=== PATIENT | female | born 1960 | race Caucasian/White ===

== ENCOUNTER → 2017-10-29 | Outpatient (CLI) | payer MEDICARE, BC ==
--- NOTE | 2017-10-31 07:51 | MM ---
Reason for exam: screening (asymptomatic). Last mammogram was performed 1 year and 2 months ago. History: Patient is postmenopausal and is nulliparous. Benign MG stereo VAD BX RT of the right breast, August 03, 2015. Took hormonal contraceptives for 15 years beginning at age 18. Physical Findings: A clinical breast exam by your physician is recommended on an annual basis and results should be correlated with mammographic findings. MG Screening Mammo w CAD Bilateral CC and MLO view(s) were taken. Prior study comparison: August 24, 2016, bilateral MG diagnostic mammo w CAD SAVI. February 08, 2016, right breast MG 3d diag mammo w/cad RT. December 16, 2014, bilateral MG diagnostic mammo w CAD SAVI. There are scattered fibroglandular densities. Previous mammotome biopsy within the right breast. Pacemaker left chest. No significant changes when compared with prior studies. ASSESSMENT: Benign, BI-RAD 2 RECOMMENDATION: Routine screening mammogram of both breasts in 1 year.
== END | disposition home or self-care (01) ==
LOC: RADMAMWWP 11:26
PROVIDERS: ATTEND Family Medicine
DX: Z12.31 Encounter for screening mammogram for malignant neoplasm of breast (principal)
CPT/HCPCS: 77067

== ENCOUNTER → 2018-11-18 | Outpatient (CLI) | payer MEDICARE, BC ==
--- NOTE | 2018-11-18 12:36 | MM ---
Reason for exam: screening (asymptomatic). Last mammogram was performed 1 year and 1 month ago. History: Patient is postmenopausal and is nulliparous. Benign MG stereo VAD BX RT of the right breast, August 03, 2015. Took hormonal contraceptives for 15 years beginning at age 18. Physical Findings: A clinical breast exam by your physician is recommended on an annual basis and results should be correlated with mammographic findings. MG 3D Screening Mammo W/Cad Bilateral CC and MLO view(s) were taken. Prior study comparison: October 29, 2017, bilateral MG screening mammo w CAD. August 24, 2016, bilateral MG diagnostic mammo w CAD SAVI. The breast tissue is heterogeneously dense. This may lower the sensitivity of mammography. No suspicious abnormality. Left cardiac device present obscuring the left axilla. No significant changes when compared with prior studies. ASSESSMENT: Negative, BI-RAD 1 RECOMMENDATION: Routine screening mammogram of both breasts in 1 year.
== END | disposition home or self-care (01) ==
LOC: RADMAMWWP 10:46
PROVIDERS: ATTEND Family Medicine
DX: Z12.39 Encounter for other screening for malignant neoplasm of breast (principal)
CPT/HCPCS: 77063; 77067

== ENCOUNTER → 2019-03-16 | Day surgery (SDC) | payer MEDICARE, BC ==
[2019-03-10 11:56] VITALS: BMI 22.8
[~2019-03-16] MED LIST: IOPAMIDOL-250 50ML BTL IV ONE; SODIUM CHLORIDE 0.9% 1,000 ML IV SCH
[2019-03-16 10:19] LABS: Glucose,Whole Blood 86 mg/dL (75-99)
[2019-03-16 10:23] VITALS: BP 167/73; PULSE 77; RESP 16; TEMP 97.7
[2019-03-16 10:43] LABS: INR 2.2 (<1.2); Prothrombin Time 21.3 sec (9.0-12.0)
--- NOTE | 2019-03-16 14:07 | P.PCN ---
Preoperative Diagnosis: Diagnosis Congenital heart disease with cardiomyopathy Status post ICD implant Device approaching ELIDA Noise in the atrial lead Patient brought in for cinefluoroscopy of the leads Cinefluoroscopy release performed. Patient has a right atrial lead without any fractures or breaks that are obvious on cinefluoroscopy ICD lead in the RV apex without any fractures or breaks A pacing lead, please-sense lead screwed in the RV septum, without any fractures or breaks Left upper extremity venogram was performed 50 mL of dye was injected in the left upper extremity. Left subclavian and axillary venous system along with a central veins were patent Plan Once patient reaches ELIDA, during generator change consideration should be given to a new atrial lead implant However the patient already has 3 leads in situ
== END ==
LOC: CATHEP 09:45
PROVIDERS: ATTEND Internal Medicine Clinical Cardiac Electrophysiology
DX: Z45.02 Encounter for adjustment and management of automatic implantable cardiac defibrillator (principal); I47.2 Ventricular tachycardia; Q21.3 Tetralogy of Fallot; I48.0 Paroxysmal atrial fibrillation; I42.9 Cardiomyopathy, unspecified; E11.9 Type 2 diabetes mellitus without complications; I11.0 Hypertensive heart disease with heart failure; I50.22 Chronic systolic (congestive) heart failure; B18.2 Chronic viral hepatitis C; Z79.01 Long term (current) use of anticoagulants; Z79.84 Long term (current) use of oral hypoglycemic drugs; Z79.82 Long term (current) use of aspirin; Z79.899 Other long term (current) drug therapy; Z88.5 Allergy status to narcotic agent; Z88.0 Allergy status to penicillin; Z88.2 Allergy status to sulfonamides
CPT/HCPCS: 36005; 75820; 76000; 85610; Q9966

== ENCOUNTER 2019-04-07 09:09 | Day surgery (SDC) | payer MEDICARE, BC ==
[2019-04-06 08:44] VITALS: BMI 23.1
[~2019-04-07 09:09] MED LIST changes: +CLINDAMYCIN 600 MG in SODIUM CHLORIDE 0.9% IRRIGATIO 250 ML IRRIGATION ONE; -IOPAMIDOL-250 50ML BTL IV ONE; +LACTATED RINGERS 1,000 ML IV SCH; +MIDAZOLAM 2 MG/2 ML VIAL IV PRN; -SODIUM CHLORIDE 0.9% 1,000 ML IV SCH; +fentaNYL (PF) 50 MCG/ML 2 ML AMP IV PRN
[2019-04-07 10:00] LABS: Glucose,Whole Blood 95 mg/dL (75-99)
[2019-04-07 10:38] LABS: INR 2.2 (<1.2); Prothrombin Time 21.2 sec (9.0-12.0)
[2019-04-07] MEDS ORDERED: ePHEDrine SULFATE/0.9% NACL/PF 50 MG/5 ML SYRINGE IV ONE (11:18)
[2019-04-07] MEDS ORDERED: SODIUM CHLORIDE 0.9% 1,000 ML IV ONE (11:18)
[2019-04-07] MEDS ORDERED: MIDAZOLAM 2 MG/2 ML VIAL ONE (11:18)
[2019-04-07] MEDS ORDERED: fentaNYL (PF) 50 MCG/ML 2 ML AMP ONE (11:18)
[2019-04-07] MEDS ORDERED: PROPOFOL 10 MG/ML 20 ML VIAL IV ONE (11:18)
[2019-04-07] MEDS: CLINDAMYCIN 900 MG in DEXTROSE 5% IN WATER 50 ML IVPB ONE ×4 (11:46→11:51)
[2019-04-07] MEDS ORDERED: LIDOCAINE 1% INJ 10MG/ML (20 ML MDV) SQ ONE ×2 (11:57→12:11)
[2019-04-07] MEDS ORDERED: IOPAMIDOL-250 50ML BTL IV ONE (12:58)
[2019-04-07] MEDS ORDERED: ACETAMINOPHEN IV (For NPO) 1,000 MG in EMPTY BAG 1 BAG IVPB ONE (13:35)
[2019-04-07] MEDS ORDERED: ACETAMINOPHEN TAB 325 MG TAB PO PRN (13:35)
--- NOTE | 2019-04-07 14:15 | P.PCN ---
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 The area was coated with 4 cm length of silicone glue No definite break in the insulation was visualized
[2019-04-07] MEDS: SODIUM CHLORIDE 0.9% 1,000 ML IV SCH ×2 (14:18→23:39)
[2019-04-07 16:03] LABS: Glucose,Whole Blood 73 mg/dL (75-99)
[2019-04-07] MEDS: CARVEDILOL 3.125 MG TAB PO SCH (17:52)
[2019-04-07] MEDS: CLINDAMYCIN 900 MG in DEXTROSE 5% IN WATER 50 ML IVPB SCH ×4 (17:52→23:38)
[2019-04-07] MEDS ORDERED: WARFARIN 2.5 MG TAB PO SCH (18:00)
--- NOTE | 2019-04-07 19:32 | PCN ---
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 At that time, she had ventricular tachycardia. Over the years, there was noise in the ICD lead and therefore the pacing and sensing RV lead was placed in the septum several years back. Now, she has developed noise in the atrial lead with elevated atrial thresholds. She paces predominantly the atrium but she also paces in the right ventricle about 60% of the time. From a heart failure standpoint, she is quite stable and has not had any heart failure exacerbations. DESCRIPTION OF PROCEDURE: The patient was brought to the EP lab in a fasting state. Written informed consent was obtained prior to the procedure. The left shoulder area was prepped and draped as per protocol. 1% lidocaine was used for local anesthesia. An incision was made parallel to the previous incision over the device and carried down to the level of the generator. The generator was anchored. Dual-chamber ICD generator was explanted. A partial capsulectomy was performed. The leads were freed from the scar tissue and inspected. The atrial lead insulation was definitely discolored, but I could not see any obvious gap or break in the insulation. Later this was repaired. Please see separate dictation. Axillary vein access was obtained successfully and angioplasty wire was placed in the innominate vein. However, this angioplasty wire had difficulty getting into the SVC and the right atrium, but ultimately we were able to place a micropuncture sheath in the subclavian vein and via this an Advantage wire was placed and passed across the innominate vein, SVC, right atrium into the IVC. Following that, serial dilations were performed but the dilator, even the smallest dilator, could not pass across the distal innominate vein into the SVC. Therefore, a sheath was placed over the wire and venography was performed. Please see separate full dictation. 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 Therefore, no atrial lead was implanted. The new generator was implanted. This was a dual-chamber Medtronic ICD Evera MRI XT serial number [id number]. Then thereafter the atrial lead repair was performed since this was the problem lead. The leads were connected to the new generator and placed in subfascial pocket and the wound was closed in 3 layers and dressed per protocol. This was a long procedure on account of the extensive scar tissue in the pocket from prior generator changes, difficulty crossing the innominate vein with dilators, innominate vein venography, repair of the atrial lead. The patient tolerated the procedure well without any acute complications. JEROME / JERON: [id number] /
[2019-04-07 20:53] LABS: Glucose,Whole Blood 124 mg/dL (75-99)
[2019-04-07] MEDS ORDERED: LOSARTAN 25 MG TAB PO SCH (21:00)
[2019-04-07] MEDS ORDERED: LATANOPROST 0.005% OPHTH DROPS 2.5 ML BTL BOTH EYES SCH (21:00)
[2019-04-08] MEDS: CLINDAMYCIN 900 MG in DEXTROSE 5% IN WATER 50 ML IVPB SCH ×4 (06:05→11:17)
[2019-04-08 06:39] LABS: Glucose,Whole Blood 102 mg/dL (75-99)
[2019-04-08 08:10] LABS: Basophils % (A) 0 %; Eosinophils # (A) 0.1 k/uL (0-0.7); Eosinophils % (A) 1 %; HCT 37.5 % (34.0-46.0); HGB 11.9 gm/dL (11.4-16.0); Lymphocytes # (A) 1.7 k/uL (1.0-4.8); Lymphocytes % (A) 22 %; MCH 29.6 pg (25.0-35.0); MCHC 31.7 g/dL (31.0-37.0); MCV 93.5 fL (80.0-100.0); Mean Platelet Volume 9.1; Monocytes # (A) 0.8 k/uL (0-1.0); Monocytes % (A) 10 %; Neutrophils % (A) 65 %; Platelet Count 134 k/uL (150-450); RBC 4.02 m/uL (3.80-5.40); RDW 15.3 % (11.5-15.5); WBC 7.7 k/uL (3.8-10.6)
[2019-04-08 08:15] LABS: African American GFR (CKD) >90 (>60 ml/min/1.73 sqM); Anion Gap 8 mmol/L; Blood Urea Nitrogen 13 mg/dL (7-17); Carbon Dioxide 26 mmol/L (22-30); Chloride 107 mmol/L (98-107); Glucose 140 mg/dL (74-99); Potassium 3.8 mmol/L (3.5-5.1); Sodium 141 mmol/L (137-145)
[2019-04-08 08:17] LABS: INR 1.9 (<1.2); Prothrombin Time 18.5 sec (9.0-12.0)
[2019-04-08] MEDS ORDERED: ASPIRIN 81 MG PO SCH (09:00)
[2019-04-08] MEDS ORDERED: MAGNESIUM OXIDE 400 MG TAB PO SCH (09:00)
[2019-04-08] MEDS ORDERED: NON-FORMULARY DRUG (Ubidecarenone [Co Q-10] 100 MG) PO SCH (09:00)
[2019-04-08] MEDS ORDERED: LOSARTAN 50 MG TAB PO SCH (09:00)
[2019-04-08] MEDS: CARVEDILOL 3.125 MG TAB PO SCH (09:14)
--- NOTE | 2019-04-08 10:05 | XR ---
EXAMINATION TYPE: XR chest 2V DATE OF EXAM: 04/08/2019 COMPARISON: NONE TECHNIQUE: PA and lateral views submitted. HISTORY: Lead placement check FINDINGS: The lungs are clear and there is no pneumothorax, pleural effusion, or focal pneumonia. There is a multilead cardiac device. Postsurgical changes noted. Heart is enlarged. No pneumothorax. No overt fa ilure. Curvature the spine and hypertrophic change of the vertebral bodies are noted. No pneumothorax . No overt failure. No pleural effusion. No consolidation. IMPRESSION: 1. Cardiac device placement with no sizable pneumothorax.
--- NOTE | 2019-04-08 10:08 | P.DS ---
Providers Attending physician: Alex Armstrong Primary care physician: [facility] Course: Patient is a 58-year-old female with a past medical history of tetralogy of fallot status post dual-chamber ICD implantation who presented her generator change because her device was near ELIDA. She has also had some noise on her atrial lead with elevated atrial thresholds. She underwent successful generator change yesterday. The procedure she was found to have occlusion of the distal innominate vein so no new atrial lead was implanted. The existing atrial lead was repaired. Patient seen and examined resting comfortably in bed. No acute events overnight. Does have some mild soreness over the generator site states her pain has been well controlled with Tylenol. Denies any chest pain or shortness of breath. She was able to get up and go to the bathroom without any dizziness, lightheadedness Labs reviewed, WBC 7.7, hemoglobin 11.9, platelets 134, potassium 3.8, BUN 13, creatinine 0.57, Chest x-ray showed no pneumothorax Temperature 97.5F, pulse 54, respirations 16, blood pressure 121/58, oxygen saturation 94% on room air Patient seen and examined resting comfortably in bed Lungs mildly diminished but clear to auscultation bilaterally Heart is regular, systolic and diastolic murmurs No lower extremity edema noted Dressing clean dry and intact Impression Congenital heart disease status post dual-chamber ICD implantation status post generator change Plan Restrictions discussed with patient Patient can be discharged after her last dose of antibiotics Follow up with the device clinic within 5 days for suture removal Follow-up office visit in 4 months Continue all cardiac medications Plan - Discharge Summary Discharge Rx Participant: No New Discharge Prescriptions: New Carvedilol [Coreg] 3.125 mg PO BID #90 tablet Discontinued Metoprolol Tartrate [Lopressor] 75 mg PO HS Metoprolol Tartrate [Lopressor] 50 mg PO DAILY No Action Flaxseed Oil 1,000 mg PO DAILY Ubidecarenone [Co Q-10] 100 mg PO DAILY Magnesium 200 mg PO DAILY Warfarin [Coumadin] 2.5 mg PO SUTUTHFR Warfarin [Coumadin] 5 mg PO MOWESA Aspirin [Adult Low Dose Aspirin EC] 162 mg PO DAILY metFORMIN HCL [Glucophage] 500 mg PO BID Losartan [Cozaar] 75 mg PO HS Losartan [Cozaar] 50 mg PO DAILY Latanoprost [Xalatan 0.005%] 1 drop BOTH EYES HS Biotin 5 mg PO DAILY Discharge Medication List Aspirin [Adult Low Dose Aspirin EC] 162 mg PO DAILY 03/10/19 [History] Biotin 5 mg PO DAILY 03/10/19 [History] Flaxseed Oil 1,000 mg PO DAILY 03/10/19 [History] Latanoprost [Xalatan 0.005%] 1 drop BOTH EYES HS 03/10/19 [History] Losartan [Cozaar] 50 mg PO DAILY 03/10/19 [History] Losartan [Cozaar] 75 mg PO HS 03/10/19 [History] Magnesium 200 mg PO DAILY 03/10/19 [History] Ubidecarenone [Co Q-10] 100 mg PO DAILY 03/10/19 [History] Warfarin [Coumadin] 2.5 mg PO SUTUTHFR 03/10/19 [History] Warfarin [Coumadin] 5 mg PO MOWESA 03/10/19 [History] metFORMIN HCL [Glucophage] 500 mg PO BID 03/10/19 [History] Carvedilol [Coreg] 3.125 mg PO BID #90 tablet 04/07/19 [Rx] Follow up Appointment(s)/Referral(s): Alex Armstrong MD [STAFF PHYSICIAN] - 1 Week (Follow up with the device clinic in 5 days follow up with Dr. Armstrong/Clarissa Jang/Elizabeth Mg in 3-4 months) Activity/Diet/Wound Care/Special Instructions: PATIENT EDUCATION MATERIAL Instructions following a heart rhythm device implant. 1. Keep dressing DRY for 5 DAYS. You may cover the area with Saran or Cling Wrap, prior to a shower. 2. The dressing will be removed in the Device Clinic at [facility]. Absorbable sutures were used to close the wound. 3. Avoid raising the left arm above the shoulder level. 4 week restriction 4. Avoid arm movements, like backscratching, rubbing the head, or pulling on a cord. 2 weeks restriction 5. Gentle range of motion movements of the shoulder, closest to the incision should be performed to avoid a frozen shoulder. (Pendulum exercises of the shoulder) 6. The opposite arm may be used freely. 7. Avoid driving for 7 days. 8. Avoid activities such as golfing, swimming, weed whacking, lifting more than 10 pounds weight, bowling, gymnastics and weight training/lifting. (2 weeks restriction) 9. Activities such as wood chopping with an axe, pull-ups in the gymnasium, power lifting, arc-welding, being close to home induction cooktops will always be a problem. 10. Arm sling is only a reminder not to raise the arm above the head. You do not need to keep the arm completely immobilized. Your free to move the arm and use it and for normal activities. In case of any problems, please call [facility], [place], @ [phone], Attention: Device Clinic Device clinic follow-up in 5 days Follow-up with primary helicopter officer in 2-3 months Stop metoprolol and start carvedilol 3.125 mg twice a day, continue all other cardiac medications including warfarin
[2019-04-08 11:41] LABS: Glucose,Whole Blood 91 mg/dL (75-99)
[2019-04-08 12:13] VITALS: BP 122/74; PULSE 81; RESP 14; TEMP 97.9
[2019-04-08 17:29] LABS: Hemoglobin A1C 5.7 % (4.0-6.0)
[2019-04-08] MEDS ORDERED: WARFARIN 5 MG TAB PO SCH (18:00)
[2019-04-09] MEDS ORDERED: metFORMIN 500 MG TAB PO SCH (17:30)
== END 2019-04-08 15:02 | disposition home or self-care (01) ==
LOC: CATHEP 09:09 → 1SOBS 14:05 → CATHEP 04-08 15:02
PROVIDERS: ATTEND Internal Medicine Clinical Cardiac Electrophysiology
DX: I47.1 Supraventricular tachycardia (principal); Z45.02 Encounter for adjustment and management of automatic implantable cardiac defibrillator; T82.110A Breakdown (mechanical) of cardiac electrode, initial encounter; I47.2 Ventricular tachycardia; I82.B12 Acute embolism and thrombosis of left subclavian vein; Q21.3 Tetralogy of Fallot; I11.0 Hypertensive heart disease with heart failure; I50.22 Chronic systolic (congestive) heart failure; E11.9 Type 2 diabetes mellitus without complications; B18.2 Chronic viral hepatitis C; Z79.01 Long term (current) use of anticoagulants; Z79.84 Long term (current) use of oral hypoglycemic drugs; Z79.82 Long term (current) use of aspirin; Z79.899 Other long term (current) drug therapy; Z88.5 Allergy status to narcotic agent; Z88.0 Allergy status to penicillin; Z88.2 Allergy status to sulfonamides
CPT/HCPCS: 33218; 33263; 80048; 83735; 85025; 85610 ×2; 83036; 71046; C1769 ×2; C1892; C1721; J2250; J2001; J3010; J0131; J2704; Q9966

== ENCOUNTER 2019-04-25 15:52 | Emergency (ER) | payer MEDICARE, BC ==
[2019-04-25 16:00] VITALS: RESP 18; TEMP 98
[2019-04-25] MEDS ORDERED: LIDOCAINE 1%-EPI 1:100,000 20 ML VIAL SQ STA (16:31)
--- NOTE | 2019-04-25 17:12 | ED ---
General Adult HPI - General Chief complaint: Recheck/Abnormal Lab/Rx Stated complaint: Recheck Time Seen by Provider: 04/25/19 16:03 Source: patient, RN notes reviewed Mode of arrival: ambulatory Limitations: no limitations - History of Present Illness Initial comments: 58-year-old female with a past medical history of diabetes, hypertension presents to the emergency department for chief complaint of bleeding. Patient states she had a pacemaker battery replacement a few weeks ago. States that today her bra strap snagged on her incision site and it started to bleed. States she could not get it to stop bleeding as she is on Coumadin and aspirin. Denies any other bleeding including hematemesis, hematochezia, melena, epistaxis. Patient otherwise feeling her normal self.Patient has no other complaints at this time including shortness of breath, chest pain, abdominal pain, nausea or vomiting, headache, or visual changes. - Related Data Home Medications Medication Instructions Recorded Confirmed Aspirin [Adult Low Dose Aspirin EC] 162 mg PO DAILY 03/10/19 04/06/19 Biotin 5 mg PO DAILY 03/10/19 04/06/19 Flaxseed Oil 1,000 mg PO DAILY 03/10/19 04/06/19 Latanoprost [Xalatan 0.005%] 1 drop BOTH EYES HS 03/10/19 04/06/19 Losartan [Cozaar] 50 mg PO DAILY 03/10/19 04/06/19 Losartan [Cozaar] 75 mg PO HS 03/10/19 04/06/19 Magnesium 200 mg PO DAILY 03/10/19 04/06/19 Ubidecarenone [Co Q-10] 100 mg PO DAILY 03/10/19 04/06/19 Warfarin [Coumadin] 2.5 mg PO SUTUTHFR 03/10/19 04/07/19 Warfarin [Coumadin] 5 mg PO MOWESA 03/10/19 04/07/19 metFORMIN HCL [Glucophage] 500 mg PO BID 03/10/19 04/06/19 Previous Rx's Medication Instructions Recorded Carvedilol [Coreg] 3.125 mg PO BID-W/MEALS #180 tab 04/08/19 Allergies Allergy/AdvReac Type Severity Reaction Status Date / Time codeine Allergy Rash/Hives Verified 04/25/19 15:56 Penicillins Allergy Rash/Hives Verified 04/25/19 15:56 Sulfa (Sulfonamide Allergy Rash/Hives Verified 04/25/19 15:56 Antibiotics) Review of Systems ROS Statement: Those systems with pertinent positive or pertinent negative responses have been documented in the HPI. ROS Other: All systems not noted in ROS Statement are negative. Past Medical History Past Medical History: Diabetes Mellitus, Eye Disorder, Hypertension, Liver Disease Additional Past Medical History / Comment(s): See Dr Briggs H&P, hx tetralogy fallot. hepatitis had tx clear now. 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 glaucoma ana maria eyes History of Any Multi-Drug Resistant Organisms: None Reported Past Surgical History: AICD, Heart Catheterization, Pacemaker Additional Past Surgical History / Comment(s): tetralogy fallot repaired 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 d&C Past Anesthesia/Blood Transfusion Reactions: No Reported Reaction Type of Cardiac Device: AICD Device Placement Date:: 1998 Past Psychological History: No Psychological Hx Reported Smoking Status: Never smoker Past Alcohol Use History: None Reported Past Drug Use History: None Reported - Past Family History Mother Family Medical History: No Reported History General Exam Limitations: no limitations General appearance: alert, in no apparent distress Head exam: Present: atraumatic, normocephalic, normal inspection Eye exam: Present: normal appearance, PERRL, EOMI. Absent: scleral icterus, conjunctival injection, periorbital swelling ENT exam: Present: normal exam, mucous membranes moist Neck exam: Present: normal inspection, full ROM. Absent: tenderness, meningismus, lymphadenopathy Respiratory exam: Present: normal lung sounds bilaterally. Absent: respiratory distress, wheezes, rales, rhonchi, stridor Cardiovascular Exam: Present: regular rate, normal rhythm, normal heart sounds, other (Patient has a small pin-sized hemorrhage noted along surgical site of the left chest. Otherwise incision appears well approximated and appears to be healing well without any evidence of infection.). Absent: systolic murmur, diastolic murmur, rubs, gallop, clicks Neurological exam: Present: alert Psychiatric exam: Present: normal affect, normal mood Course Vital Signs 04/25/19 04/25/19 15:56 17:23 Temperature 98 F Pulse Rate 78 77 Respiratory 18 18 Rate Blood Pressure 131/56 131/55 O2 Sat by Pulse 98 98 Oximetry Procedures - Laceration Laceration #1 Anesthetic Used: lidocaine 1%, with epi Anesthesia Technique: local infiltration Amount (mls): 2 Pre-repair: irrigated extensively (Area was cleaned with iodine) Type of Sutures: other (Ethilon) Size of Sutures: 6-0 Number of Sutures: 1 Technique: other (Figure 8) Patient Tolerated Procedure: well, no complications Medical Decision Making - Medical Decision Making 58-year-old female presents to the emergency department for a chief complaint of bleeding of the incision site. This occurred just earlier today when her breasts drops night the area. A physician there is a pinpoint sized hemorrhage noted along pacemaker incision site. Otherwise well approximated in healing without complications. I did attempt to apply direct pressure for several minutes however bleeding would not cease. Therefore I cleansed the area thoroughly and put a figure 8 stitch over the area which immediately stopped the bleeding. Patient was educated to follow-up with her surplus property disposal agent as well as primary care. Patient was educated return if she has any worsening symptoms. She will return in 7 days for suture removal. Disposition Clinical Impression: Post-op bleeding Disposition: HOME SELF-CARE Condition: Good Instructions (If sedation given, give patient instructions): Care For Your Stitches (ED) Additional Instructions: Please follow up with primary care in 1-2 days. Monitor for signs of infection. Keep the area clean. Please return to the emergency department if you have any worsening symptoms. Return in 7 days to have 1 suture removed. Is patient prescribed a controlled substance at d/c from ED?: No Referrals: Jeremie Waters III, MD [Primary Care Provider] - 1-2 days Time of Disposition: 17:11
[2019-04-25 17:24] VITALS: BP 131/55; PULSE 77
== END 2019-04-25 17:23 | disposition home or self-care (01) ==
LOC: EC 15:52
DX: L76.22 Postprocedural hemorrhage of skin and subcutaneous tissue following other procedure (principal); E11.9 Type 2 diabetes mellitus without complications; I10 Essential (primary) hypertension; H40.9 Unspecified glaucoma; K76.9 Liver disease, unspecified; Z79.82 Long term (current) use of aspirin; Z79.01 Long term (current) use of anticoagulants; Z79.84 Long term (current) use of oral hypoglycemic drugs; Z79.899 Other long term (current) drug therapy; Z88.0 Allergy status to penicillin; Z88.2 Allergy status to sulfonamides; Z88.5 Allergy status to narcotic agent; Z87.74 Personal history of (corrected) congenital malformations of heart and circulatory system; Z95.810 Presence of automatic (implantable) cardiac defibrillator; Z95.5 Presence of coronary angioplasty implant and graft; Z98.41 Cataract extraction status, right eye; Z98.42 Cataract extraction status, left eye
CPT/HCPCS: 12001; 99283

== ENCOUNTER → 2020-06-09 | Outpatient (CLI) | payer MEDICARE, BC ==
--- NOTE | 2020-06-10 13:29 | MM ---
Reason for exam: screening (asymptomatic). Last mammogram was performed 1 year and 7 months ago. History: Patient is postmenopausal and is nulliparous. Benign MG stereo VAD BX RT of the right breast, August 03, 2015. Took hormonal contraceptives for 15 years beginning at age 18. Physical Findings: A clinical breast exam by your physician is recommended on an annual basis and results should be correlated with mammographic findings. MG 3D Screening Mammo W/Cad Bilateral CC and MLO view(s) were taken. Prior study comparison: November 18, 2018, bilateral MG 3d screening mammo w/cad. October 29, 2017, bilateral MG screening mammo w CAD. The breast tissue is heterogeneously dense. This may lower the sensitivity of mammography. Previous mammotome biopsy in the right breast. No significant changes when compared with prior studies. ASSESSMENT: Benign, BI-RAD 2 RECOMMENDATION: Routine screening mammogram of both breasts in 1 year.
== END | disposition home or self-care (01) ==
LOC: RADMAMWWP 10:42
PROVIDERS: ATTEND Family Medicine
DX: Z12.31 Encounter for screening mammogram for malignant neoplasm of breast (principal)
CPT/HCPCS: 77063; 77067

== ENCOUNTER → 2021-07-13 | Outpatient (CLI) | payer MEDICARE, BC ==
--- NOTE | 2021-07-14 11:33 | MM ---
Reason for exam: screening (asymptomatic). Last mammogram was performed 1 year and 1 month ago. History: Patient is postmenopausal and is nulliparous. Benign MG stereo VAD BX RT of the right breast, August 03, 2015. Took hormonal contraceptives for 15 years beginning at age 18. Physical Findings: A clinical breast exam by your physician is recommended on an annual basis and results should be correlated with mammographic findings. MG 3D Screening Mammo W/Cad Bilateral CC and MLO view(s) were taken. Prior study comparison: June 09, 2020, bilateral MG 3d screening mammo w/cad. November 18, 2018, bilateral MG 3d screening mammo w/cad. The breast tissue is heterogeneously dense. This may lower the sensitivity of mammography. Finding #1: There is a 5.6 mm circumscribed round mass in the lower outer quadrant, anterior middle position of the right breast. Finding #2: There are typically benign dystrophic, round calcifications in both breasts. ASSESSMENT: Incomplete: need additional imaging evaluation, BI-RAD 0 RECOMMENDATION: Ultrasound of the right breast. [facility] will attempt to contact patient to return for ultrasound.
== END ==
LOC: RADMAMWWP 10:54
PROVIDERS: ATTEND Family Medicine
DX: Z12.31 Encounter for screening mammogram for malignant neoplasm of breast (principal); N63.13 Unspecified lump in the right breast, lower outer quadrant
CPT/HCPCS: 77063; 77067

== ENCOUNTER → 2021-07-28 | Outpatient (CLI) | payer MEDICARE, BC ==
--- NOTE | 2021-07-28 14:48 | USB ---
Reason for exam: additional evaluation requested from abnormal screening. History: Patient is postmenopausal and is nulliparous. Benign MG stereo VAD BX RT of the right breast, August 03, 2015. Took hormonal contraceptives for 15 years beginning at age 18. Physical Findings: Nurse did not find any significant physical abnormalities on exam. US Breast Workup Limited RT Technologist: Rosanna Jesus Right limited breast ultrasound including focal area of concern, retroareolar and axilla demonstrates a 0.4 x 0.3 x 0.3cm oval, cystic lesion at 7 o'clock and a 1.3 x 1.3 x 0.5cm ductal ectasia at the nipple, asymmetry in prominent tissue, no change on mammograms. These results were verbally communicated with the patient and result sheet given to the patient on 07/28/21. ASSESSMENT: Benign, BI-RAD 2 RECOMMENDATION: Return to routine screening mammogram schedule for both breasts.
== END | disposition home or self-care (01) ==
LOC: RADUSWWP 13:29
PROVIDERS: ATTEND Family Medicine
DX: N60.01 Solitary cyst of right breast (principal); N60.41 Mammary duct ectasia of right breast; Z78.0 Asymptomatic menopausal state

== ENCOUNTER 2021-09-11 13:34 | Emergency (ER) | payer MEDICARE, BC ==
--- NOTE | 2021-09-11 16:45 | ED ---
Extremity Problem HPI - General Chief complaint: Extremity Problem,Nontraumatic Stated complaint: right leg pain Time Seen by Provider: 09/11/21 15:56 Source: patient Mode of arrival: EMS Limitations: no limitations - History of Present Illness Initial comments: This 60-year-old female presents to the emergency department with right lower extremity pain 5 days. Patient states she was sitting differently in her chair (5 days ago) than she normally sits, and was sitting with her legs bent, and the next day began to have right knee pain. States she is worried that she has a blood clot. Patient states she does not have a history of blood clots. She has not had any recent falls, trauma, or surgery to the knee. Patient describes her knee pain as "pulling" and states over the last 2 days it days it has felt like it is significantly improving. However, patient states she now is having right ankle pain that she noticed over the last 2-3 days. She denies having any recent falls, trauma, stretching/exercising, or tripping to cause this pain. Patient denies any warmth or erythema to her knee or ankle. She denies any calf pain, redness, warmth, or swelling. Patient states she does have pain in her knee and ankle when she walks. Patient denies any chest pain, shortness of breath, abdominal pain, change in vision, headache, nausea, vomiting, fever, change in bowel or bladder habits. - Related Data Home Medications Medication Instructions Recorded Confirmed Aspirin [Adult Low Dose Aspirin EC] 162 mg PO DAILY 03/10/19 04/06/19 Biotin 5 mg PO DAILY 03/10/19 04/06/19 Flaxseed Oil 1,000 mg PO DAILY 03/10/19 04/06/19 Latanoprost [Xalatan 0.005%] 1 drop BOTH EYES HS 03/10/19 04/06/19 Losartan [Cozaar] 50 mg PO DAILY 03/10/19 04/06/19 Losartan [Cozaar] 75 mg PO HS 03/10/19 04/06/19 Magnesium 200 mg PO DAILY 03/10/19 04/06/19 Ubidecarenone [Co Q-10] 100 mg PO DAILY 03/10/19 04/06/19 Warfarin [Coumadin] 2.5 mg PO SUTUTHFR 03/10/19 04/07/19 Warfarin [Coumadin] 5 mg PO MOWESA 03/10/19 04/07/19 metFORMIN HCL [Glucophage] 500 mg PO BID 03/10/19 04/06/19 Previous Rx's Medication Instructions Recorded carvediloL [Coreg] 3.125 mg PO BID-W/MEALS #180 tab 04/08/19 Cyclobenzaprine [Flexeril] 10 mg PO HS #3 tab 09/11/21 Allergies Allergy/AdvReac Type Severity Reaction Status Date / Time codeine Allergy Rash/Hives Verified 09/11/21 14:09 Penicillins Allergy Rash/Hives Verified 09/11/21 14:09 Sulfa (Sulfonamide Allergy Rash/Hives Verified 09/11/21 14:09 Antibiotics) Review of Systems ROS Statement: Those systems with pertinent positive or pertinent negative responses have been documented in the HPI. ROS Other: All systems not noted in ROS Statement are negative. Past Medical History Past Medical History: Diabetes Mellitus, Eye Disorder, Hypertension, Liver Disease Additional Past Medical History / Comment(s): See Dr Briggs H&P, hx tetralogy fallot. hepatitis had tx clear now. 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 glaucoma ana maria eyes History of Any Multi-Drug Resistant Organisms: None Reported Past Surgical History: AICD, Heart Catheterization, Pacemaker Additional Past Surgical History / Comment(s): tetralogy fallot repaired 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 d&C Past Anesthesia/Blood Transfusion Reactions: No Reported Reaction Type of Cardiac Device: AICD Device Placement Date:: 1998 Past Psychological History: No Psychological Hx Reported Smoking Status: Never smoker Past Alcohol Use History: None Reported Past Drug Use History: None Reported - Past Family History Mother Family Medical History: No Reported History General Exam Limitations: no limitations General appearance: alert, in no apparent distress Head exam: Present: atraumatic, normocephalic Eye exam: Present: normal appearance, EOMI ENT exam: Present: normal exam, mucous membranes moist Neck exam: Present: normal inspection, full ROM Respiratory exam: Present: normal lung sounds bilaterally. Absent: respiratory distress, wheezes, rales, rhonchi, stridor Cardiovascular Exam: Present: regular rate, normal rhythm, normal heart sounds. Absent: systolic murmur, diastolic murmur, rubs, gallop, clicks GI/Abdominal exam: Present: soft, normal bowel sounds. Absent: distended, tenderness, guarding, rebound, rigid Extremities exam: Present: full ROM (Posterior tibial, and dorsalis pedis pulses palpated and present with doppler), normal capillary refill, other (Tenderness to the medial aspect of her right knee to deep palpation. No warmth, swelling, effusion, or erythema noted. Lateral aspect of right ankle above the lateral malleolus with slight swelling and pain to palpation. No erythema, warmth, effusion noted. ). Absent: calf tenderness (No erythema, palpable cord, tenderness to palpation, or warmth noted) Back exam: Present: normal inspection. Absent: tenderness, CVA tenderness (R), CVA tenderness (L) Neurological exam: Present: alert, oriented X3, CN II-XII intact Psychiatric exam: Present: normal affect, normal mood Skin exam: Present: warm, dry, intact, normal color. Absent: rash Course Vital Signs 09/11/21 09/11/21 14:09 18:18 Temperature 97.7 F Pulse Rate 88 80 Respiratory 20 20 Rate Blood Pressure 97/57 115/50 O2 Sat by Pulse 97 98 Oximetry Medical Decision Making - Medical Decision Making This 60-year-old female presents to the emergency department with right knee and ankle pain 5 days. Right lower extremity ultrasound doppler impression: No evidence of DVT in the right leg. Right ankle x-ray impression: Soft tissue swelling. No fracture. Right fibula/tibia impression: Soft tissue swelling over the lateral ankle. No fracture. On physical exam, there is no erythema, warmth, effusion or sign of infection over the right knee or right ankle. Patient had no fever and all vital signs were stable. Slight swelling to lateral side of right ankle. Conservative therapy discussed. Patient given Flexeril for home. She is able to bear weight on right leg. Ye wrap applied. Patient to follow-up with orthopedic associates in next 1-2 days. Patient given strict return precautions. Patient verbally agreed planned. Patient sent home in stable condition. Disposition Clinical Impression: Muscle strain of right ankle Disposition: HOME SELF-CARE Condition: Stable Instructions (If sedation given, give patient instructions): Ankle Strain (ED) Additional Instructions: Please return to the emergency department with any concerning, new, worsening symptoms. Please follow-up with orthopedic associates in next 24-48 hours. Alternate between heat and ice to right knee and right ankle. Prescriptions: Cyclobenzaprine [Flexeril] 10 mg PO HS #3 tab Is patient prescribed a controlled substance at d/c from ED?: No Referrals: Jeremie Waters III, MD [Primary Care Provider] - 1-2 days [facility] [Provider Group] - 1-2 days Time of Disposition: 20:19
--- NOTE | 2021-09-11 17:19 | US ---
EXAMINATION TYPE: US venous doppler duplex LE RT DATE OF EXAM: 09/11/2021 5:09 PM COMPARISON: NONE CLINICAL HISTORY: pain. SIDE PERFORMED: Right TECHNIQUE: The lower extremity deep venous system is examined utilizing real time linear array sonog ling with graded compression, doppler sonography and color-flow sonography. VESSELS IMAGED: Common Femoral Vein Deep Femoral Vein Greater Saphenous Vein * Femoral Vein Popliteal Vein Small Saphenous Vein * Proximal Calf Veins (* superficial vessels) Right Leg: Negative for DVT IMPRESSION: No evidence of deep vein thrombosis in the right leg.
--- NOTE | 2021-09-11 19:22 | XR ---
EXAMINATION TYPE: XR tibia fibula RT DATE OF EXAM: 09/11/2021 COMPARISON: NONE HISTORY: Pain TECHNIQUE: 2 view FINDINGS: I see no fracture nor dislocation. Knee joint and ankle joint appear intact. There is mild soft tissue swelling over the lateral malleolus. IMPRESSION: Soft tissue swelling over the lateral ankle. No fracture.
--- NOTE | 2021-09-11 19:23 | XR ---
EXAMINATION TYPE: XR ankle complete RT DATE OF EXAM: 09/11/2021 COMPARISON: NONE HISTORY: Pain. TECHNIQUE: 3 views FINDINGS: There is soft tissue swelling over the lateral malleolus. Ankle mortise is anatomic. Joint spaces are normal. IMPRESSION: Soft tissue swelling. No fracture.
[2021-09-11 20:40] VITALS: BP 109/57; PULSE 83; RESP 19; TEMP 98
== END 2021-09-11 20:37 | disposition home or self-care (01) ==
LOC: EC 13:34
DX: S96.819A Strain of other specified muscles and tendons at ankle and foot level, unspecified foot, initial encounter (principal); E11.9 Type 2 diabetes mellitus without complications; I10 Essential (primary) hypertension; Z79.84 Long term (current) use of oral hypoglycemic drugs
CPT/HCPCS: 99284

== ENCOUNTER 2021-10-01 00:05 | Observation (INO) | payer MEDICARE, BC ==
--- NOTE | 2021-10-01 00:41 | XR ---
EXAMINATION TYPE: XR chest 1V portable DATE OF EXAM: 10/01/2021 COMPARISON: 04/08/2019 HISTORY: Dysrhythmia TECHNIQUE: FINDINGS: Heart is enlarged. There is no heart failure. There is left axillary pacemaker. There are s ternal wires. There is no pleural effusion. Bony thorax is intact. IMPRESSION: Moderate cardiomegaly. No active cardiopulmonary disease. No significant change.
[2021-10-01 01:34] LABS: Albumin 3.6 g/dL (3.5-5.0); Magnesium 1.6 mg/dL (1.6-2.3); Potassium 3.8 mmol/L (3.5-5.1); Total Bilirubin 1.1 mg/dL (0.2-1.3); Total Protein 7.2 g/dL (6.3-8.2)
[2021-10-01 01:44] LABS: Anisocytosis Moderate; Basophils % (A) 0 %; Eosinophils % (A) 0 %; HCT 31.2 % (34.0-46.0); HGB 9.5 gm/dL (11.4-16.0); Hypochromasia Marked; Lymphocytes # (A) 1.3 k/uL (1.0-4.8); Lymphocytes % (A) 14 %; MCH 30.2 pg (25.0-35.0); MCHC 30.6 g/dL (31.0-37.0); MCV 98.6 fL (80.0-100.0); Macrocytosis Moderate; Mean Platelet Volume 8.8; Monocytes # (A) 0.8 k/uL (0-1.0); Monocytes % (A) 9 %; Neutrophils # (A) 7.1 k/uL (1.3-7.7); Neutrophils % (A) 74 %; Platelet Count 296 k/uL (150-450); Poikilocytosis Slight; RBC 3.16 m/uL (3.80-5.40); RDW 21.9 % (11.5-15.5); WBC 9.5 k/uL (3.8-10.6)
[2021-10-01 02:28] LABS: INR 1.7 (<1.2); Partial Thromboplastin Time 24.2 sec (22.0-30.0)
[2021-10-01] MEDS ORDERED: NALOXONE 0.4 MG/ML 1 ML VIAL IV PRN (02:56)
--- NOTE | 2021-10-01 03:00 | ED ---
Arrhythmia/Palpitations HPI - General Chief Complaint: Arrhythmia/Palpitations Stated Complaint: defibrillator went off Time Seen by Provider: 10/01/21 00:07 Source: EMS Mode of arrival: EMS - History of Present Illness Initial Comments: 's patient is 60-year-old woman who presents to have evaluation after she believes her defibrillator fired tonight. The patient states that she had been feeling funny. She states that her heart was beating and she was feeling sweaty and a little nauseated. She states that it then felt like her defibrillator fired around 11 PM. Complaint: "heart racing" -: hour(s) Context: occurred during rest Arrhythmia History: AICD Associated Symptoms: shortness of breath, nausea/vomiting Treatments Prior to Arrival: cardioversion - Related Data Home Medications Medication Instructions Recorded Confirmed Aspirin [Adult Low Dose Aspirin EC] 162 mg PO DAILY 03/10/19 04/06/19 Biotin 5 mg PO DAILY 03/10/19 04/06/19 Flaxseed Oil 1,000 mg PO DAILY 03/10/19 04/06/19 Latanoprost [Xalatan 0.005%] 1 drop BOTH EYES HS 03/10/19 04/06/19 Losartan [Cozaar] 50 mg PO DAILY 03/10/19 04/06/19 Losartan [Cozaar] 75 mg PO HS 03/10/19 04/06/19 Magnesium 200 mg PO DAILY 03/10/19 04/06/19 Ubidecarenone [Co Q-10] 100 mg PO DAILY 03/10/19 04/06/19 Warfarin [Coumadin] 2.5 mg PO SUTUTHFR 03/10/19 04/07/19 Warfarin [Coumadin] 5 mg PO MOWESA 03/10/19 04/07/19 metFORMIN HCL [Glucophage] 500 mg PO BID 03/10/19 04/06/19 Previous Rx's Medication Instructions Recorded carvediloL [Coreg] 3.125 mg PO BID-W/MEALS #180 tab 04/08/19 Cyclobenzaprine [Flexeril] 10 mg PO HS #3 tab 09/11/21 Allergies Allergy/AdvReac Type Severity Reaction Status Date / Time codeine Allergy Rash/Hives Verified 10/01/21 00:12 levofloxacin [From Levaquin] Allergy Itching Verified 10/01/21 00:12 Penicillins Allergy Rash/Hives Verified 10/01/21 00:12 Sulfa (Sulfonamide Allergy Rash/Hives Verified 10/01/21 00:12 Antibiotics) Review of Systems ROS Statement: Those systems with pertinent positive or pertinent negative responses have been documented in the HPI. ROS Other: All systems not noted in ROS Statement are negative. Constitutional: Denies: fever, chills, weakness Respiratory: Denies: cough, dyspnea Cardiovascular: Reports: palpitations, orthopnea. Denies: chest pain, edema, syncope Gastrointestinal: Reports: nausea. Denies: abdominal pain, vomiting, diarrhea, melena, hematochezia Genitourinary: Denies: dysuria, hematuria Musculoskeletal: Denies: back pain Skin: Reports: change in color (Bruising to right pretibial area). Denies: rash Neurological: Denies: headache, weakness Psychiatric: Denies: anxiety Past Medical History Past Medical History: Diabetes Mellitus, Eye Disorder, Hypertension, Liver Disease Additional Past Medical History / Comment(s): See Dr Briggs H&P, hx tetralogy fallot. hepatitis had tx clear now. 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 glaucoma ana maria eyes History of Any Multi-Drug Resistant Organisms: None Reported Past Surgical History: AICD, Heart Catheterization, Pacemaker Additional Past Surgical History / Comment(s): tetralogy fallot repaired 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 d&C Past Anesthesia/Blood Transfusion Reactions: No Reported Reaction Type of Cardiac Device: AICD Device Placement Date:: 1998 Past Psychological History: No Psychological Hx Reported Smoking Status: Never smoker Past Alcohol Use History: None Reported Past Drug Use History: None Reported - Past Family History Mother Family Medical History: No Reported History General Exam General appearance: alert, in no apparent distress Head exam: Present: atraumatic, normocephalic Eye exam: Present: normal appearance. Absent: scleral icterus, conjunctival injection Neck exam: Present: normal inspection Respiratory exam: Present: rales (Bilateral bases). Absent: wheezes, rhonchi, stridor Cardiovascular Exam: Present: normal rhythm, tachycardia, systolic murmur. Absent: diastolic murmur, rubs, gallop GI/Abdominal exam: Present: soft. Absent: distended, tenderness, guarding, rebound, rigid, mass Extremities exam: Present: full ROM, tenderness (Tenderness to right forefoot. There is some erythema over the right forefoot), normal capillary refill, pedal edema (Bilateral ankle swelling right greater than left). Absent: calf tenderness Back exam: Present: normal inspection Neurological exam: Present: alert Skin exam: Present: warm, dry, intact, erythema (Right forefoot), other (Some ecchymosis to the right pretibial and ankle area). Absent: rash Course Vital Signs 10/01/21 10/01/21 10/01/21 00:07 02:30 03:21 Temperature 98.5 F Pulse Rate 100 122 H 125 H Respiratory 18 19 18 Rate Blood Pressure 121/51 99/66 103/55 O2 Sat by Pulse 100 96 95 Oximetry EKG Findings - EKG Results: EKG: interpreted by ERIC, sinus rhythm, normal axis, normal ST/T EKG shows: tachycardia (Rate approximately 120 bpm) - Blocks, [place], Hypertrophy, ST Abn: AV and intraventricular conduction: right bundle branch block (fixed/intermittent, complete/incomplete) (Right bundle-branch block.) Medical Decision Making - Lab Data Result diagrams: 10/01/21 01:19 10/01/21 00:36 Lab Results 10/01/21 10/01/21 10/01/21 Range/Units 00:36 00:36 00:36 WBC (3.8-10.6) k/uL RBC (3.80-5.40) m/uL Hgb (11.4-16.0) gm/dL Hct (34.0-46.0) % MCV (80.0-100.0) fL MCH (25.0-35.0) pg MCHC (31.0-37.0) g/dL RDW (11.5-15.5) % Plt Count (150-450) k/uL MPV Neutrophils % % Lymphocytes % % Monocytes % % Eosinophils % % Basophils % % Neutrophils # (1.3-7.7) k/uL Lymphocytes # (1.0-4.8) k/uL Monocytes # (0-1.0) k/uL Eosinophils # (0-0.7) k/uL Basophils # (0-0.2) k/uL Hypochromasia Poikilocytosis Anisocytosis Macrocytosis PT 17.0 H (9.0-12.0) sec INR 1.7 H (<1.2) APTT 24.2 (22.0-30.0) sec Sodium 137 (137-145) mmol/L Potassium 3.8 (3.5-5.1) mmol/L Chloride 101 (98-107) mmol/L Carbon Dioxide 22 (22-30) mmol/L Anion Gap 14 mmol/L BUN 53 H (7-17) mg/dL Creatinine 0.89 (0.52-1.04) mg/dL Est GFR (CKD-EPI)AfAm 80 (>60 ml/min/1.73 sqM) Est GFR (CKD-EPI)NonAf 70 (>60 ml/min/1.73 sqM) Glucose 111 H (74-99) mg/dL Calcium 9.0 (8.4-10.2) mg/dL Magnesium 1.6 (1.6-2.3) mg/dL Total Bilirubin 1.1 (0.2-1.3) mg/dL AST 35 (14-36) U/L ALT 19 (4-34) U/L Alkaline Phosphatase 103 (38-126) U/L Troponin I 0.393 H* (0.000-0.034) ng/mL Total Protein 7.2 (6.3-8.2) g/dL Albumin 3.6 (3.5-5.0) g/dL 10/01/21 Range/Units 01:19 WBC 9.5 (3.8-10.6) k/uL RBC 3.16 L (3.80-5.40) m/uL Hgb 9.5 L (11.4-16.0) gm/dL Hct 31.2 L (34.0-46.0) % MCV 98.6 (80.0-100.0) fL MCH 30.2 (25.0-35.0) pg MCHC 30.6 L (31.0-37.0) g/dL RDW 21.9 H (11.5-15.5) % Plt Count 296 (150-450) k/uL MPV 8.8 Neutrophils % 74 % Lymphocytes % 14 % Monocytes % 9 % Eosinophils % 0 % Basophils % 0 % Neutrophils # 7.1 (1.3-7.7) k/uL Lymphocytes # 1.3 (1.0-4.8) k/uL Monocytes # 0.8 (0-1.0) k/uL Eosinophils # 0.0 (0-0.7) k/uL Basophils # 0.0 (0-0.2) k/uL Hypochromasia Marked Poikilocytosis Slight Anisocytosis Moderate Macrocytosis Moderate PT (9.0-12.0) sec INR (<1.2) APTT (22.0-30.0) sec Sodium (137-145) mmol/L Potassium (3.5-5.1) mmol/L Chloride (98-107) mmol/L Carbon Dioxide (22-30) mmol/L Anion Gap mmol/L BUN (7-17) mg/dL Creatinine (0.52-1.04) mg/dL Est GFR (CKD-EPI)AfAm (>60 ml/min/1.73 sqM) Est GFR (CKD-EPI)NonAf (>60 ml/min/1.73 sqM) Glucose (74-99) mg/dL Calcium (8.4-10.2) mg/dL Magnesium (1.6-2.3) mg/dL Total Bilirubin (0.2-1.3) mg/dL AST (14-36) U/L ALT (4-34) U/L Alkaline Phosphatase (38-126) U/L Troponin I (0.000-0.034) ng/mL Total Protein (6.3-8.2) g/dL Albumin (3.5-5.0) g/dL Disposition Clinical Impression: Congestive heart failure, AICD discharge, Elevated troponin I level Narrative: Suspected gout right foot. Disposition: ADMITTED IP TO THIS HOSP Condition: Serious Is patient prescribed a controlled substance at d/c from ED?: No
[2021-10-01] MEDS ORDERED: carvediloL 3.125 MG TAB PO STA (03:26)
[2021-10-01 06:42] LABS: Glucose,Whole Blood 105 mg/dL (75-99)
[2021-10-01] MEDS: SODIUM CHLORIDE 0.9% 1,000 ML IV SCH (08:18)
[2021-10-01 08:22] LABS: Anisocytosis Moderate; HCT 29.8 % (34.0-46.0); Hypochromasia Marked; MCH 29.8 pg (25.0-35.0); MCHC 30.1 g/dL (31.0-37.0); MCV 99.1 fL (80.0-100.0); Macrocytosis Moderate; Platelet Count 271 k/uL (150-450); Poikilocytosis Slight; RBC 3.01 m/uL (3.80-5.40); RDW 21.8 % (11.5-15.5); WBC 6.5 k/uL (3.8-10.6)
[2021-10-01 08:33] LABS: African American GFR (CKD) >90 (>60 ml/min/1.73 sqM); Anion Gap 6 mmol/L; Blood Urea Nitrogen 44 mg/dL (7-17); Calcium 8.6 mg/dL (8.4-10.2); Carbon Dioxide 30 mmol/L (22-30); Chloride 102 mmol/L (98-107); Glucose 101 mg/dL (74-99); Non-African American GFR(CKD) 80 (>60 ml/min/1.73 sqM); Potassium 3.7 mmol/L (3.5-5.1); Sodium 138 mmol/L (137-145)
[2021-10-01] MEDS: ATORVASTATIN 20 MG TAB PO SCH (08:49)
[2021-10-01] MEDS: METOPROLOL SUCCINATE (ER) 100 MG TAB.ER.24H PO SCH (08:49)
[2021-10-01 09:00] LABS: INR 1.7 (<1.2); Prothrombin Time 17.6 sec (9.0-12.0)
[2021-10-01] MEDS ORDERED: ASPIRIN 81 MG PO SCH (09:00)
--- NOTE | 2021-10-01 09:31 | P.HPIM ---
History of Present Illness Patient is a pleasant 60-year-old female came in because of AICD discharge. Patient had history of tetralogy of fallow for which patient underwent open heart surgery when she was 10 years old patient had an AICD which was replaced i n 2018. Patient came in today because of the AICD discharge. Patient presently doesn't have any chest pain denied any nausea vomiting AICD will be interrogated today. Patient is was early in sinus rhythm with occasional pacing. Patient's magnesium is alert 1.6 which will be replaced. Patient has mildly elevated troponins. There is no documented history of atrial fibrillation patient denied any atrial fibrillation history and she stays patient was put on anticoagulation on Coumadin so that she doesn't develop a blood clot in the heart. Patient is presently on Coumadin which is being transitioned is also starting tomorrow. Patient's present on INR is 1.7. Incidentally patient is also found have a swelling and severe pain of the left ankle and movement of the left ankle passively is bit restricted there may be a ligament injury. I'll obtain an x-ray of the foot orthopedic consultation. REVIEW OF SYSTEMS: CONSTITUTIONAL: No fever, no malaise, no fatigue. HEENT: No recent visual problems or hearing problems. Denied any sore throat. CARDIOVASCULAR: No orthopnea, PND, no palpitations, no syncope. PULMONARY: No shortness of breath, no cough, no hemoptysis. GASTROINTESTINAL: No diarrhea, no nausea, no vomiting, no abdominal pain. NEUROLOGICAL: No headaches, no weakness, no numbness. HEMATOLOGICAL: Denies any bleeding or petechiae. GENITOURINARY: Denies any burning micturition, frequency, or urgency. MUSCULOSKELETAL/RHEUMATOLOGICAL: Left ankle swelling as mentioned above ENDOCRINE: Denies any polyuria or polydipsia. The rest of the 14-point review of systems is negative. PHYSICAL EXAMINATION: GENERAL: The patient is alert and oriented x3, not in any acute distress. Thin built HEENT: Pupils are round and equally reacting to light. EOMI. No scleral icterus. No conjunctival pallor. Normocephalic, atraumatic. No pharyngeal erythema. No thyromegaly. CARDIOVASCULAR: S1 and S2 present. No rubs, or gallops. Multiple murmurs including systolic and diastolic all over the precordium from congenital heart disease PULMONARY: Chest is clear to auscultation, no wheezing or crackles. ABDOMEN: Soft, nontender, nondistended, normoactive bowel sounds. No palpable organomegaly. MUSCULOSKELETAL: The left ankle with restricted passive movements and painful active movements. EXTREMITIES: No cyanosis, clubbing, or pedal edema. NEUROLOGICAL: Gross neurological examination did not reveal any focal deficits. SKIN: No rashes. Assessment and plan -AICD discharge: Troponin elevation is secondary to increasing discharge and patient's device will be interrogated patient is presently on metoprolol magnesium will be replaced and cardiology will evaluate the patient further management depending on the AICD interrogation results. -Hypomagnesemia magnesium will be replaced -Possibility of paroxysmal atrial fibrillation presently rate controlled sinus rhythm patient will continue anticoagulation and rate control medications, INR is subtherapeutic. -Hyperlipidemia -History of tetralogy of falow. -Right ankle swelling possibly omental injury orthopedic consultation and x-ray of the right ankle DVT prophylaxis: Coumadin Past Medical History Past Medical History: Diabetes Mellitus, Eye Disorder, Hypertension, Liver Disease Additional Past Medical History / Comment(s): See Dr Briggs H&P, hx tetralogy fallot. hepatitis had tx clear now. 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 glaucoma ana maria eyes. 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 d&C Past Anesthesia/Blood Transfusion Reactions: No Reported Reaction Type of Cardiac Device: AICD Device Placement Date:: 1998 Past Psychological History: No Psychological Hx Reported Smoking Status: Never smoker Past Alcohol Use History: None Reported Past Drug Use History: None Reported - Past Family History Mother Family Medical History: No Reported History Medications and Allergies Home Medications Medication Instructions Recorded Confirmed Type Aspirin [Adult Low Dose Aspirin EC] 162 mg PO DAILY 03/10/19 10/01/21 History Latanoprost [Xalatan 0.005%] 1 drop BOTH EYES HS 03/10/19 10/01/21 History Warfarin [Coumadin] 2.5 mg PO DIRECTED 03/10/19 10/01/21 History metFORMIN HCL [Glucophage] 500 mg PO BID 03/10/19 10/01/21 History Metoprolol Succinate [Toprol XL] 100 mg PO DAILY 10/01/21 10/01/21 History Olmesartan Medoxomil 40 mg PO DAILY 10/01/21 10/01/21 History Rivaroxaban [Xarelto] 20 mg PO DIRECTED 10/01/21 10/01/21 History Rosuvastatin [Crestor] 10 mg PO DAILY 10/01/21 10/01/21 History hydroCHLOROthiazide [Hydrodiuril] 12.5 mg PO DAILY 10/01/21 10/01/21 History Allergies Allergy/AdvReac Type Severity Reaction Status Date / Time codeine Allergy Rash/Hives Verified 10/01/21 07:34 levofloxacin [From Levaquin] Allergy Itching Verified 10/01/21 07:34 Penicillins Allergy Rash/Hives Verified 10/01/21 07:34 Sulfa (Sulfonamide Allergy Rash/Hives Verified 10/01/21 07:34 Antibiotics) Physical Exam Vitals: Vital Signs Temp Pulse Pulse Resp BP BP Pulse Ox 10/01/21 04:30 98.1 F 120 H 17 100/70 94 L 10/01/21 03:21 125 H 18 103/55 95 10/01/21 02:30 122 H 19 99/66 96 10/01/21 00:07 98.5 F 100 18 121/51 100 Intake and Output 09/30/21 10/01/21 10/01/21 22:59 06:59 14:59 Other: Weight 39.916 kg Results CBC & Chem 7: 10/01/21 07:55 10/01/21 07:55 Labs: Abnormal Lab Results - Last 24 Hours (Table) 10/01/21 10/01/21 10/01/21 Range/Units 00:36 00:36 00:36 RBC (3.80-5.40) m/uL Hgb (11.4-16.0) gm/dL Hct (34.0-46.0) % MCHC (31.0-37.0) g/dL RDW (11.5-15.5) % PT 17.0 H (9.0-12.0) sec INR 1.7 H (<1.2) BUN 53 H (7-17) mg/dL Glucose 111 H (74-99) mg/dL POC Glucose (mg/dL) (75-99) mg/dL Troponin I 0.393 H* (0.000-0.034) ng/mL 10/01/21 10/01/21 10/01/21 Range/Units 01:19 06:09 07:55 RBC 3.16 L 3.01 L (3.80-5.40) m/uL Hgb 9.5 L 9.0 L (11.4-16.0) gm/dL Hct 31.2 L 29.8 L (34.0-46.0) % MCHC 30.6 L 30.1 L (31.0-37.0) g/dL RDW 21.9 H 21.8 H (11.5-15.5) % PT (9.0-12.0) sec INR (<1.2) BUN (7-17) mg/dL Glucose (74-99) mg/dL POC Glucose (mg/dL) 105 H (75-99) mg/dL Troponin I (0.000-0.034) ng/mL 10/01/21 10/01/21 Range/Units 07:55 07:55 RBC (3.80-5.40) m/uL Hgb (11.4-16.0) gm/dL Hct (34.0-46.0) % MCHC (31.0-37.0) g/dL RDW (11.5-15.5) % PT 17.6 H (9.0-12.0) sec INR 1.7 H (<1.2) BUN 44 H (7-17) mg/dL Glucose 101 H (74-99) mg/dL POC Glucose (mg/dL) (75-99) mg/dL Troponin I (0.000-0.034) ng/mL Thrombosis Risk Factor Assmnt - Choose All That Apply Any of the Below Risk Factors Present?: Yes Each Factor Represents 1 point: Swollen legs (current) Other Risk Factors: Yes Each Risk Factor Represents 2 Points: Age 61-74 years Other congenital or acquired thrombophilia - If yes, enter type in comment: No Thrombosis Risk Factor Assessment Total Risk Factor Score: 3 Thrombosis Risk Factor Assessment Level: Moderate Risk
[2021-10-01] MEDS: MAGNESIUM SULFATE-D5W PMX 1 GM in DEXTROSE/WATER 1 100ML.BAG IVPB SCH ×2 (09:50→11:25)
[2021-10-01] MEDS ORDERED: LOSARTAN 50 MG TAB PO SCH (10:15)
--- NOTE | 2021-10-01 10:22 | P.CNOR ---
History of Present Illness - HPI Consult date: 10/01/21 History of present illness: This is a 60-year-old female admitted after her AICD discharged. Patient past medical history significant for diabetes, glaucoma, hypertension and liver disease. Orthopedics is consulted due to right foot pain that the patient states has been going on for 3 weeks. Patient denies any injury and localizes her pain to the right great toe. Patient states that she has also noticed pain in the right ankle and lower right leg. Patient states that the right foot is very sensitive and she cannot tolerate even blankets being over her right foot. Patient states that she was evaluated for right ankle pain without injury about 3 weeks ago and was having improvement until recently. Patient states that she's had difficulty bearing weight on the right lower extremity because of the pain in her right foot. Patient denies any fever/chills, numbness, weakness, tingling or any history of gout. Patient is currently on Coumadin. Review of Systems See HPI. Past Medical History Past Medical History: Diabetes Mellitus, Eye Disorder, Hypertension, Liver Disease Additional Past Medical History / Comment(s): See Dr Briggs H&P, hx tetralogy fallot. hepatitis had tx clear now. 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 glaucoma ana maria eyes. 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 d&C Past Anesthesia/Blood Transfusion Reactions: No Reported Reaction Type of Cardiac Device: AICD Device Placement Date:: 1998 Past Psychological History: No Psychological Hx Reported Smoking Status: Never smoker Past Alcohol Use History: None Reported Past Drug Use History: None Reported - Past Family History Mother Family Medical History: No Reported History Medications and Allergies Home Medications Medication Instructions Recorded Confirmed Type Aspirin [Adult Low Dose Aspirin EC] 162 mg PO DAILY 03/10/19 10/01/21 History Latanoprost [Xalatan 0.005%] 1 drop BOTH EYES HS 03/10/19 10/01/21 History Warfarin [Coumadin] 2.5 mg PO DIRECTED 03/10/19 10/01/21 History metFORMIN HCL [Glucophage] 500 mg PO BID 03/10/19 10/01/21 History Metoprolol Succinate [Toprol XL] 100 mg PO DAILY 10/01/21 10/01/21 History Olmesartan Medoxomil 40 mg PO DAILY 10/01/21 10/01/21 History Rivaroxaban [Xarelto] 20 mg PO DIRECTED 10/01/21 10/01/21 History Rosuvastatin [Crestor] 10 mg PO DAILY 10/01/21 10/01/21 History hydroCHLOROthiazide [Hydrodiuril] 12.5 mg PO DAILY 10/01/21 10/01/21 History Allergies Allergy/AdvReac Type Severity Reaction Status Date / Time codeine Allergy Rash/Hives Verified 10/01/21 07:34 levofloxacin [From Levaquin] Allergy Itching Verified 10/01/21 07:34 Penicillins Allergy Rash/Hives Verified 10/01/21 07:34 Sulfa (Sulfonamide Allergy Rash/Hives Verified 10/01/21 07:34 Antibiotics) Physical Examination On exam patient is resting comfortably in bed in no acute distress. Patient is alert and oriented 3. On exam of the right lower extremity there is mild erythema and swelling over the dorsal aspect of the right foot. There is tenderness to palpation and swelling over the first MTP joint. Skin is intact. There is no tenderness to palpation over the IP joint of the right great toe. Patient is able to actively move the right foot and ankle with some discomfort. There is minimal tenderness to palpation over the right ankle. Achilles tendon is intact and nontender to palpation. Calf is soft and nontender to palpation. Sensation intact. Dorsalis pedis pulse is 2+. Neurovascular status and circulatory status are intact. Results X-rays of the right foot are pending. - Labs Labs: Abnormal Lab Results - Last 24 Hours (Table) 10/01/21 10/01/21 10/01/21 Range/Units 00:36 00:36 00:36 RBC (3.80-5.40) m/uL Hgb (11.4-16.0) gm/dL Hct (34.0-46.0) % MCHC (31.0-37.0) g/dL RDW (11.5-15.5) % PT 17.0 H (9.0-12.0) sec INR 1.7 H (<1.2) BUN 53 H (7-17) mg/dL Glucose 111 H (74-99) mg/dL POC Glucose (mg/dL) (75-99) mg/dL Troponin I 0.393 H* (0.000-0.034) ng/mL 10/01/21 10/01/21 10/01/21 Range/Units 01:19 06:09 07:55 RBC 3.16 L 3.01 L (3.80-5.40) m/uL Hgb 9.5 L 9.0 L (11.4-16.0) gm/dL Hct 31.2 L 29.8 L (34.0-46.0) % MCHC 30.6 L 30.1 L (31.0-37.0) g/dL RDW 21.9 H 21.8 H (11.5-15.5) % PT (9.0-12.0) sec INR (<1.2) BUN (7-17) mg/dL Glucose (74-99) mg/dL POC Glucose (mg/dL) 105 H (75-99) mg/dL Troponin I (0.000-0.034) ng/mL 10/01/21 10/01/21 Range/Units 07:55 07:55 RBC (3.80-5.40) m/uL Hgb (11.4-16.0) gm/dL Hct (34.0-46.0) % MCHC (31.0-37.0) g/dL RDW (11.5-15.5) % PT 17.6 H (9.0-12.0) sec INR 1.7 H (<1.2) BUN 44 H (7-17) mg/dL Glucose 101 H (74-99) mg/dL POC Glucose (mg/dL) (75-99) mg/dL Troponin I (0.000-0.034) ng/mL H & H 10/01/21 10/01/21 Range/Units 01:19 07:55 Hgb 9.5 L 9.0 L (11.4-16.0) gm/dL Hct 31.2 L 29.8 L (34.0-46.0) % Coagulation 10/01/21 10/01/21 Range/Units 00:36 07:55 INR 1.7 H 1.7 H (<1.2) Result Diagrams: 10/01/21 07:55 02/06/22 07:55 Assessment and Plan (1) Right foot pain Current Visit: Yes Status: Acute Code(s): M79.671 - PAIN IN RIGHT FOOT SNOMED Code(s): 52553069 (2) AICD discharge Current Visit: Yes Status: Acute Code(s): Z45.02 - ENCNTR FOR ADJUST AND MGMT OF AUTOMATIC IMPLNTBL CARD DEFIB SNOMED Code(s): 246555421 Plan: 1. X-rays of the right foot are pending. 2. Recommend rest and elevation of the right lower extremity. 3. White blood cell count is within normal limits and patient is well-appearing and afebrile. Suspect gout as a cause for her right foot pain. Patient may benefit from a steroid taper if she is able to tolerate that. 4. Further recommendations pending x-rays results.
--- NOTE | 2021-10-01 10:49 | P.CRDCN ---
History of Present Illness Consult date: 10/01/21 History of present illness: The patient presents with a discharge from her device. She is followed on a regular basis by Dr. Armstrong, has a history of tetralogy of [place] as a child with repair and in 1998 placement of a defibrillator with a change of her generator in 2019. Yesterday she felt more dyspnea, dizzy, warm and then felt a shock from the device without syncope. Came into the emergency room for further evaluation. According to her this is the first discharge normal time. She is usually active physically but has been complaining of discomfort in the right ankle and has been evaluated [facility]. She denies any trauma. She denies any chest discomfort or palpitations. She has no history of PND, orthopnea or recent syncope. Her activity level has been stable until recently. She has a history of hyperlipidemia and hypertension, she is diabetic, she is a nonsmoker. Since admission she is in paced and in sinus mechanism. She was supposed to start Xarelto instead of Coumadin on Saturday. Her medication at home include Toprol-XL 100 mg daily, hydrochlorothiazide 12- 1/2 mg daily, Crestor 10 mg daily, olmesartan 40 mg daily, metformin 500 mg twice a day. Respiratory: No history of asthma, bronchitis or recent cough, she is feeling more dyspneic recently. GI: No nausea, vomiting. No history of peptic ulcer disease. No recent GI bleed. : No hematuria or dysuria. Nervous System: No stroke or seizure, she is complaining of the discomfort in the right ankle and leg. 60-year-old female alert and oriented, no apparent distress, blood pressure 108/60, heart rate in the 90 Head: Normocephalic. Eyes: Sclerae nonicteric. Neck: Good carotid upstroke, no bruit, no jugular venous distention. Lungs: Clear to auscultation. Heart: Regular rate and rhythm, S1-S2, no S3, no rub. Systolic ejection murmur at the left sternal border with a diastolic murmur, defibrillator site clean Abdomen: Soft nontender, positive bowel sounds no organomegaly. Extremities: No edema, intact distal pulses. Lab: Hemoglobin of 9, INR 1.7. BUN 44, creatinine 0.80. Troponin 0.393. Her EKG shows sinus mechanism, first-degree AV block, paced ventricle with PACs. Chest x-ray shows no infiltrate. Impression: 1. Discharge from ICD rule out VT, we will review the pacemaker interrogation 2. Status post tetralogy repair 3. Mild troponin elevation with no history of CAD, possible secondary to the discharge 4. History of hypertension 5. History of diabetes 6. History of hyperlipidemia Plan: 1. Restart beta giselle and angiotensin receptor giselle 2. Obtain an echocardiogram with Doppler 3. Review the interrogation of the device 4. Follow troponin 5. Change Coumadin to Xarelto as planned. Depending on her progress further recommendations will be made. Thank you for this consult we will follow with you. Past Medical History Past Medical History: Diabetes Mellitus, Eye Disorder, Hypertension, Liver Disease Additional Past Medical History / Comment(s): See Dr Briggs H&P, hx tetralogy fallot. hepatitis had tx clear now. 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 glaucoma ana maria eyes. 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 d&C Past Anesthesia/Blood Transfusion Reactions: No Reported Reaction Type of Cardiac Device: AICD Device Placement Date:: 1998 Past Psychological History: No Psychological Hx Reported Smoking Status: Never smoker Past Alcohol Use History: None Reported Past Drug Use History: None Reported - Past Family History Mother Family Medical History: No Reported History Medications and Allergies Home Medications Medication Instructions Recorded Confirmed Type Aspirin [Adult Low Dose Aspirin EC] 162 mg PO DAILY 03/10/19 10/01/21 History Latanoprost [Xalatan 0.005%] 1 drop BOTH EYES HS 03/10/19 10/01/21 History Warfarin [Coumadin] 2.5 mg PO DIRECTED 03/10/19 10/01/21 History metFORMIN HCL [Glucophage] 500 mg PO BID 03/10/19 10/01/21 History Metoprolol Succinate [Toprol XL] 100 mg PO DAILY 10/01/21 10/01/21 History Olmesartan Medoxomil 40 mg PO DAILY 10/01/21 10/01/21 History Rivaroxaban [Xarelto] 20 mg PO DIRECTED 10/01/21 10/01/21 History Rosuvastatin [Crestor] 10 mg PO DAILY 10/01/21 10/01/21 History hydroCHLOROthiazide [Hydrodiuril] 12.5 mg PO DAILY 10/01/21 10/01/21 History Allergies Allergy/AdvReac Type Severity Reaction Status Date / Time codeine Allergy Rash/Hives Verified 10/01/21 07:34 levofloxacin [From Levaquin] Allergy Itching Verified 10/01/21 07:34 Penicillins Allergy Rash/Hives Verified 10/01/21 07:34 Sulfa (Sulfonamide Allergy Rash/Hives Verified 10/01/21 07:34 Antibiotics) Physical Exam Vitals: Vital Signs Temp Pulse Pulse Resp BP BP Pulse Ox 10/01/21 08:00 97.8 F 91 17 108/66 95 10/01/21 04:30 98.1 F 120 H 17 100/70 94 L 10/01/21 03:21 125 H 18 103/55 95 10/01/21 02:30 122 H 19 99/66 96 10/01/21 00:07 98.5 F 100 18 121/51 100 Intake and Output 09/30/21 10/01/21 10/01/21 22:59 06:59 14:59 Other: Weight 39.916 kg Results 10/01/21 07:55 10/01/21 07:55 Cardiac Enzymes 10/01/21 10/01/21 Range/Units 00:36 00:36 AST 35 (14-36) U/L Troponin I 0.393 H* (0.000-0.034) ng/mL Coagulation 10/01/21 10/01/21 Range/Units 00:36 07:55 PT 17.0 H 17.6 H (9.0-12.0) sec APTT 24.2 (22.0-30.0) sec CBC 10/01/21 10/01/21 Range/Units 01:19 07:55 WBC 9.5 6.5 (3.8-10.6) k/uL RBC 3.16 L 3.01 L (3.80-5.40) m/uL Hgb 9.5 L 9.0 L (11.4-16.0) gm/dL Hct 31.2 L 29.8 L (34.0-46.0) % Plt Count 296 271 (150-450) k/uL Comprehensive Metabolic Panel 10/01/21 10/01/21 Range/Units 00:36 07:55 Sodium 137 138 (137-145) mmol/L Potassium 3.8 3.7 (3.5-5.1) mmol/L Chloride 101 102 (98-107) mmol/L Carbon Dioxide 22 30 (22-30) mmol/L BUN 53 H 44 H (7-17) mg/dL Creatinine 0.89 0.80 (0.52-1.04) mg/dL Glucose 111 H 101 H (74-99) mg/dL Calcium 9.0 8.6 (8.4-10.2) mg/dL AST 35 (14-36) U/L ALT 19 (4-34) U/L Alkaline Phosphatase 103 (38-126) U/L Total Protein 7.2 (6.3-8.2) g/dL Albumin 3.6 (3.5-5.0) g/dL Current Medications Generic Name Dose Route Start Last Admin Trade Name Freq PRN Reason Stop Dose Admin Acetaminophen 650 mg 10/01/21 02:56 Acetaminophen Tab 325 Mg Tab PO Q6HR PRN Mild Pain or Fever > 100.5 Aspirin 162 mg 10/01/21 09:00 10/01/21 08:49 Aspirin 81 Mg PO 162 mg DAILY [facility] Administration Atorvastatin Calcium 20 mg 10/01/21 09:00 10/01/21 08:49 Atorvastatin 20 Mg Tab PO 20 mg DAILY [facility] Administration Sodium Chloride 1,000 mls @ 20 mls/hr 10/01/21 03:00 10/01/21 08:18 Saline 0.9% IV Not Given .Q24H [facility] Magnesium Sulfate/Dextrose 1 100 mls @ 100 mls/hr 10/01/21 09:30 10/01/21 09:50 gm/ IV Solution IVPB 10/01/21 11:29 100 mls/hr Q1H [facility] Administration Latanoprost 1 drops 10/01/21 21:00 Latanoprost 0.005% Ophth Drops 2.5 Ml Btl BOTH EYES HS [facility] Losartan Potassium 150 mg 10/01/21 10:15 Losartan 50 Mg Tab PO DAILY [facility] Metformin HCl 500 mg 10/01/21 10:45 Metformin 500 Mg Tab PO BID [facility] Metoprolol Succinate 100 mg 10/01/21 09:00 10/01/21 08:49 Metoprolol Succinate (Er) 100 Mg Tab.Er.24h PO 100 mg DAILY [facility] Administration Naloxone HCl 0.2 mg 10/01/21 02:56 Naloxone 0.4 Mg/Ml 1 Ml Vial IV Q2M PRN Opioid Reversal Rivaroxaban 20 mg 10/01/21 10:45 Rivaroxaban 20 Mg Tab PO DIRECTED [facility] Protocol Warfarin Sodium 2.5 mg 10/01/21 18:00 Warfarin 2.5 Mg Tab PO 10/01/21 18:01 ONCE ONE Protocol Intake and Output 09/30/21 10/01/21 10/01/21 22:59 06:59 14:59 Other: Weight 39.916 kg 10/01/21 07:55 10/01/21 07:55
[2021-10-01 11:19] LABS: Glucose,Whole Blood 124 mg/dL (75-99)
[2021-10-01] MEDS: metFORMIN 500 MG TAB PO SCH ×2 (11:25→17:14)
--- NOTE | 2021-10-01 13:14 | XR ---
EXAMINATION TYPE: XR foot complete RT DATE OF EXAM: 10/01/2021 CLINICAL HISTORY: Swelling. TECHNIQUE: Frontal, lateral, and oblique images of the right foot are obtained. COMPARISON: None FINDINGS: There is no acute fracture/dislocation evident in the right foot. Hallux valgus positioni ng first metatarsophalangeal joint. The joint spaces in the right foot appear within normal limits. The overlying soft tissue appears unremarkable. IMPRESSION: As above.
[2021-10-01 16:40] LABS: Glucose,Whole Blood 103 mg/dL (75-99)
[2021-10-01] MEDS: RIVAROXABAN 20 MG TAB PO SCH (17:14)
[2021-10-01] MEDS ORDERED: WARFARIN 2.5 MG TAB PO ONE (18:00)
[2021-10-01] MEDS: LATANOPROST 0.005% OPHTH DROPS 2.5 ML BTL BOTH EYES SCH (20:15)
[2021-10-01 20:39] LABS: Glucose,Whole Blood 105 mg/dL (75-99)
[2021-10-02] MEDS: SODIUM CHLORIDE 0.9% 1,000 ML IV SCH (02:38)
[2021-10-02 05:34] LABS: Glucose,Whole Blood 100 mg/dL (75-99)
[2021-10-02] MEDS: metFORMIN 500 MG TAB PO SCH ×2 (05:50→16:45)
[2021-10-02] MEDS: ACETAMINOPHEN TAB 325 MG TAB PO PRN ×2 (05:50→23:22)
[2021-10-02 07:14] LABS: Anisocytosis Moderate; HCT 29.3 % (34.0-46.0); HGB 9.1 gm/dL (11.4-16.0); Hypochromasia Marked; MCV 99.9 fL (80.0-100.0); Macrocytosis Moderate; Mean Platelet Volume 8.8; Platelet Count 245 k/uL (150-450); RBC 2.94 m/uL (3.80-5.40); RDW 20.5 % (11.5-15.5); WBC 9.4 k/uL (3.8-10.6)
[2021-10-02 07:47] LABS: African American GFR (CKD) >90 (>60 ml/min/1.73 sqM); Anion Gap 1 mmol/L; Blood Urea Nitrogen 28 mg/dL (7-17); Calcium 8.5 mg/dL (8.4-10.2); Carbon Dioxide 31 mmol/L (22-30); Chloride 105 mmol/L (98-107); Glucose 99 mg/dL (74-99); Non-African American GFR(CKD) >90 (>60 ml/min/1.73 sqM); Potassium 4.3 mmol/L (3.5-5.1); Sodium 137 mmol/L (137-145)
[2021-10-02 07:59] LABS: INR 2.8 (<1.2); Prothrombin Time 28.1 sec (9.0-12.0)
[2021-10-02] MEDS: ATORVASTATIN 20 MG TAB PO SCH (08:23)
[2021-10-02] MEDS: METOPROLOL SUCCINATE (ER) 100 MG TAB.ER.24H PO SCH (08:24)
[2021-10-02] MEDS: LOSARTAN 50 MG TAB PO SCH (08:24)
[2021-10-02] MEDS: ASPIRIN 81 MG PO SCH (08:24)
--- NOTE | 2021-10-02 09:26 | P.PN ---
<Gloria Hernandez Geronimo - Last Filed: 10/02/21 09:26> Subjective Progress Note Date: 10/02/21 This is a 60-year-old female admitted after her AICD discharged. Orthopedics is following for right foot pain. Patient is seen and evaluated at bedside today. Patient states that she has noticed some improvement in pain today, but still has pain with weightbearing on the right lower extremity. Patient again denies any known injury. Patient denies any new complaints today. Objective - Vital Signs Vital signs: Vital Signs Temp 98.3 F 10/02/21 08:25 Pulse 88 10/02/21 08:25 Resp 16 10/02/21 08:25 BP 113/54 10/02/21 08:25 Pulse Ox 96 10/02/21 08:25 Intake & Output 10/01/21 10/02/21 10/02/21 18:59 06:59 18:59 Intake Total 200 Balance 200 Intake: Oral 200 Other: # Voids 2 1 - Exam On exam patient is resting comfortably in bed in no acute distress. Patient is alert and oriented 3. On exam of the right lower extremity there is faint erythema and mild swelling over the dorsal aspect of the right foot. There is mild tenderness to palpation and swelling over the first MTP joint. Skin is intact. There is no tenderness to palpation over the IP joint of the right great toe. Patient is able to actively move the right foot and ankle without pain or difficulty. There is no tenderness to palpation over the right ankle. Achilles tendon is intact and nontender to palpation. Faint ecchymosis over the right lower leg. Calf is soft and nontender to palpation. Sensation intact. Neurovascular status and circulatory status are intact. - Labs CBC & Chem 7: 10/02/21 06:45 10/02/21 06:45 Labs: Abnormal Lab Results - Last 24 Hours (Table) 10/01/21 10/01/21 10/01/21 Range/Units 10:43 11:18 13:43 RBC (3.80-5.40) m/uL Hgb (11.4-16.0) gm/dL Hct (34.0-46.0) % RDW (11.5-15.5) % PT (9.0-12.0) sec INR (<1.2) Carbon Dioxide (22-30) mmol/L BUN (7-17) mg/dL POC Glucose (mg/dL) 124 H (75-99) mg/dL Troponin I 0.589 H* 0.437 H* (0.000-0.034) ng/mL 10/01/21 10/01/21 10/02/21 Range/Units 16:35 20:06 05:03 RBC (3.80-5.40) m/uL Hgb (11.4-16.0) gm/dL Hct (34.0-46.0) % RDW (11.5-15.5) % PT (9.0-12.0) sec INR (<1.2) Carbon Dioxide (22-30) mmol/L BUN (7-17) mg/dL POC Glucose (mg/dL) 103 H 105 H 100 H (75-99) mg/dL Troponin I (0.000-0.034) ng/mL 10/02/21 10/02/21 10/02/21 Range/Units 06:45 06:45 06:45 RBC 2.94 L (3.80-5.40) m/uL Hgb 9.1 L (11.4-16.0) gm/dL Hct 29.3 L (34.0-46.0) % RDW 20.5 H (11.5-15.5) % PT 28.1 H (9.0-12.0) sec INR 2.8 H (<1.2) Carbon Dioxide 31 H (22-30) mmol/L BUN 28 H (7-17) mg/dL POC Glucose (mg/dL) (75-99) mg/dL Troponin I (0.000-0.034) ng/mL Assessment and Plan (1) Right foot pain Current Visit: Yes Status: Acute Code(s): M79.671 - PAIN IN RIGHT FOOT SNOMED Code(s): 19129273 (2) AICD discharge Current Visit: Yes Status: Acute Code(s): Z45.02 - ENCNTR FOR ADJUST AND MGMT OF AUTOMATIC IMPLNTBL CARD DEFIB SNOMED Code(s): 590186945 Plan: 1. X-rays of the right foot are reviewed and are negative. 2. White blood cell count is within normal limits and patient is well-appearing and afebrile. Suspect gout as a cause for her right foot pain. Patient may benefit from a steroid taper if she is able to tolerate that. 3. Patient may follow up on an outpatient basis. <Shayan Gupta - Last Filed: 10/02/21 11:33> Objective - Vital Signs Vital signs: Vital Signs Temp 98.3 F 10/02/21 08:25 Pulse 88 10/02/21 08:25 Resp 16 10/02/21 08:25 BP 113/54 10/02/21 08:25 Pulse Ox 96 10/02/21 08:25 Intake & Output 10/01/21 10/02/21 10/02/21 18:59 06:59 18:59 Intake Total 200 180 Balance 200 180 Intake: Oral 200 180 Other: # Voids 2 1 - Labs CBC & Chem 7: 10/02/21 06:45 10/02/21 06:45 Labs: Abnormal Lab Results - Last 24 Hours (Table) 10/01/21 10/01/21 10/01/21 Range/Units 10:43 13:43 16:35 RBC (3.80-5.40) m/uL Hgb (11.4-16.0) gm/dL Hct (34.0-46.0) % RDW (11.5-15.5) % PT (9.0-12.0) sec INR (<1.2) Carbon Dioxide (22-30) mmol/L BUN (7-17) mg/dL POC Glucose (mg/dL) 103 H (75-99) mg/dL Troponin I 0.589 H* 0.437 H* (0.000-0.034) ng/mL 10/01/21 10/02/21 10/02/21 Range/Units 20:06 05:03 06:45 RBC (3.80-5.40) m/uL Hgb (11.4-16.0) gm/dL Hct (34.0-46.0) % RDW (11.5-15.5) % PT (9.0-12.0) sec INR (<1.2) Carbon Dioxide 31 H (22-30) mmol/L BUN 28 H (7-17) mg/dL POC Glucose (mg/dL) 105 H 100 H (75-99) mg/dL Troponin I (0.000-0.034) ng/mL 10/02/21 10/02/21 Range/Units 06:45 06:45 RBC 2.94 L (3.80-5.40) m/uL Hgb 9.1 L (11.4-16.0) gm/dL Hct 29.3 L (34.0-46.0) % RDW 20.5 H (11.5-15.5) % PT 28.1 H (9.0-12.0) sec INR 2.8 H (<1.2) Carbon Dioxide (22-30) mmol/L BUN (7-17) mg/dL POC Glucose (mg/dL) (75-99) mg/dL Troponin I (0.000-0.034) ng/mL Assessment and Plan Plan: Patient is seen and examined today at bedside. I reviewed the notes from yes terday as well as today. I reviewed the x-rays of her tibia ankle and foot. There is no evidence of any fracture or dislocation. Her joint spaces are well- maintained. The patient feels that she is doing better with conservative treatment and with ice gently over her leg. Her strength is still intact. She has been ambulatory around her room. I do not have any specific orthopedic interventional plans for her. I do not think that she requires further imaging at this point. She does not have any evidence of clot. I think she may have had an inflammatory issue in her leg which seems to be resolving with conservative treatment. From an orthopedic standpoint is okay for the patient to mobilize and weight- bear as tolerated. She should continue local comfort at her leg with ice and may increase her ambulation with therapy. It is okay for her to be discharged from an orthopedic standpoint to follow up on an as-needed basis.
[2021-10-02 11:45] LABS: Glucose,Whole Blood 138 mg/dL (75-99)
--- NOTE | 2021-10-02 12:01 | ECHOF ---
Referral Reason:TOF MEASUREMENTS -------- HEIGHT: 142.2 cm WEIGHT: 39.9 kg BP: 132/60 RVIDd: 3.2 cm (< 3.3) IVSd: 1.3 cm (0.6 - 1.1) LVIDd: 2.0 cm (3.9 - 5.3) LVPWd: 1.1 cm (0.6 - 1.1) IVSs: 1.5 cm LVIDs: 1.4 cm LVPWs: 1.3 cm LAESV Index (A-L): 19.62 ml/m Ao Diam: 2.3 cm (2.0 - 3.7) MV E Delfino: 0.99 m/s MV DecT: 176 ms MV A Delfino: 1.31 m/s MV E/A Ratio: 0.76 RAP: 5.00 mmHg RVSP: 56.48 mmHg FINDINGS -------- Sinus rhythm. This was a technically adequate study. The left ventricular size is normal. There is mild concentric left ventricular hypertrophy. Overa ll left ventricular systolic function is low-normal with, an EF between 50 - 55 %. Septal wall patricio on is delayed and consistent with prior cardiac surgery. The right ventricle is mildly enlarged. Normal LA size by volume 22+/-6 ml/m2. Electronic pacemaker lead seen in the right atrial cavity. Interatrial and interventricular septum intact. There is no evidence of aortic regurgitation. There is no evidence of aortic stenosis. Mild mitral regurgitation is present. Severe tricuspid regurgitation present. There is severe pulmonary hypertension. The right ventric ular systolic pressure, as measured by Doppler, is 56.48mmHg. There is no pulmonic regurgitation present. The aortic root size is normal. IVC Not well visulized. There is no pericardial effusion. CONCLUSIONS -------- 1. The left ventricular size is normal. 2. There is mild concentric left ventricular hypertrophy. 3. Overall left ventricular systolic function is low-normal with, an EF between 50 - 55 %. 4. The right ventricle is mildly enlarged. 5. Mild mitral regurgitation is present. 6. Severe tricuspid regurgitation present. 7. There is severe pulmonary hypertension. 8. The right ventricular systolic pressure, as measured by Doppler, is 56.48mmHg. [employer] ENGINEER: Anuradha Abdullahi [facility]
--- NOTE | 2021-10-02 13:12 | P.DS ---
Providers Date of admission: 10/01/21 02:56 Attending physician: Consuelo Ellis Consults: 10/01/21 02:59 Consult Physician Urgent Consulting Provider: Alex Armstrong Consult Reason/Comments: Defibrilltor discharge Do you want consulting provider notified?: Yes 10/01/21 09:25 Consult Physician Routine Consulting Provider: Shayan Gupta Consult Reason/Comments: right foot swelling, pain, trouble with ambulation Do you want consulting provider notified?: Yes Primary care physician: Jeremie Loera [facility] Course: Patient is a pleasant 60-year-old female came in because of AICD discharge. 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 Patient came in today because of the AICD discharge. Patient presently doesn't have any chest pain denied any nausea vomiting AICD will be interrogated today. Patient is was early in sinus rhythm with occasional pacing. Patient's magnesium is alert 1.6 which will be replaced. Patient has mildly elevated troponins. There is no documented history of atrial fibrillation patient denied any atrial fibrillation history and she stays patient was put on anticoagulation on Coumadin so that she doesn't develop a blood clot in the heart. Patient is presently on Coumadin which is being transitioned is also starting tomorrow. Patient's present on INR is 1.7. Incidentally patient is also found have a swelling and severe pain of the left ankle and movement of the left ankle passively is bit restricted there may be a ligament injury. I'll obtain an x-ray of the foot orthopedic consultation. 10/02/2021 Patient was a switched to Xeralto, Coumadin was discontinued. Cardiology evaluated the patient please refer to dictated documentation regarding the AICD interrogation. If cleared by cardiology cardiac patient will be discharged regarding right ankle swelling and pain all the imaging studies are within normal limits [facility] surgery evaluated the patient recommending weaning steroids. Patient will be discharged today to follow up with cardiology and PCP as an outpatient patient was recommended to use ice for right ankle swelling which is probably a low-grade sprain. PHYSICAL EXAMINATION: GENERAL: The patient is alert and oriented x3, not in any acute distress. Thin built HEENT: Pupils are round and equally reacting to light. EOMI. No scleral icterus. No conjunctival pallor. Normocephalic, atraumatic. No pharyngeal erythema. No thyromegaly. CARDIOVASCULAR: S1 and S2 present. No rubs, or gallops. Multiple murmurs i ncluding systolic and diastolic all over the precordium from congenital heart disease PULMONARY: Chest is clear to auscultation, no wheezing or crackles. ABDOMEN: Soft, nontender, nondistended, normoactive bowel sounds. No palpable organomegaly. MUSCULOSKELETAL: The left ankle with restricted passive movements and painful active movements. EXTREMITIES: No cyanosis, clubbing, or pedal edema. NEUROLOGICAL: Gross neurological examination did not reveal any focal deficits. SKIN: No rashes. Assessment and plan -AICD discharge: Troponin elevation is secondary to AICD discharge and patient's device , was interrogated patient is presently on metoprolol. Will be discharged if cleared by cardiology -Hypomagnesemia magnesium will be replaced -Possibility of paroxysmal atrial fibrillation presently rate controlled sinus rhythm patient will continue anticoagulation . -Hyperlipidemia -History of tetralogy of falow. -Right ankle swelling , possible inflammation of the muscular ligaments., Will be discharged to short taper of steroids Patient Condition at Discharge: Serious Plan - Discharge Summary Discharge Rx Participant: No New Discharge Prescriptions: New methylPREDNISolone Dose Pack [Medrol Dose Pack] 4 mg PO DIRECTED #1 packet Famotidine [Pepcid] 20 mg PO BID #20 tablet Acetaminophen Tab [Tylenol] 650 mg PO Q6HR PRN tab PRN Reason: Mild Pain Or Fever > 100.5 Continue Aspirin [Adult Low Dose Aspirin EC] 162 mg PO DAILY metFORMIN HCL [Glucophage] 500 mg PO BID Latanoprost [Xalatan 0.005%] 1 drop BOTH EYES HS Metoprolol Succinate [Toprol XL] 100 mg PO DAILY Olmesartan Medoxomil 40 mg PO DAILY Rosuvastatin [Crestor] 10 mg PO DAILY Rivaroxaban [Xarelto] 20 mg PO DIRECTED 30 Days #30 tab Discontinued Warfarin [Coumadin] 2.5 mg PO DIRECTED hydroCHLOROthiazide [Hydrodiuril] 12.5 mg PO DAILY Discharge Medication List Aspirin [Adult Low Dose Aspirin EC] 162 mg PO DAILY 03/10/19 [History] Latanoprost [Xalatan 0.005%] 1 drop BOTH EYES HS 03/10/19 [History] metFORMIN HCL [Glucophage] 500 mg PO BID 03/10/19 [History] Metoprolol Succinate [Toprol XL] 100 mg PO DAILY 10/01/21 [History] Olmesartan Medoxomil 40 mg PO DAILY 10/01/21 [History] Rosuvastatin [Crestor] 10 mg PO DAILY 10/01/21 [History] Acetaminophen Tab [Tylenol] 650 mg PO Q6HR PRN tab 10/02/21 [Rx] Famotidine [Pepcid] 20 mg PO BID #20 tablet 10/02/21 [Rx] Rivaroxaban [Xarelto] 20 mg PO DIRECTED 30 Days #30 tab 10/02/21 [Rx] methylPREDNISolone Dose Pack [Medrol Dose Pack] 4 mg PO DIRECTED #1 packet 10/02/21 [Rx] Follow up Appointment(s)/Referral(s): Shayan Gupta DO [Doctor of Osteopathic Medicine] - As Needed Jeremie Waters III, MD [Primary Care Provider] - 3 Days Activity/Diet/Wound Care/Special Instructions: After you meet your $490 medication deductible, Xarelto cost will be approx. $10-$20 copay per month. Call the 888# to see if she can get assistance with the deductible. Discharge Disposition: HOME SELF-CARE
--- NOTE | 2021-10-02 15:02 | P.PN ---
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 She follows in the office with Dr. Armstrong. We have in consultation due to discharge from patient's device. She describes discomfort to her right lower extremity. On 09/30/2021 she felt more dyspnea, dizzy, warm and then felt a shock from the device without syncope. Came into the emergency room for further evaluation. Device was interrogated which revealed ventricular tachycardia with heart rates in the 230s and a shock was performed. Patient seen at bedside, no acute distress. Telemetry reviewed no evidence of further ventricular tachycardia. Blood pressure 120/57, heart rate 82. Echocardiogram revealed an EF of 5055 percent, severe tricuspid regurgitation, severe hypertension with RVSP of 56 mmHg Head: Normocephalic. Eyes: Sclerae nonicteric. Neck: Good carotid upstroke, no bruit, no jugular venous distention. Lungs: Clear to auscultation. Heart: Regular rate and rhythm, S1-S2, no S3, no rub. Systolic ejection murmur at the left sternal border with a diastolic murmur, defibrillator site clean Abdomen: Soft nontender, positive bowel sounds no organomegaly. Extremities: No edema, intact distal pulses. Lab: Sodium 137, potassium 4.3, BUN 28, serum creatinine 0.6 Impression: 1. Ventricular tachycardia status post shock from ICD 2. Status post tetralogy repair 3. Mild troponin elevation with no history of CAD, possible secondary to the discharge 4. History of hypertension 5. History of diabetes 6. History of hyperlipidemia 7. Paroxysmal atrial fibrillation on Xarelto 8. History of Nonischemic cardiomyopathy with recovered EF Plan: Start amlodipine 400mg BID, will decrease/adjust in the outpatient setting Coumadin has been changed to Xarelto, will continue Xarelto Continue home cardiac medications. Depending on her progress further recommendations will be made. Thank you for this consult we will follow with you. Objective - Vital Signs Vital signs: Vital Signs Temp 98.3 F 02/07/22 08:25 Pulse 82 10/02/21 12:00 Resp 17 10/02/21 12:00 BP 120/59 10/02/21 12:00 Pulse Ox 95 10/02/21 12:00 Intake & Output 10/01/21 10/02/21 10/02/21 18:59 06:59 18:59 Intake Total 200 180 Balance 200 180 Intake: Oral 200 180 Other: # Voids 2 1 - Labs CBC & Chem 7: 10/02/21 06:45 10/02/21 06:45 Labs: Abnormal Lab Results - Last 24 Hours (Table) 10/01/21 10/01/21 10/01/21 Range/Units 13:43 16:35 20:06 RBC (3.80-5.40) m/uL Hgb (11.4-16.0) gm/dL Hct (34.0-46.0) % RDW (11.5-15.5) % PT (9.0-12.0) sec INR (<1.2) Carbon Dioxide (22-30) mmol/L BUN (7-17) mg/dL POC Glucose (mg/dL) 103 H 105 H (75-99) mg/dL Troponin I 0.437 H* (0.000-0.034) ng/mL 10/02/21 10/02/21 10/02/21 Range/Units 05:03 06:45 06:45 RBC (3.80-5.40) m/uL Hgb (11.4-16.0) gm/dL Hct (34.0-46.0) % RDW (11.5-15.5) % PT 28.1 H (9.0-12.0) sec INR 2.8 H (<1.2) Carbon Dioxide 31 H (22-30) mmol/L BUN 28 H (7-17) mg/dL POC Glucose (mg/dL) 100 H (75-99) mg/dL Troponin I (0.000-0.034) ng/mL 10/02/21 10/02/21 Range/Units 06:45 11:43 RBC 2.94 L (3.80-5.40) m/uL Hgb 9.1 L (11.4-16.0) gm/dL Hct 29.3 L (34.0-46.0) % RDW 20.5 H (11.5-15.5) % PT (9.0-12.0) sec INR (<1.2) Carbon Dioxide (22-30) mmol/L BUN (7-17) mg/dL POC Glucose (mg/dL) 138 H (75-99) mg/dL Troponin I (0.000-0.034) ng/mL
[2021-10-02 16:25] LABS: Glucose,Whole Blood 120 mg/dL (75-99)
[2021-10-02] MEDS: RIVAROXABAN 20 MG TAB PO SCH (16:45)
[2021-10-02 20:11] LABS: Glucose,Whole Blood 122 mg/dL (75-99)
[2021-10-02] MEDS: LATANOPROST 0.005% OPHTH DROPS 2.5 ML BTL BOTH EYES SCH (20:16)
[2021-10-02] MEDS: AMIODARONE 200 MG TAB PO SCH (20:16)
[2021-10-02 23:20] VITALS: PULSE 80
[2021-10-03] MEDS: SODIUM CHLORIDE 0.9% 1,000 ML IV SCH (02:49)
[2021-10-03 05:54] LABS: Glucose,Whole Blood 99 mg/dL (75-99)
[2021-10-03] MEDS: metFORMIN 500 MG TAB PO SCH ×2 (06:14→17:01)
[2021-10-03 08:32] LABS: INR 2.1 (<1.2); Prothrombin Time 21.2 sec (9.0-12.0)
[2021-10-03] MEDS: AMIODARONE 200 MG TAB PO SCH (09:44)
[2021-10-03] MEDS: ATORVASTATIN 20 MG TAB PO SCH (09:45)
[2021-10-03] MEDS: METOPROLOL SUCCINATE (ER) 100 MG TAB.ER.24H PO SCH (09:45)
[2021-10-03] MEDS: LOSARTAN 50 MG TAB PO SCH (09:45)
[2021-10-03] MEDS: ASPIRIN 81 MG PO SCH (09:45)
[2021-10-03 11:24] LABS: Glucose,Whole Blood 97 mg/dL (75-99)
[2021-10-03 11:26] VITALS: RESP 17; TEMP 97.9
--- NOTE | 2021-10-03 13:47 | P.DS ---
Providers Date of admission: 10/01/21 02:56 Attending physician: Consuelo Ellis Consults: 10/01/21 02:59 Consult Physician Urgent Consulting Provider: Alex Armstrong Consult Reason/Comments: Defibrilltor discharge Do you want consulting provider notified?: Yes 10/01/21 09:25 Consult Physician Routine Consulting Provider: Shayan Gupta Consult Reason/Comments: right foot swelling, pain, trouble with ambulation Do you want consulting provider notified?: Yes Primary care physician: Jeremie Loera [facility] [place] Course: Patient is a pleasant 60-year-old female came in because of AICD discharge. 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 Patient came in today because of the AICD discharge. Patient presently doesn't have any chest pain denied any nausea vomiting AICD will be interrogated today. Patient is was early in sinus rhythm with occasional pacing. Patient's magnesium is alert 1.6 which will be replaced. Patient has mildly elevated troponins. There is no documented history of atrial fibrillation patient denied any atrial fibrillation history and she stays patient was put on anticoagulation on Coumadin so that she doesn't develop a blood clot in the heart. Patient is presently on Coumadin which is being transitioned is also starting tomorrow. Patient's present on INR is 1.7. Incidentally patient is also found have a swelling and severe pain of the left ankle and movement of the left ankle passively is bit restricted there may be a ligament injury. I'll obtain an x-ray of the foot orthopedic consultation. 10/02/2021 Patient was a switched to Xeralto, Coumadin was discontinued. Cardiology evaluated the patient please refer to dictated documentation regarding the AICD interrogation. If cleared by cardiology cardiac patient will be discharged regarding right ankle swelling and pain all the imaging studies are within normal limits [facility] surgery evaluated the patient recommending weaning steroids. Patient will be discharged today to follow up with cardiology and PCP as an outpatient patient was recommended to use ice for right ankle swelling which is probably a low-grade sprain. 10/03/2021 Patient's a AICD device was interrogated patient had episodes of V. tach was started on amiodarone and this will be tapered as an outpatient and patient will be discharged today. Patient was not cleared by cardiology yesterday because of which patient ended up staying in the hospital. PHYSICAL EXAMINATION: GENERAL: The patient is alert and oriented x3, not in any acute distress. Thin built HEENT: Pupils are round and equally reacting to light. EOMI. No scleral icterus. No conjunctival pallor. Normocephalic, atraumatic. No pharyngeal erythema. No thyromegaly. CARDIOVASCULAR: S1 and S2 present. No rubs, or gallops. Multiple murmurs including systolic and diastolic all over the precordium from congenital heart disease PULMONARY: Chest is clear to auscultation, no wheezing or crackles. ABDOMEN: Soft, nontender, nondistended, normoactive bowel sounds. No palpable organomegaly. MUSCULOSKELETAL: The left ankle with restricted passive movements and painful active movements. EXTREMITIES: No cyanosis, clubbing, or pedal edema. NEUROLOGICAL: Gross neurological examination did not reveal any focal deficits. SKIN: No rashes. Assessment and plan -AICD discharge: Troponin elevation is secondary to AICD discharge and patient's device , was interrogated patient is presently on metoprololamiodarone was added patient had episodes of V. tach. -Hypomagnesemia magnesium will be replaced -Possibility of paroxysmal atrial fibrillation presently rate controlled sinus rhythm patient will continue anticoagulation . -Hyperlipidemia -History of tetralogy of falow. -Right ankle swelling , possible inflammation of the muscular ligaments., Will be discharged to short taper of steroids Patient Condition at Discharge: Serious Plan - Discharge Summary Discharge Rx Participant: No New Discharge Prescriptions: New methylPREDNISolone Dose Pack [Medrol Dose Pack] 4 mg PO DIRECTED #1 packet Famotidine [Pepcid] 20 mg PO BID #20 tablet Amiodarone [Cordarone] 400 mg PO BID 120 Days #240 tab Acetaminophen Tab [Tylenol] 650 mg PO Q6HR PRN tab PRN Reason: Mild Pain Or Fever > 100.5 Continue Aspirin [Adult Low Dose Aspirin EC] 162 mg PO DAILY metFORMIN HCL [Glucophage] 500 mg PO BID Latanoprost [Xalatan 0.005%] 1 drop BOTH EYES HS Metoprolol Succinate [Toprol XL] 100 mg PO DAILY Olmesartan Medoxomil 40 mg PO DAILY Rosuvastatin [Crestor] 10 mg PO DAILY Rivaroxaban [Xarelto] 20 mg PO DIRECTED 30 Days #30 tab Discontinued Warfarin [Coumadin] 2.5 mg PO DIRECTED hydroCHLOROthiazide [Hydrodiuril] 12.5 mg PO DAILY Discharge Medication List Aspirin [Adult Low Dose Aspirin EC] 162 mg PO DAILY 03/10/19 [History] Latanoprost [Xalatan 0.005%] 1 drop BOTH EYES HS 03/10/19 [History] metFORMIN HCL [Glucophage] 500 mg PO BID 03/10/19 [History] Metoprolol Succinate [Toprol XL] 100 mg PO DAILY 10/01/21 [History] Olmesartan Medoxomil 40 mg PO DAILY 10/01/21 [History] Rosuvastatin [Crestor] 10 mg PO DAILY 10/01/21 [History] Acetaminophen Tab [Tylenol] 650 mg PO Q6HR PRN tab 10/02/21 [Rx] Famotidine [Pepcid] 20 mg PO BID #20 tablet 10/02/21 [Rx] Rivaroxaban [Xarelto] 20 mg PO DIRECTED 30 Days #30 tab 10/02/21 [Rx] methylPREDNISolone Dose Pack [Medrol Dose Pack] 4 mg PO DIRECTED #1 packet 10/02/21 [Rx] Amiodarone [Cordarone] 400 mg PO BID 120 Days #240 tab 10/03/21 [Rx] Follow up Appointment(s)/Referral(s): Alex Armstrong MD [STAFF PHYSICIAN] - 1 Week Shayan Gupta DO [Doctor of Osteopathic Medicine] - As Needed Jeremie Waters III, MD [Primary Care Provider] - 3 Days Patient Instructions/Handouts: Heart Failure (DC) Activity/Diet/Wound Care/Special Instructions: After you meet your $490 medication deductible, Xarelto cost will be approx. $10-$20 copay per month. Call the 888# to see if she can get assistance with the deductible. Amiodarone Instructions: Take 400mg Twice a day for 7 days Then take 200mg Twice a day Further changes will be made by your chopper gun operator Dr. Armstrong when you follow up in the office in 1 week. Discharge Disposition: HOME SELF-CARE
--- NOTE | 2021-10-03 13:59 | P.PN ---
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 She follows in the office with Dr. Armstrong. We have in consultation due to discharge from patient's device. She describes discomfort to her right lower extremity. On 09/30/2021 she felt more dyspnea, dizzy, warm and then felt a shock from the device without syncope. Came into the emergency room for further evaluation. Device was interrogated which revealed ventricular tachycardia with heart rates in the 230s and a shock was performed. 10/03/21 Patient seen at bedside, no acute distress. She continues to have some discomfort with her right foot/ankle. She denies any chest pain, shortness of breath, lightheadedness, dizziness. Overnight no further episodes of ventricular tachycardia. AV paced HR 60s-80. Telemetry reviewed, around 11:15am patient with an episode of atrial fibrillation with RVR this morning that resolved. Blood pressure 117/54, heart rate 80, afebrile, oxygen saturations 90% on room air Echocardiogram revealed an EF of 5055 percent, severe tricuspid regurgitation, severe hypertension with RVSP of 56 mmHg Head: Normocephalic. Eyes: Sclerae nonicteric. Neck: Good carotid upstroke, no bruit, no jugular venous distention. Lungs: Clear to auscultation. Heart: Regular rate and rhythm, S1-S2, no S3, no rub. Systolic ejection murmur at the left sternal border with a diastolic murmur, defibrillator site clean Abdomen: Soft nontender, positive bowel sounds no organomegaly. Extremities: No edema, intact distal pulses. Impression: 1. Ventricular tachycardia status post shock from ICD 2. Status post tetralogy repair 3. Mild troponin elevation with no history of CAD, possible secondary to the discharge 4. History of hypertension 5. History of diabetes 6. History of hyperlipidemia 7. Paroxysmal atrial fibrillation on Xarelto 8. History of Nonischemic cardiomyopathy with recovered EF Plan: Continue amlodipine 400mg BID, will decrease/adjust in the outpatient setting Coumadin has been changed to Xarelto, will continue Xarelto Case management consulted for coverage assistance, Per case management deductible of $490 for xarelto and then should only be around $10-$20/mo Continue home cardiac medications. From a cardiology perspective, patient stable and discharged home. Follow up with Dr. Armstrong in 12 weeks Objective - Vital Signs Vital signs: Vital Signs Temp 98 F 10/02/21 20:00 Pulse 80 10/03/21 03:36 Resp 16 10/03/21 03:36 BP 115/58 10/03/21 03:36 Pulse Ox 95 10/03/21 03:36 Intake & Output 10/02/21 10/02/21 10/03/21 06:59 18:59 06:59 Intake Total 200 298 Balance 200 298 Intake: Oral 200 298 Other: # Voids 1 3 1 - Labs CBC & Chem 7: 10/02/21 06:45 10/02/21 06:45 Labs: Abnormal Lab Results - Last 24 Hours (Table) 10/02/21 10/02/21 10/02/21 Range/Units 06:45 06:45 06:45 RBC 2.94 L (3.80-5.40) m/uL Hgb 9.1 L (11.4-16.0) gm/dL Hct 29.3 L (34.0-46.0) % RDW 20.5 H (11.5-15.5) % PT 28.1 H (9.0-12.0) sec INR 2.8 H (<1.2) Carbon Dioxide 31 H (22-30) mmol/L BUN 28 H (7-17) mg/dL POC Glucose (mg/dL) (75-99) mg/dL 10/02/21 10/02/21 10/02/21 Range/Units 11:43 16:23 20:09 RBC (3.80-5.40) m/uL Hgb (11.4-16.0) gm/dL Hct (34.0-46.0) % RDW (11.5-15.5) % PT (9.0-12.0) sec INR (<1.2) Carbon Dioxide (22-30) mmol/L BUN (7-17) mg/dL POC Glucose (mg/dL) 138 H 120 H 122 H (75-99) mg/dL
[2021-10-03 16:11] VITALS: BP 95/61
[2021-10-03] MEDS: RIVAROXABAN 20 MG TAB PO SCH (17:01)
== END 2021-10-03 18:02 | disposition home or self-care (01) ==
LOC: EC 00:05 → 3SCARD 02:56
PROVIDERS: ADMIT Hospitalist; ATTEND Hospitalist
DX: I47.2 Ventricular tachycardia (principal); E83.42 Hypomagnesemia; R79.89 Other specified abnormal findings of blood chemistry; I45.10 Unspecified right bundle-branch block; R79.1 Abnormal coagulation profile; I27.20 Pulmonary hypertension, unspecified; I08.1 Rheumatic disorders of both mitral and tricuspid valves; I42.0 Dilated cardiomyopathy; I11.0 Hypertensive heart disease with heart failure; I50.9 Heart failure, unspecified; E78.5 Hyperlipidemia, unspecified; E11.9 Type 2 diabetes mellitus without complications; I49.01 Ventricular fibrillation; I48.0 Paroxysmal atrial fibrillation; I47.1 Supraventricular tachycardia; I44.0 Atrioventricular block, first degree; D64.9 Anemia, unspecified; H40.9 Unspecified glaucoma; M20.11 Hallux valgus (acquired), right foot; M25.571 Pain in right ankle and joints of right foot; R26.2 Difficulty in walking, not elsewhere classified; M25.471 Effusion, right ankle; Z20.822 Contact with and (suspected) exposure to COVID-19; Z79.82 Long term (current) use of aspirin; Z79.899 Other long term (current) drug therapy; Z79.01 Long term (current) use of anticoagulants; Z79.84 Long term (current) use of oral hypoglycemic drugs; Z88.0 Allergy status to penicillin; Z88.1 Allergy status to other antibiotic agents; Z88.2 Allergy status to sulfonamides; Z88.5 Allergy status to narcotic agent; Z86.19 Personal history of other infectious and parasitic diseases; Z95.810 Presence of automatic (implantable) cardiac defibrillator; Z87.74 Personal history of (corrected) congenital malformations of heart and circulatory system; Z98.890 Other specified postprocedural states; Z86.73 Personal history of transient ischemic attack (TIA), and cerebral infarction without residual deficits
CPT/HCPCS: 96365; 96366; 99285; 36415; 93005; 93306; 97162; 80053; 80048 ×2; 83735 ×2; 84484; 85025; 85027 ×2; 85610 ×3; 85730; 87635; 73630; 71045; G0378 ×3; J3475

== ENCOUNTER 2022-02-01 17:38 | Inpatient (IN) | payer MEDICARE, BC ==
[2022-02-01] MEDS ORDERED: ONDANSETRON 4 MG/2 ML VIAL IVP STA (21:05)
[2022-02-01] MEDS ORDERED: SODIUM CHLORIDE 0.9% 500 ML 500 ML IV STA (21:05)
--- NOTE | 2022-02-01 21:06 | ED ---
General Adult HPI - General Chief complaint: Nausea/Vomiting/Diarrhea Stated complaint: Vomiting, dehydration Time Seen by Provider: 02/01/22 20:29 Source: patient Mode of arrival: wheelchair Limitations: no limitations - History of Present Illness Initial comments: 61-year-old female presents the emergency department with nausea and vomiting. Sister is at bedside and helps provide history. Patient reports to nausea and vomiting for one month. States that she has an appetite to eat however every time she eats she will vomit. Denies hematemesis. Denies any abdominal pain. No fevers. Takes Pepto at home for her symptoms without relief. She thought it was because she recently started iron and therefore was taken off of her iron pill. She reports that she continues to have the vomiting. No changes in her bowel or bladder habits. No fevers. No other alleviating, precipitating or modifying factors - Related Data Home Medications Medication Instructions Recorded Confirmed Aspirin [Adult Low Dose Aspirin EC] 162 mg PO W/BRKFST 03/10/19 02/01/22 Latanoprost [Xalatan 0.005%] 1 drop BOTH EYES HS 03/10/19 02/01/22 metFORMIN HCL [Glucophage] 500 mg PO BID-W/MEALS 03/10/19 02/01/22 Metoprolol Succinate [Toprol XL] 100 mg PO W/BRKFST 10/01/21 02/01/22 Olmesartan Medoxomil 40 mg PO W/BRKFST 10/01/21 02/01/22 Rosuvastatin [Crestor] 10 mg PO W/BRKFST 10/01/21 02/01/22 Amiodarone [Cordarone] 200 mg PO W/BRKFST 02/01/22 02/01/22 Ascorbic Acid [Vitamin C] 1,000 mg PO W/BRKFST 02/01/22 02/01/22 Calcium Carbonate [Calcium] 600 mg PO W/BRKFST 02/01/22 02/01/22 Cyanocobalamin [Vitamin B-12] 500 mcg PO W/BRKFST 02/01/22 02/01/22 Flaxseed Oil 2400 Mg 2,400 mg PO W/BRKFST 02/01/22 02/01/22 Fluticasone Nasal [place] [Flonase 1 spray EA NOSTRIL BID PRN 02/01/22 02/01/22 Nasal [place]] Furosemide [Lasix] 40 mg PO W/BRKFST 02/01/22 02/01/22 Levothyroxine Sodium [Synthroid] 50 mcg PO DAILY 02/01/22 02/01/22 Rivaroxaban [Xarelto] 20 mg PO HS 02/01/22 02/01/22 Spironolactone [Aldactone] 25 mg PO HS 02/01/22 02/01/22 Ubidecarenone [Co Q-10] 100 mg PO W/BRKFST 02/01/22 02/01/22 Zinc 50 mg PO W/BRKFST 02/01/22 02/01/22 Allergies Allergy/AdvReac Type Severity Reaction Status Date / Time codeine Allergy Rash/Hives Verified 02/01/22 22:14 Penicillins Allergy Rash/Hives Verified 02/01/22 22:14 Sulfa (Sulfonamide Allergy Rash/Hives Verified 02/01/22 22:14 Antibiotics) levofloxacin [From Levaquin] AdvReac Racing Verified 02/01/22 22:14 heart Review of Systems ROS Statement: Those systems with pertinent positive or pertinent negative responses have been documented in the HPI. ROS Other: All systems not noted in ROS Statement are negative. Past Medical History Past Medical History: Diabetes Mellitus, Eye Disorder, Hypertension, Liver Disease Additional Past Medical History / Comment(s): See Dr Briggs H&P, hx tetralogy fallot. hepatitis had tx clear now. 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 glaucoma ana maria eyes. 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 d&C Past Anesthesia/Blood Transfusion Reactions: No Reported Reaction Type of Cardiac Device: AICD Device Placement Date:: 1998 Past Psychological History: No Psychological Hx Reported Smoking Status: Never smoker Past Alcohol Use History: None Reported Past Drug Use History: None Reported - Past Family History Mother Family Medical History: No Reported History General Exam Limitations: no limitations Course Vital Signs 02/01/22 18:08 Temperature 98 F Pulse Rate 80 Respiratory 16 Rate Blood Pressure 80/49 O2 Sat by Pulse 94 L Oximetry Medical Decision Making - Medical Decision Making Upon arrival the patient is placed into room 20. A thorough history and physical exam was performed. IV access is established and the patient is given a 500 bolus. Laboratory studies are conducted and reviewed. Ultrasound ordered. Patient does have a K I. Will be admitted for fluid hydration and surgery consultation. Patient agreed to plan and is awaiting a bed on the floor - Lab Data Result diagrams: 02/01/22 21:20 02/01/22 21:25 Lab Results 02/01/22 02/01/22 02/01/22 Range/Units 21:20 21:25 21:25 WBC 6.8 (3.8-10.6) k/uL RBC 3.34 L (3.80-5.40) m/uL Hgb 11.3 L (11.4-16.0) gm/dL Hct 33.9 L (34.0-46.0) % MCV 101.5 H (80.0-100.0) fL MCH 33.8 (25.0-35.0) pg MCHC 33.3 (31.0-37.0) g/dL RDW 19.2 H (11.5-15.5) % Plt Count 133 L (150-450) k/uL MPV 11.2 Neutrophils % 56 % Lymphocytes % 32 % Monocytes % 7 % Eosinophils % 1 % Basophils % 0 % Neutrophils # 3.8 (1.3-7.7) k/uL Lymphocytes # 2.1 (1.0-4.8) k/uL Monocytes # 0.5 (0-1.0) k/uL Eosinophils # 0.0 (0-0.7) k/uL Basophils # 0.0 (0-0.2) k/uL Hypochromasia Moderate Anisocytosis Slight Macrocytosis Moderate Sodium 141 (137-145) mmol/L Potassium 4.5 (3.5-5.1) mmol/L Chloride 103 (98-107) mmol/L Carbon Dioxide 24 (22-30) mmol/L Anion Gap 14 mmol/L BUN 90 H (7-17) mg/dL Creatinine 2.33 H (0.52-1.04) mg/dL Est GFR (CKD-EPI)AfAm 25 (>60 ml/min/1.73 sqM) Est GFR (CKD-EPI)NonAf 22 (>60 ml/min/1.73 sqM) Glucose 125 H (74-99) mg/dL Calcium 9.4 (8.4-10.2) mg/dL Total Bilirubin 0.5 (0.2-1.3) mg/dL AST 67 H (14-36) U/L ALT 42 H (4-34) U/L Alkaline Phosphatase 95 (38-126) U/L Troponin I 0.028 (0.000-0.034) ng/mL Total Protein 7.4 (6.3-8.2) g/dL Albumin 4.4 (3.5-5.0) g/dL Lipase 167 (23-300) U/L TSH 5.260 H (0.465-4.680) mIU/L Free T4 2.13 (0.78-2.19) ng/dL Disposition Clinical Impression: Nausea and vomiting, ELISA (acute kidney injury) Disposition: ADMITTED IP TO THIS [facility] Condition: Stable Is patient prescribed a controlled substance at d/c from ED?: No Referrals: Jeremie Waters III, MD [Primary Care Provider] - 1-2 days Time of Disposition: 00:02 Decision to Admit Reason: Admit from EC Decision Date: 02/02/22 Decision Time: 00:02
[2022-02-01 21:33] LABS: Anisocytosis Slight; Basophils % (A) 0 %; Eosinophils % (A) 1 %; HCT 33.9 % (34.0-46.0); HGB 11.3 gm/dL (11.4-16.0); Hypochromasia Moderate; Lymphocytes # (A) 2.1 k/uL (1.0-4.8); Lymphocytes % (A) 32 %; MCH 33.8 pg (25.0-35.0); MCHC 33.3 g/dL (31.0-37.0); MCV 101.5 fL (80.0-100.0); Macrocytosis Moderate; Mean Platelet Volume 11.2; Monocytes # (A) 0.5 k/uL (0-1.0); Monocytes % (A) 7 %; Neutrophils # (A) 3.8 k/uL (1.3-7.7); Neutrophils % (A) 56 %; Platelet Count 133 k/uL (150-450); RBC 3.34 m/uL (3.80-5.40); RDW 19.2 % (11.5-15.5); WBC 6.8 k/uL (3.8-10.6)
[2022-02-01 22:22] LABS: ALT 42 U/L (4-34); AST 67 U/L (14-36); African American GFR (CKD) 25 (>60 ml/min/1.73 sqM); Albumin 4.4 g/dL (3.5-5.0); Alkaline Phosphatase 95 U/L (38-126); Anion Gap 14 mmol/L; Blood Urea Nitrogen 90 mg/dL (7-17); Calcium 9.4 mg/dL (8.4-10.2); Carbon Dioxide 24 mmol/L (22-30); Chloride 103 mmol/L (98-107); Glucose 125 mg/dL (74-99); Lipase 167 U/L (23-300); Non-African American GFR(CKD) 22 (>60 ml/min/1.73 sqM); Potassium 4.5 mmol/L (3.5-5.1); Sodium 141 mmol/L (137-145); Total Bilirubin 0.5 mg/dL (0.2-1.3); Total Protein 7.4 g/dL (6.3-8.2)
[2022-02-01 23:41] LABS: T4, Free (Free Thyroxine) 2.13 ng/dL (0.78-2.19)
[2022-02-02] MEDS ORDERED: NALOXONE 0.4 MG/ML 1 ML VIAL IV PRN (00:02)
--- NOTE | 2022-02-02 00:06 | US ---
EXAMINATION TYPE: US gallbladder DATE OF EXAM: 02/01/2022 COMPARISON: NONE CLINICAL HISTORY: n/v. Nausea/vomiting EXAM MEASUREMENTS: Liver Length: 13.7 cm Gallbladder Wall: 0.36 cm CBD: 0.40 cm Right Kidney: 9.1 x 4.0 x 4.2 cm Pancreas: Pancreatic duct measuring 0.26 cm Liver: Appears wnl Gallbladder: Gallbladder wall appears thickened Evidence for sonographic Velazquez's sign: No CBD: wnl Right Kidney: No hydronephrosis or masses seen IMPRESSION: There is gallbladder wall thickening suggestive of cholecystitis. No gallstones seen. No dilated duct s.
[2022-02-02] MEDS ORDERED: ONDANSETRON 4 MG/2 ML VIAL IVP PRN (00:10)
[2022-02-02] MEDS ORDERED: cefTRIAXone IN SWFI 1,000 MG/10 ML SYRINGE IVP STA (00:11)
[2022-02-02] MEDS ORDERED: metroNIDAZOLE-NS PMX 500 MG in SALINE 1 100ML.BAG IVPB STA (00:12)
[2022-02-02] MEDS: SODIUM CHLORIDE 0.9% 1,000 ML IV SCH ×2 (00:53→14:37)
[2022-02-02 01:24] LABS: Appearance,Urine Clear (Clear); Bilirubin,Urine Negative (Negative); Blood,Urine Negative (Negative); Color,Urine Light Yellow; Glucose,Urine (UA) Negative (Negative); Ketones,Urine Negative (Negative); Leukocyte Esterase,Urine Small (Negative); Mucus,Urine Rare /hpf; Nitrite,Urine Negative (Negative); PH, Urine 5.5 (5.0-8.0); Protein,Urine 1+ (Negative); RBC,Urine 1 /hpf (0-5); Specific Gravity,Urine 1.014 (1.001-1.035); Squamous Epithelial Cell,Urine <1 /hpf (0-4); Urobilinogen,Urine <2.0 mg/dL (<2.0); WBC,Urine 4 /hpf (0-5)
[2022-02-02] MEDS: LATANOPROST 0.005% OPHTH DROPS 2.5 ML BTL BOTH EYES SCH ×2 (02:47→22:25)
[2022-02-02] MEDS ORDERED: LEVOTHYROXINE 50 MCG TAB PO SCH (06:30)
[2022-02-02] MEDS ORDERED: METOPROLOL SUCCINATE (ER) 100 MG TAB.ER.24H PO SCH (07:30)
[2022-02-02] MEDS: PANTOPRAZOLE 40 MG/10 ML VIAL IV SCH (09:23)
[2022-02-02] MEDS ORDERED: IOPAMIDOL CONTRAST (ORAL USE) VIAL PO PRN (10:57)
[2022-02-02] MEDS ORDERED: MAG HYDROX/AL HYDROX/SIMETH 30 ML CUP PO PRN (10:58)
--- NOTE | 2022-02-02 13:15 | NM ---
Nuclear medicine hepatobiliary scan. HISTORY: Pain. DOSAGE: The patient received 4.1 mCi of Technetium 99m Choletec. FINDINGS: There is normal hepatic extraction. The gallbladder is seen by 20 minutes. There is bilia ry to bowel clearance by 40 minutes. IMPRESSION: 1. Normal hepatobiliary exam
[2022-02-02] MEDS: ATORVASTATIN 20 MG TAB PO SCH (14:34)
[2022-02-02] MEDS: CALCIUM CARBONATE 500 MG CHEWABLE PO SCH (14:34)
[2022-02-02] MEDS: AMIODARONE 200 MG TAB PO SCH (14:34)
[2022-02-02] MEDS: ASPIRIN 81 MG PO SCH (14:34)
[2022-02-02] MEDS: INSULIN ASPART (NovoLOG) 100 UNIT/ML VIAL SQ SCH ×3 (14:34→21:26)
[2022-02-02 14:37] LABS: Anisocytosis Slight; Basophils # (A) 0.1 k/uL (0-0.2); Basophils % (A) 1 %; Eosinophils # (A) 0.1 k/uL (0-0.7); Eosinophils % (A) 1 %; HCT 38.7 % (34.0-46.0); Hypochromasia Marked; Lymphocytes # (A) 1.3 k/uL (1.0-4.8); Lymphocytes % (A) 22 %; MCH 30.2 pg (25.0-35.0); MCHC 28.3 g/dL (31.0-37.0); Macrocytosis Marked; Mean Platelet Volume 10.9; Monocytes # (A) 0.5 k/uL (0-1.0); Monocytes % (A) 8 %; Neutrophils % (A) 66 %; Platelet Count 106 k/uL (150-450); RBC 3.62 m/uL (3.80-5.40); RDW 18.7 % (11.5-15.5); WBC 6.1 k/uL (3.8-10.6)
[2022-02-02 14:37] LABS: ALT 37 U/L (4-34); AST 46 U/L (14-36); African American GFR (CKD) 34 (>60 ml/min/1.73 sqM); Albumin 3.9 g/dL (3.5-5.0); Albumin/Globulin Ratio 1.3; Alkaline Phosphatase 80 U/L (38-126); Anion Gap 11 mmol/L; Blood Urea Nitrogen 63 mg/dL (7-17); Calcium 8.5 mg/dL (8.4-10.2); Carbon Dioxide 20 mmol/L (22-30); Chloride 111 mmol/L (98-107); Globulin 2.9 g/dL; Glucose 78 mg/dL (74-99); Non-African American GFR(CKD) 30 (>60 ml/min/1.73 sqM); Potassium 4.5 mmol/L (3.5-5.1); Sodium 142 mmol/L (137-145); Total Bilirubin 0.4 mg/dL (0.2-1.3); Total Protein 6.8 g/dL (6.3-8.2)
[2022-02-02 14:40] LABS: MCV 106.8 fL (80.0-100.0)
--- NOTE | 2022-02-02 15:23 | P.GSCN ---
History of Present Illness Consult date: 02/02/22 History of present illness: CHIEF COMPLAINT: Nausea and vomiting HISTORY OF PRESENT ILLNESS: This is a 61-year-old female who presented to the emergency room with complaints of nausea and vomiting 1 week. She denies any abdominal pain. Patient reports that she has nausea and vomiting after eating. She denies any hematemesis. Patient does have cardiac history including an AICD and is anticoagulated with Xarelto. She had an ultrasound completed that shown gallbladder wall thickening. Surgical service consult was placed for possible acute cholecystitis. Patient had HIDA scan completed which was normal. Patient denies any right upper quadrant abdominal pain. Patient does have evidence of acute kidney injury on admission. PAST MEDICAL HISTORY: See list. PAST SURGICAL HISTORY: See list. MEDICATIONS: See list. ALLERGIES: See list. SOCIAL HISTORY: No illicit drug use. REVIEW OF SYSTEMS: CONSTITUTIONAL: Denies fever or chills. HEENT: Denies blurred vision, vision changes, or eye pain. Denies hemoptysis ENDOCRINE: Denies heat or cold intolerance. CARDIOVASCULAR: Denies chest pain or pressure. RESPIRATORY: No shortness of breath. GASTROINTESTINAL: Denies abdominal pain. Denies nausea or vomiting. NEURO: Denies history of seizures. PSYCH: No depression or suicidal ideation HEMATOLOGIC: Denies bleeding disorders. LYMPHATIC: The patient denies any lumps and bumps around the neck. GENITOURINARY: Denies any blood in urine or increased urinary frequency. MUSCULOSKELETAL: Denies myalgias. Denies joint swelling. Denies decreased range of motion beyond patients baseline. SKIN: Denies pruitis. Denies rash. PHYSICAL EXAM: VITAL SIGNS: Reviewed GENERAL: Well-developed in no acute distress. HEENT: No sclera icterus. Extraocular movements grossly intact. Moist buccal mucosa. Head is atraumatic, normocephalic. Hears conversational speech. No nasal drainage. NECK: Supple without lymphadenopathy. CHEST: Non-labored respirations and equal bilateral excursions. CARDIOVASCULAR: Palpable 2+ radial pulses. ABDOMEN: Soft. Nondistended. Nontender MUSCULOSKELETAL: No clubbing or cyanosis. NEUROLOGIC: No focal or lateralizing signs. Cranial nerves II through XII grossly intact. PSYCH: Appropriate affect. Alert and oriented to person, place and time. SKIN: Well perfused. Good skin turgor. LABORATORY DATA: WBC 6.1 Hgb 11 platelets 106 Sodium 142 potassium 4.5 creatinine 2.33 down to 1.79 AST 67 down to 46 ALT 42 down to 37 Lipase 167 TSH 5.260 free T4 2 0.3 IMAGING: Abdominal ultrasound gallbladder wall thickening suggestive cholecystitis. No gallstones. No dilated ducts. HIDA scan was normal ASSESSMENT: 1. Nausea and vomiting. Gallbladder etiology ruled out. HIDA scan is normal. Patient has no right upper quadrant abdominal pain. 2. Acute kidney injury 3. Significant cardiac history with tetralogy fallot repair at age 10 4. AICD placement 5. On anticoagulation at home PLAN: -Computed tomography scan of abdomen and pelvis with oral contrast ordered for further evaluation of nausea and vomiting -Start clear liquid diet -Continue IV fluids -Continue supportive care -Continue antiemetics as needed -Further recommendations forthcoming per CAT scan results Thank you for this consultation Physician Site Interpreter note has been reviewed by physician. Signing provider agrees with the documented findings, assessment, and plan of care. Past Medical History Past Medical History: Diabetes Mellitus, Eye Disorder, Hypertension, Liver Disease Additional Past Medical History / Comment(s): See Dr Briggs H&P, hx tetralogy fallot. hepatitis had tx clear now. 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 glaucoma ana maria eyes. 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 d&C Past Anesthesia/Blood Transfusion Reactions: No Reported Reaction Type of Cardiac Device: AICD Device Placement Date:: 1998 Past Psychological History: No Psychological Hx Reported Smoking Status: Never smoker Past Alcohol Use History: None Reported Past Drug Use History: None Reported - Past Family History Mother Family Medical History: No Reported History Medications and Allergies Home Medications Medication Instructions Recorded Confirmed Type Aspirin [Adult Low Dose Aspirin EC] 162 mg PO W/BRKFST 03/10/19 02/01/22 History Latanoprost [Xalatan 0.005%] 1 drop BOTH EYES HS 03/10/19 02/01/22 History metFORMIN HCL [Glucophage] 500 mg PO BID-W/MEALS 03/10/19 02/01/22 History Metoprolol Succinate [Toprol XL] 100 mg PO W/BRKFST 10/01/21 02/01/22 History Olmesartan Medoxomil 40 mg PO W/BRKFST 10/01/21 02/01/22 History Rosuvastatin [Crestor] 10 mg PO W/BRKFST 10/01/21 02/01/22 History Amiodarone [Cordarone] 200 mg PO W/BRKFST 02/01/22 02/01/22 History Ascorbic Acid [Vitamin C] 1,000 mg PO W/BRKFST 02/01/22 02/01/22 History Calcium Carbonate [Calcium] 600 mg PO W/BRKFST 02/01/22 02/01/22 History Cyanocobalamin [Vitamin B-12] 500 mcg PO W/BRKFS02/01/22 02/01/22 History Flaxseed Oil 2400 Mg 2,400 mg PO W/BRKFST 02/01/22 02/01/22 History Fluticasone Nasal [place] [Flonase 1 spray EA NOSTRIL BID PRN 02/01/22 02/01/22 History Nasal [place]] Furosemide [Lasix] 40 mg PO W/BRKFST 02/01/22 02/01/22 History Levothyroxine Sodium [Synthroid] 50 mcg PO DAILY 02/01/22 02/01/22 History Rivaroxaban [Xarelto] 20 mg PO HS 02/01/22 02/01/22 History Spironolactone [Aldactone] 25 mg PO 02/01/22 02/01/22 History Ubidecarenone [Co Q-10] 100 mg PO W/BRKFST 02/01/22 02/01/22 History Zinc 50 mg PO W/BRKFST 02/01/22 02/01/22 History Allergies Allergy/AdvReac Type Severity Reaction Status Date / Time codeine Allergy Rash/Hives Verified 02/01/22 22:14 Penicillins Allergy Rash/Hives Verified 02/01/22 22:14 Sulfa (Sulfonamide Allergy Rash/Hives Verified 02/01/22 22:14 Antibiotics) levofloxacin [From Levaquin] AdvReac Racing Verified 02/01/22 22:14 heart Surgical - Exam Vital Signs Temp Pulse Resp BP Pulse Ox 98 F 80 16 80/49 94 L 02/01/22 18:08 02/01/22 18:08 02/01/22 18:08 02/01/22 18:08 02/01/22 18:08 Results - Labs 02/02/22 13:30 02/02/22 13:38 Abnormal Lab Results - Last 24 Hours (Table) 02/01/22 02/01/22 02/02/22 Range/Units 21:20 21:25 00:53 RBC 3.34 L (3.80-5.40) m/uL Hgb 11.3 L (11.4-16.0) gm/dL Hct 33.9 L (34.0-46.0) % MCV 101.5 H (80.0-100.0) fL RDW 19.2 H (11.5-15.5) % Plt Count 133 L (150-450) k/uL BUN 90 H (7-17) mg/dL Creatinine 2.33 H (0.52-1.04) mg/dL Glucose 125 H (74-99) mg/dL AST 67 H (14-36) U/L ALT 42 H (4-34) U/L TSH 5.260 H (0.465-4.680) mIU/L Urine Protein 1+ H (Negative) Ur Leukocyte Esterase Small H (Negative) Urine Mucus Rare H (None) /hpf Diabetes panel 02/01/22 Range/Units 21:25 Sodium 141 (137-145) mmol/L Potassium 4.5 (3.5-5.1) mmol/L Chloride 103 (98-107) mmol/L Carbon Dioxide 24 (22-30) mmol/L BUN 90 H (7-17) mg/dL Creatinine 2.33 H (0.52-1.04) mg/dL Glucose 125 H (74-99) mg/dL Calcium 9.4 (8.4-10.2) mg/dL AST 67 H (14-36) U/L ALT 42 H (4-34) U/L Alkaline Phosphatase 95 (38-126) U/L Total Protein 7.4 (6.3-8.2) g/dL Albumin 4.4 (3.5-5.0) g/dL Thyroid panel 02/01/22 Range/Units 21:25 TSH 5.260 H (0.465-4.680) mIU/L Calcium panel 02/01/22 Range/Units 21:25 Calcium 9.4 (8.4-10.2) mg/dL Albumin 4.4 (3.5-5.0) g/dL Pituitary panel 02/01/22 Range/Units 21:25 Sodium 141 (137-145) mmol/L Potassium 4.5 (3.5-5.1) mmol/L Chloride 103 (98-107) mmol/L Carbon Dioxide 24 (22-30) mmol/L BUN 90 H (7-17) mg/dL Creatinine 2.33 H (0.52-1.04) mg/dL Glucose 125 H (74-99) mg/dL Calcium 9.4 (8.4-10.2) mg/dL TSH 5.260 H (0.465-4.680) mIU/L Adrenal panel 02/01/22 Range/Units 21:25 Sodium 141 (137-145) mmol/L Potassium 4.5 (3.5-5.1) mmol/L Chloride 103 (98-107) mmol/L Carbon Dioxide 24 (22-30) mmol/L BUN 90 H (7-17) mg/dL Creatinine 2.33 H (0.52-1.04) mg/dL Glucose 125 H (74-99) mg/dL Calcium 9.4 (8.4-10.2) mg/dL Total Bilirubin 0.5 (0.2-1.3) mg/dL AST 67 H (14-36) U/L ALT 42 H (4-34) U/L Alkaline Phosphatase 95 (38-126) U/L Total Protein 7.4 (6.3-8.2) g/dL Albumin 4.4 (3.5-5.0) g/dL
--- NOTE | 2022-02-02 15:40 | P.PN ---
Progress Note - Text Progress Note Date: 02/02/22 Patient reevaluated this afternoon. Clinically doing well. With IV fluid hydration, kidney function improving. Diagnostic studies of gallbladder unremarkable for acute cholecystitis. May start diet. Pending computed tomography scan. May be discharged from a surgical standpoint when medically cleared.
--- NOTE | 2022-02-02 16:47 | CT ---
EXAMINATION TYPE: CT abdomen pelvis wo con DATE OF EXAM: 02/02/2022 COMPARISON: None HISTORY: 61-year-old female with abdominal pain, nausea and vomiting CT DLP: 286.8 mGycm. Automated exposure control for dose reduction was used. TECHNIQUE: Contiguous axial scanning of the abdomen and pelvis without IV contrast. Coronal and sagit lori reconstructions performed. FINDINGS: Mild anasarca change. Post-CABG changes. Mild cardiomegaly. Right ventricular ICD lead. Lung bases cl ear without pleural effusion. Prominent hepatic veins. Mild periportal edema. Bolus of the IVC. Findings may reflect fluid overload state. Sludge within the gallbladder but no excessive hydropic change. Calcified lymph node geovany hepatis measuring 1.5 cm. Additional smaller calcifications in the region of the gastrohepatic ligament region and superior to the head of the pancreas. Mild thickening left adrenal gland without discrete nodularity. The kidneys, right adrenal gland, and spleen appear within normal limits. Mild peripancreatic fat stranding. Stranding and edema tracking down the left perinephric region shawanda g with moderate pelvic ascites. No free air. No dilated small bowel. Tiny fatty umbilical hernia. While the appendix is not discretely visualized, no secondary findings of acute appendicitis in the r ight lower quadrant. There is mild to moderate stool burden. Mild generalized colonic diverticulosis. No definite pericolonic inflammatory change. Bladder urine distended. Uterus anteverted. Again, moderate pelvic ascites. Ovaries not clearly delin eated from adjacent bowel loops. Bones: Degenerated levoconvex scoliosis. Hypertrophic facet arthropathy. Baastrup's disease. Grade 1 anterolisthesis L4-L5. Moderate multilevel degenerative disc disease. IMPRESSION: 1. Generalized anasarca change and cardiomegaly. Mild periportal edema. Correlate for fluid overload state/third spacing. 2. Moderate pelvic free fluid; abnormal in a postmenopausal female. 3. Fat stranding and edema around the pancreas and tracking down the left perinephric retroperitoneum . This may reflect the anasarca change. Correlate clinically to exclude the possibility of acute panc reatitis. 4. Gallbladder sludge but without any abnormal hydropic change. 5. Mild to moderate stool burden. Mild generalized colonic diverticulosis without acute diverticuliti s.
--- NOTE | 2022-02-02 16:49 | P.HPIM ---
History of Present Illness H&P Date: 02/02/22 This is a 61 year old female who history of tetrology of fallot status post repair, AICD, paroxysmal atrial fibrillation, diabetes who presents with nausea and vomiting over the last week. Patient states that whenever she eats she throws up after, denies hematemesis. She denies abdominal pain, there is no tenderness to palpation. Denies diarrhea, reports normal stool, no melena. She underwent Gallbladder ultrasound which shows possible cholecystitis and liver enzymes were found to be elevated. BUN is also 90 and creatinine is 2.33. Patient received IV fluids with normal saline and was admitted the hospital with consult placed to general surgery. She received a dose of IV flagyl and IV rocephin in the EC. Denies chest pain, denies shortness of breath. As patient is not clinically showing evidence for acute venancio she underwent HIDA scan which is negative. Abdominal Pelvis CT is pending at this time. REVIEW OF SYSTEMS: CONSTITUTIONAL: No fever, no malaise, no fatigue. HEENT: No recent visual problems or hearing problems. Denied any sore throat. CARDIOVASCULAR: No chest pain, orthopnea, PND, no palpitations, no syncope. PULMONARY: No shortness of breath, no cough, no hemoptysis. GASTROINTESTINAL: No diarrhea, no abdominal pain. Reports nausea and vomiting after meals. NEUROLOGICAL: No headaches, no weakness, no numbness. HEMATOLOGICAL: Denies any bleeding or petechiae. GENITOURINARY: Denies any burning micturition, frequency, or urgency. MUSCULOSKELETAL/RHEUMATOLOGICAL: Denies any joint pain, swelling, or any muscle pain. ENDOCRINE: Denies any polyuria or polydipsia. The rest of the 14-point review of systems is negative. PHYSICAL EXAMINATION: GENERAL: The patient is alert and oriented x3, not in any acute distress. Well developed, well nourished. HEENT: Pupils are round and equally reacting to light. EOMI. No scleral icterus. No conjunctival pallor. Normocephalic, atraumatic. No pharyngeal erythema. No thyromegaly. CARDIOVASCULAR: S1 and S2 present. No murmurs, rubs, or gallops. PULMONARY: Chest is clear to auscultation, no wheezing or crackles. ABDOMEN: Soft, nontender, nondistended, normoactive bowel sounds. No palpable organomegaly. MUSCULOSKELETAL: No joint swelling or deformity. EXTREMITIES: No cyanosis, clubbing, or pedal edema. NEUROLOGICAL: Gross neurological examination did not reveal any focal deficits. SKIN: No rashes. 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 Dr. Brando MD I have performed a history and physical examination and medical decision making of this patient, discussed the same with the dictator, and agree with the dictators assessment and plan as written, documented as a scribe. Based on total visit time, I have performed more than 50% of this visit. Past Medical History Past Medical History: Diabetes Mellitus, Eye Disorder, Hypertension, Liver Disease Additional Past Medical History / Comment(s): hx tetralogy fallot. hepatitis had tx clear now. 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 glaucoma ana maria eyes. 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 d&C Past Anesthesia/Blood Transfusion Reactions: No Reported Reaction Type of Cardiac Device: AICD Device Placement Date:: 1998 Past Psychological History: No Psychological Hx Reported Smoking Status: Never smoker Past Alcohol Use History: None Reported Past Drug Use History: None Reported - Past Family History Mother Family Medical History: No Reported History Additional Family Medical History / Comment(s): emphysema Medications and Allergies Home Medications Medication Instructions Recorded Confirmed Type Aspirin [Adult Low Dose Aspirin EC] 162 mg PO W/BRKFST 03/10/19 02/01/22 History Latanoprost [Xalatan 0.005%] 1 drop BOTH EYES HS 03/10/19 02/01/22 History metFORMIN HCL [Glucophage] 500 mg PO BID-W/MEALS 03/10/19 02/01/22 History Metoprolol Succinate [Toprol XL] 100 mg PO W/BRKFST 10/01/21 02/01/22 History Olmesartan Medoxomil 40 mg PO W/BRKFST 10/01/21 02/01/22 History Rosuvastatin [Crestor] 10 mg PO W/BRKFST 10/01/21 02/01/22 History Amiodarone [Cordarone] 200 mg PO W/BRKFST 02/01/22 02/01/22 History Ascorbic Acid [Vitamin C] 1,000 mg PO W/BRKFST 02/01/22 02/01/22 History Calcium Carbonate [Calcium] 600 mg PO W/BRKFST 02/01/22 02/01/22 History Cyanocobalamin [Vitamin B-12] 500 mcg PO W/BRKFST 02/01/22 02/01/22 History Flaxseed Oil 2400 Mg 2,400 mg PO W/BRKFST 02/01/22 02/01/22 History Fluticasone Nasal Cl[place] [Flonase 1 spray EA NOSTRIL BID PRN 02/01/22 02/01/22 History Nasal Clive] Furosemide [Lasix] 40 mg PO W/BRKFST 02/01/22 02/01/22 History Levothyroxine Sodium [Synthroid] 50 mcg PO DAILY 02/01/22 02/01/22 History Rivaroxaban [Xarelto] 20 mg PO HS 02/01/22 02/01/22 History Spironolactone [Aldactone] 25 mg PO HS 02/01/22 02/01/22 History Ubidecarenone [Co Q-10] 100 mg PO W/BRKFST 02/01/22 02/01/22 History Zinc 50 mg PO W/BRKFST 02/01/22 02/01/22 History Allergies Allergy/AdvReac Type Severity Reaction Status Date / Time codeine Allergy Rash/Hives Verified 02/01/22 22:14 Penicillins Allergy Rash/Hives Verified 02/01/22 22:14 Sulfa (Sulfonamide Allergy Rash/Hives Verified 02/01/22 22:14 Antibiotics) levofloxacin [From Levaquin] AdvReac Racing Verified 02/01/22 22:14 heart Physical Exam Vitals: Vital Signs Temp Pulse Pulse Resp BP BP Pulse Ox 02/02/22 08:00 97.1 F L 62 16 88/54 02/02/22 05:49 98.1 F 78 17 94/66 97 02/01/22 18:08 98 F 80 16 80/49 94 L Intake and Output 02/01/22 02/02/22 02/02/22 22:59 06:59 14:59 Other: # Voids 1 Weight 42.638 kg 43 kg Results CBC & Chem 7: 02/02/22 13:30 02/02/22 13:38 Labs: Abnormal Lab Results - Last 24 Hours (Table) 02/01/22 02/01/22 02/02/22 Range/Units 21:20 21:25 00:53 RBC 3.34 L (3.80-5.40) m/uL Hgb 11.3 L (11.4-16.0) gm/dL Hct 33.9 L (34.0-46.0) % MCV 101.5 H (80.0-100.0) fL RDW 19.2 H (11.5-15.5) % Plt Count 133 L (150-450) k/uL BUN 90 H (7-17) mg/dL Creatinine 2.33 H (0.52-1.04) mg/dL Glucose 125 H (74-99) mg/dL AST 67 H (14-36) U/L ALT 42 H (4-34) U/L TSH 5.260 H (0.465-4.680) mIU/L Urine Protein 1+ H (Negative) Ur Leukocyte Esterase Small H (Negative) Urine Mucus Rare H (None) /hpf Thrombosis Risk Factor Assmnt - Choose All That Apply Each Risk Factor Represents 2 Points: Age 61-74 years Thrombosis Risk Factor Assessment Total Risk Factor Score: 2 Thrombosis Risk Factor Assessment Level: Low Risk Assessment and Plan Time with Patient: Less than 30
[2022-02-02] MEDS ORDERED: RIVAROXABAN 15 MG TAB PO SCH (21:00)
[2022-02-02 21:06] LABS: Glucose,Whole Blood 73 mg/dL (75-99)
[2022-02-03] MEDS: SODIUM CHLORIDE 0.9% 1,000 ML IV SCH ×2 (06:08→18:20)
[2022-02-03] MEDS ORDERED: LEVOTHYROXINE 75 MCG TAB PO SCH (06:30)
[2022-02-03 06:56] LABS: Glucose,Whole Blood 65 mg/dL (75-99)
[2022-02-03 07:09] LABS: Glucose,Whole Blood 71 mg/dL (75-99)
[2022-02-03] MEDS: INSULIN ASPART (NovoLOG) 100 UNIT/ML VIAL SQ SCH ×3 (07:52→16:49)
[2022-02-03] MEDS: ATORVASTATIN 20 MG TAB PO SCH (07:59)
[2022-02-03] MEDS: CALCIUM CARBONATE 500 MG CHEWABLE PO SCH (07:59)
[2022-02-03] MEDS: PANTOPRAZOLE 40 MG/10 ML VIAL IV SCH (07:59)
[2022-02-03] MEDS: AMIODARONE 200 MG TAB PO SCH (07:59)
[2022-02-03] MEDS: ASPIRIN 81 MG PO SCH (07:59)
[2022-02-03 08:39] VITALS: RESP 18
[2022-02-03] MEDS ORDERED: METOPROLOL SUCCINATE (ER) 50 MG TAB.ER.24H PO SCH (09:00)
[2022-02-03 09:55] LABS: African American GFR (CKD) 39.3 (60.0-200.0); Anion Gap 13.2 mmol/L (10.00-18.00); BUN/Creat Ratio 25.44 Ratio (12.00-20.00); Blood Urea Nitrogen 40.7 mg/dL (9.0-27.0); Calcium 8.4 mg/dL (8.7-10.3); Carbon Dioxide 17.8 mmol/L (20.0-27.5); Non-African American GFR(CKD) 33.9 (60.0-200.0); Potassium 4.6 mmol/L (3.5-5.5)
[2022-02-03 09:56] LABS: Basophils # (A) 0.02 X 10*3/uL (0.00-0.10); Basophils % (A) 0.4 %; Eosinophils # (A) 0.09 X 10*3/uL (0.04-0.35); Eosinophils % (A) 1.7 %; HCT 34.1 % (37.2-46.3); HGB 10.1 g/dL (12.0-15.0); Immature Grans, Automated 0.6 %; Lymphocytes # (A) 1.55 X 10*3/uL (0.90-5.00); Lymphocytes % (A) 28.5 %; MCH 30.5 pg (27.0-32.0); MCHC 29.6 g/dL (32.0-37.0); Mean Platelet Volume 12.9 fL (9.5-12.2); Monocytes # (A) 0.54 X 10*3/uL (0.20-1.00); Monocytes % (A) 9.9 %; NRBC Per 100 WBC 0.9 /100 WBCS (0.0-0.0); Neutrophils % (A) 58.9 %; Platelet Count 98 X 10*3/uL (140-440); RBC 3.31 X 10*6/uL (4.10-5.20); RDW 20.6 % (11.5-14.5); WBC 5.43 X 10*3/uL (4.50-10.00)
--- NOTE | 2022-02-03 11:37 | P.PN ---
Progress Note - Text Progress Note Date: 02/03/22 Patient's resting in bed comfortably. She denies any nausea or significant abdominal pain. On exam vital signs are stable. Abdomen soft. Computed tomography scan noted with some sludge in gallbladder. Patient will be discharged home per medical service.
[2022-02-03 11:42] LABS: Glucose,Whole Blood 88 mg/dL (75-99)
[2022-02-03 16:32] LABS: Glucose,Whole Blood 104 mg/dL (75-99)
[2022-02-03 20:24] VITALS: BP 125/77; PULSE 72; TEMP 97.4
--- NOTE | 2022-02-04 17:54 | P.DS ---
Providers Date of admission: 02/02/22 00:02 Attending physician: Consuelo Ellis Consults: 02/02/22 00:11 Consult Physician Urgent Consulting Provider: Ilana Martel Consult Reason/Comments: acute cholecystitis Do you want consulting provider notified?: Yes Primary care physician: Jeremie Waters Hospital Course: Hospital Course Nausea and vomiting after eating, acute cholecystitis has been ruled out Possible mild acute pancreatitis, without acute abdominal pain, she is not having any further episodes of emesis after eating. 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 She has tolerated an increase diet. She is denying abdominal pain. Repeat BMP and CBC in 2-3 days. Recommend follow up with PCP, Dr Evaristo Waters and she will also follow up with Dr Martel outpatient she has an appointment scheduled for February 20. Hospital Course This is a 61 year old female who history of tetrology of fallot status post repair, AICD, paroxysmal atrial fibrillation, diabetes who presents with nausea and vomiting over the last week. Patient states that whenever she eats she throws up after, denies hematemesis. She denies abdominal pain, there is no tenderness to palpation. Denies diarrhea, reports normal stool, no melena. She underwent Gallbladder ultrasound which shows possible cholecystitis and liver enzymes were found to be elevated. BUN is also 90 and creatinine is 2.33. BNP 3680. Patient received IV fluids with normal saline and was admitted the hospital with consult placed to general surgery. She received a dose of IV flagyl and IV rocephin in the EC. Denies chest pain, denies shortness of breath. As patient is not clinically showing evidence for acute venancio she underwent HIDA scan which is negative. Abdominal Pelvis CT has been completed which is showing generalized anasarca. there is mild periportal edema. Correlate for fluid overload state/third spacing. There is moderate pelvic free fluid which is a normally postmenopausal female. There is fat stranding and edema around the pancreas and tracking to the left perinephric retroperitoneum this may reflect anasarca change. There is also possibility of acute pancreatitis. There is gallbladder sludge but without any abnormal hydropic change. There is mild to moderate stool burden. There is mild generalized colonic diverticulosis without acute diverticulitis. Patient has been evaluated by general surgery today and will follow up with them in the office. Blood cultures have remained negative. She would like to discharge home. Labs on admission showing hemoglobin of 11.3, macrocytic. B12 and Folate are within normal limits. Lipase is normal. Urinalysis is negative. Her platelet count is around 113, which we will recommend repeat CBC in 2-3 days outpatient. We will also check BMP outpatient. 02/03/2022 Patient evaluated today sitting up in bed. No further epidsodes of nausea and emesis after eating. She has tolerated an increased diet. She is passing gas, abdomen is soft and non-tender. She denies chest pain, denies shortness of breath. Her lungs are clear, S1 S2 auscultated and normoactive bowel sounds. She would like to be discharged home and will follow up with surgery outpatient. Focal neurological exam is negative There is some gall bladder sludge on imaging. Her creatinine today has improved to 1.6. Liver enzymes have remained elevated AST 46, ALT 37. Vitals today showing temp 97.4, heart rate 72, blood pressure 125/77, 92% on room air. Blood pressure is on the lower side in the 100s systolic, we decreased patients Toprol XL to 50 HS also recommend to hold lasix and aldactone until repeat labs and follow up with primary care. She will also hold olmesartan. Her synthroid has been increased to 75 mcg daily as her TSH was found to be 5.260. Patient is understanding of current discharge instructions. Please see medication reconciliation for a list of current medication. Thank you for allowing us to participate in the care of this patient. The impression and plan of care has been dictated by Monika De Los Santos, Nurse Practitioner as directed. Dr. Brando MD I have performed a history and physical examination and medical decision making of this patient, discussed the same with the dictator, and agree with the dictators assessment and plan as written, documented as a scribe. Based on total visit time, I have performed more than 50% of this visit. Patient Condition at Discharge: Stable Plan - Discharge Summary Discharge Rx Participant: Yes New Discharge Prescriptions: New Levothyroxine Sodium [Synthroid] 75 mcg PO DAILY@0630 #30 tab Metoprolol Succinate (ER) [Toprol XL] 50 mg PO DAILY #30 tab Continue Aspirin [Adult Low Dose Aspirin EC] 162 mg PO W/BRKFST metFORMIN HCL [Glucophage] 500 mg PO BID-W/MEALS Latanoprost [Xalatan 0.005%] 1 drop BOTH EYES HS Fluticasone Nasal Hewett [Flonase Nasal Hewett] 1 spray EA NOSTRIL BID PRN PRN Reason: Allergy Symptoms Calcium Carbonate [Calcium] 600 mg PO W/BRKFST Amiodarone [Cordarone] 200 mg PO W/BRKFST Rosuvastatin [Crestor] 10 mg PO W/BRKFST Ubidecarenone [Co Q-10] 100 mg PO W/BRKFST Flaxseed Oil 2400 Mg 2,400 mg PO W/BRKFST Zinc 50 mg PO W/BRKFST Cyanocobalamin [Vitamin B-12] 500 mcg PO W/BRKFST Ascorbic Acid [Vitamin C] 1,000 mg PO W/BRKFST Rivaroxaban [Xarelto] 20 mg PO HS Discontinued Metoprolol Succinate [Toprol XL] 100 mg PO W/BRKFST Olmesartan Medoxomil 40 mg PO W/BRKFST Spironolactone [Aldactone] 25 mg PO HS Levothyroxine Sodium [Synthroid] 50 mcg PO DAILY Furosemide [Lasix] 40 mg PO W/BRKFST Discharge Medication List Aspirin [Adult Low Dose Aspirin EC] 162 mg PO W/BRKFST 03/10/19 [History] Latanoprost [Xalatan 0.005%] 1 drop BOTH EYES HS 03/10/19 [History] metFORMIN HCL [Glucophage] 500 mg PO BID-W/MEALS 03/10/19 [History] Rosuvastatin [Crestor] 10 mg PO W/BRKFST 10/01/21 [History] Amiodarone [Cordarone] 200 mg PO W/BRKFST 02/01/22 [History] Ascorbic Acid [Vitamin C] 1,000 mg PO W/BRKFST 02/01/22 [History] Calcium Carbonate [Calcium] 600 mg PO W/BRKFST 02/01/22 [History] Cyanocobalamin [Vitamin B-12] 500 mcg PO W/BRKFST 02/01/22 [History] Flaxseed Oil 2400 Mg 2,400 mg PO W/BRKFST 02/01/22 [History] Fluticasone Nasal Hewett [Flonase Nasal Hewett] 1 spray EA NOSTRIL BID PRN 02/01/22 [History] Rivaroxaban [Xarelto] 20 mg PO HS 02/01/22 [History] Ubidecarenone [Co Q-10] 100 mg PO W/BRKFST 02/01/22 [History] Zinc 50 mg PO W/BRKFST 02/01/22 [History] Levothyroxine Sodium [Synthroid] 75 mcg PO DAILY@0630 #30 tab 02/03/22 [Rx] Metoprolol Succinate (ER) [Toprol XL] 50 mg PO DAILY #30 tab 02/03/22 [Rx] Follow up Appointment(s)/Referral(s): Jeremie Waters III, MD [Primary Care Provider] - 1-2 days Ilana Martel MD [STAFF PHYSICIAN] - 02/20/22 Ambulatory/Diagnostic Orders: Basic Metabolic Panel [LAB.AMB] Time Frame: 2 Days, Location: None Selected Complete Blood Count w/diff [LAB.AMB] Time Frame: 2 Days, Location: None Selected Patient Instructions/Handouts: Dehydration (DC), Acute Kidney Injury (DC) Activity/Diet/Wound Care/Special Instructions: Continue to hold olmesartan, lasix, aldactone Repeat labs in 2-3 days, follow up creatinine level can resume diuretics if creatinine continues to improve Monitor blood pressure daily and keep log for follow up with pcp and cardiology Increase diet as tolerated Discharge Disposition: HOME SELF-CARE
== END 2022-02-03 20:45 | disposition home or self-care (01) | DRG 682 ==
LOC: EC 17:38 → 4SSUR 02-02 00:02
PROVIDERS: ADMIT Hospitalist; ATTEND Hospitalist
DX: N17.9 Acute kidney failure, unspecified (principal); K85.90 Acute pancreatitis without necrosis or infection, unspecified; E86.0 Dehydration; R74.01 Elevation of levels of liver transaminase levels; K29.00 Acute gastritis without bleeding; I10 Essential (primary) hypertension; E11.65 Type 2 diabetes mellitus with hyperglycemia; D53.9 Nutritional anemia, unspecified; R60.1 Generalized edema; I48.0 Paroxysmal atrial fibrillation; E03.9 Hypothyroidism, unspecified; K57.30 Diverticulosis of large intestine without perforation or abscess without bleeding; K82.8 Other specified diseases of gallbladder; H57.9 Unspecified disorder of eye and adnexa; K76.9 Liver disease, unspecified; H40.9 Unspecified glaucoma; Z78.0 Asymptomatic menopausal state; Z87.74 Personal history of (corrected) congenital malformations of heart and circulatory system; Z95.810 Presence of automatic (implantable) cardiac defibrillator; Z86.19 Personal history of other infectious and parasitic diseases; Z79.84 Long term (current) use of oral hypoglycemic drugs; Z79.01 Long term (current) use of anticoagulants; Z79.82 Long term (current) use of aspirin; Z79.890 Hormone replacement therapy; Z98.890 Other specified postprocedural states; Z98.42 Cataract extraction status, left eye; Z98.41 Cataract extraction status, right eye; Z88.1 Allergy status to other antibiotic agents; Z88.5 Allergy status to narcotic agent; Z88.0 Allergy status to penicillin; Z88.2 Allergy status to sulfonamides; Z82.5 Family history of asthma and other chronic lower respiratory diseases
CPT/HCPCS: 36415; 74176; 76705; 78226; 80048; 80053; 81001; 82607; 82746; 83690; 83880; 84439; 84443; 84484; 85025; 87040; 96361; 96365; 96366; 96375; 99285

== ENCOUNTER 2022-04-02 20:48 | Inpatient (IN) | payer MEDICARE, BC ==
[2022-04-02] MEDS ORDERED: SODIUM CHLORIDE 0.9% 1,000 ML IV STA (23:44)
[2022-04-02] MEDS ORDERED: ONDANSETRON 4 MG/2 ML VIAL IVP STA (23:44)
[2022-04-02] MEDS ORDERED: SODIUM CHLORIDE 0.9% 500 ML 500 ML IV STA (23:44)
--- NOTE | 2022-04-02 23:46 | ED ---
Nausea/Vomiting/Diarrhea HPI - General Source: patient Mode of arrival: wheelchair <Terry Castelan B - Last Filed: 04/03/22 03:58> <Harmony Greenberg - Last Filed: 04/03/22 08:29> - General Chief complaint: Nausea/Vomiting/Diarrhea Stated complaint: EMORY, vomiting Time Seen by Provider: 04/02/22 23:44 - Related Data Home Medications Medication Instructions Recorded Confirmed Aspirin [Adult Low Dose Aspirin EC] 162 mg PO W/BRKFST 03/10/19 02/01/22 Latanoprost [Xalatan 0.005%] 1 drop BOTH EYES HS 03/10/19 02/01/22 metFORMIN HCL [Glucophage] 500 mg PO BID-W/MEALS 03/10/19 02/01/22 Rosuvastatin [Crestor] 10 mg PO W/BRKFST 10/01/21 02/01/22 Amiodarone [Cordarone] 200 mg PO W/BRKFST 02/01/22 02/01/22 Ascorbic Acid [Vitamin C] 1,000 mg PO W/BRKFST 02/01/22 02/01/22 Calcium Carbonate [Calcium] 600 mg PO W/BRKFST 02/01/22 02/01/22 Cyanocobalamin [Vitamin B-12] 500 mcg PO W/BRKFST 02/01/22 02/01/22 Flaxseed Oil 2400 Mg 2,400 mg PO W/BRKFST 02/01/22 02/01/22 Fluticasone Nasal Nixon [Flonase 1 spray EA NOSTRIL BID PRN 02/01/22 02/01/22 Nasal Nixon] Rivaroxaban [Xarelto] 20 mg PO HS 02/01/22 02/01/22 Ubidecarenone [Co Q-10] 100 mg PO W/BRKFST 02/01/22 02/01/22 Zinc 50 mg PO W/BRKFST 02/01/22 02/01/22 Previous Rx's Medication Instructions Recorded Levothyroxine Sodium [Synthroid] 75 mcg PO DAILY@0630 #30 tab 02/03/22 Metoprolol Succinate (ER) [Toprol 50 mg PO DAILY #30 tab 02/03/22 XL] Allergies Allergy/AdvReac Type Severity Reaction Status Date / Time codeine Allergy Rash/Hives Verified 02/01/22 22:14 Penicillins Allergy Rash/Hives Verified 02/01/22 22:14 Sulfa (Sulfonamide Allergy Rash/Hives Verified 02/01/22 22:14 Antibiotics) levofloxacin [From Levaquin] AdvReac Racing Verified 02/01/22 22:14 heart Review of Systems ROS Other: All systems not noted in ROS Statement are negative. <Terry Castelan - Last Filed: 04/03/22 03:58> ROS Other: All systems not noted in ROS Statement are negative. <Harmony Greenberg - Last Filed: 04/03/22 08:29> ROS Statement: Those systems with pertinent positive or pertinent negative responses have been documented in the HPI. Past Medical History Past Medical History: Diabetes Mellitus, Eye Disorder, Hypertension, Liver Disease Additional Past Medical History / Comment(s): See Dr Briggs H&P, hx tetralogy fallot. hepatitis had tx clear now. 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 glaucoma ana maria eyes. 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 d&C Past Anesthesia/Blood Transfusion Reactions: No Reported Reaction Type of Cardiac Device: AICD Device Placement Date:: 1998 Past Psychological History: No Psychological Hx Reported Smoking Status: Never smoker Past Alcohol Use History: None Reported Past Drug Use History: None Reported - Past Family History Mother Family Medical History: No Reported History Additional Family Medical History / Comment(s): emphysema <Terry Castelan - Last Filed: 04/03/22 03:58> Course Vital Signs 04/02/22 04/03/22 20:51 05:13 Temperature 97.9 F 98.6 F Pulse Rate 74 96 Respiratory 18 16 Rate Blood Pressure 99/59 91/60 O2 Sat by Pulse 94 L 95 Oximetry Medical Decision Making - Lab Data Result diagrams: 04/03/22 00:13 04/03/22 00:13 <Terry Castelan - Last Filed: 04/03/22 03:58> - Lab Data Result diagrams: 04/03/22 00:13 04/03/22 00:13 <Harmony Greenberg - Last Filed: 04/03/22 08:29> - Lab Data Lab Results 04/03/22 04/03/22 04/03/22 Range/Units 00:13 00:13 00:13 WBC 6.1 (3.8-10.6) k/uL RBC 3.87 (3.80-5.40) m/uL Hgb 12.3 (11.4-16.0) gm/dL Hct 40.2 (34.0-46.0) % MCV 104.0 H (80.0-100.0) fL MCH 31.9 (25.0-35.0) pg MCHC 30.7 L (31.0-37.0) g/dL RDW 18.2 H (11.5-15.5) % Plt Count 147 L (150-450) k/uL MPV 12.3 Neutrophils % (Manual) 60 % Lymphocytes % (Manual) 26 % Monocytes % (Manual) 14 % Neutrophils # (Manual) 3.66 (1.3-7.7) k/uL Lymphocytes # (Manual) 1.59 (1.0-4.8) k/uL Monocytes # (Manual) 0.85 (0-1.0) k/uL Nucleated RBCs 3 H (0-0) /100 WBC Manual Slide Review Performed Polychromasia Present Hypochromasia Marked Poikilocytosis (manual Present Anisocytosis Slight Anisocytosis (manual) Present Macrocytosis Moderate Tear Drop Cells Present Ovalocytes Present PT 17.2 H (9.0-12.0) sec INR 1.7 H (<1.2) APTT 33.3 H (22.0-30.0) sec Sodium 137 (137-145) mmol/L Potassium 4.2 (3.5-5.1) mmol/L Chloride 98 (98-107) mmol/L Carbon Dioxide 24 (22-30) mmol/L Anion Gap 15 mmol/L BUN 55 H (7-17) mg/dL Creatinine 1.88 H (0.52-1.04) mg/dL Est GFR (CKD-EPI)AfAm 32 (>60 ml/min/1.73 sqM) Est GFR (CKD-EPI)NonAf 28 (>60 ml/min/1.73 sqM) Glucose 80 (74-99) mg/dL Lactic Ac Sepsis Rflx Plasma Lactic Acid Sherman (0.7-2.0) mmol/L Calcium 9.1 (8.4-10.2) mg/dL Phosphorus 3.1 (2.5-4.5) mg/dL Magnesium 1.6 (1.6-2.3) mg/dL Total Bilirubin 1.4 H (0.2-1.3) mg/dL AST 50 H (14-36) U/L ALT 29 (4-34) U/L Alkaline Phosphatase 145 H (38-126) U/L Troponin I (0.000-0.034) ng/mL NT-Pro-B Natriuret Pep pg/mL Total Protein 7.2 (6.3-8.2) g/dL Albumin 4.0 (3.5-5.0) g/dL Lipase 102 (23-300) U/L 04/03/22 04/03/22 04/03/22 Range/Units 00:13 00:13 01:46 WBC (3.8-10.6) k/uL RBC (3.80-5.40) m/uL Hgb (11.4-16.0) gm/dL Hct (34.0-46.0) % MCV (80.0-100.0) fL MCH (25.0-35.0) pg MCHC (31.0-37.0) g/dL RDW (11.5-15.5) % Plt Count (150-450) k/uL MPV Neutrophils % (Manual) % Lymphocytes % (Manual) % Monocytes % (Manual) % Neutrophils # (Manual) (1.3-7.7) k/uL Lymphocytes # (Manual) (1.0-4.8) k/uL Monocytes # (Manual) (0-1.0) k/uL Nucleated RBCs (0-0) /100 WBC Manual Slide Review Polychromasia Hypochromasia Poikilocytosis (manual Anisocytosis Anisocytosis (manual) Macrocytosis Tear Drop Cells Ovalocytes PT (9.0-12.0) sec INR (<1.2) APTT (22.0-30.0) sec Sodium (137-145) mmol/L Potassium (3.5-5.1) mmol/L Chloride (98-107) mmol/L Carbon Dioxide (22-30) mmol/L Anion Gap mmol/L BUN (7-17) mg/dL Creatinine (0.52-1.04) mg/dL Est GFR (CKD-EPI)AfAm (>60 ml/min/1.73 sqM) Est GFR (CKD-EPI)NonAf (>60 ml/min/1.73 sqM) Glucose (74-99) mg/dL Lactic Ac Sepsis Rflx Y Plasma Lactic Acid Sherman 4.8 H* (0.7-2.0) mmol/L Calcium (8.4-10.2) mg/dL Phosphorus (2.5-4.5) mg/dL Magnesium (1.6-2.3) mg/dL Total Bilirubin (0.2-1.3) mg/dL AST (14-36) U/L ALT (4-34) U/L Alkaline Phosphatase (38-126) U/L Troponin I 0.032 (0.000-0.034) ng/mL NT-Pro-B Natriuret Pep pg/mL Total Protein (6.3-8.2) g/dL Albumin (3.5-5.0) g/dL Lipase (23-300) U/L 04/03/22 Range/Units 03:35 WBC (3.8-10.6) k/uL RBC (3.80-5.40) m/uL Hgb (11.4-16.0) gm/dL Hct (34.0-46.0) % MCV (80.0-100.0) fL MCH (25.0-35.0) pg MCHC (31.0-37.0) g/dL RDW (11.5-15.5) % Plt Count (150-450) k/uL MPV Neutrophils % (Manual) % Lymphocytes % (Manual) % Monocytes % (Manual) % Neutrophils # (Manual) (1.3-7.7) k/uL Lymphocytes # (Manual) (1.0-4.8) k/uL Monocytes # (Manual) (0-1.0) k/uL Nucleated RBCs (0-0) /100 WBC Manual Slide Review Polychromasia Hypochromasia Poikilocytosis (manual Anisocytosis Anisocytosis (manual) Macrocytosis Tear Drop Cells Ovalocytes PT (9.0-12.0) sec INR (<1.2) APTT (22.0-30.0) sec Sodium (137-145) mmol/L Potassium (3.5-5.1) mmol/L Chloride (98-107) mmol/L Carbon Dioxide (22-30) mmol/L Anion Gap mmol/L BUN (7-17) mg/dL Creatinine (0.52-1.04) mg/dL Est GFR (CKD-EPI)AfAm (>60 ml/min/1.73 sqM) Est GFR (CKD-EPI)NonAf (>60 ml/min/1.73 sqM) Glucose (74-99) mg/dL Lactic Ac Sepsis Rflx Plasma Lactic Acid Sherman (0.7-2.0) mmol/L Calcium (8.4-10.2) mg/dL Phosphorus (2.5-4.5) mg/dL Magnesium (1.6-2.3) mg/dL Total Bilirubin (0.2-1.3) mg/dL AST (14-36) U/L ALT (4-34) U/L Alkaline Phosphatase (38-126) U/L Troponin I (0.000-0.034) ng/mL NT-Pro-B Natriuret Pep 44794 pg/mL Total Protein (6.3-8.2) g/dL Albumin (3.5-5.0) g/dL Lipase (23-300) U/L - EKG Data EKG Comments: EKG demonstrates electronic atrial/ventricular pacemaker rate of 59. WA interval 175. QRS 155. QTC 293. Pacemaker captures appropriately. (Harmony Greenberg) Disposition Is patient prescribed a controlled substance at d/c from ED?: No <Terry Castelan - Last Filed: 04/03/22 03:58> <Harmony Greenberg - Last Filed: 04/03/22 08:29> Clinical Impression: Elevated troponin I level, Dehydration, Nausea and vomiting, Lactic acidosis Disposition: ADMITTED IP TO THIS HOSP Condition: Fair
[2022-04-03 00:39] LABS: Anisocytosis Slight; HCT 40.2 % (34.0-46.0); HGB 12.3 gm/dL (11.4-16.0); Hypochromasia Marked; MCH 31.9 pg (25.0-35.0); MCHC 30.7 g/dL (31.0-37.0); Macrocytosis Moderate; Mean Platelet Volume 12.3; Platelet Count 147 k/uL (150-450); RBC 3.87 m/uL (3.80-5.40); RDW 18.2 % (11.5-15.5)
[2022-04-03 00:44] LABS: Calcium 9.1 mg/dL (8.4-10.2); Magnesium 1.6 mg/dL (1.6-2.3); Phosphorus 3.1 mg/dL (2.5-4.5); Potassium 4.2 mmol/L (3.5-5.1); Total Bilirubin 1.4 mg/dL (0.2-1.3); Total Protein 7.2 g/dL (6.3-8.2)
[2022-04-03 00:58] LABS: INR 1.7 (<1.2); Partial Thromboplastin Time 33.3 sec (22.0-30.0); Prothrombin Time 17.2 sec (9.0-12.0)
[2022-04-03 01:20] LABS: Lymphocytes # (M) 1.59 k/uL (1.0-4.8); Monocytes # (M) 0.85 k/uL (0-1.0); Neutrophils # (M) 3.66 k/uL (1.3-7.7); Neutrophils % (M) 60 %; Nucleated Red Blood Cells 3 /100 WBC (0-0); Total Cells Counted 200; WBC 6.1 k/uL (3.8-10.6)
[2022-04-03 01:21] LABS: Anisocytosis (M) Present; Ovalocytes Present; Poikilocytosis (M) Present; Polychromasia Present; Tear Drop Cells Present
--- NOTE | 2022-04-03 03:49 | XR ---
EXAMINATION TYPE: XR chest 1V portable DATE OF EXAM: 04/03/2022 COMPARISON: 03/21/2022 HISTORY: Chest pain TECHNIQUE: FINDINGS: Heart is moderately enlarged. There is left axillary pacemaker. No heart failure. Costophre jennifer angles are clear. There are sternal wires. The bony thorax is intact. IMPRESSION: Moderate cardiomegaly. No heart failure or pulmonary consolidation. No change.
[2022-04-03] MEDS ORDERED: ONDANSETRON 4 MG/2 ML VIAL IVP PRN (03:57)
[2022-04-03] MEDS ORDERED: NALOXONE 0.4 MG/ML 1 ML VIAL IV PRN (03:57)
[2022-04-03] MEDS ORDERED: SODIUM CHLORIDE 0.9% 1,000 ML IV SCH (04:00)
[2022-04-03] MEDS ORDERED: FLUTICASONE 50MCG/SPRAY NASAL 16GM EA NOSTRIL PRN (09:54)
[2022-04-03] MEDS: METOPROLOL SUCCINATE (ER) 50 MG TAB.ER.24H PO SCH (10:49)
[2022-04-03 10:55] LABS: Glucose,Whole Blood 59 mg/dL (70-110)
--- NOTE | 2022-04-03 11:10 | XR ---
EXAMINATION TYPE: XR chest 1V portable DATE OF EXAM: 04/03/2022 Comparison: 04/03/2022 Clinical History: 61 year-old female shortness of breath, dyspnea Findings: Left anterior chest wall AICD generator with right atrial and right ventricular leads. Median sternot homer wires are present. Heart moderately enlarged. Large appearance to the right and left pulmonary ar teries. No debra consolidation or pleural effusion. Additional wires are present along either side of the chest. Impression: Moderate cardiomegaly and suspected underlying pulmonary arterial hypertension. Previous median dominguez otomy and possible clamshell wire fixation. Clinically correlate. No definite acute process otherwise seen.
--- NOTE | 2022-04-03 11:37 | P.HPIM ---
History of Present Illness Patient was 61-year-old female with history of tetralogy of fallot, with surgery in the past and the congestive heart failure with normal ejection ejection fraction from her recent echocardiogram came in with compensative nausea vomi ting epigastric abdominal burning sensation and discomfort along with lactic acidosis without any fever and leukocytosis in any other evidence of infection. Patient was given IV fluids after aggressive resuscitation patient is presently now been heart failure with bilateral pedal edema repeat chest x-ray showing some pulmonary edema patient had elevated BNP of 11,800 and her previous BNP was around 3000. Patient blood pressure is low and her blood pressure is usually low. Patient is also on anticoagulation with Eliquis for atrial fibrillation history. Patient does take 60 mg of Lasix at home. Does have pulmonary hypertension from congenital heart disease patient's serum creatinine is 1.88 during her last hospitalization it was around that but before that her creatinine was within normal limits and 0.7-0.8 patient light acidosis resolved at this time. Patient patient isn't complaining of increased shortness of breath lately with the minimal exertion and is also complaining of orthopnea. REVIEW OF SYSTEMS: CONSTITUTIONAL: No fever, no malaise, no fatigue. HEENT: No recent visual problems or hearing problems. Denied any sore throat. CARDIOVASCULAR: No chest pain,o palpitations, no syncope. PULMONARY: no hemoptysis. GASTROINTESTINAL: As mentioned in the interval history NEUROLOGICAL: No headaches, no weakness, no numbness. HEMATOLOGICAL: Denies any bleeding or petechiae. GENITOURINARY: Denies any burning micturition, frequency, or urgency. MUSCULOSKELETAL/RHEUMATOLOGICAL: Denies any joint pain, swelling, or any muscle pain. ENDOCRINE: Denies any polyuria or polydipsia. The rest of the 14-point review of systems is negative. PHYSICAL EXAMINATION: GENERAL: The patient is alert and oriented x3, not in any acute distress. Well developed, well nourished. HEENT: Pupils are round and equally reacting to light. EOMI. No scleral icterus. No conjunctival pallor. Normocephalic, atraumatic. No pharyngeal erythema. No thyromegaly. CARDIOVASCULAR: S1 and S2 present. No murmurs, rubs, or gallops. PULMONARY: Chest is clear to auscultation, no wheezing or crackles. ABDOMEN: Soft, nontender, nondistended, normoactive bowel sounds. No palpable organomegaly. MUSCULOSKELETAL: No joint swelling or deformity. EXTREMITIES: No cyanosis, clubbing, or pedal edema. NEUROLOGICAL: Gross neurological examination did not reveal any focal deficits. SKIN: No rashes. Assessment and plan -Congestive heart failure possibility of diastolic dysfunction and may be right- sided pulmonary hypertension. Patient was started on IV Lasix this can you IV fluids although it was appropriate to starting her on fluids and admission because of lactic acidosis due to nausea vomiting. Cardiology will be consulted -Gastroesophageal reflux disease or peptic ulcer disease for which patient received treatment will continue with the Protonix nausea vomiting resolved patient will be started on diet as tolerated -Lactic acidosis secondary to nausea vomiting -Hypothyroidism -Hypertension -Type 2 diabetes mellitus patient will be resumed on home regimen -History of approximately is on anticoagulation with the Eliquis which will be continued -History of tetralogy of fallot. DVT prophylaxis: Presently on anticoagulation Past Medical History Past Medical History: Diabetes Mellitus, Eye Disorder, Hypertension, Liver Disease Additional Past Medical History / Comment(s): See Dr Briggs H&P, hx tetralogy fallot. hepatitis had tx clear now. 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 glaucoma ana maria eyes. 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 d&C Past Anesthesia/Blood Transfusion Reactions: No Reported Reaction Type of Cardiac Device: AICD Device Placement Date:: 1998 Past Psychological History: No Psychological Hx Reported Smoking Status: Never smoker Past Alcohol Use History: None Reported Past Drug Use History: None Reported - Past Family History Mother Family Medical History: No Reported History Additional Family Medical History / Comment(s): emphysema Medications and Allergies Home Medications Medication Instructions Recorded Confirmed Type Aspirin [Adult Low Dose Aspirin EC] 162 mg PO W/BRKFST 03/10/19 04/03/22 History Latanoprost [Xalatan 0.005%] 1 drop BOTH EYES HS 03/10/19 04/03/22 History metFORMIN HCL [Glucophage] 500 mg PO BID-W/MEALS 03/10/19 04/03/22 History Rosuvastatin [Crestor] 10 mg PO W/BRKFST 10/01/21 04/03/22 History Amiodarone [Cordarone] 200 mg PO W/BRKFST 02/01/22 04/03/22 History Ascorbic Acid [Vitamin C] 1,000 mg PO W/BRKFST 02/01/22 04/03/22 History Calcium Carbonate [Calcium] 600 mg PO W/BRKFST 02/01/22 04/03/22 History Cyanocobalamin [Vitamin B-12] 500 mcg PO W/BRKFST 02/01/22 04/03/22 History Flaxseed Oil 2400 Mg 2,400 mg PO W/BRKFST 02/01/22 04/03/22 History Fluticasone Nasal [place] [Flonase 1 spray EA NOSTRIL BID PRN 02/01/22 04/03/22 Hi story Nasal [place]] Ubidecarenone [Co Q-10] 100 mg PO W/BRKFST 02/01/22 04/03/22 History Zinc 50 mg PO W/BRKFST 02/01/22 04/03/22 History Levothyroxine Sodium [Synthroid] 75 mcg PO DAILY@0630 #30 tab 02/03/22 04/03/22 Rx Apixaban [Eliquis] 2.5 mg PO BID 04/03/22 04/03/22 History Ferrous Sulfate [Feosol] 325 mg PO BID 04/03/22 04/03/22 History Furosemide [Lasix] 60 mg PO DAILY 04/03/22 04/03/22 History Metoprolol Succinate (ER) [Toprol 100 mg PO DAILY 04/03/22 04/03/22 History XL] Spironolactone [Aldactone] 25 mg PO HS 04/03/22 04/03/22 History Allergies Allergy/AdvReac Type Severity Reaction Status Date / Time codeine Allergy Rash/Hives Verified 04/03/22 09:49 Penicillins Allergy Rash/Hives Verified 04/03/22 09:49 Sulfa (Sulfonamide Allergy Rash/Hives Verified 04/03/22 09:49 Antibiotics) levofloxacin [From Levaquin] AdvReac Racing Verified 04/03/22 09:49 heart Physical Exam Vitals: Vital Signs Temp Pulse Resp BP Pulse Ox 04/03/22 10:43 91 L 04/03/22 10:42 54 L 22 98/58 88 L 04/03/22 05:13 98.6 F 96 16 91/60 95 04/02/22 20:51 97.9 F 74 18 99/59 94 L Intake and Output 04/02/22 04/03/22 04/03/22 22:59 06:59 14:59 Other: Weight 41.277 kg Results CBC & Chem 7: 04/03/22 00:13 04/03/22 00:13 Labs: Abnormal Lab Results - Last 24 Hours (Table) 04/03/22 04/03/22 04/03/22 Range/Units 00:13 00:13 00:13 MCV 104.0 H (80.0-100.0) fL MCHC 30.7 L (31.0-37.0) g/dL RDW 18.2 H (11.5-15.5) % Plt Count 147 L (150-450) k/uL Nucleated RBCs 3 H (0-0) /100 WBC PT 17.2 H (9.0-12.0) sec INR 1.7 H (<1.2) APTT 33.3 H (22.0-30.0) sec BUN 55 H (7-17) mg/dL Creatinine 1.88 H (0.52-1.04) mg/dL POC Glucose (mg/dL) (70-110) mg/dL Plasma Lactic Acid [place] (0.7-2.0) mmol/L Total Bilirubin 1.4 H (0.2-1.3) mg/dL AST 50 H (14-36) U/L Alkaline Phosphatase 145 H (38-126) U/L 04/03/22 04/03/22 04/03/22 Range/Units 00:13 04:15 10:51 MCV (80.0-100.0) fL MCHC (31.0-37.0) g/dL RDW (11.5-15.5) % Plt Count (150-450) k/uL Nucleated RBCs (0-0) /100 WBC PT (9.0-12.0) sec INR (<1.2) APTT (22.0-30.0) sec BUN (7-17) mg/dL Creatinine (0.52-1.04) mg/dL POC Glucose (mg/dL) 59 L (70-110) mg/dL Plasma Lactic Acid Sherman 4.8 H* 2.5 H* (0.7-2.0) mmol/L Total Bilirubin (0.2-1.3) mg/dL AST (14-36) U/L Alkaline Phosphatase (38-126) U/L
[2022-04-03 11:58] LABS: Glucose,Whole Blood 247 mg/dL (70-110)
[2022-04-03] MEDS: PANTOPRAZOLE 40 MG/10 ML VIAL IVP SCH (11:59)
[2022-04-03] MEDS: MAGNESIUM SULFATE-D5W PMX 1 GM in DEXTROSE/WATER 1 100ML.BAG IVPB SCH ×2 (12:00→14:35)
[2022-04-03] MEDS: FUROSEMIDE 10 MG/ML 4 ML VIAL IV SCH ×2 (12:00→21:33)
--- NOTE | 2022-04-03 12:57 | P.CRDCN ---
History of Present Illness History of present illness: This is a 60-year-old female with a past medical history of tetralogy of Falot as a child with repair, placement of a defibrillator in 1998, prior CVA, mitral regurgitation, bi-leaflet mitral valve prolapse, hypertension, atrial tachycardia, NSVT and dilated nonischemic cardiomyopathy with improved EF, Ventricular tachycardia with ICD shock 09/2021, ventricular fibrillation status post dual-chamber ICD implantation, paroxysmal atrial fibrillation on Eliquis. She follows in the office with Dr. Armstrong. We have been asked to see in consultation for congestive heart failure. Patient initially presented to the hospital with nausea and vomiting, however, she endorses that over the past 2 weeks she has been having increased bilateral lower extremity edema and shortness of breath with exertion. She does endorse weight gain, but around 5 lbs. She denies any increased salt intake. She is compliant with her medications. She did see Dr. Armstrong in the office 2 weeks ago and her Lasix was increased for 2 days and spironolactone was increased. On admission, her lactate was elevated and patient was given IV fluid boluses and started on IV fluids. In the ER O2 saturations dropping into 80%s on room air with activity. She denies any chest pain, lightheadedness, dizziness, palpitations, nausea, vomiting, syncope or near-syncope. She denies any symptoms of orthopnea or PND. DIAGNOSTICS * EKG reveals AV paced rhythm, heart rate 59 * 09/2021 Echocardiogram revealed an EF of 5055%, severe tricuspid regurgitation, severe pulmonary hypertension with RVSP of 56 mmHg * Chest xray moderate cardiomegaly, pulmonary vascular conestion, large appearance to the right and left pulmonary arteries . * Laboratory reviewed, troponin negative, BNP 11,800, sodium 137, potassium 4.2, BUN 55, serum creatinine 1.88, magnesium 1.6, WBC 6.1, hemoglobin 12.3, platelets 147 * Current home cardiac medications include Eliquis 2.5 mg twice a day, spironolactone 25 mg daily, rosuvastatin 10 mg daily, metoprolol succinate 100 mg daily, Lasix 60 mg daily, aspirin 162 mg daily, amiodarone 20 mg daily REVIEW OF SYSTEMS At the time of my exam: CONSTITUTIONAL: Denies fever or chills. CARDIOVASCULAR: Denies chest pain, shortness of breath, orthopnea, PND or palpitations. RESPIRATORY: Denies cough. GASTROINTESTINAL: Denies abdominal pain, diarrhea, constipation, nausea or vomiting. MUSCULOSKELETAL: Denies myalgias. NEUROLOGIC: Denies numbness, tingling, headacbe or weakness. ENDOCRINE: Denies fatigue, weight change, polydipsia or polyurina. GENITOURINARY: Denies burning, hematuria or urgency with micturation. HEMATOLOGIC: Denies history of anemia or bleeding. PHYSICAL EXAMINATION Blood pressure 100/59, heart rate 83, afebrile, oxygen saturations 95% on room air CONSTITUTIONAL: No apparent distress. HEENT: Head is normocephalic. Pupils are equal, round. Sclerae anicteric. Mucous membranes of the mouth are moist. JVD noted. CHEST EXAMINATION: Lungs with bilateral crackles to auscultation. No chest wall tenderness is noted on palpation or with deep breathing. HEART EXAMINATION: Regular rate and rhythm. S1, S2 heard. Systolic and diastolic murmur at right sternal border and apex noted. No gallops or rub. ABDOMEN: Soft, nontender. Positive bowel sounds. EXTREMITIES: 2+ peripheral pulses, 3+ bilateral lower extremity edema L >R and no calf tenderness. NEUROLOGIC EXAMINATION: Patient is awake, alert and oriented x3. ASSESSMENT Acute on chronic heart failure with preserved ejection fraction History of Ventricular tachycardia status post shock from ICD Tetralogy of Falot status post repair Valvular heart disease Pulmonary hypertension History of hypertension History of diabetes History of hyperlipidemia Paroxysmal atrial fibrillation on Xarelto History of Nonischemic cardiomyopathy with recovered EF PLAN Continue IV Lasix 40mg BID Monitor renal function and electrolytes I/Os, daily weights Continue home cardiac medications Further recommendations based on clinical course Nurse practitioner note has been reviewed by physician. Signing provider agrees with the documented findings, assessment, and plan of care. Past Medical History Past Medical History: Diabetes Mellitus, Eye Disorder, Hypertension, Liver Disease Additional Past Medical History / Comment(s): See Dr Briggs H&P, hx tetralogy fallot. hepatitis had tx clear now. 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 glaucoma ana maria eyes. 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 d&C Past Anesthesia/Blood Transfusion Reactions: No Reported Reaction Type of Cardiac Device: AICD Device Placement Date:: 1998 Past Psychological History: No Psychological Hx Reported Smoking Status: Never smoker Past Alcohol Use History: None Reported Past Drug Use History: None Reported - Past Family History Mother Family Medical History: No Reported History Additional Family Medical History / Comment(s): emphysema Medications and Allergies Home Medications Medication Instructions Recorded Confirmed Type Aspirin [Adult Low Dose Aspirin EC] 162 mg PO W/BRKFST 03/10/19 04/03/22 History Latanoprost [Xalatan 0.005%] 1 drop BOTH EYES HS 03/10/19 04/03/22 History metFORMIN HCL [Glucophage] 500 mg PO BID-W/MEALS 03/10/19 04/03/22 History Rosuvastatin [Crestor] 10 mg PO W/BRKFST 10/01/21 04/03/22 History Amiodarone [Cordarone] 200 mg PO W/BRKFST 02/01/22 04/03/22 History Ascorbic Acid [Vitamin C] 1,000 mg PO W/BRKFST 02/01/22 04/03/22 History Calcium Carbonate [Calcium] 600 mg PO W/BRKFST 02/01/22 04/03/22 History Cyanocobalamin [Vitamin B-12] 500 mcg PO W/BRKFST 02/01/22 04/03/22 History Flaxseed Oil 2400 Mg 2,400 mg PO W/BRKFST 02/01/22 04/03/22 History Fluticasone Nasal [place] [Flonase 1 spray EA NOSTRIL BID PRN 02/01/22 04/03/22 History Nasal [place]] Ubidecarenone [Co Q-10] 100 mg PO W/BRKFST 02/01/22 04/03/22 History Zinc 50 mg PO W/BRKFST 02/01/22 04/03/22 History Levothyroxine Sodium [Synthroid] 75 mcg PO DAILY@0630 #30 tab 02/03/22 04/03/22 Rx Apixaban [Eliquis] 2.5 mg PO BID 04/03/22 04/03/22 History Ferrous Sulfate [Feosol] 325 mg PO BID 04/03/22 04/03/22 History Furosemide [Lasix] 60 mg PO DAILY 04/03/22 04/03/22 History Metoprolol Succinate (ER) [Toprol 100 mg PO DAILY 04/03/22 04/03/22 History XL] Spironolactone [Aldactone] 25 mg PO HS 04/03/22 04/03/22 History Allergies Allergy/AdvReac Type Severity Reaction Status Date / Time codeine Allergy Rash/Hives Verified 04/03/22 09:49 Penicillins Allergy Rash/Hives Verified 04/03/22 09:49 Sulfa (Sulfonamide Allergy Rash/Hives Verified 04/03/22 09:49 Antibiotics) levofloxacin [From Levaquin] AdvReac Racing Verified 04/03/22 09:49 heart Physical Exam Vitals: Vital Signs Temp Pulse Resp BP Pulse Ox 04/03/22 10:43 91 L 04/03/22 10:42 54 L 22 98/58 88 L 04/03/22 05:13 98.6 F 96 16 91/60 95 04/02/22 20:51 97.9 F 74 18 99/59 94 L Intake and Output 04/02/22 04/03/22 04/03/22 22:59 06:59 14:59 Other: Weight 41.277 kg Results 04/03/22 00:13 04/03/22 00:13 Cardiac Enzymes 04/03/22 04/03/22 Range/Units 00:13 00:13 AST 50 H (14-36) U/L Troponin I 0.032 (0.000-0.034) ng/mL Coagulation 04/03/22 Range/Units 00:13 PT 17.2 H (9.0-12.0) sec APTT 33.3 H (22.0-30.0) sec CBC 04/03/22 Range/Units 00:13 WBC 6.1 (3.8-10.6) k/uL RBC 3.87 (3.80-5.40) m/uL Hgb 12.3 (11.4-16.0) gm/dL Hct 40.2 (34.0-46.0) % Plt Count 147 L (150-450) k/uL Comprehensive Metabolic Panel 04/03/22 Range/Units 00:13 Sodium 137 (137-145) mmol/L Potassium 4.2 (3.5-5.1) mmol/L Chloride 98 (98-107) mmol/L Carbon Dioxide 24 (22-30) mmol/L BUN 55 H (7-17) mg/dL Creatinine 1.88 H (0.52-1.04) mg/dL Glucose 80 (74-99) mg/dL Calcium 9.1 (8.4-10.2) mg/dL AST 50 H (14-36) U/L ALT 29 (4-34) U/L Alkaline Phosphatase 145 H (38-126) U/L Total Protein 7.2 (6.3-8.2) g/dL Albumin 4.0 (3.5-5.0) g/dL Current Medications Generic Name Dose Route Start Last Admin Trade Name Freq PRN Reason Stop Dose Admin Amiodarone HCl 200 mg 04/04/22 07:30 Amiodarone 200 Mg Tab PO W/[facility] Apixaban 2.5 mg 04/03/22 21:00 Apixaban 2.5 Mg Tablet PO BID [facility] Protocol Aspirin 162 mg 04/04/22 07:30 Aspirin 81 Mg PO W/BRKFST [facility] Atorvastatin Calcium 20 mg 04/04/22 07:30 Atorvastatin 20 Mg Tab PO W/[facility]FST [facility] Fluticasone Propionate 1 spray 04/03/22 09:54 Fluticasone 50mcg/[place] Nasal 16gm EA NOSTRIL BID PRN Allergy Symptoms Furosemide 40 mg 04/03/22 11:30 Furosemide 10 Mg/Ml 4 Ml Vial IV Q12HR [facility] Magnesium Sulfate/Dextrose 1 100 mls @ 100 mls/hr 04/03/22 12:00 gm/ IV Solution IVPB 04/03/22 13:59 Q1H [facility] Latanoprost 1 drops 04/03/22 21:00 Latanoprost 0.005% Ophth Drops 2.5 Ml Btl BOTH EYES HS [facility] Levothyroxine Sodium 75 mcg 04/04/22 06:30 Levothyroxine 75 Mcg Tab PO DAILY@0630 [facility] Metoprolol Succinate 100 mg 04/03/22 10:00 04/03/22 10:49 Metoprolol Succinate (Er) 50 Mg Tab.Er.24h PO Not Given DAILY [facility] Naloxone HCl 0.2 mg 04/03/22 03:57 Naloxone 0.4 Mg/Ml 1 Ml Vial IV Q2M PRN Opioid Reversal Ondansetron HCl 4 mg 04/03/22 03:57 Ondansetron 4 Mg/2 Ml Vial IVP Q8HR PRN Nausea And Vomiting Pantoprazole Sodium 40 mg 04/03/22 11:30 Pantoprazole 40 Mg/10 Ml Vial IVP DAILY HERVE Intake and Output 04/02/22 04/03/22 04/03/22 22:59 06:59 14:59 Other: Weight 41.277 kg 04/03/22 00:13 04/03/22 00:13
[2022-04-03 20:37] LABS: Glucose,Whole Blood 109 mg/dL (70-110)
[2022-04-03] MEDS: APIXABAN 2.5 MG TABLET PO SCH (21:33)
[2022-04-03] MEDS: LATANOPROST 0.005% OPHTH DROPS 2.5 ML BTL BOTH EYES SCH (22:52)
[2022-04-04] MEDS: ATORVASTATIN 20 MG TAB PO SCH (06:13)
[2022-04-04] MEDS: ASPIRIN 81 MG PO SCH (06:13)
[2022-04-04] MEDS: AMIODARONE 200 MG TAB PO SCH (06:13)
[2022-04-04] MEDS: LEVOTHYROXINE 75 MCG TAB PO SCH (06:13)
[2022-04-04 06:15] LABS: Glucose,Whole Blood 132 mg/dL (70-110)
[2022-04-04] MEDS: METOPROLOL SUCCINATE (ER) 50 MG TAB.ER.24H PO SCH (08:19)
[2022-04-04] MEDS: APIXABAN 2.5 MG TABLET PO SCH ×2 (08:19→20:40)
[2022-04-04] MEDS: PANTOPRAZOLE 40 MG/10 ML VIAL IVP SCH (08:20)
[2022-04-04] MEDS: FUROSEMIDE 10 MG/ML 4 ML VIAL IV SCH ×2 (08:20→20:40)
[2022-04-04] MEDS ORDERED: SODIUM FERRIC GLUCONAT-SUCROSE 125 MG in SODIUM CHLORIDE 0.9% 100 ML IVPB ONE (09:00)
[2022-04-04 09:31] LABS: Albumin 3.6 g/dL (3.5-5.0); Calcium 8.7 mg/dL (8.4-10.2); Potassium 3.3 mmol/L (3.5-5.1); Total Protein 6.7 g/dL (6.3-8.2)
[2022-04-04 09:53] LABS: Anisocytosis Slight; Basophils % (A) 0 %; Eosinophils # (A) 0.1 k/uL (0-0.7); Eosinophils % (A) 1 %; HCT 39.5 % (34.0-46.0); HGB 11.8 gm/dL (11.4-16.0); Hypochromasia Marked; Lymphocytes # (A) 1.1 k/uL (1.0-4.8); Lymphocytes % (A) 20 %; MCH 31.1 pg (25.0-35.0); MCHC 29.8 g/dL (31.0-37.0); MCV 104.4 fL (80.0-100.0); Macrocytosis Moderate; Mean Platelet Volume 10.7; Monocytes # (A) 0.6 k/uL (0-1.0); Monocytes % (A) 11 %; Neutrophils # (A) 3.5 k/uL (1.3-7.7); Neutrophils % (A) 65 %; Platelet Count 133 k/uL (150-450); RBC 3.78 m/uL (3.80-5.40); RDW 17.8 % (11.5-15.5); WBC 5.4 k/uL (3.8-10.6)
--- NOTE | 2022-04-04 11:09 | P.PN ---
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 She follows in the office with Dr. Armstrong. We have been asked to see in consultation for congestive heart failure. Patient initially presented to the hospital with nausea and vomiting, however, she endorses that over the past 2 weeks she has been having increased bilateral lower extremity edema and shortness of breath with exertion. She does endorse weight gain, but around 5 lbs. She denies any increased salt intake. She is compliant with her medications. She did see Dr. Armstrong in the office 2 weeks ago and her Lasix was increased for 2 days and spironolactone was increased. On admission, her lactate was elevated and patient was given IV fluid boluses and started on IV fluids. In the ER O2 saturations dropping into 80%s on room air with activity. She denies any chest pain, lightheadedness, dizziness, palpitations, nausea, vomiting, syncope or near-syncope. She denies any symptoms of orthopnea or PND. DIAGNOSTICS * EKG reveals AV paced rhythm, heart rate 59 * 09/2021 Echocardiogram revealed an EF of 5055%, severe tricuspid regurgitation, severe pulmonary hypertension with RVSP of 56 mmHg * Chest xray moderate cardiomegaly, pulmonary vascular conestion, large appearan ce to the right and left pulmonary arteries . * Laboratory reviewed, troponin negative, BNP 11,800, sodium 137, potassium 4.2, BUN 55, serum creatinine 1.88, magnesium 1.6, WBC 6.1, hemoglobin 12.3, pl atelets 147 * Current home cardiac medications include Eliquis 2.5 mg twice a day, spironolactone 25 mg daily, rosuvastatin 10 mg daily, metoprolol succinate 100 mg daily, Lasix 60 mg daily, aspirin 162 mg daily, amiodarone 20 mg daily 04/04/2022 Patient examined this morning at the bedside. Patient denies chest pain or pressure. She reports improvement in her shortness of breath. She continues to have lower extremity edema. She remains on IV lasix. Creatinine today is 1.62. PHYSICAL EXAM: VITAL SIGNS: Reviewed. GENERAL: Well-developed in no acute distress. NECK: Supple. No JVD or thyromegaly LUNGS: Respirations even and unlabored. Lungs with bibasilar crackles noted. HEART: Regular rate and rhythm. S1 and S2 heard. Systolic murmur noted. EXTREMITIES: Normal range of motion. No clubbing or cyanosis. Peripheral pulses intact. 2-3+ lower extremity edema ASSESSMENT: Acute on chronic heart failure with preserved ejection fraction History of Ventricular tachycardia status post shock from ICD Tetralogy of [place] status post repair Valvular heart disease Pulmonary hypertension History of hypertension History of diabetes History of hyperlipidemia Paroxysmal atrial fibrillation on Xarelto History of Nonischemic cardiomyopathy with recovered EF PLAN: Continue IV lasix Monitor kidney function Daily weights Accurate I&O Further recommendations pending patient course Nurse practitioner note has been reviewed by physician. Signing provider agrees with the documented findings, assessment, and plan of care. Objective - Vital Signs Vital signs: Vital Signs Temp 97.5 F L 04/04/22 08:15 Pulse 50 L 04/04/22 08:15 Resp 16 04/04/22 08:15 BP 92/55 04/04/22 08:15 Pulse Ox 95 04/04/22 08:15 FiO2 Intake & Output 04/03/22 04/04/22 04/04/22 18:59 06:59 18:59 Intake Total 180 Output Total 350 1050 Balance -350 -1050 180 Weight 42.5 kg Intake: Oral 180 Output: Urine 350 1050 Other: Voiding Method Toilet - Labs CBC & Chem 7: 04/04/22 08:50 04/04/22 08:50 Labs: Abnormal Lab Results - Last 24 Hours (Table) 04/03/22 04/04/22 04/04/22 Range/Units 11:56 06:11 08:50 RBC (3.80-5.40) m/uL MCV (80.0-100.0) fL MCHC (31.0-37.0) g/dL RDW (11.5-15.5) % Plt Count (150-450) k/uL Potassium 3.3 L (3.5-5.1) mmol/L BUN 46 H (7-17) mg/dL Creatinine 1.62 H (0.52-1.04) mg/dL Glucose 108 H (74-99) mg/dL POC Glucose (mg/dL) 247 H 132 H (70-110) mg/dL AST 48 H (14-36) U/L Alkaline Phosphatase 148 H (38-126) U/L 04/04/22 Range/Units 08:50 RBC 3.78 L (3.80-5.40) m/uL MCV 104.4 H (80.0-100.0) fL MCHC 29.8 L (31.0-37.0) g/dL RDW 17.8 H (11.5-15.5) % Plt Count 133 L (150-450) k/uL Potassium (3.5-5.1) mmol/L BUN (7-17) mg/dL Creatinine (0.52-1.04) mg/dL Glucose (74-99) mg/dL POC Glucose (mg/dL) (70-110) mg/dL AST (14-36) U/L Alkaline Phosphatase (38-126) U/L
[2022-04-04 12:00] LABS: Glucose,Whole Blood 197 mg/dL (70-110)
[2022-04-04] MEDS ORDERED: DEXTROSE 50% SYRINGE 50 ML IVP PRN ×2 (13:17)
[2022-04-04] MEDS ORDERED: POTASSIUM CHLORIDE ER 20 MEQ TAB.ER PO STA (13:17)
--- NOTE | 2022-04-04 16:04 | P.PN ---
Subjective Progress Note Date: 04/04/22 Patient was 61-year-old female with history of tetralogy of fallot, with surgery in the past and the congestive heart failure with normal ejection ejection fraction from her recent echocardiogram came in with compensative nausea vomiting epigastric abdominal burning sensation and discomfort along with lactic acidosis without any fever and leukocytosis in any other evidence of infection. Patient was given IV fluids after aggressive resuscitation patient is presently now been heart failure with bilateral pedal edema repeat chest x-ray showing some pulmonary edema patient had elevated BNP of 11,800 and her previous BNP was around 3000. Patient blood pressure is low and her blood pressure is usually low. Patient is also on anticoagulation with Eliquis for atrial fibrillation history. Patient does take 60 mg of Lasix at home. Does have pulmonary hypertension from congenital heart disease patient's serum creatinine is 1.88 during her last hospitalization it was around that but before that her creatinine was within normal limits and 0.7-0.8 patient light acidosis resolved at this time. Patient patient isn't complaining of increased shortness of breath lately with the minimal exertion and is also complaining of orthopnea. 04/04/2022 Patient seen and evaluated in follow-up this morning and is being followed by cardiology patient maintained on IV Lasix at 40 mg twice daily and will co ntinue. Potassium slightly low at 3.3 and will replace per protocol. Kidney functions trending down and creatinine is currently 1.6 to. Recommend repeat labs. Blood sugars have been mildly elevated and will add sliding scale and continue Accu-Cheks before meals and at bedtime for now. Patient continues on 3 L via nasal cannula although oxygen saturation is 97% and will wean FiO2 as tolerated. Patient reports she does have oxygen in the outpatient setting although usually only wears it at night. Encourage the patient to increase activity as tolerated and also encouraged oral intake. Recommend continue with telemetry monitoring and will follow-up with the patient tomorrow. Patient is afebrile denies chest pains and continues with some shortness of breath especially with exertion. Review of systems: Constitutional: No reports of fatigue, fever, or chills Cardiovascular: No reports of chest pain or palpitations Respiratory: reports of shortness of breath or cough GI: No reports of nausea, vomiting, or diarrhea : No reports of dysuria or retention Neurovascular: No reports of weakness or numbness All medications have been reviewed PHYSICAL EXAMINATION: GENERAL: The patient is alert and oriented x3, not in any acute distress. Well developed, well nourished. HEENT: Pupils are round and equally reacting to light. EOMI. No scleral icterus. No conjunctival pallor. Normocephalic, atraumatic. No pharyngeal erythema. No thyromegaly. CARDIOVASCULAR: S1 and S2 present. No murmurs, rubs, or gallops. PULMONARY: Chest is clear to auscultation, no wheezing or crackles. ABDOMEN: Soft, nontender, nondistended, normoactive bowel sounds. No palpable organomegaly. MUSCULOSKELETAL: No joint swelling or deformity. EXTREMITIES: No cyanosis, clubbing, or pedal edema. NEUROLOGICAL: Gross neurological examination did not reveal any focal deficits. SKIN: No rashes. Assessment: -Congestive heart failure possibility of diastolic dysfunction and may be right- sided pulmonary hypertension. -Gastroesophageal reflux disease or peptic ulcer disease for which patient received treatment will continue with the Protonix nausea vomiting resolved patient will be started on diet as tolerated -Lactic acidosis secondary to nausea vomiting, improved after IV fluids and discontinued given heart failure history -Hypothyroidism -Hypertension -Type 2 diabetes mellitus with blood sugars elevated will initiate sliding scale and recommend Accu-Cheks before meals and at bedtime -History of paroxysmal atrial fibrillation is on anticoagulation which will be continued -History of tetralogy of fallot. -DVT prophylaxis: Presently on anticoagulation -Full code [place]: Recommend continue with IV Lasix twice daily for another 24 hours and follow-up with repeat labs Encouraged increase activity as tolerated and weaning FiO2 as tolerated as well, currently maintained on 3-4 L and does have oxygen outpatient as needed at night she reports Appropriate home medications have been resumed. Recommend initiating sliding scale and Accu-Cheks before meals and at bedtime his blood sugars have been elevated Encouraged oral intake and recommend continue with consistent carb heart healthy diet Prognosis is guarded Possible discharge in 24-48 hours The impression and plan of care has been dictated by Rosanna Lopez, Nurse Practitioner as directed. Dr. Austyn MD I have performed a history and examination and MDM of this patient, discussed the same with the dictator, and agree with the dictator's assessment and plan as written ,documented as a scribe. Based on total visit time, I have performed more than 50% of the visit. Objective - Vital Signs Vital signs: Vital Signs Temp 97.5 F L 04/04/22 08:15 Pulse 50 L 04/04/22 08:15 Resp 16 04/04/22 08:15 BP 92/55 04/04/22 08:15 Pulse Ox 95 04/04/22 08:15 FiO2 Intake & Output 04/03/22 04/04/22 04/04/22 18:59 06:59 18:59 Intake Total 180 Output Total 350 1050 Balance -350 -1050 180 Weight 42.5 kg Intake: Oral 180 Output: Urine 350 1050 Other: Voiding Method Toilet - Labs CBC & Chem 7: 04/04/22 08:50 04/04/22 08:50 Labs: Abnormal Lab Results - Last 24 Hours (Table) 04/03/22 04/03/22 04/04/22 Range/Units 10:51 11:56 06:11 POC Glucose (mg/dL) 59 L 247 H 132 H (70-110) mg/dL
[2022-04-04 16:30] LABS: Glucose,Whole Blood 98 mg/dL (70-110)
[2022-04-04] MEDS: INSULIN ASPART (NovoLOG) 100 UNIT/ML VIAL SQ SCH ×2 (16:33→20:41)
[2022-04-04 20:09] LABS: Glucose,Whole Blood 165 mg/dL (70-110)
[2022-04-04] MEDS: LATANOPROST 0.005% OPHTH DROPS 2.5 ML BTL BOTH EYES SCH (21:44)
[2022-04-05 06:20] LABS: Glucose,Whole Blood 156 mg/dL (70-110)
[2022-04-05] MEDS: ASPIRIN 81 MG PO SCH (06:26)
[2022-04-05] MEDS: INSULIN ASPART (NovoLOG) 100 UNIT/ML VIAL SQ SCH ×2 (06:26→12:03)
[2022-04-05] MEDS: AMIODARONE 200 MG TAB PO SCH (06:26)
[2022-04-05] MEDS: ATORVASTATIN 20 MG TAB PO SCH (06:26)
[2022-04-05] MEDS: LEVOTHYROXINE 75 MCG TAB PO SCH (06:26)
[2022-04-05 09:05] LABS: Calcium 8.7 mg/dL (8.4-10.2); Potassium 3.9 mmol/L (3.5-5.1)
[2022-04-05] MEDS: PANTOPRAZOLE 40 MG/10 ML VIAL IVP SCH (09:48)
[2022-04-05] MEDS: APIXABAN 2.5 MG TABLET PO SCH (09:48)
[2022-04-05] MEDS: METOPROLOL SUCCINATE (ER) 50 MG TAB.ER.24H PO SCH (09:48)
[2022-04-05] MEDS: FUROSEMIDE 10 MG/ML 4 ML VIAL IV SCH (09:48)
[2022-04-05 10:58] VITALS: RESP 17
[2022-04-05 11:50] LABS: Glucose,Whole Blood 156 mg/dL (70-110)
--- NOTE | 2022-04-05 12:05 | P.PN ---
Subjective Progress Note Date: 04/05/22 HISTORY OF PRESENT ILLNESS: This is a 60-year-old female with a past medical history of tetralogy of Falot as a child with repair, placement of a defibrillator in 1998, prior CVA, mitral regurgitation, bi-leaflet mitral valve prolapse, hypertension, atrial tachycardia, NSVT and dilated nonischemic cardiomyopathy with improved EF, Ventricular tachycardia with ICD shock 09/2021, ventricular fibrillation status post dual-chamber ICD implantation, paroxysmal atrial fibrillation on Eliquis. She follows in the office with Dr. Armstrong. We have been asked to see in consultation for congestive heart failure. Patient initially presented to the hospital with nausea and vomiting, however, she endorses that over the past 2 weeks she has been having increased bilateral lower extremity edema and shortness of breath with exertion. She does endorse weight gain, but around 5 lbs. She denies any increased salt intake. She is compliant with her medications. She did see Dr. Armstrong in the office 2 weeks ago and her Lasix was increased for 2 days and spironolactone was increased. On admission, her lactate was elevated and patient was given IV fluid boluses and started on IV fluids. In the ER O2 saturations dropping into 80%s on room air with activity. She denies any chest pain, lightheadedness, dizziness, palpitations, nausea, vomiting, syncope or near-syncope. She denies any symptoms of orthopnea or PND. DIAGNOSTICS * EKG reveals AV paced rhythm, heart rate 59 * 09/2021 Echocardiogram revealed an EF of 5055%, severe tricuspid regurgitation, severe pulmonary hypertension with RVSP of 56 mmHg * Chest xray moderate cardiomegaly, pulmonary vascular conestion, large appearan ce to the right and left pulmonary arteries . * Laboratory reviewed, troponin negative, BNP 11,800, sodium 137, potassium 4.2, BUN 55, serum creatinine 1.88, magnesium 1.6, WBC 6.1, hemoglobin 12.3, pl atelets 147 * Current home cardiac medications include Eliquis 2.5 mg twice a day, spironolactone 25 mg daily, rosuvastatin 10 mg daily, metoprolol succinate 100 mg daily, Lasix 60 mg daily, aspirin 162 mg daily, amiodarone 20 mg daily 04/04/2022 Patient examined this morning at the bedside. Patient denies chest pain or pressure. She reports improvement in her shortness of breath. She continues to have lower extremity edema. She remains on IV lasix. Creatinine today is 1.62. 04/05/2022 Patient examined this morning. Patient is sitting up in the chair. Patient denies chest pain or pressure. She denies shortness of breath. Patient remains on IV Lasix. She continues to have lower extremity edema. BUN 44. Creatinine 1.58. Patient is hoping to be discharged home today. PHYSICAL EXAM: VITAL SIGNS: Reviewed. GENERAL: Well-developed in no acute distress. NECK: Supple. No JVD or thyromegaly LUNGS: Respirations even and unlabored. Lungs diminished. HEART: Regular rate and rhythm. S1 and S2 heard. Systolic murmur noted. EXTREMITIES: Normal range of motion. No clubbing or cyanosis. Peripheral pulses intact. 2-3+ lower extremity edema ASSESSMENT: Acute on chronic heart failure with preserved ejection fraction History of Ventricular tachycardia status post shock from ICD Tetralogy of Falot status post repair Valvular heart disease Pulmonary hypertension History of hypertension History of diabetes History of hyperlipidemia Paroxysmal atrial fibrillation on Xarelto History of Nonischemic cardiomyopathy with recovered EF PLAN: Continue current cardiac medications Continue IV Lasix If patient remains stable she may be discharged home this afternoon with close outpatient follow-up Further recommendations pending patient course Nurse practitioner note has been reviewed by physician. Signing provider agrees with the documented findings, assessment, and plan of care. Objective - Vital Signs Vital signs: Vital Signs Temp 98 F 04/05/22 08:10 Pulse 68 04/05/22 08:10 Resp 17 04/05/22 08:10 BP 93/52 04/05/22 08:10 Pulse Ox 91 L 04/05/22 08:10 FiO2 Intake & Output 04/04/22 04/05/22 04/05/22 18:59 06:59 18:59 Intake Total 550 120 Output Total 400 350 Balance 550 -280 -350 Intake: Oral 550 120 Output: Urine 400 350 Other: Voiding Method Toilet Toilet - Labs CBC & Chem 7: 04/04/22 08:50 04/05/22 07:36 Labs: Abnormal Lab Results - Last 24 Hours (Table) 04/04/22 04/05/22 04/05/22 Range/Units 20:08 06:18 07:36 BUN 44 H (7-17) mg/dL Creatinine 1.58 H (0.52-1.04) mg/dL Glucose 106 H (74-99) mg/dL POC Glucose (mg/dL) 165 H 156 H (70-110) mg/dL 04/05/22 Range/Units 11:48 BUN (7-17) mg/dL Creatinine (0.52-1.04) mg/dL Glucose (74-99) mg/dL POC Glucose (mg/dL) 156 H (70-110) mg/dL
[2022-04-05 13:01] VITALS: BP 93/51; PULSE 48; TEMP 98.2
== END 2022-04-05 19:02 | disposition home health service (06) | DRG 291 ==
LOC: EC 20:48 → 6NMEDSUR 04-03 03:57 → OBSVTOIN 04-03 08:01 → 6NMEDSUR 04-03 14:24 → 3SCARD 04-03 15:57
PROVIDERS: ADMIT Hospitalist; ATTEND Hospitalist
DX: I11.0 Hypertensive heart disease with heart failure (principal); I50.33 Acute on chronic diastolic (congestive) heart failure; E87.2 Acidosis; I47.1 Supraventricular tachycardia; K21.9 Gastro-esophageal reflux disease without esophagitis; E03.9 Hypothyroidism, unspecified; E11.9 Type 2 diabetes mellitus without complications; E78.5 Hyperlipidemia, unspecified; E86.0 Dehydration; I27.20 Pulmonary hypertension, unspecified; I34.0 Nonrheumatic mitral (valve) insufficiency; I34.1 Nonrheumatic mitral (valve) prolapse; I42.0 Dilated cardiomyopathy; I48.0 Paroxysmal atrial fibrillation; H40.9 Unspecified glaucoma; K27.9 Peptic ulcer, site unspecified, unspecified as acute or chronic, without hemorrhage or perforation; Z79.01 Long term (current) use of anticoagulants; Z79.82 Long term (current) use of aspirin; Z79.84 Long term (current) use of oral hypoglycemic drugs; Z79.890 Hormone replacement therapy; Z79.899 Other long term (current) drug therapy; Z82.5 Family history of asthma and other chronic lower respiratory diseases; Z86.73 Personal history of transient ischemic attack (TIA), and cerebral infarction without residual deficits; Z86.79 Personal history of other diseases of the circulatory system; Z95.810 Presence of automatic (implantable) cardiac defibrillator; Z88.1 Allergy status to other antibiotic agents; Z88.5 Allergy status to narcotic agent; Z88.0 Allergy status to penicillin; Z88.2 Allergy status to sulfonamides; Z86.19 Personal history of other infectious and parasitic diseases
CPT/HCPCS: 36415; 71045; 80048; 80053; 83036; 83605; 83690; 83735; 83880; 84100; 84484; 85025; 85610; 85730; 93005; 96361; 96365; 96366; 96375; 99285

== ENCOUNTER 2022-05-11 13:51 | Inpatient (IN) | payer MEDICARE, BC ==
[2022-05-11 16:12] LABS: Anisocytosis Slight; HCT 43.2 % (34.0-46.0); HGB 13.4 gm/dL (11.4-16.0); Hypochromasia Marked; MCH 32.3 pg (25.0-35.0); MCV 103.9 fL (80.0-100.0); Macrocytosis Marked; Mean Platelet Volume 10.7; Platelet Count 135 k/uL (150-450); RBC 4.15 m/uL (3.80-5.40); RDW 18.5 % (11.5-15.5)
--- NOTE | 2022-05-11 16:13 | ED ---
Extremity Problem HPI - General Source: patient, family, RN notes reviewed Mode of arrival: wheelchair Limitations: no limitations - History of Present Illness MD Complaint: extremity pain, extremity swelling Onset/Timin -: days(s) <Sangeetha Fay - Last Filed: 05/11/22 16:38> <Marco Lynch - Last Filed: 05/11/22 17:41> - General Chief complaint: Extremity Problem,Nontraumatic Stated complaint: fluid on leg right Time Seen by Provider: 05/11/22 14:20 - History of Present Illness Initial comments: This is a 61-year-old female who presents to the emergency department for right leg swelling. She has had a wound on the right lower leg for the last couple of months that is not healing well. Over the last couple of days, she feels like it has gotten progressively worse. Her right leg is now swollen and red. The wound is also draining clear fluid. She does have a history of congestive heart failure and states that her legs are much more swollen than normal. Patient denies any fevers, nausea, or vomiting. Denies any fevers, chills, sore throat, cough, dyspnea, chest pain, palpitations, abdominal pain, nausea, vomiting, diarrhea, back pain, or headaches. (Sangeetha Fay) - Related Data Home Medications Medication Instructions Recorded Confirmed RX: Aspirin [Adult Low Dose 162 mg PO W/BRKFST 03/10/19 05/11/22 Aspirin EC] RX: Latanoprost [Xalatan 0.005%] 1 drop BOTH EYES HS 03/10/19 05/11/22 RX: Rosuvastatin [Crestor] 10 mg PO W/BRKFST 10/01/21 05/11/22 Flaxseed Oil 2400 Mg 2,400 mg PO W/BRKFST 02/01/22 05/11/22 RX: Amiodarone [Cordarone] 200 mg PO W/BRKFST 02/01/22 05/11/22 RX: Ascorbic Acid [Vitamin C] 1,000 mg PO W/BRKFST 02/01/22 05/11/22 RX: Fluticasone Nasal [place] 1 spray EA NOSTRIL BID PRN 02/01/22 05/11/22 [Flonase Nasal [place]] RX: Ubidecarenone [Co Q-10] 100 mg PO W/BRKFST 02/01/22 05/11/22 RX: Zinc 50 mg PO W/BRKFST 02/01/22 05/11/22 RX: Metoprolol Succinate (ER) 50 mg PO BID 04/03/22 05/11/22 [Toprol XL] RX: Spironolactone [Aldactone] 25 mg PO HS 04/03/22 05/11/22 Furosemide [Lasix] 20 mg PO AC-SUPPER 05/11/22 05/11/22 RX: Furosemide [Lasix] 40 mg PO QAM 05/11/22 05/11/22 Rivaroxaban [Xarelto] 15 mg PO HS 05/11/22 05/11/22 Previous Rx's Medication Instructions Recorded RX: Levothyroxine Sodium 75 mcg PO DAILY@0630 #30 tab 02/03/22 [Synthroid] Allergies Allergy/AdvReac Type Severity Reaction Status Date / Time codeine Allergy Rash/Hives Verified 05/11/22 17:25 Penicillins Allergy Rash/Hives Verified 05/11/22 17:25 Sulfa (Sulfonamide Allergy Rash/Hives Verified 05/11/22 17:25 Antibiotics) levofloxacin [From Levaquin] AdvReac Racing Verified 05/11/22 17:25 heart Review of Systems ROS Other: All systems not noted in ROS Statement are negative. <Sangeetha Fay - Last Filed: 05/11/22 16:38> ROS Other: All systems not noted in ROS Statement are negative. <Marco Lynch - Last Filed: 05/11/22 17:41> ROS Statement: Those systems with pertinent positive or pertinent negative responses have been documented in the HPI. Past Medical History Past Medical History: Diabetes Mellitus, Eye Disorder, Hypertension, Liver Disease Additional Past Medical History / Comment(s): See Dr Briggs H&P, hx tetralogy fallot. hepatitis had tx clear now. 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 glaucoma ana maria eyes. 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 d&C Past Anesthesia/Blood Transfusion Reactions: No Reported Reaction Type of Cardiac Device: AICD Device Placement Date:: 1998 Past Psychological History: No Psychological Hx Reported Smoking Status: Never smoker Past Alcohol Use History: None Reported Past Drug Use History: None Reported - Past Family History Mother Family Medical History: No Reported History Additional Family Medical History / Comment(s): emphysema <Sangeetha Fay - Last Filed: 05/11/22 16:38> General Exam Limitations: no limitations General appearance: alert, in no apparent distress Head exam: Present: atraumatic, normocephalic, normal inspection Respiratory exam: Present: normal lung sounds bilaterally. Absent: respiratory distress, wheezes, rales, rhonchi, stridor Cardiovascular Exam: Present: regular rate, normal rhythm, normal heart sounds. Absent: systolic murmur, diastolic murmur, rubs, gallop, clicks Extremities exam: Present: other (3+ pitting edema bilaterally.) Neurological exam: Present: alert, oriented X3, CN II-XII intact Psychiatric exam: Present: normal affect, normal mood Skin exam: Present: other (2 x 3 cm wound to the distal aspect of the right lateral tib-fib. Active serous drainage. Diffuse surrounding erythema, swelling, increased heat, and tenderness.) <Sangeetha Fay - Last Filed: 05/11/22 16:38> Course Vital Signs 05/11/22 14:07 Temperature 98.7 F Pulse Rate 80 Respiratory 18 Rate Blood Pressure 88/51 O2 Sat by Pulse 95 Oximetry Medical Decision Making - Lab Data Result diagrams: 05/11/22 15:39 05/11/22 15:39 - Radiology Data Radiology results: report reviewed, image reviewed <Sangeetha Fay - Last Filed: 05/11/22 16:38> - Lab Data Result diagrams: 05/11/22 15:39 05/11/22 15:39 <Marco Lynch - Last Filed: 05/11/22 17:41> - Medical Decision Making This is a 61-year-old female who presents to the emergency department for progression of a leg wound. X-ray of the tib-fib was obtained revealing soft tissue edema. Case signed out to ED attending pending workup completion. (Sangeetha Fay) Patient is signed out to me by previous shift physician assistant professor of music, Romeo santos. Briefly, patient is 61-year-old female [facility] for chief complaint of lower extremity swelling and serous drainage. Patient has multiple comorbidities. Laboratory evaluation reviewed. He was seen metabolic panel is within acceptable limits. Tib-fib x-ray was obtained showing no acute processes. At signout from Romeo santos was to follow up with pending labs. Patient evaluated bedside 5:00 PM. History was obtained from patient's family member at the bedside states that over the last 24 hours she had acute onset redness pain and swelling to the right lower extremity. There is concern that this is rapidly progressing. Right lower extremity was significantly erythematous with heat. Erythema here to be circumferential around the right lower extremity. It's very tender to palpation. No crepitus felt. X-rays reviewed shows no signs of gas formation in the soft tissues of the leg. Given patient's age and comorbidities there is concern for serious soft tissue infection. Patient started on broad-spectrum antibiotics. Cultures pending. Patient be admitted for IV antibiotics. Infectious disease will be consulted.Prematurity peptide was found to be 12,200. Patient not complaining of any shortness of breath. She is not dyspneic or hypoxic. No concerns for heart failure exacerbation at this time. (Marco Lynch) - Lab Data Lab Results 05/11/22 05/11/22 05/11/22 Range/Units 15:39 15:39 15:39 WBC 7.0 (3.8-10.6) k/uL RBC 4.15 (3.80-5.40) m/uL Hgb 13.4 (11.4-16.0) gm/dL Hct 43.2 (34.0-46.0) % MCV 103.9 H (80.0-100.0) fL MCH 32.3 (25.0-35.0) pg MCHC 31.0 (31.0-37.0) g/dL RDW 18.5 H (11.5-15.5) % Plt Count 135 L (150-450) k/uL MPV 10.7 Neutrophils % (Manual) 72 % Lymphocytes % (Manual) 16 % Monocytes % (Manual) 12 % Neutrophils # (Manual) 5.04 (1.3-7.7) k/uL Lymphocytes # (Manual) 1.12 (1.0-4.8) k/uL Monocytes # (Manual) 0.84 (0-1.0) k/uL Nucleated RBCs 2 H (0-0) /100 WBC Manual Slide Review Performed Polychromasia Present Hypochromasia Marked Poikilocytosis (manual Present Anisocytosis Slight Macrocytosis Marked A Sodium 135 L (137-145) mmol/L Potassium 4.7 (3.5-5.1) mmol/L Chloride 99 (98-107) mmol/L Carbon Dioxide 23 (22-30) mmol/L Anion Gap 13 mmol/L BUN 39 H (7-17) mg/dL Creatinine 1.56 H (0.52-1.04) mg/dL Est GFR (CKD-EPI)AfAm 41 (>60 ml/min/1.73 sqM) Est GFR (CKD-EPI)NonAf 35 (>60 ml/min/1.73 sqM) Glucose 112 H (74-99) mg/dL Plasma Lactic Acid Sherman 1.3 (0.7-2.0) mmol/L Calcium 8.5 (8.4-10.2) mg/dL Total Bilirubin 2.7 H (0.2-1.3) mg/dL AST 117 H (14-36) U/L ALT 89 H (4-34) U/L Alkaline Phosphatase 186 H (38-126) U/L NT-Pro-B Natriuret Pep pg/mL Total Protein 6.9 (6.3-8.2) g/dL Albumin 3.7 (3.5-5.0) g/dL 05/11/22 Range/Units 15:39 WBC (3.8-10.6) k/uL RBC (3.80-5.40) m/uL Hgb (11.4-16.0) gm/dL Hct (34.0-46.0) % MCV (80.0-100.0) fL MCH (25.0-35.0) pg MCHC (31.0-37.0) g/dL RDW (11.5-15.5) % Plt Count (150-450) k/uL MPV Neutrophils % (Manual) % Lymphocytes % (Manual) % Monocytes % (Manual) % Neutrophils # (Manual) (1.3-7.7) k/uL Lymphocytes # (Manual) (1.0-4.8) k/uL Monocytes # (Manual) (0-1.0) k/uL Nucleated RBCs (0-0) /100 WBC Manual Slide Review Polychromasia Hypochromasia Poikilocytosis (manual Anisocytosis Macrocytosis Sodium (137-145) mmol/L Potassium (3.5-5.1) mmol/L Chloride (98-107) mmol/L Carbon Dioxide (22-30) mmol/L Anion Gap mmol/L BUN (7-17) mg/dL Creatinine (0.52-1.04) mg/dL Est GFR (CKD-EPI)AfAm (>60 ml/min/1.73 sqM) Est GFR (CKD-EPI)NonAf (>60 ml/min/1.73 sqM) Glucose (74-99) mg/dL Plasma Lactic Acid Sherman (0.7-2.0) mmol/L Calcium (8.4-10.2) mg/dL Total Bilirubin (0.2-1.3) mg/dL AST (14-36) U/L ALT (4-34) U/L Alkaline Phosphatase (38-126) U/L NT-Pro-B Natriuret Pep 32332 pg/mL Total Protein (6.3-8.2) g/dL Albumin (3.5-5.0) g/dL Disposition <Sangeetha Fay - Last Filed: 05/11/22 16:38> Decision Time: 17:41 <Marco Lynch - Last Filed: 05/11/22 17:41> Clinical Impression: Cellulitis Disposition: ADMITTED IP TO THIS HOSP Condition: Fair
[2022-05-11 16:14] LABS: Albumin 3.7 g/dL (3.5-5.0); Calcium 8.5 mg/dL (8.4-10.2); Total Bilirubin 2.7 mg/dL (0.2-1.3); Total Protein 6.9 g/dL (6.3-8.2)
[2022-05-11 16:15] LABS: Potassium 4.7 mmol/L (3.5-5.1)
--- NOTE | 2022-05-11 16:28 | XR ---
EXAMINATION TYPE: XR tibia fibula RT DATE OF EXAM: 05/11/2022 CLINICAL HISTORY: pain TECHNIQUE: AP and lateral images of the right tibia and fibula are obtained. COMPARISON: None. FINDINGS: There is no acute fracture/dislocation evident. The joint spaces appear within normal ching its. Soft tissue edema suggested which may reflect underlying cellulitis. IMPRESSION: There is no acute fracture or dislocation seen. ICD 10 NO FRACTURE, INITIAL EVALUATION
[2022-05-11 16:42] LABS: Lymphocytes # (M) 1.12 k/uL (1.0-4.8); Monocytes # (M) 0.84 k/uL (0-1.0); Neutrophils # (M) 5.04 k/uL (1.3-7.7); Neutrophils % (M) 72 %; Nucleated Red Blood Cells 2 /100 WBC (0-0); Poikilocytosis (M) Present; Polychromasia Present; Total Cells Counted 100
[2022-05-11] MEDS ORDERED: VANCOMYCIN IV PER PHARMACY 1 EACH MISC MISCELLANE PRN (17:01)
[2022-05-11] MEDS ORDERED: CEFEPIME 2 GM in SODIUM CHLORIDE 0.9% 100 ML IVPB STA (17:01)
[2022-05-11] MEDS ORDERED: NALOXONE 0.4 MG/ML 1 ML VIAL IV PRN (17:04)
[2022-05-11] MEDS ORDERED: ONDANSETRON 4 MG/2 ML VIAL IVP PRN (17:04)
[2022-05-11] MEDS ORDERED: VANCOMYCIN 750 MG in SODIUM CHLORIDE 0.9% 250 ML IVPB STA (17:10)
[2022-05-11] MEDS: SODIUM CHLORIDE 0.9% 1,000 ML IV SCH (18:32)
[2022-05-12 05:37] LABS: African American GFR (CKD) 43 (>60 ml/min/1.73 sqM); Non-African American GFR(CKD) 37 (>60 ml/min/1.73 sqM)
[2022-05-12] MEDS ORDERED: FUROSEMIDE 40 MG TAB PO SCH (09:00)
[2022-05-12] MEDS: METOPROLOL SUCCINATE (ER) 50 MG TAB.ER.24H PO SCH ×2 (09:56→21:43)
[2022-05-12] MEDS ORDERED: VANCOMYCIN 750 MG in SODIUM CHLORIDE 0.9% 250 ML IVPB ONE (13:00)
--- NOTE | 2022-05-12 13:07 | P.HPIM ---
History of Present Illness H&P Date: 05/11/22 Chief Complaint: Pain and swelling and redness of right leg 05/11/2022, the patient denies having any fever or any chills, the patient still has significant swelling and redness right lower extremity mention no improvement in the symptoms, patient denies having any chest pain shortness of breath or cough no abdominal pain or diarrhea; states that over the last 24 hours she had acute onset redness pain and swelling to the right lower extremity. There is concern that this is rapidly progressing. Right lower extremity was significantly erythematous with heat. Erythema here to be circumferential around the right lower extremity. It's very tender to palpation. No crepitus felt. X-rays reviewed shows no signs of gas formation in the soft tissues of the leg. Given patient's age and comorbidities there is concern for serious soft tissue infection. Patient started on broad-spectrum antibiotics. Cultures pending. Patient be admitted for IV antibiotics. Infectious disease will be consulted. Lab review shows a WBC of 7.0, hemoglobin 15.4, platelet count of 135, sodium 135, potassium 4.7, BUN/creatinine elevated at 39/1.56, lactic acid level of 1.3, total bilirubin elevated at 2.7; proBNP elevated at 12,200; we will plan to obtain a chest x-ray if patient is symptomatic Review of Systems REVIEW OF SYSTEMS: CONSTITUTIONAL: No fever, no malaise, no fatigue. HEENT: No recent visual problems or hearing problems. Denied any sore throat. CARDIOVASCULAR: No chest pain, orthopnea, PND, no palpitations, no syncope. PULMONARY: No shortness of breath, no cough, no hemoptysis. GASTROINTESTINAL: No diarrhea, no nausea, no vomiting, no abdominal pain. NEUROLOGICAL: No headaches, no weakness, no numbness. HEMATOLOGICAL: Denies any bleeding or petechiae. GENITOURINARY: Denies any burning micturition, frequency, or urgency. MUSCULOSKELETAL/RHEUMATOLOGICAL: Denies any joint pain, swelling, or any muscle pain. ENDOCRINE: Denies any polyuria or polydipsia. The rest of the 14-point review of systems is negative. Past Medical History Past Medical History: Diabetes Mellitus, Eye Disorder, Hypertension, Liver Disease Additional Past Medical History / Comment(s): See Dr Briggs H&P, hx tetralogy fallot. hepatitis had tx clear now. 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 glaucoma ana maria eyes. 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 d&C Past Anesthesia/Blood Transfusion Reactions: No Reported Reaction Type of Cardiac Device: AICD Device Placement Date:: 1998 Past Psychological History: No Psychological Hx Reported Smoking Status: Never smoker Past Alcohol Use History: None Reported Past Drug Use History: None Reported - Past Family History Mother Family Medical History: No Reported History Additional Family Medical History / Comment(s): emphysema Medications and Allergies Home Medications Medication Instructions Recorded Confirmed Type Aspirin [Adult Low Dose Aspirin EC] 162 mg PO W/BRKFST 03/10/19 05/11/22 History Latanoprost [Xalatan 0.005%] 1 drop BOTH EYES HS 03/10/19 05/11/22 History Rosuvastatin [Crestor] 10 mg PO W/BRKFST 10/01/21 05/11/22 History Amiodarone [Cordarone] 200 mg PO W/BRKFST 02/01/22 05/11/22 History Ascorbic Acid [Vitamin C] 1,000 mg PO W/BRKFST 02/01/22 05/11/22 History Flaxseed Oil 2400 Mg 2,400 mg PO W/BRKFST 02/01/22 05/11/22 History Fluticasone Nasal [place] [Flonase 1 spray EA NOSTRIL BID PRN 02/01/22 05/11/22 History Nasal [place]] Ubidecarenone [Co Q-10] 100 mg PO W/BRKFST 02/01/22 05/11/22 History Zinc 50 mg PO W/BRKFST 02/01/22 05/11/22 History Levothyroxine Sodium [Synthroid] 75 mcg PO DAILY@0630 #30 tab 02/03/22 05/11/22 Rx Metoprolol Succinate (ER) [Toprol 50 mg PO BID 04/03/22 05/11/22 History XL] Spironolactone [Aldactone] 25 mg PO HS 04/03/22 05/11/22 History Furosemide [Lasix] 20 mg PO AC-SUPPER 05/11/22 05/11/22 History Furosemide [Lasix] 40 mg PO QAM 05/11/22 05/11/22 History Rivaroxaban [Xarelto] 15 mg PO HS 05/11/22 05/11/22 History Allergies Allergy/AdvReac Type Severity Reaction Status Date / Time codeine Allergy Rash/Hives Verified 05/11/22 17:25 Penicillins Allergy Rash/Hives Verified 05/11/22 17:25 Sulfa (Sulfonamide Allergy Rash/Hives Verified 05/11/22 17:25 Antibiotics) levofloxacin [From Levaquin] AdvReac Racing Verified 05/11/22 17:25 heart Physical Exam Vitals: Vital Signs Temp Pulse Resp BP Pulse Ox 05/11/22 14:07 98.7 F 80 18 88/51 95 Intake and Output 05/11/22 05/11/22 05/11/22 06:59 14:59 22:59 Other: Weight 34.927 kg General appearance: alert, in no apparent distress Head exam: Present: atraumatic, normocephalic, normal inspection Respiratory exam: Present: normal lung sounds bilaterally. Absent: respiratory distress, wheezes, rales, rhonchi, stridor Cardiovascular Exam: Present: regular rate, normal rhythm, normal heart sounds. Absent: systolic murmur, diastolic murmur, rubs, gallop, clicks Extremities exam: Present: other (3+ pitting edema bilaterally.) Neurological exam: Present: alert, oriented X3, CN II-XII intact Psychiatric exam: Present: normal affect, normal mood Skin exam: Present: other (2 x 3 cm wound to the distal aspect of the right lateral tib-fib. Active serous drainage. Diffuse surrounding erythema, swelling, increased heat, and tenderness. Results CBC & Chem 7: 05/11/22 15:39 05/12/22 04:55 Labs: Abnormal Lab Results - Last 24 Hours (Table) 05/11/22 05/11/22 Range/Units 15:39 15:39 MCV 103.9 H (80.0-100.0) fL RDW 18.5 H (11.5-15.5) % Plt Count 135 L (150-450) k/uL Nucleated RBCs 2 H (0-0) /100 WBC Macrocytosis Marked A Sodium 135 L (137-145) mmol/L BUN 39 H (7-17) mg/dL Creatinine 1.56 H (0.52-1.04) mg/dL Glucose 112 H (74-99) mg/dL Total Bilirubin 2.7 H (0.2-1.3) mg/dL AST 117 H (14-36) U/L ALT 89 H (4-34) U/L Alkaline Phosphatase 186 H (38-126) U/L Assessment and Plan Assessment: 1. Severe rapidly progressive cellulitis right lower extremity - Patient has been placed on IV vancomycin with pharmacy dosing service and cefepime 2 g IV every 8 hours; we will monitor CBC, CMP and pro-calcitonin - X-ray of the left lower extremity shows no sign of gas formation and soft tissue - Consult ID for further recommendations on IV antibiotics 2. Acute renal injury; BUN/creatinine is elevated at 39/1.56; we will continue with slow IV fluid hydration given concern with elevated BNP; monitor renal function and electrolytes, strict COLLEEN's and daily weights, avoid nephrotoxins and hypotension 3. Elevated liver enzymes; patient has history of hepatitis with treatment -- AST/ALT is elevated at 117/89, total bilirubin elevated at 2.7; we will trend liver enzymes and plan for hepatobiliary ultrasound if liver enzymes continue to trend; order acute hepatitis profile 4. Hypertension; metoprolol 50 mg by mouth twice a day 5. Hypothyroidism; Synthroid 75 MCG daily 6. Hyperlipidemia; Lipitor 20 mg daily 7. Paroxysmal atrial fibrillation; patient is rate controlled on metoprolol and amiodarone 200 mg daily; anticoagulated with Xarelto 15 mg by mouth daily at bedtime DVT prophylaxis; SCDs/Xarelto CODE STATUS; full code
--- NOTE | 2022-05-12 13:10 | P.PN ---
Subjective Progress Note Date: 05/12/22 Principal diagnosis: Severe rapidly progressive cellulitis right lower extremity Acute renal injury/prerenal azotemia Elevated liver enzymes Pain and swelling and redness of right leg the patient denies having any fever or any chills, the patient still has significant swelling and redness right lower extremity mention no improvement in the symptoms, patient denies having any chest pain shortness of breath or cough no abdominal pain or diarrhea; states that over the last 24 hours she had acute onset redness pain and swelling to the right lower extremity. There is concern that this is rapidly progressing. Right lower extremity was significantly e rythematous with heat. Erythema here to be circumferential around the right lower extremity. It's very tender to palpation. No crepitus felt. X-rays reviewed shows no signs of gas formation in the soft tissues of the leg. Given patient's age and comorbidities there is concern for serious soft tissue infection. Patient started on broad-spectrum antibiotics. Cultures pending. Patient be admitted for IV antibiotics. Infectious disease will be consulted. Lab review shows a WBC of 7.0, hemoglobin 15.4, platelet count of 135, sodium 135, potassium 4.7, BUN/creatinine elevated at 39/1.56, lactic acid level of 1.3, total bilirubin elevated at 2.7; proBNP elevated at 12,200; we will plan to obtain a chest x-ray if patient is symptomatic Objective - Vital Signs Vital signs: Vital Signs Temp 97.9 F 05/12/22 07:00 Pulse 80 05/12/22 07:00 Resp 18 05/12/22 07:00 BP 90/59 05/12/22 07:00 Pulse Ox 95 05/12/22 07:00 FiO2 Intake & Output 05/11/22 05/12/22 05/12/22 18:59 06:59 18:59 Intake Total 118 Output Total 150 Balance -150 118 Weight 34.927 kg 34.927 kg Intake: Oral 118 Output: Urine 150 Other: Voiding Method Bedpan Bedpan # Voids 1 - Exam General appearance: alert, in no apparent distress Head exam: Present: atraumatic, normocephalic, normal inspection Respiratory exam: Present: normal lung sounds bilaterally. Absent: respiratory distress, wheezes, rales, rhonchi, stridor Cardiovascular Exam: Present: regular rate, normal rhythm, normal heart sounds. Absent: systolic murmur, diastolic murmur, rubs, gallop, clicks Extremities exam: Present: other (3+ pitting edema bilaterally.) Neurological exam: Present: alert, oriented X3, CN II-XII intact Psychiatric exam: Present: normal affect, normal mood Skin exam: Present: other (2 x 3 cm wound to the distal aspect of the right lateral tib-fib. Active serous drainage. Diffuse surrounding erythema, swelling, increased heat, and tenderness. - Labs CBC & Chem 7: 05/11/22 15:39 05/12/22 04:55 Labs: Abnormal Lab Results - Last 24 Hours (Table) 05/11/22 05/11/22 05/12/22 Range/Units 15:39 15:39 04:55 MCV 103.9 H (80.0-100.0) fL RDW 18.5 H (11.5-15.5) % Plt Count 135 L (150-450) k/uL Nucleated RBCs 2 H (0-0) /100 WBC Macrocytosis Marked A Sodium 135 L (137-145) mmol/L BUN 39 H (7-17) mg/dL Creatinine 1.56 H 1.49 H (0.52-1.04) mg/dL Glucose 112 H (74-99) mg/dL Total Bilirubin 2.7 H (0.2-1.3) mg/dL AST 117 H (14-36) U/L ALT 89 H (4-34) U/L Alkaline Phosphatase 186 H (38-126) U/L Microbiology - Last 24 Hours (Table) 05/11/22 15:39 Gram Stain - Preliminary Leg - Right Wound Culture - Preliminary 05/11/22 15:39 Anaerobic Culture - Preliminary Leg - Right Assessment and Plan Assessment: 1. Severe rapidly progressive cellulitis right lower extremity - Patient has been placed on IV vancomycin with pharmacy dosing service and cefepime 2 g IV every 8 hours; we will monitor CBC, CMP and pro-calcitonin - X-ray of the left lower extremity shows no sign of gas formation and soft tissue - Consult ID for further recommendations on IV antibiotics 2. Acute renal injury; BUN/creatinine is elevated at 39/1.56; we will continue with slow IV fluid hydration given concern with elevated BNP; monitor renal function and electrolytes, strict COLLEEN's and daily weights, avoid nephrotoxins and hypotension 3. Elevated liver enzymes; patient has history of hepatitis with treatment -- AST/ALT is elevated at 117/89, total bilirubin elevated at 2.7; we will trend liver enzymes and plan for hepatobiliary ultrasound if liver enzymes continue to trend; order acute hepatitis profile 4. Hypertension; metoprolol 50 mg by mouth twice a day 5. Hypothyroidism; Synthroid 75 MCG daily 6. Hyperlipidemia; Lipitor 20 mg daily 7. Paroxysmal atrial fibrillation; patient is rate controlled on metoprolol and amiodarone 200 mg daily; anticoagulated with Xarelto 15 mg by mouth daily at bedtime DVT prophylaxis; SCDs/Xarelto CODE STATUS; full code
[2022-05-12 13:11] VITALS: BMI 17.2
[2022-05-12 13:26] LABS: ALT 77 U/L (4-34); AST 89 U/L (14-36); Albumin 2.9 g/dL (3.5-5.0); Alkaline Phosphatase 175 U/L (38-126); Anion Gap 13 mmol/L; Bilirubin, Conjugated 0.4 mg/dL (0.0-0.3); Bilirubin,Unconjugated 0.9 mg/dL (0.0-1.1); Blood Urea Nitrogen 39 mg/dL (7-17); C Reactive Protein 5.5 mg/dL (<1.0); Calcium 8.6 mg/dL (8.4-10.2); Carbon Dioxide 20 mmol/L (22-30); Chloride 103 mmol/L (98-107); Glucose 82 mg/dL (74-99); Potassium 3.6 mmol/L (3.5-5.1); Sodium 136 mmol/L (137-145); Total Bilirubin 2.6 mg/dL (0.2-1.3); Total Protein 5.9 g/dL (6.3-8.2)
[2022-05-12 13:57] LABS: Anisocytosis Slight; Basophils % (A) 1 %; Eosinophils % (A) 0 %; HCT 43.4 % (34.0-46.0); HGB 12.8 gm/dL (11.4-16.0); Hypochromasia Marked; Lymphocytes # (A) 1.1 k/uL (1.0-4.8); Lymphocytes % (A) 16 %; MCHC 29.4 g/dL (31.0-37.0); MCV 105.4 fL (80.0-100.0); Macrocytosis Marked; Mean Platelet Volume 13.6; Monocytes # (A) 0.9 k/uL (0-1.0); Monocytes % (A) 14 %; Neutrophils # (A) 4.2 k/uL (1.3-7.7); Neutrophils % (A) 65 %; RBC 4.12 m/uL (3.80-5.40); RDW 18.2 % (11.5-15.5); WBC 6.5 k/uL (3.8-10.6)
[2022-05-12 14:52] LABS: Platelet Count 116 k/uL (150-450)
[2022-05-12 14:53] LABS: Large Platelets Present; Poikilocytosis (M) Present
[2022-05-12] MEDS: ACETAMINOPHEN TAB 325 MG TAB PO PRN ×2 (15:54→21:46)
[2022-05-12] MEDS ORDERED: FUROSEMIDE 20 MG TAB PO SCH (17:30)
[2022-05-12] MEDS ORDERED: SPIRONOLACTONE 25 MG TAB PO SCH (21:00)
[2022-05-12] MEDS: RIVAROXABAN 15 MG TAB PO SCH (21:43)
--- NOTE | 2022-05-13 01:47 | P.CONS ---
History of Present Illness - Reason for Consult Consult date: 05/12/22 Lower extremity cellulitis Requesting physician: Marco Lynch - Chief Complaint Right leg swelling and redness x few days - History of Present Illness Patient is a 61-year-old female presenting to the ER yesterday afternoon for evaluation of increasing swelling and redness to the right lower extremity that apparently has been going on for a day or 2 before presentation to the hospital patient denies having any history of any trauma she did have some superficial wound to the right anterior leg area not very sure how it started patient been complaining of diffuse swelling redness right lower extremity and described the pain to be more of a sharp in nature intensity 5-6 out of 10 no radiation and did have minimal drainage patient on presentation to the hospital was afebrile no fever have been recorded subsequently patient did have a normal white count butacaine has been mildly elevated no enzymes are elevated local cultures obtained showing a COVID Enterococcus and gram-negative bacilli blood culture has been negative patient is currently being treated with the vancomycin infectious disease was consulted for further management of antibiotic therapy Review of Systems Positive point has been mentioned in the HPI rest of the systems are negative Past Medical History Past Medical History: Diabetes Mellitus, Eye Disorder, Hypertension, Liver Disease Additional Past Medical History / Comment(s): See Dr Briggs H&P, hx tetralogy fallot. hepatitis had tx clear now. 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 glaucoma ana maria eyes. 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 d&C Past Anesthesia/Blood Transfusion Reactions: No Reported Reaction Type of Cardiac Device: AICD Device Placement Date:: 1998 Past Psychological History: No Psychological Hx Reported Smoking Status: Never smoker Past Alcohol Use History: None Reported Past Drug Use History: None Reported - Past Family History Mother Family Medical History: No Reported History Additional Family Medical History / Comment(s): emphysema Medications and Allergies Home Medications Medication Instructions Recorded Confirmed Type Aspirin [Adult Low Dose Aspirin EC] 162 mg PO W/BRKFST 03/10/19 05/11/22 History Latanoprost [Xalatan 0.005%] 1 drop BOTH EYES HS 03/10/19 05/11/22 History Rosuvastatin [Crestor] 10 mg PO W/BRKFST 10/01/21 05/11/22 History Amiodarone [Cordarone] 200 mg PO W/BRKFST 02/01/22 05/11/22 History Ascorbic Acid [Vitamin C] 1,000 mg PO W/BRKFST 02/01/22 05/11/22 History Flaxseed Oil 2400 Mg 2,400 mg PO W/BRKFST 02/01/22 05/11/22 History Fluticasone Nasal [place] [Flonase 1 spray EA NOSTRIL BID PRN 02/01/22 05/11/22 History Nasal [place]] Ubidecarenone [Co Q-10] 100 mg PO W/BRKFST 02/01/22 05/11/22 History Zinc 50 mg PO W/BRKFST 02/01/22 05/11/22 History Levothyroxine Sodium [Synthroid] 75 mcg PO DAILY@0630 #30 tab 02/03/22 05/11/22 Rx Metoprolol Succinate (ER) [Toprol 50 mg PO BID 04/03/22 05/11/22 History XL] Spironolactone [Aldactone] 25 mg PO HS 04/03/22 05/11/22 History Furosemide [Lasix] 20 mg PO AC-SUPPER 05/11/22 05/11/22 History Furosemide [Lasix] 40 mg PO QAM 05/11/22 05/11/22 History Rivaroxaban [Xarelto] 15 mg PO HS 05/11/22 05/11/22 History Cefepime [Maxipime] 2 gm IVPB Q12H #20 each 05/16/22 Rx Vancomycin HCl in 5 % Dextrose 0.75 gm IV Q48H #7 each 05/16/22 Rx [Vancomycin 1 Gram/250 ml-D5w] Allergies Allergy/AdvReac Type Severity Reaction Status Date / Time codeine Allergy Rash/Hives Verified 05/11/22 17:25 Penicillins Allergy Rash/Hives Verified 05/11/22 17:25 Sulfa (Sulfonamide Allergy Rash/Hives Verified 05/11/22 17:25 Antibiotics) levofloxacin [From Levaquin] AdvReac Racing Verified 05/11/22 17:25 heart Physical Exam Vitals: Vital Signs Temp Pulse Pulse Resp BP BP Pulse Ox 05/12/22 07:00 97.9 F 80 18 90/59 95 05/12/22 04:31 98.2 F 60 14 90/58 89 L 05/12/22 01:55 16 05/11/22 22:31 16 05/11/22 21:12 98 F 80 16 91/61 91 L 05/11/22 20:44 98.0 F 75 14 104/54 97 05/11/22 18:32 50 L 12 97/68 97 05/11/22 14:07 98.7 F 80 18 88/51 95 Intake and Output 05/11/22 05/12/22 05/12/22 22:59 06:59 14:59 Intake Total 118 Output Total 150 Balance -150 118 Intake: Oral 118 Output: Urine 150 Other: Voiding Method Bedpan Bedpan Bedpan # Voids 1 1 Weight 34.927 kg 34.927 kg GENERAL DESCRIPTION: Middle-aged female lying in bed, no distress. No tachypnea or accessory muscle of respiration use. HEENT: Shows Pallor , no scleral icterus. Oral mucous membrane is dry. No pharyngeal erythema or thrush NECK: Trachea central, no thyromegaly. LUNGS: Unlabored breathing. Clear to auscultation anteriorly. No wheeze or crackle. HEART: S1, S2, regular rate and rhythm. No loud murmur ABDOMEN: Soft, no tenderness , guarding or rigidity, no organomegaly EXTREMITIES: SKIN: No rash, no masses palpable. NEUROLOGICAL: The patient is awake, alert, oriented x3, mood and affect normal. Results CBC & Chem 7: 05/20/22 06:45 05/20/22 06:45 Labs: Abnormal Lab Results - Last 24 Hours (Table) 05/11/22 05/11/22 05/12/22 Range/Units 15:39 15:39 04:55 MCV 103.9 H (80.0-100.0) fL RDW 18.5 H (11.5-15.5) % Plt Count 135 L (150-450) k/uL Nucleated RBCs 2 H (0-0) /100 WBC Macrocytosis Marked A Sodium 135 L 136 L (137-145) mmol/L Carbon Dioxide 20 L (22-30) mmol/L BUN 39 H 39 H (7-17) mg/dL Creatinine 1.56 H 1.49 H (0.52-1.04) mg/dL Glucose 112 H (74-99) mg/dL Total Bilirubin 2.7 H 2.6 H (0.2-1.3) mg/dL Conjugated Bilirubin 0.4 H (0.0-0.3) mg/dL AST 117 H 89 H (14-36) U/L ALT 89 H 77 H (4-34) U/L Alkaline Phosphatase 186 H 175 H (38-126) U/L C-Reactive Protein 5.5 H (<1.0) mg/dL Total Protein 5.9 L (6.3-8.2) g/dL Albumin 2.9 L (3.5-5.0) g/dL Microbiology - Last 24 Hours (Table) 05/11/22 15:39 Gram Stain - Preliminary Leg - Right Wound Culture - Preliminary 05/11/22 15:39 Anaerobic Culture - Preliminary Leg - Right Assessment and Plan Plan: 1-Patient with acute right lower extremity cellulitis in this patient did have diffuse swelling redness likely secondary to gram-positive skin ed underlying chronic infection less likely but not entirely excluded 2-Marked area of the redness and apply light Ye wrap from just above the toe to below the knee 3-patient with multiple antibiotic allergies that would limit the number of antibiotics safe to use 4-continue the vancomycin however on and cefepime to go for the gram-negative We will follow on clinical condition and cultures to further adjust medication if needed Thank you for this consultation will follow this patient along with you Time with Patient: Greater than 30
[2022-05-13] MEDS: SODIUM CHLORIDE 0.9% 1,000 ML IV SCH ×2 (05:19→19:02)
[2022-05-13] MEDS: LEVOTHYROXINE 75 MCG TAB PO SCH (05:34)
[2022-05-13 06:31] LABS: African American GFR (CKD) 37 (>60 ml/min/1.73 sqM); Anion Gap 14 mmol/L; Blood Urea Nitrogen 44 mg/dL (7-17); C Reactive Protein 7.1 mg/dL (<1.0); Calcium 8.3 mg/dL (8.4-10.2); Carbon Dioxide 22 mmol/L (22-30); Chloride 103 mmol/L (98-107); Glucose 109 mg/dL (74-99); Non-African American GFR(CKD) 32 (>60 ml/min/1.73 sqM); Sodium 139 mmol/L (137-145)
[2022-05-13 06:34] LABS: Vancomycin,Random 18.7 ug/mL
[2022-05-13 07:01] LABS: Potassium 3.7 mmol/L (3.5-5.1)
[2022-05-13] MEDS: AMIODARONE 200 MG TAB PO SCH (07:49)
[2022-05-13] MEDS: ASPIRIN 81 MG PO SCH (07:49)
[2022-05-13] MEDS: METOPROLOL SUCCINATE (ER) 50 MG TAB.ER.24H PO SCH ×2 (07:49→20:21)
[2022-05-13] MEDS: ATORVASTATIN 20 MG TAB PO SCH (07:49)
[2022-05-13] MEDS ORDERED: CEFEPIME 2 GM in SODIUM CHLORIDE 0.9% 100 ML IVPB SCH (09:00)
[2022-05-13 09:58] LABS: Basophils # (A) 0.02 X 10*3/uL (0.00-0.10); Basophils % (A) 0.3 %; Eosinophils # (A) 0.23 X 10*3/uL (0.04-0.35); Eosinophils % (A) 3.3 %; HCT 40.9 % (37.2-46.3); Immature Grans, Automated 0.7 %; Lymphocytes # (A) 1.12 X 10*3/uL (0.90-5.00); Lymphocytes % (A) 16.2 %; MCH 31.7 pg (27.0-32.0); MCHC 31.8 g/dL (32.0-37.0); MCV 99.8 fL (80.0-97.0); Mean Platelet Volume 13.4 fL (9.5-12.2); Monocytes # (A) 0.85 X 10*3/uL (0.20-1.00); Monocytes % (A) 12.3 %; NRBC Per 100 WBC 1.3 /100 WBCS (0.0-0.0); Neutrophils # (A) 4.64 X 10*3/uL (1.80-7.70); Neutrophils % (A) 67.2 %; Platelet Count 159 X 10*3/uL (140-440); WBC 6.91 X 10*3/uL (4.50-10.00)
[2022-05-13] MEDS ORDERED: VANCOMYCIN 750 MG in SODIUM CHLORIDE 0.9% 250 ML IVPB ONE (12:00)
--- NOTE | 2022-05-13 17:11 | P.PN ---
Subjective Progress Note Date: 05/13/22 Principal diagnosis: Right lower extremity cellulitis Patient is a 61 year old female presented to hospital with increasing swelling redness of right lower extremity has been diagnosed with acute right lower extremity cellulitis. on today's evaluation that is 05/13/2022, the patient denies having any fever or ages, has been complaining of feeling anxious denies any chest pain or shortness of breath or cough no abdominal pain no diarrhea right lower extremity pain and swelling has slightly decreased Objective - Vital Signs Vital signs: Vital Signs Temp 97.5 F L 05/13/22 14:54 Pulse 80 05/13/22 14:54 Resp 18 05/13/22 14:54 BP 102/68 05/13/22 14:54 Pulse Ox 95 05/13/22 14:54 FiO2 Intake & Output 05/12/22 05/13/22 05/13/22 18:59 06:59 18:59 Intake Total 236 350 59 Balance 236 350 59 Weight 34.927 kg Intake: Oral 236 350 59 Other: Voiding Method Bedpan Bedpan # Voids 1 1 1 # Bowel Movements 1 - Exam GENERAL DESCRIPTION: Middle-age female up in the chair in no distress RESPIRATORY SYSTEM: Unlabored breathing , decreased breath sounds at bases HEART: S1 S2 regular rate and rhythm , ABDOMEN: Soft , no tenderness EXTREMITIES: Right leg is currently wrapped in Ye wrap no drainage on the dressing - Labs CBC & Chem 7: 05/13/22 05:53 05/13/22 05:53 Labs: Abnormal Lab Results - Last 24 Hours (Table) 05/13/22 05/13/22 Range/Units 05:53 05:53 MCV 99.8 H (80.0-97.0) fL MCHC 31.8 L (32.0-37.0) g/dL RDW 21.0 H (11.5-14.5) % MPV 13.4 H (9.5-12.2) fL Absolute Nucleated RBC 0.09 H (0.00-0.00) X 10*3/uL Immature Gran # 0.05 H (0.00-0.04) X 10*3/uL NRBC/100 WBC Diff 1.3 H (0.0-0.0) /100 WBCS BUN 44 H (7-17) mg/dL Creatinine 1.67 H (0.52-1.04) mg/dL Glucose 109 H (74-99) mg/dL Calcium 8.3 L (8.4-10.2) mg/dL C-Reactive Protein 7.1 H (<1.0) mg/dL Microbiology - Last 24 Hours (Table) 05/11/22 15:39 Gram Stain - Preliminary Leg - Right Wound Culture - Preliminary Group D Enterococcus Gram Neg Bacilli 05/11/22 17:35 Blood Culture - Preliminary Blood No Growth after 24 hours 05/11/22 17:20 Blood Culture - Preliminary Blood No Growth after 24 hours Assessment and Plan (1) Cellulitis Current Visit: Yes Status: Acute Code(s): L03.90 - CELLULITIS, UNSPECIFIED SNOMED Code(s): 058536457 Plan: 1-Patient with acute right lower extremity cellulitis in this patient did have diffuse swelling redness likely secondary to gram-positive skin ed underlying chronic infection less likely but not entirely excluded Patient to continue with light Ye wrap from just above the toe to below the knee 3-patient with multiple antibiotic allergies that would limit the number of antibiotics safe to use Local cultures are currently growing group D enterococcus and gram-negative patient to continue vancomycin and cefepime while waiting for the culture finalized Time with Patient: Less than 30
[2022-05-13] MEDS: ALPRAZolam 0.25 MG TAB PO PRN (17:40)
--- NOTE | 2022-05-13 18:24 | P.PN ---
Subjective Progress Note Date: 05/13/22 Principal diagnosis: Severe rapidly progressive cellulitis right lower extremity Acute renal injury/prerenal azotemia Elevated liver enzymes Pain and swelling and redness of right leg the patient denies having any fever or any chills, the patient still has significant swelling and redness right lower extremity mention no improvement in the symptoms, patient denies having any chest pain shortness of breath or cough no abdominal pain or diarrhea; states that over the last 24 hours she had acute onset redness pain and swelling to the right lower extremity. There is concern that this is rapidly progressing. Right lower extremity was significantly e rythematous with heat. Erythema here to be circumferential around the right lower extremity. It's very tender to palpation. No crepitus felt. X-rays reviewed shows no signs of gas formation in the soft tissues of the leg. Given patient's age and comorbidities there is concern for serious soft tissue infection. Patient started on broad-spectrum antibiotics. Cultures pending. Patient be admitted for IV antibiotics. Infectious disease will be consulted. Lab review shows a WBC of 7.0, hemoglobin 15.4, platelet count of 135, sodium 135, potassium 4.7, BUN/creatinine elevated at 39/1.56, lactic acid level of 1.3, total bilirubin elevated at 2.7; proBNP elevated at 12,200; we will plan to obtain a chest x-ray if patient is symptomatic 05/13/2022 the patient is seen and evaluated in room at bedside; complaints of extreme anxiety; denies having any fever or ages, has been complaining of feeling anxious denies any chest pain or shortness of breath or cough no abdominal pain no diarrhea right lower extremity pain and swelling has slightly decreased -Patient with acute right lower extremity cellulitis in this patient did have diffuse swelling redness likely secondary to gram-positive skin ed underlying chronic infection less likely but not entirely excluded Patient to continue with light Ye wrap from just above the toe to below the knee -patient with multiple antibiotic allergies that would limit the number of antibiotics safe to use Local cultures are currently growing group D enterococcus and gram-negative patient to continue vancomycin and cefepime while waiting for the culture finalized patient will be placed on Xanax at home dose Objective - Vital Signs Vital signs: Vital Signs Temp 97.8 F 05/13/22 07:00 Pulse 80 05/13/22 07:00 Resp 18 05/13/22 07:00 BP 102/67 05/13/22 07:00 Pulse Ox 95 05/13/22 07:00 FiO2 Intake & Output 05/12/22 05/13/22 05/13/22 18:59 06:59 18:59 Intake Total 236 350 59 Balance 236 350 59 Weight 34.927 kg Intake: Oral 236 350 59 Other: Voiding Method Bedpan Bedpan # Voids 1 1 1 # Bowel Movements 1 - Exam General appearance: alert, in no apparent distress Head exam: Present: atraumatic, normocephalic, normal inspection Respiratory exam: Present: normal lung sounds bilaterally. Absent: respiratory distress, wheezes, rales, rhonchi, stridor Cardiovascular Exam: Present: regular rate, normal rhythm, normal heart sounds. Absent: systolic murmur, diastolic murmur, rubs, gallop, clicks Extremities exam: Present: other (3+ pitting edema bilaterally.) Neurological exam: Present: alert, oriented X3, CN II-XII intact Psychiatric exam: Present: normal affect, normal mood Skin exam: Present: other (2 x 3 cm wound to the distal aspect of the right lateral tib-fib. Active serous drainage. Diffuse surrounding erythema, swelling, increased heat, and tenderness. - Labs CBC & Chem 7: 05/13/22 05:53 05/13/22 05:53 Labs: Abnormal Lab Results - Last 24 Hours (Table) 05/12/22 05/12/22 05/12/22 Range/Units 04:55 04:55 04:55 MCV 105.4 H (80.0-100.0) fL MCHC 29.4 L (31.0-37.0) g/dL RDW 18.2 H (11.5-15.5) % Plt Count 116 L (150-450) k/uL MPV (9.5-12.2) fL Absolute Nucleated RBC (0.00-0.00) X 10*3/uL Immature Gran # (0.00-0.04) X 10*3/uL NRBC/100 WBC Diff (0.0-0.0) /100 WBCS Macrocytosis Marked A Sodium 136 L (137-145) mmol/L Carbon Dioxide 20 L (22-30) mmol/L BUN 39 H (7-17) mg/dL Creatinine (0.52-1.04) mg/dL Glucose (74-99) mg/dL Calcium (8.4-10.2) mg/dL Total Bilirubin 2.6 H (0.2-1.3) mg/dL Conjugated Bilirubin 0.4 H (0.0-0.3) mg/dL AST 89 H (14-36) U/L ALT 77 H (4-34) U/L Alkaline Phosphatase 175 H (38-126) U/L C-Reactive Protein 5.5 H (<1.0) mg/dL Total Protein 5.9 L (6.3-8.2) g/dL Albumin 2.9 L (3.5-5.0) g/dL Procalcitonin 0.21 H (0.02-0.09) ng/mL 05/13/22 05/13/22 Range/Units 05:53 05:53 MCV 99.8 H (80.0-100.0) fL MCHC 31.8 L (31.0-37.0) g/dL RDW 21.0 H (11.5-15.5) % Plt Count (150-450) k/uL MPV 13.4 H (9.5-12.2) fL Absolute Nucleated RBC 0.09 H (0.00-0.00) X 10*3/uL Immature Gran # 0.05 H (0.00-0.04) X 10*3/uL NRBC/100 WBC Diff 1.3 H (0.0-0.0) /100 WBCS Macrocytosis Sodium (137-145) mmol/L Carbon Dioxide (22-30) mmol/L BUN 44 H (7-17) mg/dL Creatinine 1.67 H (0.52-1.04) mg/dL Glucose 109 H (74-99) mg/dL Calcium 8.3 L (8.4-10.2) mg/dL Total Bilirubin (0.2-1.3) mg/dL Conjugated Bilirubin (0.0-0.3) mg/dL AST (14-36) U/L ALT (4-34) U/L Alkaline Phosphatase (38-126) U/L C-Reactive Protein 7.1 H (<1.0) mg/dL Total Protein (6.3-8.2) g/dL Albumin (3.5-5.0) g/dL Procalcitonin (0.02-0.09) ng/mL Microbiology - Last 24 Hours (Table) 05/11/22 15:39 Gram Stain - Preliminary Leg - Right Wound Culture - Preliminary Group D Enterococcus Gram Neg Bacilli 05/11/22 17:35 Blood Culture - Preliminary Blood No Growth after 24 hours 05/11/22 17:20 Blood Culture - Preliminary Blood No Growth after 24 hours Assessment and Plan Assessment: 1. Severe rapidly progressive cellulitis right lower extremity - Patient has been placed on IV vancomycin with pharmacy dosing service and cefepime 2 g IV every 8 hours; we will monitor CBC, CMP and pro-calcitonin - X-ray of the left lower extremity shows no sign of gas formation and soft tissue - Consult ID for further recommendations on IV antibiotics 2. Acute renal injury; BUN/creatinine is elevated at 39/1.56; we will continue with slow IV fluid hydration given concern with elevated BNP; monitor renal function and electrolytes, strict COLLEEN's and daily weights, avoid nephrotoxins and hypotension 3. Elevated liver enzymes; patient has history of hepatitis with treatment -- AST/ALT is elevated at 117/89, total bilirubin elevated at 2.7; we will trend liver enzymes and plan for hepatobiliary ultrasound if liver enzymes continue to trend; order acute hepatitis profile 4. Hypertension; metoprolol 50 mg by mouth twice a day 5. Hypothyroidism; Synthroid 75 MCG daily 6. Hyperlipidemia; Lipitor 20 mg daily 7. Paroxysmal atrial fibrillation; patient is rate controlled on metoprolol and amiodarone 200 mg daily; anticoagulated with Xarelto 15 mg by mouth daily at bedtime DVT prophylaxis; SCDs/Xarelto CODE STATUS; full code
[2022-05-13] MEDS: CEFEPIME 1 GM in SODIUM CHLORIDE 0.9% 50 ML IVPB SCH (20:20)
[2022-05-13] MEDS: RIVAROXABAN 15 MG TAB PO SCH (20:21)
[2022-05-14] MEDS: LEVOTHYROXINE 75 MCG TAB PO SCH (06:01)
[2022-05-14] MEDS: ASPIRIN 81 MG PO SCH (09:10)
[2022-05-14] MEDS: ATORVASTATIN 20 MG TAB PO SCH (09:10)
[2022-05-14] MEDS: ALPRAZolam 0.25 MG TAB PO PRN ×2 (09:10→19:17)
[2022-05-14] MEDS: CEFEPIME 1 GM in SODIUM CHLORIDE 0.9% 50 ML IVPB SCH ×2 (09:10→20:11)
[2022-05-14] MEDS: AMIODARONE 200 MG TAB PO SCH (09:11)
[2022-05-14] MEDS: METOPROLOL SUCCINATE (ER) 50 MG TAB.ER.24H PO SCH ×2 (09:11→20:11)
[2022-05-14 09:31] LABS: Basophils # (A) 0.02 X 10*3/uL (0.00-0.10); Basophils % (A) 0.3 %; Eosinophils # (A) 0.07 X 10*3/uL (0.04-0.35); Eosinophils % (A) 1.1 %; HCT 39.9 % (37.2-46.3); HGB 12.2 g/dL (12.0-15.0); Immature Grans, Automated 0.5 %; Lymphocytes % (A) 15.7 %; MCH 30.7 pg (27.0-32.0); MCHC 30.6 g/dL (32.0-37.0); MCV 100.5 fL (80.0-97.0); Mean Platelet Volume 12.7 fL (9.5-12.2); Monocytes # (A) 0.95 X 10*3/uL (0.20-1.00); NRBC Per 100 WBC 2.2 /100 WBCS (0.0-0.0); Neutrophils # (A) 4.28 X 10*3/uL (1.80-7.70); Neutrophils % (A) 67.4 %; Platelet Count 158 X 10*3/uL (140-440); RBC 3.97 X 10*6/uL (4.10-5.20); RDW 21.2 % (11.5-14.5); WBC 6.35 X 10*3/uL (4.50-10.00)
[2022-05-14 09:48] LABS: African American GFR (CKD) 39.3 (60.0-200.0); Anion Gap 11.3 mmol/L (10.00-18.00); BUN/Creat Ratio 24.44 Ratio (12.00-20.00); Blood Urea Nitrogen 39.1 mg/dL (9.0-27.0); Calcium 8.5 mg/dL (8.7-10.3); Carbon Dioxide 21.7 mmol/L (20.0-27.5); Non-African American GFR(CKD) 33.9 (60.0-200.0)
--- NOTE | 2022-05-14 12:52 | P.PN ---
Subjective Progress Note Date: 05/14/22 Principal diagnosis: Right lower extremity cellulitis Patient is a 61 year old female presented to hospital with increasing swelling redness of right lower extremity has been diagnosed with acute right lower extremity cellulitis. on today's evaluation that is 05/14/2022, the patient remains to be afebrile, patient is breathing comfortably on room air, the patient denies any chest pain or shortness of breath or cough no abdominal pain no diarrhea right lower extre mity pain and swelling has slightly decreased Objective - Vital Signs Vital signs: Vital Signs Temp 97.7 F 05/14/22 07:42 Pulse 80 05/14/22 09:10 Resp 20 05/14/22 09:10 BP 98/62 05/14/22 07:42 Pulse Ox 96 05/14/22 09:06 FiO2 Intake & Output 05/13/22 05/14/22 05/14/22 18:59 06:59 18:59 Intake Total 59 Balance 59 Intake: Oral 59 Other: Voiding Method Bedside Commode Bedside Commode # Voids 1 2 # Bowel Movements 1 - Exam GENERAL DESCRIPTION: Middle-age female up in the chair in no distress RESPIRATORY SYSTEM: Unlabored breathing , decreased breath sounds at bases HEART: S1 S2 regular rate and rhythm , ABDOMEN: Soft , no tenderness EXTREMITIES: Right leg swelling or redness is slightly decreased - Labs CBC & Chem 7: 05/14/22 05:54 05/14/22 05:54 Labs: Abnormal Lab Results - Last 24 Hours (Table) 05/14/22 05/14/22 Range/Units 05:54 05:54 RBC 3.97 L (4.10-5.20) X 10*6/uL MCV 100.5 H (80.0-97.0) fL MCHC 30.6 L (32.0-37.0) g/dL RDW 21.2 H (11.5-14.5) % MPV 12.7 H (9.5-12.2) fL Absolute Nucleated RBC 0.14 H (0.00-0.00) X 10*3/uL NRBC/100 WBC Diff 2.2 H (0.0-0.0) /100 WBCS BUN 39.1 H (9.0-27.0) mg/dL Creatinine 1.6 H (0.6-1.5) mg/dL Est GFR (CKD-EPI)AfAm 39.3 L (60.0-200.0) Est GFR (CKD-EPI)NonAf 33.9 L (60.0-200.0) BUN/Creatinine Ratio 24.44 H (12.00-20.00) Ratio Glucose 111 H (70-110) mg/dL Calcium 8.5 L (8.7-10.3) mg/dL Microbiology - Last 24 Hours (Table) 05/11/22 15:39 Anaerobic Culture - Preliminary Leg - Right 05/11/22 17:35 Blood Culture - Preliminary Blood No Growth after 48 hours 05/11/22 15:39 Gram Stain - Preliminary Leg - Right Wound Culture - Preliminary Group D Enterococcus Pseudomonas fluorescens/putida 05/11/22 17:20 Blood Culture - Preliminary Blood No Growth after 48 hours Assessment and Plan (1) Cellulitis Current Visit: Yes Status: Acute Code(s): L03.90 - CELLULITIS, UNSPECIFIED SNOMED Code(s): 386631467 Plan: 1-Patient with acute right lower extremity cellulitis in this patient did have diffuse swelling redness likely secondary to gram-positive skin ed underlying chronic infection less likely but not entirely excluded Patient to continue with light Ye wrap from just above the toe to below the knee 3-patient with multiple antibiotic allergies that would limit the number of antibiotics safe to use 4Local cultures are currently growing group D enterococcus which is penicillin sensitive and Pseudomonas with sensitivities pending patient to continue the vancomycin and cefepime and continue supportive care Time with Patient: Less than 30
[2022-05-14] MEDS: SODIUM CHLORIDE 0.9% 1,000 ML IV SCH (15:50)
[2022-05-14] MEDS: RIVAROXABAN 15 MG TAB PO SCH (20:11)
--- NOTE | 2022-05-14 21:34 | P.PN ---
Subjective Pain and swelling and redness of right leg the patient denies having any fever or any chills, the patient still has significant swelling and redness right lower extremity mention no improvement in the symptoms, patient denies having any chest pain shortness of breath or cough no abdominal pain or diarrhea; states that over the last 24 hours she had acute onset redness pain and swelling to the right lower extremity. There is concern that this is rapidly progressing. Right lower extremity was significantly erythematous with heat. Erythema here to be circumferential around the right lower extremity. It's very tender to palpation. No crepitus felt. X-rays reviewed shows no signs of gas formation in the soft tissues of the leg. Given patient's age and comorbidities there is concern for serious soft tissue infection. Patient started on broad-spectrum antibiotics. Cultures pending. Patient be admitted for IV antibiotics. Infectious disease will be consulted. Lab review shows a WBC of 7.0, hemoglobin 15.4, platelet count of 135, sodium 135, potassium 4.7, BUN/creatinine elevated at 39/1.56, lactic acid level of 1.3, total bilirubin elevated at 2.7; proBNP elevated at 12,200; we will plan to obtain a chest x-ray if patient is symptomatic 05/13/2022 the patient is seen and evaluated in room at bedside; complaints of extreme anxiety; denies having any fever or ages, has been complaining of feeling anxious denies any chest pain or shortness of breath or cough no abdominal pain no diarrhea right lower extremity pain and swelling has slightly decreased -Patient with acute right lower extremity cellulitis in this patient did have diffuse swelling redness likely secondary to gram-positive skin ed underlying chronic infection less likely but not entirely excluded Patient to continue with light Ye wrap from just above the toe to below the knee -patient with multiple antibiotic allergies that would limit the number of antibiotics safe to use Local cultures are currently growing group D enterococcus and gram-negative patient to continue vancomycin and cefepime while waiting for the culture finalized patient will be placed on Xanax at home dose 05/14/2022 Patient is with a right leg cellulitis, on exam she looks with mild improvement Cultures grown sensitive enterococci and pseudomonas Patient currently on IV vancomycin and cefepime with ID team on the case Also patient continued on home dose of Xarelto for her history of paroxysmal A. fib. Follow-up final results of the wound culture Objective - Vital Signs Vital signs: Vital Signs Temp 97.7 F 05/14/22 07:42 Pulse 80 05/14/22 07:42 Resp 20 05/14/22 07:42 BP 98/62 05/14/22 07:42 Pulse Ox 96 05/14/22 09:06 FiO2 Intake & Output 05/13/22 05/14/22 05/14/22 18:59 06:59 18:59 Intake Total 59 Balance 59 Intake: Oral 59 Other: Voiding Method Bedside Commode # Voids 1 2 # Bowel Movements 1 - Exam GENERAL: The patient is alert and oriented x3, not in any acute distress. Well developed, well nourished. HEENT: Pupils are round and equally reacting to light. EOMI. No scleral icterus. No conjunctival pallor. Normocephalic, atraumatic. No pharyngeal erythema. No thyromegaly. CARDIOVASCULAR: S1 and S2 present. No murmurs, rubs, or gallops. PULMONARY: Chest is clear to auscultation, no wheezing or crackles. ABDOMEN: Soft, nontender, nondistended, normoactive bowel sounds. No palpable organomegaly. MUSCULOSKELETAL: No joint swelling or deformity. -EXTREMITIES: No cyanosis, clubbing, or pedal edema. Right leg cellulitis NEUROLOGICAL: Gross neurological examination did not reveal any focal deficits. SKIN: No rashes. no petechiae. - Labs CBC & Chem 7: 05/14/22 05:54 05/14/22 05:54 Labs: Abnormal Lab Results - Last 24 Hours (Table) 05/14/22 05/14/22 Range/Units 05:54 05:54 RBC 3.97 L (4.10-5.20) X 10*6/uL MCV 100.5 H (80.0-97.0) fL MCHC 30.6 L (32.0-37.0) g/dL RDW 21.2 H (11.5-14.5) % MPV 12.7 H (9.5-12.2) fL Absolute Nucleated RBC 0.14 H (0.00-0.00) X 10*3/uL NRBC/100 WBC Diff 2.2 H (0.0-0.0) /100 WBCS BUN 39.1 H (9.0-27.0) mg/dL Creatinine 1.6 H (0.6-1.5) mg/dL Est GFR (CKD-EPI)AfAm 39.3 L (60.0-200.0) Est GFR (CKD-EPI)NonAf 33.9 L (60.0-200.0) BUN/Creatinine Ratio 24.44 H (12.00-20.00) Ratio Glucose 111 H (70-110) mg/dL Calcium 8.5 L (8.7-10.3) mg/dL Microbiology - Last 24 Hours (Table) 05/11/22 15:39 Anaerobic Culture - Preliminary Leg - Right 05/11/22 17:35 Blood Culture - Preliminary Blood No Growth after 48 hours 05/11/22 15:39 Gram Stain - Preliminary Leg - Right Wound Culture - Preliminary Group D Enterococcus Pseudomonas fluorescens/putida 05/11/22 17:20 Blood Culture - Preliminary Blood No Growth after 48 hours Assessment and Plan Assessment: 1. Acute cellulitis right lower extremity - Patient has been placed on IV vancomycin with pharmacy dosing service and cefepime 2 g IV every 8 hours - ID team on the case 2. Chronic kidney disease, stage III. Baseline creatinine 1.5-1.6 3. Elevated liver enzymes; patient has history of hepatitis with treatment -- Liver enzymes trending down 4. Hypertension; metoprolol 50 mg by mouth twice a day 5. Hypothyroidism; Synthroid 75 MCG daily 6. Hyperlipidemia; Lipitor 20 mg daily 7. Paroxysmal atrial fibrillation; patient is rate controlled on metoprolol and amiodarone 200 mg daily; anticoagulated with Xarelto 15 mg by mouth daily at bedtime DVT prophylaxis; SCDs/Xarelto CODE STATUS; full code
[2022-05-15] MEDS: LEVOTHYROXINE 75 MCG TAB PO SCH (05:27)
[2022-05-15 06:59] LABS: African American GFR (CKD) 56 (>60 ml/min/1.73 sqM); Anion Gap 14 mmol/L; Blood Urea Nitrogen 43 mg/dL (7-17); Calcium 8.4 mg/dL (8.4-10.2); Carbon Dioxide 20 mmol/L (22-30); Chloride 107 mmol/L (98-107); Glucose 120 mg/dL (74-99); Non-African American GFR(CKD) 49 (>60 ml/min/1.73 sqM); Potassium 3.9 mmol/L (3.5-5.1); Sodium 141 mmol/L (137-145)
[2022-05-15] MEDS: CEFEPIME 1 GM in SODIUM CHLORIDE 0.9% 50 ML IVPB SCH ×2 (08:38→21:51)
[2022-05-15] MEDS: AMIODARONE 200 MG TAB PO SCH (08:38)
[2022-05-15] MEDS: ATORVASTATIN 20 MG TAB PO SCH (08:39)
[2022-05-15] MEDS: METOPROLOL SUCCINATE (ER) 50 MG TAB.ER.24H PO SCH (08:39)
[2022-05-15] MEDS: ASPIRIN 81 MG PO SCH (08:39)
[2022-05-15 09:29] LABS: Basophils # (A) 0.03 X 10*3/uL (0.00-0.10); Basophils % (A) 0.4 %; Eosinophils # (A) 0.06 X 10*3/uL (0.04-0.35); Eosinophils % (A) 0.9 %; HCT 40.6 % (37.2-46.3); HGB 12.5 g/dL (12.0-15.0); Immature Grans, Automated 0.7 %; Lymphocytes # (A) 1.15 X 10*3/uL (0.90-5.00); Lymphocytes % (A) 16.4 %; MCH 31.1 pg (27.0-32.0); MCHC 30.8 g/dL (32.0-37.0); Mean Platelet Volume 12.5 fL (9.5-12.2); Monocytes % (A) 14.3 %; NRBC Per 100 WBC 2.9 /100 WBCS (0.0-0.0); Neutrophils # (A) 4.71 X 10*3/uL (1.80-7.70); Neutrophils % (A) 67.3 %; Platelet Count 168 X 10*3/uL (140-440); RBC 4.02 X 10*6/uL (4.10-5.20); RDW 21.9 % (11.5-14.5)
--- NOTE | 2022-05-15 10:34 | CDI ---
Documentation Clarification Form Date: 05/15/2022 10:21:38 AM From: Neida GuzmanWatsonCUONG ortega, CCDS Admit Date: 05/11/2022 05:05:00 PM Patient Name: Chelita Crespo Visit Number: [id number] Discharge Date: ATTENTION: The Clinical Documentation Specialists (CDI) and [facility] Coding Staff appreciate your assistance in clarifying documentation. Please respond to the clarification below the line at the bottom and electronically sign. The CDI & [facility] Coding staff will review the response and follow-up if needed. Please note: Queries are made part of the Legal Health Record. If you have any questions, please contact the author of this message via ITS. Dr. Alexander Downey. Sheet: Heart Failure is documented in the 05/11 ED Note under the patient's History of Present Illness: She does have a history of CHF and states that her legs are much more swollen than normal. Additional information regarding the Type & Acuity of CHF is requested. History/Risk Factors per the 05/11 H/P: Hypertension, DM, Hepatitis status post treatment, Tetrology Fallot repaired age 10, Glaucoma bilaterally, Has AICD. Clinical Indicators: Presented to the ED on 05/11 with family. Complaint: Extremity pain & swelling. Has had a wound on her right lower leg for several months, non-healing, progressively worse, right leg is now swollen and red, wound is draining clear fluid. Has a history of CHF, legs more swollen than normal. Takes Lasix 20 mg/per day. Per ED note: no concerns for heart failure. Admit with Cellulitis 05/11 VS: T 98.7, P 80, 50; R 18, BP 88/51, PO 95 RA, BMI: 17.3 BNP: 12,200 Echocardiogram Results (Most recent 10/02/2021): Left ventricular systolic function is low normal w/EF 50-55%. Right ventricle is mildly enlarged. Mild LVH, Mild MR, Severe TR, Severe Pulmonary Hypertension. No Chest X Ray this admission. Treatment 05/11: IV Cefepime 100 mls @ 200 mls/hr x1, IV Vancomycin 250 mls @ 125 mls/hr x1, IV Na Chl 1,000 mls @ 20 mls/hr q24H. 05/12: PO Lasix 40 mg qam, 20 mg @ supper. In your professional opinion, can you please clarify the Type & Acuity of CHF if known? [ ] Chronic Systolic Heart Failure [ ] Chronic Diastolic Heart Failure [ ] Chronic Systolic & Diastolic Heart Failure [ ] Heart Failure is ruled out [ ] Other, please specify [ ] Unable to determine (Template Last Revised: September 2020) Chronic Diastolic Heart Failure MTDD
[2022-05-15] MEDS: VANCOMYCIN 750 MG in SODIUM CHLORIDE 0.9% 250 ML IVPB SCH (13:08)
[2022-05-15] MEDS: FLUTICASONE 50MCG/SPRAY NASAL 16GM EA NOSTRIL SCH (16:28)
[2022-05-15] MEDS: SODIUM CHLORIDE 0.9% 1,000 ML IV SCH (19:13)
--- NOTE | 2022-05-15 19:47 | P.PN ---
Subjective Pain and swelling and redness of right leg the patient denies having any fever or any chills, the patient still has significant swelling and redness right lower extremity mention no improvement in the symptoms, patient denies having any chest pain shortness of breath or cough no abdominal pain or diarrhea; states that over the last 24 hours she had acute onset redness pain and swelling to the right lower extremity. There is concern that this is rapidly progressing. Right lower extremity was significantly erythematous with heat. Erythema here to be circumferential around the right lower extremity. It's very tender to palpation. No crepitus felt. X-rays reviewed shows no signs of gas formation in the soft tissues of the leg. Given patient's age and comorbidities there is concern for serious soft tissue infection. Patient started on broad-spectrum antibiotics. Cultures pending. Patient be admitted for IV antibiotics. Infectious disease will be consulted. Lab review shows a WBC of 7.0, hemoglobin 15.4, platelet count of 135, sodium 135, potassium 4.7, BUN/creatinine elevated at 39/1.56, lactic acid level of 1.3, total bilirubin elevated at 2.7; proBNP elevated at 12,200; we will plan to obtain a chest x-ray if patient is symptomatic 05/13/2022 the patient is seen and evaluated in room at bedside; complaints of extreme anxiety; denies having any fever or ages, has been complaining of feeling anxious denies any chest pain or shortness of breath or cough no abdominal pain no diarrhea right lower extremity pain and swelling has slightly decreased -Patient with acute right lower extremity cellulitis in this patient did have diffuse swelling redness likely secondary to gram-positive skin ed underlying chronic infection less likely but not entirely excluded Patient to continue with light Ye wrap from just above the toe to below the knee -patient with multiple antibiotic allergies that would limit the number of antibiotics safe to use Local cultures are currently growing group D enterococcus and gram-negative patient to continue vancomycin and cefepime while waiting for the culture finalized patient will be placed on Xanax at home dose 05/14/2022 Patient is with a right leg cellulitis, on exam she looks with mild improvement Cultures grown sensitive enterococci and pseudomonas Patient currently on IV vancomycin and cefepime with ID team on the case Also patient continued on home dose of Xarelto for her history of paroxysmal A. fib. Follow-up final results of the wound culture 05/15/2022 Patient still with significant right leg cellulitis, she still needs IV antibiotic with vancomycin and cefepime, discussed with ID team. No abdominal pain or vomiting. Monitor liver enzymes tomorrow. Patient has chronic borderline low blood pressure, systolic 90s to 100 intents, at times down to 80s. Asymptomatic. 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 We will keep metoprolol 25 mg twice a day for now. Also she skipped on her dose of Xarelto Objective - Vital Signs Vital signs: Vital Signs Temp 97.9 F 05/15/22 19:06 Pulse 61 05/15/22 19:06 Resp 18 05/15/22 19:06 BP 95/59 05/15/22 19:06 Pulse Ox 95 05/15/22 19:06 FiO2 Intake & Output 05/15/22 05/15/22 05/16/22 06:59 18:59 06:59 Intake Total 240 Balance 240 Weight 34.927 kg Intake: Oral 240 Other: Voiding Method Bedside Commode Bedside Commode # Voids 2 # Bowel Movements 0 - Exam GENERAL: The patient is alert and oriented x3, not in any acute distress. Well developed, well nourished. HEENT: Pupils are round and equally reacting to light. EOMI. No scleral icterus. No conjunctival pallor. Normocephalic, atraumatic. No pharyngeal erythema. No thyromegaly. CARDIOVASCULAR: S1 and S2 present. No murmurs, rubs, or gallops. PULMONARY: Chest is clear to auscultation, no wheezing or crackles. ABDOMEN: Soft, nontender, nondistended, normoactive bowel sounds. No palpable organomegaly. MUSCULOSKELETAL: No joint swelling or deformity. -EXTREMITIES: No cyanosis, clubbing, or pedal edema. Right leg cellulitis NEUROLOGICAL: Gross neurological examination did not reveal any focal deficits. SKIN: No rashes. no petechiae. - Labs CBC & Chem 7: 05/15/22 06:00 05/15/22 06:00 Labs: Abnormal Lab Results - Last 24 Hours (Table) 05/15/22 05/15/22 Range/Units 06:00 06:00 RBC 4.02 L (4.10-5.20) X 10*6/uL MCV 101.0 H (80.0-97.0) fL MCHC 30.8 L (32.0-37.0) g/dL RDW 21.9 H (11.5-14.5) % MPV 12.5 H (9.5-12.2) fL Absolute Nucleated RBC 0.20 H (0.00-0.00) X 10*3/uL Immature Gran # 0.05 H (0.00-0.04) X 10*3/uL NRBC/100 WBC Diff 2.9 H (0.0-0.0) /100 WBCS Carbon Dioxide 20 L (22-30) mmol/L BUN 43 H (7-17) mg/dL Creatinine 1.19 H (0.52-1.04) mg/dL Glucose 120 H (74-99) mg/dL Microbiology - Last 24 Hours (Table) 05/11/22 17:20 Blood Culture - Preliminary Blood No Growth after 96 hours 05/11/22 17:35 Blood Culture - Preliminary Blood No Growth after 72 hours 05/11/22 15:39 Gram Stain - Preliminary Leg - Right Wound Culture - Preliminary Enterococcus faecalis Pseudomonas fluorescens/putida Assessment and Plan Assessment: 1. Acute cellulitis right lower extremity - Patient has been placed on IV vancomycin with pharmacy dosing service and cefepime 2 g IV every 8 hours - ID team on the case 2. Chronic kidney disease, stage III. Baseline creatinine 1.5-1.6 3. Elevated liver enzymes; patient has history of hepatitis with treatment -- Liver enzymes trending down 4. Hypertension; metoprolol 50 mg by mouth twice a day 5. Hypothyroidism; Synthroid 75 MCG daily 6. Hyperlipidemia; Lipitor 20 mg daily 7. Paroxysmal atrial fibrillation; patient is rate controlled on metoprolol and amiodarone 200 mg daily; anticoagulated with Xarelto 15 mg by mouth daily at bedtime DVT prophylaxis; SCDs/Xarelto CODE STATUS; full code
[2022-05-15] MEDS: RIVAROXABAN 15 MG TAB PO SCH (21:51)
[2022-05-16] MEDS: LEVOTHYROXINE 75 MCG TAB PO SCH (06:12)
[2022-05-16 06:23] LABS: ALT 101 U/L (4-34); AST 105 U/L (14-36); African American GFR (CKD) 67 (>60 ml/min/1.73 sqM); Albumin 3.1 g/dL (3.5-5.0); Alkaline Phosphatase 220 U/L (38-126); Anion Gap 13 mmol/L; Bilirubin, Conjugated 0.3 mg/dL (0.0-0.3); Bilirubin,Unconjugated 0.7 mg/dL (0.0-1.1); Blood Urea Nitrogen 38 mg/dL (7-17); Calcium 8.1 mg/dL (8.4-10.2); Carbon Dioxide 18 mmol/L (22-30); Chloride 111 mmol/L (98-107); Globulin 3.1 g/dL; Glucose 130 mg/dL (74-99); Magnesium 2.4 mg/dL (1.6-2.3); Non-African American GFR(CKD) 58 (>60 ml/min/1.73 sqM); Potassium 4.2 mmol/L (3.5-5.1); Sodium 142 mmol/L (137-145); Total Bilirubin 2.4 mg/dL (0.2-1.3); Total Protein 6.2 g/dL (6.3-8.2)
[2022-05-16] MEDS: METOPROLOL SUCCINATE (ER) 25 MG TAB.ER.24H PO SCH ×2 (07:50→19:28)
[2022-05-16] MEDS: ATORVASTATIN 20 MG TAB PO SCH (07:53)
[2022-05-16] MEDS: AMIODARONE 200 MG TAB PO SCH (07:53)
[2022-05-16] MEDS: ASPIRIN 81 MG PO SCH (07:53)
[2022-05-16] MEDS: CEFEPIME 1 GM in SODIUM CHLORIDE 0.9% 50 ML IVPB SCH ×2 (07:53→19:28)
[2022-05-16] MEDS: FLUTICASONE 50MCG/SPRAY NASAL 16GM EA NOSTRIL SCH (07:54)
[2022-05-16 09:09] LABS: Basophils # (A) 0.03 X 10*3/uL (0.00-0.10); Basophils % (A) 0.4 %; Eosinophils # (A) 0.05 X 10*3/uL (0.04-0.35); Eosinophils % (A) 0.6 %; HCT 41.1 % (37.2-46.3); HGB 12.6 g/dL (12.0-15.0); Immature Grans, Automated 0.6 %; Lymphocytes # (A) 1.19 X 10*3/uL (0.90-5.00); Lymphocytes % (A) 14.7 %; MCH 31.6 pg (27.0-32.0); MCHC 30.7 g/dL (32.0-37.0); Mean Platelet Volume 12.6 fL (9.5-12.2); Monocytes # (A) 1.33 X 10*3/uL (0.20-1.00); Monocytes % (A) 16.4 %; NRBC Per 100 WBC 2.7 /100 WBCS (0.0-0.0); Neutrophils # (A) 5.46 X 10*3/uL (1.80-7.70); Neutrophils % (A) 67.3 %; Platelet Count 162 X 10*3/uL (140-440); RBC 3.99 X 10*6/uL (4.10-5.20); RDW 21.7 % (11.5-14.5); WBC 8.11 X 10*3/uL (4.50-10.00)
--- NOTE | 2022-05-16 12:22 | P.PN ---
Subjective Pain and swelling and redness of right leg the patient denies having any fever or any chills, the patient still has significant swelling and redness right lower extremity mention no improvement in the symptoms, patient denies having any chest pain shortness of breath or cough no abdominal pain or diarrhea; states that over the last 24 hours she had acute onset redness pain and swelling to the right lower extremity. There is concern that this is rapidly progressing. Right lower extremity was significantly erythematous with heat. Erythema here to be circumferential around the right lower extremity. It's very tender to palpation. No crepitus felt. X-rays reviewed shows no signs of gas formation in the soft tissues of the leg. Given patient's age and comorbidities there is concern for serious soft tissue infection. Patient started on broad-spectrum antibiotics. Cultures pending. Patient be admitted for IV antibiotics. Infectious disease will be consulted. Lab review shows a WBC of 7.0, hemoglobin 15.4, platelet count of 135, sodium 135, potassium 4.7, BUN/creatinine elevated at 39/1.56, lactic acid level of 1.3, total bilirubin elevated at 2.7; proBNP elevated at 12,200; we will plan to obtain a chest x-ray if patient is symptomatic 05/13/2022 the patient is seen and evaluated in room at bedside; complaints of extreme anxiety; denies having any fever or ages, has been complaining of feeling anxious denies any chest pain or shortness of breath or cough no abdominal pain no diarrhea right lower extremity pain and swelling has slightly decreased -Patient with acute right lower extremity cellulitis in this patient did have diffuse swelling redness likely secondary to gram-positive skin ed underlying chronic infection less likely but not entirely excluded Patient to continue with light Ye wrap from just above the toe to below the knee -patient with multiple antibiotic allergies that would limit the number of antibiotics safe to use Local cultures are currently growing group D enterococcus and gram-negative patient to continue vancomycin and cefepime while waiting for the culture finalized patient will be placed on Xanax at home dose 05/14/2022 Patient is with a right leg cellulitis, on exam she looks with mild improvement Cultures grown sensitive enterococci and pseudomonas Patient currently on IV vancomycin and cefepime with ID team on the case Also patient continued on home dose of Xarelto for her history of paroxysmal A. fib. Follow-up final results of the wound culture 05/15/2022 Patient still with significant right leg cellulitis, she still needs IV antibiotic with vancomycin and cefepime, discussed with ID team. No abdominal pain or vomiting. Monitor liver enzymes tomorrow. Patient has chronic borderline low blood pressure, systolic 90s to 100 intents, at times down to 80s. Asymptomatic. 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 We will keep metoprolol 25 mg twice a day for now. Also she skipped on her dose of Xarelto 05/16/2022 Patient is a sleepy every day, while sitting in chair. Once once she wake up she is appropriate and awake and follow commands and oriented to time place and person. She denies any specific complaints. No headache or weakness, no chest pain or dyspnea. No abdominal pain or nausea vomiting or diarrhea. No right upper quadrant pain or tenderness. Right leg cellulitis is improving, patient can be discharged on IV antibiotics as per ID team However her liver enzymes are trending up today, we will order a liver ultrasound which is still pending Objective - Vital Signs Vital signs: Vital Signs Temp 97.7 F 05/16/22 11:36 Pulse 60 05/16/22 11:36 Resp 14 05/16/22 11:36 BP 101/56 05/16/22 11:36 Pulse Ox 92 L 05/16/22 11:36 FiO2 Intake & Output 05/15/22 05/16/22 05/16/22 18:59 06:59 18:59 Intake Total 240 240 Balance 240 240 Weight 34.927 kg Intake: Oral 240 240 Other: Voiding Method Bedside Commode Bedside Commode Bedside Commode # Voids 1 # Bowel Movements 0 - Exam GENERAL: The patient is alert and oriented x3, not in any acute distress. Well developed, well nourished. HEENT: Pupils are round and equally reacting to light. EOMI. No scleral icterus. No conjunctival pallor. Normocephalic, atraumatic. No pharyngeal erythema. No thyromegaly. CARDIOVASCULAR: S1 and S2 present. No murmurs, rubs, or gallops. PULMONARY: Chest is clear to auscultation, no wheezing or crackles. ABDOMEN: Soft, nontender, nondistended, normoactive bowel sounds. No palpable organomegaly. MUSCULOSKELETAL: No joint swelling or deformity. -EXTREMITIES: No cyanosis, clubbing, or pedal edema. Right leg cellulitis NEUROLOGICAL: Gross neurological examination did not reveal any focal deficits. SKIN: No rashes. no petechiae. - Labs CBC & Chem 7: 05/16/22 05:43 05/16/22 05:43 Labs: Abnormal Lab Results - Last 24 Hours (Table) 05/16/22 05/16/22 Range/Units 05:43 05:43 RBC 3.99 L (4.10-5.20) X 10*6/uL MCV 103.0 H (80.0-97.0) fL MCHC 30.7 L (32.0-37.0) g/dL RDW 21.7 H (11.5-14.5) % MPV 12.6 H (9.5-12.2) fL Absolute Nucleated RBC 0.22 H (0.00-0.00) X 10*3/uL Immature Gran # 0.05 H (0.00-0.04) X 10*3/uL Monocytes # 1.33 H (0.20-1.00) X 10*3/uL NRBC/100 WBC Diff 2.7 H (0.0-0.0) /100 WBCS Chloride 111 H (98-107) mmol/L Carbon Dioxide 18 L (22-30) mmol/L BUN 38 H (7-17) mg/dL Glucose 130 H (74-99) mg/dL Calcium 8.1 L (8.4-10.2) mg/dL Magnesium 2.4 H (1.6-2.3) mg/dL Total Bilirubin 2.4 H (0.2-1.3) mg/dL AST 105 H (14-36) U/L ALT 101 H (4-34) U/L Alkaline Phosphatase 220 H (38-126) U/L Total Protein 6.2 L (6.3-8.2) g/dL Albumin 3.1 L (3.5-5.0) g/dL Microbiology - Last 24 Hours (Table) 05/11/22 15:39 Anaerobic Culture - Final Leg - Right 05/11/22 17:35 Blood Culture - Preliminary Blood No Growth after 96 hours 05/11/22 15:39 Gram Stain - Final Leg - Right Wound Culture - Final Enterococcus faecalis Pseudomonas fluorescens/putida Acinetobacter audrey/haemol 05/11/22 17:20 Blood Culture - Preliminary Blood No Growth after 96 hours Assessment and Plan Assessment: 1. Acute cellulitis right lower extremity - Patient has been placed on IV vancomycin with pharmacy dosing service and cefepime 2 g IV every 8 hours - ID team on the case 2. Chronic kidney disease, stage III. Baseline creatinine 1.5-1.6 3. Elevated liver enzymes; patient has history of hepatitis with treatment - Liver enzymes elevated. - Recheck liver ultrasound - patient is a known case of elevated liver enzymes, she's been followed by surgery during last admission, she presents diet well with no pain 4. Hypertension; metoprolol 50 mg by mouth twice a day 5. Hypothyroidism; Synthroid 75 MCG daily 6. Hyperlipidemia; Lipitor 20 mg daily 7. Paroxysmal atrial fibrillation; patient is rate controlled on metoprolol and amiodarone 200 mg daily; anticoagulated with Xarelto 15 mg by mouth daily at bedtime DVT prophylaxis; SCDs/Xarelto CODE STATUS; full code
--- NOTE | 2022-05-16 13:10 | P.PN ---
Subjective Progress Note Date: 05/15/22 Principal diagnosis: Right lower extremity cellulitis Patient is a 61 year old female presented to hospital with increasing swelling redness of right lower extremity has been diagnosed with acute right lower extremity cellulitis. on today's evaluation that is 05/15/2022, The patient denies having any fever or any chills the patient is breathing comfortably on room air no chest pain shortness of breath or cough pain to the right lower extremity has decreased in intensity no drainage Objective - Vital Signs Vital signs: Vital Signs Temp 97.7 F 05/15/22 08:00 Pulse 80 05/15/22 08:00 Resp 18 05/15/22 08:00 BP 96/60 05/15/22 08:00 Pulse Ox 95 05/15/22 08:00 FiO2 Intake & Output 05/14/22 05/15/22 05/15/22 18:59 06:59 18:59 Intake Total 240 Balance 240 Intake: Oral 240 Other: Voiding Method Bedside Commode Bedside Commode # Voids 1 2 - Exam GENERAL DESCRIPTION: Middle-age female up in the chair in no distress RESPIRATORY SYSTEM: Unlabored breathing , decreased breath sounds at bases HEART: S1 S2 regular rate and rhythm , ABDOMEN: Soft , no tenderness EXTREMITIES: Right leg swelling or redness is slightly decreased - Labs CBC & Chem 7: 05/16/22 05:43 05/16/22 05:43 Labs: Abnormal Lab Results - Last 24 Hours (Table) 05/15/22 05/15/22 Range/Units 06:00 06:00 RBC 4.02 L (4.10-5.20) X 10*6/uL MCV 101.0 H (80.0-97.0) fL MCHC 30.8 L (32.0-37.0) g/dL RDW 21.9 H (11.5-14.5) % MPV 12.5 H (9.5-12.2) fL Absolute Nucleated RBC 0.20 H (0.00-0.00) X 10*3/uL Immature Gran # 0.05 H (0.00-0.04) X 10*3/uL NRBC/100 WBC Diff 2.9 H (0.0-0.0) /100 WBCS Carbon Dioxide 20 L (22-30) mmol/L BUN 43 H (7-17) mg/dL Creatinine 1.19 H (0.52-1.04) mg/dL Glucose 120 H (74-99) mg/dL Microbiology - Last 24 Hours (Table) 05/11/22 17:35 Blood Culture - Preliminary Blood No Growth after 72 hours 05/11/22 17:20 Blood Culture - Preliminary Blood No Growth after 72 hours 05/11/22 15:39 Gram Stain - Preliminary Leg - Right Wound Culture - Preliminary Enterococcus faecalis Pseudomonas fluorescens/putida Assessment and Plan (1) Cellulitis Current Visit: Yes Status: Acute Code(s): L03.90 - CELLULITIS, UNSPECIFIED SNOMED Code(s): 811942266 Plan: 1-Patient with acute right lower extremity cellulitis in this patient did have d iffuse swelling redness likely secondary to gram-positive skin ed underlying chronic infection less likely but not entirely excluded Patient to continue with light Ye wrap from just above the toe to below the knee 3-patient with multiple antibiotic allergies that would limit the number of antibiotics safe to use 4Local cultures are currently growing group D enterococcus which is penicillin sensitive and Pseudomonas And another gram-negative with ID and sensitivities pending patient to continue with the vancomycin and cefepime waiting for the culture to finalize recommendations antibiotics Time with Patient: Less than 30
--- NOTE | 2022-05-16 13:12 | P.PN ---
Subjective Progress Note Date: 05/16/22 Principal diagnosis: Right lower extremity cellulitis Patient is a 61 year old female presented to hospital with increasing swelling redness of right lower extremity has been diagnosed with acute right lower extremity cellulitis. on today's evaluation that is 05/16/2022,The patient remains to be afebrile the patient is breathing comfortably on room air the patient denies having any chest pain shortness of the cough no abdominal pain pain to the right leg has decr eased in intensity and is no more drainage and denies having any diarrhea with antibiotic therapy Objective - Vital Signs Vital signs: Vital Signs Temp 97.7 F 05/16/22 11:36 Pulse 60 05/16/22 11:36 Resp 14 05/16/22 11:36 BP 101/56 05/16/22 11:36 Pulse Ox 92 L 05/16/22 11:36 FiO2 Intake & Output 05/15/22 05/16/22 05/16/22 18:59 06:59 18:59 Intake Total 240 240 Balance 240 240 Weight 34.927 kg Intake: Oral 240 240 Other: Voiding Method Bedside Commode Bedside Commode Bedside Commode # Voids 1 # Bowel Movements 0 - Exam GENERAL DESCRIPTION: Middle-age female up in the chair in no distress RESPIRATORY SYSTEM: Unlabored breathing , decreased breath sounds at bases HEART: S1 S2 regular rate and rhythm , ABDOMEN: Soft , no tenderness EXTREMITIES: Right leg swelling or redness is slightly decreased - Labs CBC & Chem 7: 05/16/22 05:43 05/16/22 05:43 Labs: Abnormal Lab Results - Last 24 Hours (Table) 05/16/22 05/16/22 Range/Units 05:43 05:43 RBC 3.99 L (4.10-5.20) X 10*6/uL MCV 103.0 H (80.0-97.0) fL MCHC 30.7 L (32.0-37.0) g/dL RDW 21.7 H (11.5-14.5) % MPV 12.6 H (9.5-12.2) fL Absolute Nucleated RBC 0.22 H (0.00-0.00) X 10*3/uL Immature Gran # 0.05 H (0.00-0.04) X 10*3/uL Monocytes # 1.33 H (0.20-1.00) X 10*3/uL NRBC/100 WBC Diff 2.7 H (0.0-0.0) /100 WBCS Chloride 111 H (98-107) mmol/L Carbon Dioxide 18 L (22-30) mmol/L BUN 38 H (7-17) mg/dL Glucose 130 H (74-99) mg/dL Calcium 8.1 L (8.4-10.2) mg/dL Magnesium 2.4 H (1.6-2.3) mg/dL Total Bilirubin 2.4 H (0.2-1.3) mg/dL AST 105 H (14-36) U/L ALT 101 H (4-34) U/L Alkaline Phosphatase 220 H (38-126) U/L Total Protein 6.2 L (6.3-8.2) g/dL Albumin 3.1 L (3.5-5.0) g/dL Microbiology - Last 24 Hours (Table) 05/11/22 15:39 Anaerobic Culture - Final Leg - Right 05/11/22 17:35 Blood Culture - Preliminary Blood No Growth after 96 hours 05/11/22 15:39 Gram Stain - Final Leg - Right Wound Culture - Final Enterococcus faecalis Pseudomonas fluorescens/putida Acinetobacter audrey/haemol 05/11/22 17:20 Blood Culture - Preliminary Blood No Growth after 96 hours Assessment and Plan (1) Cellulitis Current Visit: Yes Status: Acute Code(s): L03.90 - CELLULITIS, UNSPECIFIED SNOMED Code(s): 287702496 Plan: 1-Patient with acute right lower extremity cellulitis in this patient did have diffuse swelling redness likely secondary to gram-positive skin ed underlying chronic infection less likely but not entirely excluded Patient to continue with light Ye wrap from just above the toe to below the knee 3-patient with multiple antibiotic allergies that would limit the number of antibiotics safe to use 4 Patient seem to have shown clinical improvement as far as right lower extremity cellulitis is concerned patient local cultures grew Enterococcus which is penicillin sensitive however the patient is allergic to penicillin patient also grew Pseudomonas and Acinetobacter which is sensitive to Cipro however the patient is on amiodarone, we will go ahead and get a PICC line continue the vancomycin and cefepime for 10 days and close outpatient follow-up Time with Patient: Less than 30
[2022-05-16] MEDS ORDERED: LIDOCAINE 1% INJ 10MG/ML (30 ML VIAL-PF) SQ ONE (13:59)
--- NOTE | 2022-05-16 15:10 | IR ---
EXAMINATION TYPE: IR cvc insert >=5 years DATE OF EXAM: 05/16/2022 COMPARISON: NONE CLINICAL HISTORY: Infection Needs long-term intravenous access for antibiotics. PROCEDURE: Hand hygiene obtained with soap and water and alcohol-based hand rub. After informed consent, the skin overlying the right brachial vein was localized with ultrasound and noted to be compressible and patent. An ultrasound image was obtained and submitted on the patient's chart. The overlying skin was prepped and draped and Lidocaine was used for local anesthesia. A sk in vishal was made with a scalpel. Access was gained to the vein under ultrasound guidance with a 21 g auge needle and a 0.018 inch wire was advanced. Access site was dilated with Peel-Away sheath and ca theter tailored to the appropriate length and advanced such that the distal tip is at the cavoatrial junction. Spot image was obtained verifying placement. Catheter was fixed to the skin and a sterile dressing was placed following hemostasis. Catheter was aspirated and flushed with saline. Patient was discharged in stable condition without complication.Maximal barrier technique is utilized. Ultra sound image is documented on the chart. Ultrasound used with sterile technique. Fluoro time and fluoroscopic images submitted to document procedure: 0.6 minutes fluoroscopy time, 94 intraoperative images document the procedure IMPRESSION: STATUS POST ULTRASOUND AND FLUOROSCOPIC GUIDED PICC LINE PLACEMENT, READY FOR USE. THIS PROCEDURE WAS PERFORMED BY THE UNDERSIGNED.
[2022-05-16] MEDS: SODIUM CHLORIDE 0.9% 1,000 ML IV SCH (15:25)
--- NOTE | 2022-05-16 16:24 | US ---
EXAMINATION TYPE: US liver DATE OF EXAM: 05/16/2022 COMPARISON: US dated 02/01/[address] & [address] dated 02/02/2022 CLINICAL HISTORY: high liver enz. Elevated LFT's TECHNIQUE: Multiple sonographic images of the right upper quadrant are obtained. FINDINGS: EXAM MEASUREMENTS: Liver Length: 13.4 cm Gallbladder Wall: 0.5 cm CBD: 0.3 cm Right Kidney: 9.2 x 4.4 x 4.5 cm [employer] NOTES: Pancreas: 3mm pancreatic duct visualized, tail obscured by overlying bowel gas Liver: wnl Gallbladder: Small gallstones at fundus, wall thickened Evidence for sonographic Velazquez's sign: No CBD: wnl Right Kidney: wnl, lower pole gassed out IMPRESSION: There are some limitations to the exam. Correlate for possible cholecystitis
[2022-05-16] MEDS: ALPRAZolam 0.25 MG TAB PO PRN (19:29)
[2022-05-16] MEDS: RIVAROXABAN 15 MG TAB PO SCH (19:29)
[2022-05-17] MEDS: LEVOTHYROXINE 75 MCG TAB PO SCH (05:31)
[2022-05-17 07:08] LABS: ALT 101 U/L (4-34); AST 111 U/L (14-36); African American GFR (CKD) 65 (>60 ml/min/1.73 sqM); Albumin 3.3 g/dL (3.5-5.0); Albumin/Globulin Ratio 1.1; Alkaline Phosphatase 206 U/L (38-126); Anion Gap 12 mmol/L; Bilirubin, Conjugated 0.4 mg/dL (0.0-0.3); Bilirubin,Unconjugated 0.8 mg/dL (0.0-1.1); Blood Urea Nitrogen 36 mg/dL (7-17); Calcium 8.2 mg/dL (8.4-10.2); Carbon Dioxide 19 mmol/L (22-30); Chloride 109 mmol/L (98-107); Globulin 3.1 g/dL; Glucose 192 mg/dL (74-99); Magnesium 2.5 mg/dL (1.6-2.3); Non-African American GFR(CKD) 56 (>60 ml/min/1.73 sqM); Potassium 4.2 mmol/L (3.5-5.1); Sodium 140 mmol/L (137-145); Total Bilirubin 2.5 mg/dL (0.2-1.3); Total Protein 6.4 g/dL (6.3-8.2)
[2022-05-17] MEDS: AMIODARONE 200 MG TAB PO SCH (09:29)
[2022-05-17] MEDS: ASPIRIN 81 MG PO SCH (09:29)
[2022-05-17] MEDS: CEFEPIME 1 GM in SODIUM CHLORIDE 0.9% 50 ML IVPB SCH ×2 (09:30→22:00)
[2022-05-17] MEDS: ATORVASTATIN 20 MG TAB PO SCH (09:30)
[2022-05-17] MEDS: METOPROLOL SUCCINATE (ER) 25 MG TAB.ER.24H PO SCH ×2 (09:32→22:00)
[2022-05-17] MEDS: FLUTICASONE 50MCG/SPRAY NASAL 16GM EA NOSTRIL SCH (09:39)
[2022-05-17] MEDS: VANCOMYCIN 750 MG in SODIUM CHLORIDE 0.9% 250 ML IVPB SCH (14:22)
[2022-05-17] MEDS: ALPRAZolam 0.25 MG TAB PO PRN (14:26)
--- NOTE | 2022-05-17 15:49 | P.GSCN ---
History of Present Illness Consult date: 05/17/22 History of present illness: CHIEF COMPLAINT: Right leg infection Reason for consult cholecystitis HISTORY OF PRESENT ILLNESS: This is a 61-year-old female who presented to the emergency room with right leg swelling and diagnosed with a right lower extremity cellulitis. She is followed closely by infectious disease. She is on IV antibiotics. She had been having elevated liver enzymes and abdominal ultrasound was ordered. Report states there is some limitation to the exam. Correlate for possible cholecystitis. Small gallstones at fundus. Wall thickened. Patient denies any abdominal pain. Denies any nausea or vomiting. She is tolerating a regular diet. She denies any fevers. Patient does have a cardiac history of tetralogy fallot. Also history of atrial fibrillation anticoagulated with Xarelto. Surgical service consulted for cholecystitis. Patient seen and examined with Dr. meyer PAST MEDICAL HISTORY: Diabetes mellitus, hypertension, liver disease history of hepatitis that was treated. tetralogy fallot with repair at age 10. Has AICD. PAST SURGICAL HISTORY: See list. MEDICATIONS: See list. ALLERGIES: See list. SOCIAL HISTORY: No illicit drug use. REVIEW OF SYSTEMS: CONSTITUTIONAL: Denies fever or chills. HEENT: Denies blurred vision, vision changes, or eye pain. Denies hemoptysis CARDIOVASCULAR: Denies chest pain or pressure. RESPIRATORY: No shortness of breath. GASTROINTESTINAL: See HPI for pertinent findings HEMATOLOGIC: Denies bleeding disorders. GENITOURINARY: Denies any blood in urine or increased urinary frequency. SKIN: Denies pruitis. Denies rash. PHYSICAL EXAM: VITAL SIGNS: Reviewed GENERAL: Well-developed in no acute distress. HEENT: No sclera icterus. Extraocular movements grossly intact. Moist buccal mucosa. Head is atraumatic, normocephalic. No nasal drainage. ABDOMEN: Soft. Nondistended. Nontender NEUROLOGIC: Alert and oriented. Cranial nerves II through XII grossly intact. LABORATORY DATA: WBC is 8.11 Hgb 12.6 platelets 162 Sodium 140 potassium 4.2 creatinine 1.06 Glucose 192 Total bilirubin 2.5 AST 111 ALT 106 alk phos 206 IMAGING: Abdominal ultrasound as stated above ASSESSMENT: 1. Cholecystitis 2. Choledocholithiasis with elevated liver enzymes and total bilirubin 3. Right leg cellulitis PLAN: -Patient will be tentatively scheduled for laparoscopic cholecystectomy on 05/21/[address] meyer. Patient is a high-risk surgical candidate. Will consult cardiology for cardiac risk assessment due to her extensive cardiac history. -Add a low-fat diet -Repeat labs in a.m. and check lipase level -Continue supportive care Thank you for this consultation Physician [employer] note has been reviewed by physician. Signing provider agrees with the documented findings, assessment, and plan of care. Past Medical History Past Medical History: Diabetes Mellitus, Eye Disorder, Hypertension, Liver Disease Additional Past Medical History / Comment(s): See Dr Briggs H&P, hx tetralogy fallot. hepatitis had tx clear now. 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 glaucoma ana maria eyes. 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 d&C Past Anesthesia/Blood Transfusion Reactions: No Reported Reaction Type of Cardiac Device: AICD Device Placement Date:: 1998 Past Psychological History: No Psychological Hx Reported Smoking Status: Never smoker Past Alcohol Use History: None Reported Past Drug Use History: None Reported - Past Family History Mother Family Medical History: No Reported History Additional Family Medical History / Comment(s): emphysema Medications and Allergies Home Medications Medication Instructions Recorded Confirmed Type Aspirin [Adult Low Dose Aspirin EC] 162 mg PO W/BRKFST 03/10/19 05/11/22 History Latanoprost [Xalatan 0.005%] 1 drop BOTH EYES HS 03/10/19 05/11/22 History Rosuvastatin [Crestor] 10 mg PO W/BRKFST 10/01/21 05/11/22 History Amiodarone [Cordarone] 200 mg PO W/BRKFST 02/01/22 05/11/22 History Ascorbic Acid [Vitamin C] 1,000 mg PO W/BRKFST 02/01/22 05/11/22 History Flaxseed Oil 2400 Mg 2,400 mg PO W/BRKFST 02/01/22 05/11/22 History Fluticasone Nasal [place] [Flonase 1 spray EA NOSTRIL BID PRN 02/01/22 05/11/22 History Nasal [place]] Ubidecarenone [Co Q-10] 100 mg PO W/BRKFST 02/01/22 05/11/22 History Zinc 50 mg PO W/BRKFST 02/01/22 05/11/22 History Levothyroxine Sodium [Synthroid] 75 mcg PO DAILY@0630 #30 tab 02/03/22 05/11/22 Rx Metoprolol Succinate (ER) [Toprol 50 mg PO BID 04/03/22 05/11/22 History XL] Spironolactone [Aldactone] 25 mg PO HS 04/03/22 05/11/22 History Furosemide [Lasix] 20 mg PO AC-SUPPER 05/11/22 05/11/22 History Furosemide [Lasix] 40 mg PO QAM 05/11/22 05/11/22 History Rivaroxaban [Xarelto] 15 mg PO HS 05/11/22 05/11/22 History Cefepime [Maxipime] 2 gm IVPB Q12H #20 each 05/16/22 Rx Vancomycin HCl in 5 % Dextrose 0.75 gm IV Q48H #7 each 05/16/22 Rx [Vancomycin 1 Gram/250 ml-D5w] Allergies Allergy/AdvReac Type Severity Reaction Status Date / Time codeine Allergy Rash/Hives Verified 05/11/22 17:25 Penicillins Allergy Rash/Hives Verified 05/11/22 17:25 Sulfa (Sulfonamide Allergy Rash/Hives Verified 05/11/22 17:25 Antibiotics) levofloxacin [From Levaquin] AdvReac Racing Verified 05/11/22 17:25 heart Surgical - Exam Vital Signs Temp Pulse Resp BP Pulse Ox 98.7 F 80 18 88/51 95 05/11/22 14:07 05/11/22 14:07 05/11/22 14:07 05/11/22 14:07 05/11/22 14:07 Results - Labs 05/16/22 05:43 05/17/22 06:19 Abnormal Lab Results - Last 24 Hours (Table) 05/17/22 Range/Units 06:19 Chloride 109 H (98-107) mmol/L Carbon Dioxide 19 L (22-30) mmol/L BUN 36 H (7-17) mg/dL Creatinine 1.06 H (0.52-1.04) mg/dL Glucose 192 H (74-99) mg/dL Calcium 8.2 L (8.4-10.2) mg/dL Magnesium 2.5 H (1.6-2.3) mg/dL Total Bilirubin 2.5 H (0.2-1.3) mg/dL Conjugated Bilirubin 0.4 H (0.0-0.3) mg/dL AST 111 H (14-36) U/L ALT 101 H (4-34) U/L Alkaline Phosphatase 206 H (38-126) U/L Albumin 3.3 L (3.5-5.0) g/dL Microbiology - Last 24 Hours (Table) 05/11/22 17:35 Blood Culture - Preliminary Blood No Growth after 120 hours 05/11/22 17:20 Blood Culture - Preliminary Blood No Growth after 120 hours Diabetes panel 05/17/22 Range/Units 06:19 Sodium 140 (137-145) mmol/L Potassium 4.2 (3.5-5.1) mmol/L Chloride 109 H (98-107) mmol/L Carbon Dioxide 19 L (22-30) mmol/L BUN 36 H (7-17) mg/dL Creatinine 1.06 H (0.52-1.04) mg/dL Glucose 192 H (74-99) mg/dL Calcium 8.2 L (8.4-10.2) mg/dL AST 111 H (14-36) U/L ALT 101 H (4-34) U/L Alkaline Phosphatase 206 H (38-126) U/L Total Protein 6.4 (6.3-8.2) g/dL Albumin 3.3 L (3.5-5.0) g/dL Calcium panel 05/17/22 Range/Units 06:19 Calcium 8.2 L (8.4-10.2) mg/dL Albumin 3.3 L (3.5-5.0) g/dL Pituitary panel 05/17/22 Range/Units 06:19 Sodium 140 (137-145) mmol/L Potassium 4.2 (3.5-5.1) mmol/L Chloride 109 H (98-107) mmol/L Carbon Dioxide 19 L (22-30) mmol/L BUN 36 H (7-17) mg/dL Creatinine 1.06 H (0.52-1.04) mg/dL Glucose 192 H (74-99) mg/dL Calcium 8.2 L (8.4-10.2) mg/dL Adrenal panel 05/17/22 Range/Units 06:19 Sodium 140 (137-145) mmol/L Potassium 4.2 (3.5-5.1) mmol/L Chloride 109 H (98-107) mmol/L Carbon Dioxide 19 L (22-30) mmol/L BUN 36 H (7-17) mg/dL Creatinine 1.06 H (0.52-1.04) mg/dL Glucose 192 H (74-99) mg/dL Calcium 8.2 L (8.4-10.2) mg/dL Total Bilirubin 2.5 H (0.2-1.3) mg/dL AST 111 H (14-36) U/L ALT 101 H (4-34) U/L Alkaline Phosphatase 206 H (38-126) U/L Total Protein 6.4 (6.3-8.2) g/dL Albumin 3.3 L (3.5-5.0) g/dL
[2022-05-17] MEDS: SODIUM CHLORIDE 0.9% 1,000 ML IV SCH ×2 (18:46→22:01)
--- NOTE | 2022-05-17 18:58 | P.PN ---
Subjective Pain and swelling and redness of right leg the patient denies having any fever or any chills, the patient still has significant swelling and redness right lower extremity mention no improvement in the symptoms, patient denies having any chest pain shortness of breath or cough no abdominal pain or diarrhea; states that over the last 24 hours she had acute onset redness pain and swelling to the right lower extremity. There is concern that this is rapidly progressing. Right lower extremity was significantly erythematous with heat. Erythema here to be circumferential around the right lower extremity. It's very tender to palpation. No crepitus felt. X-rays reviewed shows no signs of gas formation in the soft tissues of the leg. Given patient's age and comorbidities there is concern for serious soft tissue infection. Patient started on broad-spectrum antibiotics. Cultures pending. Patient be admitted for IV antibiotics. Infectious disease will be consulted. Lab review shows a WBC of 7.0, hemoglobin 15.4, platelet count of 135, sodium 135, potassium 4.7, BUN/creatinine elevated at 39/1.56, lactic acid level of 1.3, total bilirubin elevated at 2.7; proBNP elevated at 12,200; we will plan to obtain a chest x-ray if patient is symptomatic 05/13/2022 the patient is seen and evaluated in room at bedside; complaints of extreme anxiety; denies having any fever or ages, has been complaining of feeling anxious denies any chest pain or shortness of breath or cough no abdominal pain no diarrhea right lower extremity pain and swelling has slightly decreased -Patient with acute right lower extremity cellulitis in this patient did have diffuse swelling redness likely secondary to gram-positive skin ed underlying chronic infection less likely but not entirely excluded Patient to continue with light Ye wrap from just above the toe to below the knee -patient with multiple antibiotic allergies that would limit the number of antibiotics safe to use Local cultures are currently growing group D enterococcus and gram-negative patient to continue vancomycin and cefepime while waiting for the culture finalized patient will be placed on Xanax at home dose 05/14/2022 Patient is with a right leg cellulitis, on exam she looks with mild improvement Cultures grown sensitive enterococci and pseudomonas Patient currently on IV vancomycin and cefepime with ID team on the case Also patient continued on home dose of Xarelto for her history of paroxysmal A. fib. Follow-up final results of the wound culture 05/15/2022 Patient still with significant right leg cellulitis, she still needs IV antibiotic with vancomycin and cefepime, discussed with ID team. No abdominal pain or vomiting. Monitor liver enzymes tomorrow. Patient has chronic borderline low blood pressure, systolic 90s to 100 intents, at times down to 80s. Asymptomatic. 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 We will keep metoprolol 25 mg twice a day for now. Also she skipped on her dose of Xarelto 05/16/2022 Patient is a sleepy every day, while sitting in chair. Once once she wake up she is appropriate and awake and follow commands and oriented to time place and person. She denies any specific complaints. No headache or weakness, no chest pain or dyspnea. No abdominal pain or nausea vomiting or diarrhea. No right upper quadrant pain or tenderness. Right leg cellulitis is improving, patient can be discharged on IV antibiotics as per ID team However her liver enzymes are trending up today, we will order a liver ultrasound which is still pending 05/17/2022 Patient today is very sleepy and lethargic, she is arousable easily and follow commands and answer questions but go back to sleep right away. She denies abdominal pain and no significant tenderness however patient has with persistent elevated liver enzymes and ultrasound show evidence of cholecystitis and choledocholithiasis also suspected surgery team are consulted with plan for cholecystectomy on Monday 05/21, Objective - Vital Signs Vital signs: Vital Signs Temp 97.9 F 05/17/22 08:00 Pulse 80 05/17/22 08:00 Resp 18 05/17/22 08:00 BP 116/77 05/17/22 08:00 Pulse Ox 96 05/17/22 08:00 FiO2 Intake & Output 05/16/22 05/17/22 05/17/22 18:59 06:59 18:59 Intake Total 358 Balance 358 Intake: Oral 358 Other: Voiding Method Bedside Commode Bedside Commode # Voids 1 1 # Bowel Movements 0 - Exam GENERAL: The patient is alert and oriented x3, not in any acute distress. Well developed, well nourished. HEENT: Pupils are round and equally reacting to light. EOMI. No scleral icterus. No conjunctival pallor. Normocephalic, atraumatic. No pharyngeal erythema. No thyromegaly. CARDIOVASCULAR: S1 and S2 present. No murmurs, rubs, or gallops. PULMONARY: Chest is clear to auscultation, no wheezing or crackles. ABDOMEN: Soft, nontender, nondistended, normoactive bowel sounds. No palpable organomegaly. MUSCULOSKELETAL: No joint swelling or deformity. -EXTREMITIES: No cyanosis, clubbing, or pedal edema. Right leg cellulitis NEUROLOGICAL: Gross neurological examination did not reveal any focal deficits. SKIN: No rashes. no petechiae. - Labs CBC & Chem 7: 05/16/22 05:43 05/17/22 06:19 Labs: Abnormal Lab Results - Last 24 Hours (Table) 05/17/22 Range/Units 06:19 Chloride 109 H (98-107) mmol/L Carbon Dioxide 19 L (22-30) mmol/L BUN 36 H (7-17) mg/dL Creatinine 1.06 H (0.52-1.04) mg/dL Glucose 192 H (74-99) mg/dL Calcium 8.2 L (8.4-10.2) mg/dL Magnesium 2.5 H (1.6-2.3) mg/dL Total Bilirubin 2.5 H (0.2-1.3) mg/dL Conjugated Bilirubin 0.4 H (0.0-0.3) mg/dL AST 111 H (14-36) U/L ALT 101 H (4-34) U/L Alkaline Phosphatase 206 H (38-126) U/L Albumin 3.3 L (3.5-5.0) g/dL Microbiology - Last 24 Hours (Table) 05/11/22 17:35 Blood Culture - Preliminary Blood No Growth after 120 hours 05/11/22 17:20 Blood Culture - Preliminary Blood No Growth after 120 hours Assessment and Plan Assessment: 1. Acute cellulitis right lower extremity - Patient has been placed on IV vancomycin with pharmacy dosing service and cefepime 2 g IV every 8 hours - ID team on the case 2. Acute cholecystitis with transaminitis - Surgery team on the case with the plan for laparoscopic cholecystectomy 05/21 - Patient will need preoperative evaluation. 3. Chronic kidney disease, stage III. Baseline creatinine 1.5-1.6 4. Hypertension; metoprolol 50 mg by mouth twice a day 5. Hypothyroidism; Synthroid 75 MCG daily 6. Hyperlipidemia; Lipitor 20 mg daily 7. Paroxysmal atrial fibrillation; patient is rate controlled on metoprolol and amiodarone 200 mg daily; anticoagulated with Xarelto 15 mg by mouth daily at bedtime DVT prophylaxis; SCDs/Xarelto CODE STATUS; full code
[2022-05-17] MEDS: RIVAROXABAN 15 MG TAB PO SCH (22:00)
--- NOTE | 2022-05-17 23:06 | P.PN ---
Subjective Progress Note Date: 05/17/22 Principal diagnosis: Right lower extremity cellulitis Patient is a 61 year old female presented to hospital with increasing swelling redness of right lower extremity has been diagnosed with acute right lower extremity cellulitis. Patient did have abnormal liver ultrasound Suspicious for Cholecystitis General Surgery Has Been Consulted on today's evaluation that is 05/17/2022,The patient continues to be afebrile the patient is breathing comfortably on room air the patient denies having any chest pain shortness of the cough no abdominal pain, the patient pain to the right leg has decreased in intensity and no diarrhea Objective - Vital Signs Vital signs: Vital Signs Temp 97.9 F 05/17/22 08:00 Pulse 80 05/17/22 08:00 Resp 18 05/17/22 08:00 BP 116/77 05/17/22 08:00 Pulse Ox 96 05/17/22 08:00 FiO2 Intake & Output 05/16/22 05/17/22 05/17/22 18:59 06:59 18:59 Intake Total 358 Balance 358 Intake: Oral 358 Other: Voiding Method Bedside Commode Bedside Commode # Voids 1 1 # Bowel Movements 0 - Exam GENERAL DESCRIPTION: Middle-age female up in the chair in no distress RESPIRATORY SYSTEM: Unlabored breathing , decreased breath sounds at bases HEART: S1 S2 regular rate and rhythm , ABDOMEN: Soft , no tenderness EXTREMITIES: Right leg swelling or redness is slightly decreased - Labs CBC & Chem 7: 05/16/22 05:43 05/17/22 06:19 Labs: Abnormal Lab Results - Last 24 Hours (Table) 05/17/22 Range/Units 06:19 Chloride 109 H (98-107) mmol/L Carbon Dioxide 19 L (22-30) mmol/L BUN 36 H (7-17) mg/dL Creatinine 1.06 H (0.52-1.04) mg/dL Glucose 192 H (74-99) mg/dL Calcium 8.2 L (8.4-10.2) mg/dL Magnesium 2.5 H (1.6-2.3) mg/dL Total Bilirubin 2.5 H (0.2-1.3) mg/dL Conjugated Bilirubin 0.4 H (0.0-0.3) mg/dL AST 111 H (14-36) U/L ALT 101 H (4-34) U/L Alkaline Phosphatase 206 H (38-126) U/L Albumin 3.3 L (3.5-5.0) g/dL Microbiology - Last 24 Hours (Table) 05/11/22 17:35 Blood Culture - Preliminary Blood No Growth after 120 hours 05/11/22 17:20 Blood Culture - Preliminary Blood No Growth after 120 hours Assessment and Plan (1) Cellulitis Current Visit: Yes Status: Acute Code(s): L03.90 - CELLULITIS, UNSPECIFIED SNOMED Code(s): 198420012 Plan: 1-Patient with acute right lower extremity cellulitis in this patient did have diffuse swelling redness likely secondary to gram-positive skin ed underlying chronic infection less likely but not entirely excluded 2-Patient to continue with light Ye wrap from just above the toe to below the knee 3-patient with multiple antibiotic allergies that would limit the number of an tibiotics safe to use 4 Patient seem to have shown clinical improvement as far as right lower extre mity cellulitis is concerned patient local cultures grew Enterococcus which is penicillin sensitive however the patient is allergic to penicillin patient also grew Pseudomonas and Acinetobacter which is sensitive to Cipro however the patient is on amiodarone, patient to continue with vancomycin and cefepime and monitor clinical course closely Time with Patient: Less than 30
[2022-05-18] MEDS: LEVOTHYROXINE 75 MCG TAB PO SCH (05:29)
--- NOTE | 2022-05-18 08:58 | P.CRDCN ---
History of Present Illness History of present illness: This is a 60-year-old female with a past medical history of tetralogy of [place] as a child with repair, placement of a defibrillator in 1998, prior CVA, mitral regurgitation, bi-leaflet mitral valve prolapse, hypertension, atrial tachycardia, NSVT and dilated nonischemic cardiomyopathy with improved EF, Ventricular tachycardia with ICD shock 09/2021, ventricular fibrillation status post dual-chamber ICD implantation, paroxysmal atrial fibrillation on Eliquis. She follows in the office with Dr. Armstrong. We have been asked to see in consultation for cardiac risk assessment. Patient initially presented to the hospital on 05/11 with complaints of right leg swelling, nonhealing wound on right lower leg. Patient was diagnosed with cellulitis infectious disease evaluate the patient and was started on IV antibiotics. Liver enzymes were elevated and a liver ultrasound was obtained which revealed small gallstones, possible cholecystitis. General surgery was consulted and evaluated the patient and plan for laparoscopic cholecystectomy on 05/21/[address] meyer. Patient denies any chest pain, shortness of breath, lightheadedness, dizziness, palpitations, nausea, vomiting, syncope or near-syncope. She denies any symptoms of orthopnea or PND. DIAGNOSTICS * EKG * Lexiscan stress test in the office 06/2020 normal perfusion study with a fixed defect of small size involving the apex which could be secondary to physiological thinning and could be related to pacemaker rhythm. * 09/2021 Echocardiogram revealed an EF of 5055%, severe tricuspid regurgitation, severe pulmonary hypertension with RVSP of 56 mmHg * Laboratory reviewed, sodium 140, potassium 4.2, BUN 36, serum creatinine 1.06, magnesium 2.5, AST 111, ALT 101, alkaline phosphatase 206. * Current home cardiac medications include Xarelto 50 mg daily, spironolactone 25 mg daily, rosuvastatin 10 mg daily, metoprolol succinate 50mg BID, Lasix 60 mg daily (20mg night, 40mg morning), aspirin 162 mg daily, amiodarone 200 mg daily REVIEW OF SYSTEMS At the time of my exam: CONSTITUTIONAL: Denies fever or chills. CARDIOVASCULAR: Denies chest pain, shortness of breath, orthopnea, PND or palpitations. RESPIRATORY: Denies cough. GASTROINTESTINAL: Denies abdominal pain, diarrhea, constipation, nausea or vomiting. MUSCULOSKELETAL: Denies myalgias. NEUROLOGIC: Denies numbness, tingling, headacbe or weakness. ENDOCRINE: Denies fatigue, weight change, polydipsia or polyurina. GENITOURINARY: Denies burning, hematuria or urgency with micturation. HEMATOLOGIC: Denies history of anemia or bleeding. PHYSICAL EXAMINATION Blood pressure 90/53, heart rate 81, afebrile, saturations 97% on 2 L nasal cannula CONSTITUTIONAL: No apparent distress. HEENT: Head is normocephalic. Pupils are equal, round. Sclerae anicteric. Mucous membranes of the mouth are moist. JVD noted. CHEST EXAMINATION: Lungs clear to auscultation. No chest wall tenderness is noted on palpation or with deep breathing. HEART EXAMINATION: Regular rate and rhythm. S1, S2 heard. Systolic and diastolic murmur at right sternal border and apex noted. No gallops or rub. ABDOMEN: Soft, nontender. Positive bowel sounds. EXTREMITIES: 2+ peripheral pulses, no lower extremity edema L >R and no calf tenderness. NEUROLOGIC EXAMINATION: Patient is awake, alert and oriented x3. ASSESSMENT Right leg cellulitis Cholecystitis Elevated Liver enzymes Elevated total bilirubin Acute on chronic kidney disease Hypotension History of Ventricular tachycardia status post shock from ICD Tetralogy of [place] status post repair Valvular heart disease Pulmonary hypertension History of hypertension History of type 2 diabetes History of hyperlipidemia Paroxysmal atrial fibrillation on Xarelto outpatient History of Nonischemic cardiomyopathy with recovered EF PLAN -Patient is at high risk for perioperative cardiovascular event. Patient is not able to perform >4 METs levels of activity, however, does not have any acute cardiac conditions at this time. Recommend surgeries/procedures that are absolutely necessary and/or life saving. -We will perform EKG and 2D echocardiogram. -Xarelto currently on hold -Continue home cardiac medications -Further recommendations based on clinical course Nurse practitioner note has been reviewed by physician. Signing provider agrees with the documented findings, assessment, and plan of care. Past Medical History Past Medical History: Diabetes Mellitus, Eye Disorder, Hypertension, Liver Disease Additional Past Medical History / Comment(s): See Dr Briggs H&P, hx tetralogy fallot. hepatitis had tx clear now. 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 glaucoma ana maria eyes. 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 d&C Past Anesthesia/Blood Transfusion Reactions: No Reported Reaction Type of Cardiac Device: AICD Device Placement Date:: 1998 Past Psychological History: No Psychological Hx Reported Smoking Status: Never smoker Past Alcohol Use History: None Reported Past Drug Use History: None Reported - Past Family History Mother Family Medical History: No Reported History Additional Family Medical History / Comment(s): emphysema Medications and Allergies Home Medications Medication Instructions Recorded Confirmed Type Aspirin [Adult Low Dose Aspirin EC] 162 mg PO W/BRKFST 03/10/19 05/11/22 History Latanoprost [Xalatan 0.005%] 1 drop BOTH EYES HS 03/10/19 05/11/22 History Rosuvastatin [Crestor] 10 mg PO W/BRKFST 10/01/21 05/11/22 History Amiodarone [Cordarone] 200 mg PO W/BRKFST 02/01/22 05/11/22 History Ascorbic Acid [Vitamin C] 1,000 mg PO W/BRKFST 02/01/22 05/11/22 History Flaxseed Oil 2400 Mg 2,400 mg PO W/BRKFST 02/01/22 05/11/22 History Fluticasone Nasal [place] [Flonase 1 spray EA NOSTRIL BID PRN 02/01/22 05/11/22 History Nasal [place]] Ubidecarenone [Co Q-10] 100 mg PO W/BRKFST 02/01/22 05/11/22 History Zinc 50 mg PO W/BRKFST 02/01/22 05/11/22 History Levothyroxine Sodium [Synthroid] 75 mcg PO DAILY@0630 #30 tab 02/03/22 05/11/22 Rx Metoprolol Succinate (ER) [Toprol 50 mg PO BID 04/03/22 05/11/22 History XL] Spironolactone [Aldactone] 25 mg PO HS 04/03/22 05/11/22 History Furosemide [Lasix] 20 mg PO AC-SUPPER 05/11/22 05/11/22 History Furosemide [Lasix] 40 mg PO QAM 05/11/22 05/11/22 History Rivaroxaban [Xarelto] 15 mg PO HS 05/11/22 05/11/22 History Cefepime [Maxipime] 2 gm IVPB Q12H #20 each 05/16/22 Rx Vancomycin HCl in 5 % Dextrose 0.75 gm IV Q48H #7 each 05/16/22 Rx [Vancomycin 1 Gram/250 ml-D5w] Allergies Allergy/AdvReac Type Severity Reaction Status Date / Time codeine Allergy Rash/Hives Verified 05/11/22 17:25 Penicillins Allergy Rash/Hives Verified 05/11/22 17:25 Sulfa (Sulfonamide Allergy Rash/Hives Verified 05/11/22 17:25 Antibiotics) levofloxacin [From Levaquin] AdvReac Racing Verified 05/11/22 17:25 heart Physical Exam Vitals: Vital Signs Temp Pulse Resp BP BP Pulse Ox 05/18/22 02:50 97.5 F L 81 17 98/53 97 05/17/22 21:30 30 H 05/17/22 21:25 95 05/17/22 20:40 97.7 F 81 30 H 108/62 92 L 05/17/22 14:00 96.9 F L 80 20 106/61 94 L 05/17/22 08:00 97.9 F 80 18 116/77 96 Intake and Output 05/17/22 05/18/22 05/18/22 22:59 06:59 14:59 Other: Voiding Method Bedside Commode # Voids 0 # Bowel Movements 0 Results 05/16/22 05:43 05/17/22 06:19 Current Medications Generic Name Dose Route Start Last Admin Trade Name Freq PRN Reason Stop Dose Admin Acetaminophen 650 mg 05/11/22 17:04 05/12/22 21:46 Acetaminophen Tab 325 Mg Tab PO 650 mg Q6HR PRN Administration Mild Pain or Fever > 100.5 Alprazolam 0.25 mg 05/13/22 17:05 05/17/22 14:26 Alprazolam 0.25 Mg Tab PO 0.25 mg QID PRN Administration Anxiety Amiodarone HCl 200 mg 05/13/22 07:30 05/17/22 09:29 Amiodarone 200 Mg Tab PO 200 mg W/BRKFST HERVE Administration Aspirin 162 mg 05/13/22 07:30 05/17/22 09:29 Aspirin 81 Mg PO 162 mg W/BRKFST HERVE Administration Atorvastatin Calcium 20 mg 05/13/22 07:30 05/17/22 09:30 Atorvastatin 20 Mg Tab PO 20 mg W/BRKFST HERVE Administration Fluticasone Propionate 2 spray 05/15/22 15:33 05/17/22 09:39 Fluticasone 50mcg/[place] Nasal 16gm EA NOSTRIL Not Given DAILY HERVE Sodium Chloride 1,000 mls @ 20 mls/hr 05/11/22 17:15 05/17/22 22:01 Saline 0.9% IV 20 mls/hr .Q24H HERVE Administration Cefepime HCl 1 gm/ Sodium 50 mls @ 12.5 mls/hr 05/13/22 21:00 05/17/22 22:00 Chloride IVPB 12.5 mls/hr Q12HR HERVE Administration Vancomycin HCl 750 mg/ Sodium 250 mls @ 125 mls/hr 05/15/22 10:00 05/17/22 14:22 Chloride IVPB 125 mls/hr Q48H HERVE Administration Levothyroxine Sodium 75 mcg 05/13/22 06:30 05/18/22 05:29 Levothyroxine 75 Mcg Tab PO 75 mcg DAILY@0630 HERVE Administration Metoprolol Succinate 25 mg 05/16/22 09:00 05/17/22 22:00 Metoprolol Succinate (Er) 25 Mg Tab.Er.24h PO 25 mg BID HERVE Administration Naloxone HCl 0.2 mg 05/11/22 17:04 Naloxone 0.4 Mg/Ml 1 Ml Vial IV Q2M PRN Opioid Reversal Ondansetron HCl 4 mg 05/11/22 17:04 Ondansetron 4 Mg/2 Ml Vial IVP Q8HR PRN Nausea And Vomiting Rivaroxaban 15 mg 05/12/22 21:00 05/17/22 22:00 Rivaroxaban 15 Mg Tab PO 15 mg HS HERVE Administration Protocol Sodium Chloride 10 ml 05/16/22 15:07 Sodium Chloride 0.9% Flush 10 Ml Syringe IV Q4HR PRN PICC Line Sodium Chloride 10 ml 05/23/22 09:00 Sodium Chloride 0.9% Flush 10 Ml Syringe IV WEEKLY HERVE Sodium Chloride 20 ml 05/16/22 15:07 Sodium Chloride 0.9% Flush 10 Ml Syringe IV Q4HR PRN PICC Line Intake and Output 05/17/22 05/18/22 05/18/22 22:59 06:59 14:59 Other: Voiding Method Bedside Commode # Voids 0 # Bowel Movements 0 05/16/22 05:43 05/17/22 06:19
[2022-05-18] MEDS: ATORVASTATIN 20 MG TAB PO SCH (09:39)
[2022-05-18] MEDS: ASPIRIN 81 MG PO SCH (09:39)
[2022-05-18] MEDS: CEFEPIME 1 GM in SODIUM CHLORIDE 0.9% 50 ML IVPB SCH ×2 (09:39→23:35)
[2022-05-18] MEDS: AMIODARONE 200 MG TAB PO SCH (09:39)
[2022-05-18] MEDS: FLUTICASONE 50MCG/SPRAY NASAL 16GM EA NOSTRIL SCH (10:17)
[2022-05-18] MEDS: METOPROLOL SUCCINATE (ER) 25 MG TAB.ER.24H PO SCH ×2 (10:17→23:35)
--- NOTE | 2022-05-18 10:33 | CA ---
Transthoracic Echo Report Name: Chelita Crespo Age: 61 Gender: F : 1960 Exam Date: 05/18/2022 08:42 Exam Location: [facility] Ht (in): 58 Wt (lb): 77 Ordering Physician: Wale Fisher MD ([id number]) Attending/Referring Phys: Alex Armstrong MD ([id number]) [employer] Dipper Loree Pastor RDCS Procedure CPT: Indications: Heart failure Cardiac Hx: Technical Quality: Fair Contrast 1: Total Dose (mL): Contrast 2: Total Dose (mL): MEASUREMENTS (Male / Female) Normal Values 2D ECHO LV Diastolic Diameter PLAX 2.3 cm 4.2 - 5.9 / 3.9 - 5.3 cm LV Systolic Diameter PLAX 1.9 cm IVS Diastolic Thickness 1.0 cm 0.6 - 1.0 / 0.6 - 0.9 cm LVPW Diastolic Thickness 1.0 cm 0.6 - 1.0 / 0.6 - 0.9 cm LV Relative Wall Thickness 0.9 RV Internal Dim ED PLAX 3.4 cm LA Systolic Diameter LX 4.1 cm 3.0 - 4.0 / 2.7 - 3.8 cm LA Volume 39.9 cm??? 18 - 58 / 22 - 52 cm??? M-MODE Aortic Root Diameter MM 2.1 cm MV E Point Septal Separation 0.2 cm AV Cusp Separation MM 1.2 cm DOPPLER AV Peak Velocity 125.0 cm/s AV Peak Gradient 6.3 mmHg AI Peak Velocity 226.8 cm/s AI Peak Gradient 20.6 mmHg AI Pressure Half Time 596.3 ms MV Area PHT 6.1 cm??? MV Deceleration Time 118.4 ms TR Peak Velocity 294.6 cm/s TR Peak Gradient 34.7 mmHg Right Ventricular Systolic Press 49.7 mmHg FINDINGS Left Ventricle Left ventricular ejection fraction is estimated at 40-45 %. Small left ventricular cavity. Left ventricular wall thickness normal. Right Ventricle Mild right ventricular dilatation. Moderate pulmonary hypertension. Right Atrium Normal right atrial size. Left Atrium Normal left atrial size. No evidence for an atrial septal defect. Mitral Valve Trace to mild mitral regurgitation. Mitral annular calcification. Aortic Valve Trileaflet aortic valve. Trace to mild aortic regurgitation. Tricuspid Valve Severe tricuspid regurgitation. Pulmonic Valve Pulmonic valve not well visualized. Pericardium Normal pericardium. No pericardial effusion. Aorta Normal size aortic root and proximal ascending aorta. CONCLUSIONS Moderate to severe LV dysfunction Dilated right ventricle Moderate pulmonary hypertension Previewed by: Dr. Wale Fisher MD (Electronically Signed) Final Date: 18 May 2022 10:32
--- NOTE | 2022-05-18 11:02 | XR ---
EXAMINATION TYPE: XR chest 1V portable DATE OF EXAM: 05/18/2022 COMPARISON: Chest x-ray 04/03/2022 HISTORY: Heart failure, shortness of breath weakness TECHNIQUE: Single frontal view of the chest is obtained. FINDINGS: Right-sided PICC line shows the distal tip near the cavoatrial junction level. There is no pneumothorax seen. Pleural thickening along the right chest margin is noted, this blunting of the cos tophrenic angle on the right greater than left. The cardiac silhouette size is remarkable for heart i s enlarged, prominence of pulmonary artery suggests pulmonary hypertension. Generators present in lef t pectoral region, there are leads in right atrium, right ventricle, patient is post median sternotom y. The aorta is dense. The osseous structures are intact. IMPRESSION: Rotated exam. Difficult to exclude effusion. There is cardiomegaly and possible pulmonary artery hypertension. Indeterminate pleural thickening is an interval finding.
[2022-05-18 11:16] LABS: African American GFR (CKD) 61.9 (60.0-200.0); Albumin 2.9 g/dL (3.8-4.9); Albumin/Globulin Ratio 1.07 (1.60-3.17); Anion Gap 12.3 mmol/L (10.00-18.00); BUN/Creat Ratio 32.73 Ratio (12.00-20.00); Calcium 8.5 mg/dL (8.7-10.3); Carbon Dioxide 17.7 mmol/L (20.0-27.5); Globulin 2.7 g/dL (1.6-3.3); Non-African American GFR(CKD) 53.4 (60.0-200.0); Potassium 4.7 mmol/L (3.5-5.5); Total Bilirubin 2.9 mg/dL (0.30-1.20); Total Protein 5.6 g/dL (6.2-8.2)
--- NOTE | 2022-05-18 13:52 | P.PN ---
Subjective Progress Note Date: 05/18/22 CHIEF COMPLAINT: Right leg cellulitis HISTORY OF PRESENT ILLNESS: Surgical service is following in regards to patient's cholecystitis and choledocholithiasis. Patient has no abdominal pain. She is tolerating a low-fat diet. She denies any nausea or vomiting. Afebrile. Total bilirubin and LFTs are elevated. Total bili did increase from 2.5-2.9 AST 111-114 ALT 101-109 and alk phos 206-190. Patient evaluated by cardiology and is considered high risk surgical candidate. And recommend surgeries that are absolutely necessary or life saving. Patient seen and examined with Dr. meyer PHYSICAL EXAM: VITAL SIGNS: Reviewed. GENERAL: Well-developed in no acute distress. HEENT: No sclera icterus. Extraocular movements grossly intact. Moist buccal mucosa. Head is atraumatic, normocephalic. ABDOMEN: Soft. Nondistended. Nontender. NEUROLOGIC: Alert and oriented. Cranial nerves II through XII grossly intact. ASSESSMENT: 1. Choledocholithiasis with elevated liver enzymes and total bilirubin 2. Cholelithiasis 3. Chronic cholecystitis 4. Active infection with a right leg cellulitis 5. Significant cardiac history with tetralogy fallot repaired at age 10 6. History of ventricle tachycardia 7. Paroxysmal atrial fibrillation on Xarelto outpatient 8. History of nonischemic cardiomyopathy with AICD 10. Diabetes mellitus PLAN: -Patient is a high risk surgical candidate. She currently has no abdominal pain and is tolerating diet. Dr. Meyer is recommending at this time canceling surgery that was tentatively scheduled for 05/21/2022 due to patient being asymptomatic and a high risk surgical candidate. If patient develops right upper quadrant abdominal pain or signs of infection due to the gallbladder then would consider proceeding with laparoscopic cholecystectomy -Continue low-fat diet -Continue to monitor liver enzymes daily -Okay to resume Xarelto from surgical standpoint Physician Cell Manager note has been reviewed by physician. Signing provider agrees with the documented findings, assessment, and plan of care. Objective - Vital Signs Vital signs: Vital Signs Temp 98.2 F 05/18/22 08:00 Pulse 52 L 05/18/22 08:00 Resp 22 05/18/22 08:00 BP 92/41 05/18/22 08:00 Pulse Ox 93 L 05/18/22 08:00 FiO2 Intake & Output 05/17/22 05/18/22 05/18/22 18:59 06:59 18:59 Other: Voiding Method Bedside Commode # Voids 0 # Bowel Movements 0 - Labs CBC & Chem 7: 05/16/22 05:43 05/18/22 07:27 Labs: Abnormal Lab Results - Last 24 Hours (Table) 05/18/22 Range/Units 07:27 Chloride 111 H (96-109) mmol/L Carbon Dioxide 17.7 L (20.0-27.5) mmol/L BUN 36.0 H (9.0-27.0) mg/dL Est GFR (CKD-EPI)NonAf 53.4 L (60.0-200.0) BUN/Creatinine Ratio 32.73 H (12.00-20.00) Ratio Glucose 127 H (70-110) mg/dL Calcium 8.5 L (8.7-10.3) mg/dL Total Bilirubin 2.90 H (0.30-1.20) mg/dL AST 114 H (13-35) U/L ALT 109 H (8-44) U/L Alkaline Phosphatase 190 H (41-126) U/L Total Protein 5.6 L (6.2-8.2) g/dL Albumin 2.9 L (3.8-4.9) g/dL Albumin/Globulin Ratio 1.07 L (1.60-3.17) g/dL Microbiology - Last 24 Hours (Table) 05/11/22 17:35 Blood Culture - Final Blood No Growth after 144 hours 05/11/22 17:20 Blood Culture - Final Blood No Growth after 144 hours
--- NOTE | 2022-05-18 19:18 | P.PN ---
Subjective Pain and swelling and redness of right leg the patient denies having any fever or any chills, the patient still has significant swelling and redness right lower extremity mention no improvement in the symptoms, patient denies having any chest pain shortness of breath or cough no abdominal pain or diarrhea; states that over the last 24 hours she had acute onset redness pain and swelling to the right lower extremity. There is concern that this is rapidly progressing. Right lower extremity was significantly erythematous with heat. Erythema here to be circumferential around the right lower extremity. It's very tender to palpation. No crepitus felt. X-rays reviewed shows no signs of gas formation in the soft tissues of the leg. Given patient's age and comorbidities there is concern for serious soft tissue infection. Patient started on broad-spectrum antibiotics. Cultures pending. Patient be admitted for IV antibiotics. Infectious disease will be consulted. Lab review shows a WBC of 7.0, hemoglobin 15.4, platelet count of 135, sodium 135, potassium 4.7, BUN/creatinine elevated at 39/1.56, lactic acid level of 1.3, total bilirubin elevated at 2.7; proBNP elevated at 12,200; we will plan to obtain a chest x-ray if patient is symptomatic 05/13/2022 the patient is seen and evaluated in room at bedside; complaints of extreme anxiety; denies having any fever or ages, has been complaining of feeling anxious denies any chest pain or shortness of breath or cough no abdominal pain no diarrhea right lower extremity pain and swelling has slightly decreased -Patient with acute right lower extremity cellulitis in this patient did have diffuse swelling redness likely secondary to gram-positive skin ed underlying chronic infection less likely but not entirely excluded Patient to continue with light Ye wrap from just above the toe to below the knee -patient with multiple antibiotic allergies that would limit the number of antibiotics safe to use Local cultures are currently growing group D enterococcus and gram-negative patient to continue vancomycin and cefepime while waiting for the culture finalized patient will be placed on Xanax at home dose 05/14/2022 Patient is with a right leg cellulitis, on exam she looks with mild improvement Cultures grown sensitive enterococci and pseudomonas Patient currently on IV vancomycin and cefepime with ID team on the case Also patient continued on home dose of Xarelto for her history of paroxysmal A. fib. Follow-up final results of the wound culture 05/15/2022 Patient still with significant right leg cellulitis, she still needs IV antibiotic with vancomycin and cefepime, discussed with ID team. No abdominal pain or vomiting. Monitor liver enzymes tomorrow. Patient has chronic borderline low blood pressure, systolic 90s to 100 intents, at times down to 80s. Asymptomatic. 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 We will keep metoprolol 25 mg twice a day for now. Also she skipped on her dose of Xarelto 05/16/2022 Patient is a sleepy every day, while sitting in chair. Once once she wake up she is appropriate and awake and follow commands and oriented to time place and person. She denies any specific complaints. No headache or weakness, no chest pain or dyspnea. No abdominal pain or nausea vomiting or diarrhea. No right upper quadrant pain or tenderness. Right leg cellulitis is improving, patient can be discharged on IV antibiotics as per ID team However her liver enzymes are trending up today, we will order a liver ultrasound which is still pending 05/17/2022 Patient today is very sleepy and lethargic, she is arousable easily and follow commands and answer questions but go back to sleep right away. She denies abdominal pain and no significant tenderness however patient has with persistent elevated liver enzymes and ultrasound show evidence of cholecystitis and choledocholithiasis also suspected surgery team are consulted with plan for cholecystectomy on Monday 05/21, 05/18/2022 Patient does not have abdominal pain or nausea vomiting and she tolerates diet also she has no problem with her bowel movement. She has however elevated liver enzymes which were trending up and today are still elevated. And on ultrasound she has evidence of cholecystitis, surgery team are planning for cholecystectomy however patient was found higher risk and surgery procedure was aborted as patient is asymptomatic, currently kept on low-fat diet. Her echocardiogram is 40-45% showing cardiomyopathy with LV dysfunction and dilated right ventricle with moderate pulmonary hypertension. Patient remains on IV vancomycin and cefepime. She is also on Xarelto as there is no surgical intervention for now. Objective - Vital Signs Vital signs: Vital Signs Temp 97.5 F L 05/18/22 14:00 Pulse 79 05/18/22 14:00 Resp 20 05/18/22 14:00 BP 109/60 05/18/22 14:00 Pulse Ox 96 05/18/22 14:00 FiO2 Intake & Output 05/18/22 05/18/22 05/19/22 06:59 18:59 06:59 Weight 34.927 kg Other: Voiding Method Bedside Commode Bedside Commode # Voids 0 # Bowel Movements 0 - Exam GENERAL: The patient is alert and oriented x3, not in any acute distress. Well developed, well nourished. HEENT: Pupils are round and equally reacting to light. EOMI. No scleral icterus. No conjunctival pallor. Normocephalic, atraumatic. No pharyngeal erythema. No thyromegaly. CARDIOVASCULAR: S1 and S2 present. No murmurs, rubs, or gallops. PULMONARY: Chest is clear to auscultation, no wheezing or crackles. ABDOMEN: Soft, nontender, nondistended, normoactive bowel sounds. No palpable organomegaly. MUSCULOSKELETAL: No joint swelling or deformity. -EXTREMITIES: No cyanosis, clubbing, or pedal edema. Right leg cellulitis NEUROLOGICAL: Gross neurological examination did not reveal any focal deficits. SKIN: No rashes. no petechiae. - Labs CBC & Chem 7: 05/16/22 05:43 05/18/22 07:27 Labs: Abnormal Lab Results - Last 24 Hours (Table) 05/18/22 Range/Units 07:27 Chloride 111 H (96-109) mmol/L Carbon Dioxide 17.7 L (20.0-27.5) mmol/L BUN 36.0 H (9.0-27.0) mg/dL Est GFR (CKD-EPI)NonAf 53.4 L (60.0-200.0) BUN/Creatinine Ratio 32.73 H (12.00-20.00) Ratio Glucose 127 H (70-110) mg/dL Calcium 8.5 L (8.7-10.3) mg/dL Total Bilirubin 2.90 H (0.30-1.20) mg/dL AST 114 H (13-35) U/L ALT 109 H (8-44) U/L Alkaline Phosphatase 190 H (41-126) U/L Total Protein 5.6 L (6.2-8.2) g/dL Albumin 2.9 L (3.8-4.9) g/dL Albumin/Globulin Ratio 1.07 L (1.60-3.17) g/dL Microbiology - Last 24 Hours (Table) 05/11/22 17:35 Blood Culture - Final Blood No Growth after 144 hours 05/11/22 17:20 Blood Culture - Final Blood No Growth after 144 hours Assessment and Plan Assessment: 1. Acute cellulitis right lower extremity - Patient has been placed on IV vancomycin with pharmacy dosing service and cefepime 2 g IV every 8 hours - ID team on the case 2. Acute cholecystitis with transaminitis - Surgery team on the case with the plan for laparoscopic cholecystectomy 05/21 - Patient will need preoperative evaluation. 3. Chronic kidney disease, stage III. Baseline creatinine 1.5-1.6 4. Hypertension; metoprolol 50 mg by mouth twice a day 5. Hypothyroidism; Synthroid 75 MCG daily 6. Hyperlipidemia; Lipitor 20 mg daily 7. Paroxysmal atrial fibrillation; patient is rate controlled on metoprolol and amiodarone 200 mg daily; anticoagulated with Xarelto 15 mg by mouth daily at bedtime DVT prophylaxis; SCDs/Xarelto CODE STATUS; full code
[2022-05-18 21:11] LABS: Glucose,Whole Blood 160 mg/dL (70-110)
[2022-05-18] MEDS: IPRATROPIUM-ALBUTEROL 3 ML NEB INHALATION PRN (21:19)
--- NOTE | 2022-05-18 21:55 | XR ---
EXAMINATION TYPE: XR chest 1V portable DATE OF EXAM: 05/18/2022 HISTORY: Shortness of breath. COMPARISON: 05/18/2022 TECHNIQUE: Single view of the chest is submitted. FINDINGS: Demonstrated are scattered senescent parenchymal change. There is continued cardiomegaly without pulmonary arterial hypertension. Suspect small right-sided pl eural effusion. IAD is unchanged. Hilar and mediastinal structures are within normal limits. Degenerative changes are seen of the dorsal spine. IMPRESSION: 1. Stable chest
[2022-05-18 22:00] LABS: Anisocytosis Slight; Basophils # (A) 0.1 k/uL (0-0.2); Basophils % (A) 1 %; Eosinophils % (A) 0 %; HCT 42.4 % (34.0-46.0); HGB 12.4 gm/dL (11.4-16.0); Hypochromasia Marked; Lymphocytes # (A) 1.8 k/uL (1.0-4.8); Lymphocytes % (A) 14 %; MCH 32.3 pg (25.0-35.0); MCHC 29.2 g/dL (31.0-37.0); Macrocytosis Marked; Mean Platelet Volume 11.6; Monocytes # (A) 1.1 k/uL (0-1.0); Monocytes % (A) 9 %; Neutrophils % (A) 73 %; Platelet Count 173 k/uL (150-450); RBC 3.82 m/uL (3.80-5.40); RDW 19.7 % (11.5-15.5); WBC 12.5 k/uL (3.8-10.6)
[2022-05-18 22:06] LABS: ALT 109 U/L (4-34); AST 146 U/L (14-36); African American GFR (CKD) 68 (>60 ml/min/1.73 sqM); Albumin 3.2 g/dL (3.5-5.0); Albumin/Globulin Ratio 0.9; Alkaline Phosphatase 220 U/L (38-126); Anion Gap 13 mmol/L; Blood Urea Nitrogen 42 mg/dL (7-17); Calcium 8.5 mg/dL (8.4-10.2); Carbon Dioxide 14 mmol/L (22-30); Chloride 111 mmol/L (98-107); Globulin 3.5 g/dL; Glucose 165 mg/dL (74-99); Non-African American GFR(CKD) 59 (>60 ml/min/1.73 sqM); Sodium 138 mmol/L (137-145); Total Bilirubin 4.6 mg/dL (0.2-1.3); Total Protein 6.7 g/dL (6.3-8.2)
[2022-05-18 22:09] LABS: MCV 110.9 fL (80.0-100.0)
[2022-05-18 22:16] LABS: Polychromasia Present
[2022-05-18 22:27] LABS: Potassium 5.5 mmol/L (3.5-5.1)
[2022-05-18] MEDS: RIVAROXABAN 15 MG TAB PO SCH (23:35)
[2022-05-19] MEDS ORDERED: FUROSEMIDE 10 MG/ML 2 ML VIAL IV SCH
[2022-05-19] MEDS: FUROSEMIDE 10 MG/ML 2 ML VIAL IV SCH ×3 (00:14→23:01)
[2022-05-19] MEDS: ALPRAZolam 0.25 MG TAB PO PRN ×2 (04:05→16:04)
[2022-05-19] MEDS: LEVOTHYROXINE 75 MCG TAB PO SCH (06:36)
[2022-05-19] MEDS: ATORVASTATIN 20 MG TAB PO SCH (06:36)
[2022-05-19] MEDS: AMIODARONE 200 MG TAB PO SCH (06:36)
[2022-05-19] MEDS: ASPIRIN 81 MG PO SCH (06:36)
[2022-05-19] MEDS: METOPROLOL SUCCINATE (ER) 25 MG TAB.ER.24H PO SCH ×2 (08:54→20:15)
[2022-05-19] MEDS: FLUTICASONE 50MCG/SPRAY NASAL 16GM EA NOSTRIL SCH (08:54)
[2022-05-19] MEDS: CEFEPIME 1 GM in SODIUM CHLORIDE 0.9% 50 ML IVPB SCH ×2 (08:54→20:14)
[2022-05-19 09:26] LABS: Magnesium 2.7 mg/dL (1.5-2.4)
[2022-05-19 09:57] LABS: African American GFR (CKD) 46.2 (60.0-200.0); Albumin 3.2 g/dL (3.8-4.9); Albumin/Globulin Ratio 1.03 (1.60-3.17); Anion Gap 13.7 mmol/L (10.00-18.00); BUN/Creat Ratio 30.79 Ratio (12.00-20.00); Blood Urea Nitrogen 43.1 mg/dL (9.0-27.0); Carbon Dioxide 18.3 mmol/L (20.0-27.5); Globulin 3.1 g/dL (1.6-3.3); Non-African American GFR(CKD) 39.9 (60.0-200.0); Potassium 4.8 mmol/L (3.5-5.5); Total Protein 6.3 g/dL (6.2-8.2)
--- NOTE | 2022-05-19 10:35 | P.PN ---
Subjective Pain and swelling and redness of right leg the patient denies having any fever or any chills, the patient still has significant swelling and redness right lower extremity mention no improvement in the symptoms, patient denies having any chest pain shortness of breath or cough no abdominal pain or diarrhea; states that over the last 24 hours she had acute onset redness pain and swelling to the right lower extremity. There is concern that this is rapidly progressing. Right lower extremity was significantly erythematous with heat. Erythema here to be circumferential around the right lower extremity. It's very tender to palpation. No crepitus felt. X-rays reviewed shows no signs of gas formation in the soft tissues of the leg. Given patient's age and comorbidities there is concern for serious soft tissue infection. Patient started on broad-spectrum antibiotics. Cultures pending. Patient be admitted for IV antibiotics. Infectious disease will be consulted. Lab review shows a WBC of 7.0, hemoglobin 15.4, platelet count of 135, sodium 135, potassium 4.7, BUN/creatinine elevated at 39/1.56, lactic acid level of 1.3, total bilirubin elevated at 2.7; proBNP elevated at 12,200; we will plan to obtain a chest x-ray if patient is symptomatic 05/13/2022 the patient is seen and evaluated in room at bedside; complaints of extreme anxiety; denies having any fever or ages, has been complaining of feeling anxious denies any chest pain or shortness of breath or cough no abdominal pain no diarrhea right lower extremity pain and swelling has slightly decreased -Patient with acute right lower extremity cellulitis in this patient did have diffuse swelling redness likely secondary to gram-positive skin ed underlying chronic infection less likely but not entirely excluded Patient to continue with light Ye wrap from just above the toe to below the knee -patient with multiple antibiotic allergies that would limit the number of antibiotics safe to use Local cultures are currently growing group D enterococcus and gram-negative patient to continue vancomycin and cefepime while waiting for the culture finalized patient will be placed on Xanax at home dose 05/14/2022 Patient is with a right leg cellulitis, on exam she looks with mild improvement Cultures grown sensitive enterococci and pseudomonas Patient currently on IV vancomycin and cefepime with ID team on the case Also patient continued on home dose of Xarelto for her history of paroxysmal A. fib. Follow-up final results of the wound culture 05/15/2022 Patient still with significant right leg cellulitis, she still needs IV antibiotic with vancomycin and cefepime, discussed with ID team. No abdominal pain or vomiting. Monitor liver enzymes tomorrow. Patient has chronic borderline low blood pressure, systolic 90s to 100 intents, at times down to 80s. Asymptomatic. 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 We will keep metoprolol 25 mg twice a day for now. Also she skipped on her dose of Xarelto 05/16/2022 Patient is a sleepy every day, while sitting in chair. Once once she wake up she is appropriate and awake and follow commands and oriented to time place and person. She denies any specific complaints. No headache or weakness, no chest pain or dyspnea. No abdominal pain or nausea vomiting or diarrhea. No right upper quadrant pain or tenderness. Right leg cellulitis is improving, patient can be discharged on IV antibiotics as per ID team However her liver enzymes are trending up today, we will order a liver ultrasound which is still pending 05/17/2022 Patient today is very sleepy and lethargic, she is arousable easily and follow commands and answer questions but go back to sleep right away. She denies abdominal pain and no significant tenderness however patient has with persistent elevated liver enzymes and ultrasound show evidence of cholecystitis and choledocholithiasis also suspected surgery team are consulted with plan for cholecystectomy on Monday 05/21, 05/18/2022 Patient does not have abdominal pain or nausea vomiting and she tolerates diet also she has no problem with her bowel movement. She has however elevated liver enzymes which were trending up and today are still elevated. And on ultrasound she has evidence of cholecystitis, surgery team are planning for cholecystectomy however patient was found higher risk and surgery procedure was aborted as patient is asymptomatic, currently kept on low-fat diet. Her echocardiogram is 40-45% showing cardiomyopathy with LV dysfunction and dilated right ventricle with moderate pulmonary hypertension. Patient remains on IV vancomycin and cefepime. She is also on Xarelto as there is no surgical intervention for now. 05/19/2012 Patient developed respiratory distress and hypoxia last night and she was to be placed on 15 L of oxygen via nontender breather, this morning she needed less oxygen about 5-6 L with oxygen saturation about 92%. Her chest x-ray showing some evidence of pulmonary congestion and she has some leg edema and patient was started on IV Lasix 20 mg twice daily, no documentation of urine output. Patient also receiving broad-spectrum antibiotics of IV vancomycin and cefepime and also she received her Xarelto last night. Creatinine went up a little bit at 1.4 which is still within the expected baseline range She is also tachypneic but with no chest pain. No abdominal pain or right upper quadrant abdominal pain or vomiting. She is also receiving aspirin, Review of systems CONSTITUTIONAL: No fever, no malaise, no fatigue. HEENT: No recent visual problems or hearing problems. Denied any sore throat. CARDIOVASCULAR: No orthopnea, PND, no palpitations, no syncope. GASTROINTESTINAL: No diarrhea, no nausea, no vomiting, no abdominal pain. Normoactive bowel sounds. NEUROLOGICAL: No headaches, no weakness, no numbness. HEMATOLOGICAL: Denies any bleeding or petechiae. GENITOURINARY: Denies any burning micturition, frequency, or urgency. MUSCULOSKELETAL/RHEUMATOLOGICAL: Denies any joint pain, swelling, or any muscle pain. ENDOCRINE: Denies any polyuria or polydipsia. Active Medications Generic Name Dose Route Start Last Admin Trade Name Freq PRN Reason Stop Dose Admin Acetaminophen 650 mg 05/11/22 17:04 05/12/22 21:46 Acetaminophen Tab 325 Mg Tab PO 650 mg Q6HR PRN Administration Mild Pain or Fever > 100.5 Albuterol/Ipratropium 3 ml 05/18/22 21:07 05/18/22 21:19 Ipratropium-Albuterol 3 Ml Neb INHALATION 3 ml RT-Q2H PRN Administration Shortness Of Breath Or Wheezing Alprazolam 0.25 mg 05/13/22 17:05 05/19/22 04:05 Alprazolam 0.25 Mg Tab PO 0.25 mg QID PRN Administration Anxiety Amiodarone HCl 200 mg 05/13/22 07:30 05/19/22 06:36 Amiodarone 200 Mg Tab PO 200 mg W/BRKFST HERVE Administration Aspirin 162 mg 05/13/22 07:30 05/19/22 06:36 Aspirin 81 Mg PO 162 mg W/BRKFST HERVE Administration Atorvastatin Calcium 20 mg 05/13/22 07:30 05/19/22 06:36 Atorvastatin 20 Mg Tab PO 20 mg W/BRKFST HERVE Administration Fluticasone Propionate 2 spray 05/15/22 15:33 05/19/22 08:54 Fluticasone 50mcg/[place] Nasal 16gm EA NOSTRIL 2 spray DAILY HERVE Administration Furosemide 20 mg 05/19/22 00:00 05/19/22 00:14 Furosemide 10 Mg/Ml 2 Ml Vial IV 20 mg Q12H HERVE Administration Sodium Chloride 1,000 mls @ 20 mls/hr 05/11/22 17:15 05/17/22 22:01 Saline 0.9% IV 20 mls/hr .Q24H HERVE Administration Cefepime HCl 1 gm/ Sodium 50 mls @ 12.5 mls/hr 05/13/22 21:00 05/19/22 08:54 Chloride IVPB 12.5 mls/hr Q12HR HERVE Administration Vancomycin HCl 750 mg/ Sodium 250 mls @ 125 mls/hr 05/15/22 10:00 05/17/22 14:22 Chloride IVPB 125 mls/hr Q48H HERVE Administration Levothyroxine Sodium 75 mcg 05/13/22 06:30 05/19/22 06:36 Levothyroxine 75 Mcg Tab PO 75 mcg DAILY@0630 HERVE Administration Metoprolol Succinate 25 mg 05/16/22 09:00 05/19/22 08:54 Metoprolol Succinate (Er) 25 Mg Tab.Er.24h PO 25 mg BID HERVE Administration Miscellaneous Information 0 each 05/21/22 09:00 Vancomycin Trough Due 1 Each Misc MISCELLANE 05/21/22 09:01 DIRECTED ONE Naloxone HCl 0.2 mg 05/11/22 17:04 Naloxone 0.4 Mg/Ml 1 Ml Vial IV Q2M PRN Opioid Reversal Ondansetron HCl 4 mg 05/11/22 17:04 Ondansetron 4 Mg/2 Ml Vial IVP Q8HR PRN Nausea And Vomiting Rivaroxaban 15 mg 05/12/22 21:00 05/18/22 23:35 Rivaroxaban 15 Mg Tab PO 15 mg HS HERVE Administration Protocol Sodium Chloride 10 ml 05/16/22 15:07 Sodium Chloride 0.9% Flush 10 Ml Syringe IV Q4HR PRN PICC Line Sodium Chloride 10 ml 05/23/22 09:00 Sodium Chloride 0.9% Flush 10 Ml Syringe IV WEEKLY HERVE Sodium Chloride 20 ml 05/16/22 15:07 Sodium Chloride 0.9% Flush 10 Ml Syringe IV Q4HR PRN PICC Line Objective - Vital Signs Vital signs: Vital Signs Temp 97.9 F 05/19/22 08:50 Pulse 79 05/19/22 08:50 Resp 20 05/19/22 08:50 BP 105/55 05/19/22 08:50 Pulse Ox 92 L 05/19/22 09:28 FiO2 Intake & Output 05/18/22 05/19/22 05/19/22 18:59 06:59 18:59 Weight 34.927 kg Other: Voiding Method Bedside Commode Bedside Commode Bedside Commode Bedpan # Voids 1 - Exam GENERAL: The patient is alert and oriented x3, not in any acute distress. Well developed, well nourished. HEENT: Pupils are round and equally reacting to light. EOMI. No scleral icterus. No conjunctival pallor. Normocephalic, atraumatic. No pharyngeal erythema. No thyromegaly. CARDIOVASCULAR: S1 and S2 present. No murmurs, rubs, or gallops. -PULMONARY: Chest is clear to auscultation, no wheezing or crackles. Basal crepitation ABDOMEN: Soft, nontender, nondistended, normoactive bowel sounds. No palpable organomegaly. MUSCULOSKELETAL: No joint swelling or deformity. --EXTREMITIES: No cyanosis, clubbing, a. Right leg cellulitis. Bilateral leg edema, mild, Secured could be closed by her cellulitis NEUROLOGICAL: Gross neurological examination did not reveal any focal deficits. SKIN: No rashes. no petechiae. - Labs CBC & Chem 7: 05/18/22 21:33 05/19/22 03:59 Labs: Abnormal Lab Results - Last 24 Hours (Table) 05/18/22 05/18/22 05/18/22 Range/Units 07:27 21:09 21:33 WBC 12.5 H (3.8-10.6) k/uL MCV 110.9 H D (80.0-100.0) fL MCHC 29.2 L (31.0-37.0) g/dL RDW 19.7 H (11.5-15.5) % Neutrophils # 9.0 H (1.3-7.7) k/uL Monocytes # 1.1 H (0-1.0) k/uL Macrocytosis Marked A Potassium (3.5-5.1) mmol/L Chloride 111 H (96-109) mmol/L Carbon Dioxide 17.7 L (20.0-27.5) mmol/L BUN 36.0 H (9.0-27.0) mg/dL Est GFR (CKD-EPI)AfAm (60.0-200.0) Est GFR (CKD-EPI)NonAf 53.4 L (60.0-200.0) BUN/Creatinine Ratio 32.73 H (12.00-20.00) Ratio Glucose 127 H (70-110) mg/dL POC Glucose (mg/dL) 160 H (70-110) mg/dL Calcium 8.5 L (8.7-10.3) mg/dL Magnesium (1.5-2.4) mg/dL Total Bilirubin 2.90 H (0.30-1.20) mg/dL AST 114 H (13-35) U/L ALT 109 H (8-44) U/L Alkaline Phosphatase 190 H (41-126) U/L Troponin I (0.000-0.034) ng/mL Total Protein 5.6 L (6.2-8.2) g/dL Albumin 2.9 L (3.8-4.9) g/dL Albumin/Globulin Ratio 1.07 L (1.60-3.17) g/dL 05/18/22 05/18/22 05/19/22 Range/Units 21:33 21:33 00:34 WBC (3.8-10.6) k/uL MCV (80.0-100.0) fL MCHC (31.0-37.0) g/dL RDW (11.5-15.5) % Neutrophils # (1.3-7.7) k/uL Monocytes # (0-1.0) k/uL Macrocytosis Potassium 5.5 H (3.5-5.1) mmol/L Chloride 111 H (96-109) mmol/L Carbon Dioxide 14 L (20.0-27.5) mmol/L BUN 42 H (9.0-27.0) mg/dL Est GFR (CKD-EPI)AfAm (60.0-200.0) Est GFR (CKD-EPI)NonAf (60.0-200.0) BUN/Creatinine Ratio (12.00-20.00) Ratio Glucose 165 H (70-110) mg/dL POC Glucose (mg/dL) (70-110) mg/dL Calcium (8.7-10.3) mg/dL Magnesium (1.5-2.4) mg/dL Total Bilirubin 4.6 H (0.30-1.20) mg/dL AST 146 H (13-35) U/L ALT 109 H (8-44) U/L Alkaline Phosphatase 220 H (41-126) U/L Troponin I 0.059 H* 0.062 H* (0.000-0.034) ng/mL Total Protein (6.2-8.2) g/dL Albumin 3.2 L (3.8-4.9) g/dL Albumin/Globulin Ratio (1.60-3.17) g/dL 05/19/22 05/19/22 Range/Units 03:59 03:59 WBC (3.8-10.6) k/uL MCV (80.0-100.0) fL MCHC (31.0-37.0) g/dL RDW (11.5-15.5) % Neutrophils # (1.3-7.7) k/uL Monocytes # (0-1.0) k/uL Macrocytosis Potassium (3.5-5.1) mmol/L Chloride (96-109) mmol/L Carbon Dioxide 18.3 L (20.0-27.5) mmol/L BUN 43.1 H (9.0-27.0) mg/dL Est GFR (CKD-EPI)AfAm 46.2 L (60.0-200.0) Est GFR (CKD-EPI)NonAf 39.9 L (60.0-200.0) BUN/Creatinine Ratio 30.79 H (12.00-20.00) Ratio Glucose 143 H (70-110) mg/dL POC Glucose (mg/dL) (70-110) mg/dL Calcium (8.7-10.3) mg/dL Magnesium 2.7 H (1.5-2.4) mg/dL Total Bilirubin 4.00 H (0.30-1.20) mg/dL AST 169 H (13-35) U/L ALT 134 H (8-44) U/L Alkaline Phosphatase 185 H (41-126) U/L Troponin I 0.072 H* (0.000-0.034) ng/mL Total Protein (6.2-8.2) g/dL Albumin 3.2 L (3.8-4.9) g/dL Albumin/Globulin Ratio 1.03 L (1.60-3.17) g/dL Assessment and Plan Assessment: 1. Acute cellulitis right lower extremity - Patient has been placed on IV vancomycin with pharmacy dosing service and cefepime 2 g IV every 8 hours - ID team on the case 2. Acute congestive heart failure, systolic with ejection fraction 40-45% - Started with IV Lasix - [employer] already on the case 3. Chronic kidney disease, stage III. Baseline creatinine 1.2-1.6 4. Acute cholecystitis with transaminitis - Asymptomatic, no need for surgical intervention - High risk for surgery by cardiology team 5. Hypothyroidism; Synthroid 75 MCG daily 6. Hyperlipidemia; Lipitor 20 mg daily 7. Paroxysmal atrial fibrillation; patient is rate controlled on metoprolol and amiodarone 200 mg daily; anticoagulated with Xarelto 15 mg by mouth daily at b edtime 8. Hypertension; metoprolol 50 mg by mouth twice a day DVT prophylaxis; SCDs/Xarelto CODE STATUS; full code
[2022-05-19] MEDS: VANCOMYCIN 750 MG in SODIUM CHLORIDE 0.9% 250 ML IVPB SCH (10:58)
[2022-05-19 11:02] LABS: Basophils # (A) 0.02 X 10*3/uL (0.00-0.10); Basophils % (A) 0.2 %; Eosinophils # (A) 0.01 X 10*3/uL (0.04-0.35); Eosinophils % (A) 0.1 %; HCT 36.8 % (37.2-46.3); HGB 11.5 g/dL (12.0-15.0); Immature Grans, Automated 1.2 %; Lymphocytes % (A) 11.5 %; MCH 31.8 pg (27.0-32.0); MCHC 31.3 g/dL (32.0-37.0); MCV 101.7 fL (80.0-97.0); Monocytes # (A) 1.44 X 10*3/uL (0.20-1.00); Monocytes % (A) 12.8 %; NRBC Per 100 WBC 2.8 /100 WBCS (0.0-0.0); Neutrophils # (A) 8.38 X 10*3/uL (1.80-7.70); Neutrophils % (A) 74.2 %; Platelet Count 153 X 10*3/uL (140-440); RBC 3.62 X 10*6/uL (4.10-5.20); RDW 22.5 % (11.5-14.5); WBC 11.28 X 10*3/uL (4.50-10.00)
--- NOTE | 2022-05-19 11:11 | P.PN ---
Subjective Progress Note Date: 05/19/22 Principal diagnosis: Cholecystitis 61-year-old female with elevated liver enzymes. Patient denies abdominal pain today. Recent ultrasound shows gallstones with a thickened gallbladder wall. Patient is high risk for surgery. Objective - Vital Signs Vital signs: Vital Signs Temp 97.9 F 05/19/22 08:50 Pulse 79 05/19/22 08:50 Resp 20 05/19/22 08:50 BP 105/55 05/19/22 08:50 Pulse Ox 92 L 05/19/22 09:28 FiO2 Intake & Output 05/18/22 05/19/22 05/19/22 18:59 06:59 18:59 Weight 34.927 kg Other: Voiding Method Bedside Commode Bedside Commode Bedside Commode Bedpan # Voids 1 - Exam Abdomen: Soft, nontender, nondistended - Labs CBC & Chem 7: 05/19/22 03:59 05/19/22 03:59 Labs: Abnormal Lab Results - Last 24 Hours (Table) 05/18/22 05/18/22 05/18/22 Range/Units 07:27 21:09 21:33 WBC 12.5 H (3.8-10.6) k/uL RBC (4.10-5.20) X 10*6/uL Hgb (12.0-15.0) g/dL Hct (37.2-46.3) % MCV 110.9 H D (80.0-100.0) fL MCHC 29.2 L (31.0-37.0) g/dL RDW 19.7 H (11.5-15.5) % MPV (9.5-12.2) fL Absolute Nucleated RBC (0.00-0.00) X 10*3/uL Immature Gran # (0.00-0.04) X 10*3/uL Neutrophils # 9.0 H (1.3-7.7) k/uL Monocytes # 1.1 H (0-1.0) k/uL Eosinophils # (0.04-0.35) X 10*3/uL NRBC/100 WBC Diff (0.0-0.0) /100 WBCS Macrocytosis Marked A Potassium (3.5-5.1) mmol/L Chloride 111 H (96-109) mmol/L Carbon Dioxide 17.7 L (20.0-27.5) mmol/L BUN 36.0 H (9.0-27.0) mg/dL Est GFR (CKD-EPI)AfAm (60.0-200.0) Est GFR (CKD-EPI)NonAf 53.4 L (60.0-200.0) BUN/Creatinine Ratio 32.73 H (12.00-20.00) Ratio Glucose 127 H (70-110) mg/dL POC Glucose (mg/dL) 160 H (70-110) mg/dL Calcium 8.5 L (8.7-10.3) mg/dL Magnesium (1.5-2.4) mg/dL Total Bilirubin 2.90 H (0.30-1.20) mg/dL AST 114 H (13-35) U/L ALT 109 H (8-44) U/L Alkaline Phosphatase 190 H (41-126) U/L Troponin I (0.000-0.034) ng/mL Total Protein 5.6 L (6.2-8.2) g/dL Albumin 2.9 L (3.8-4.9) g/dL Albumin/Globulin Ratio 1.07 L (1.60-3.17) g/dL 05/18/22 05/18/22 05/19/22 Range/Units 21:33 21:33 00:34 WBC (3.8-10.6) k/uL RBC (4.10-5.20) X 10*6/uL Hgb (12.0-15.0) g/dL Hct (37.2-46.3) % MCV (80.0-100.0) fL MCHC (31.0-37.0) g/dL RDW (11.5-15.5) % MPV (9.5-12.2) fL Absolute Nucleated RBC (0.00-0.00) X 10*3/uL Immature Gran # (0.00-0.04) X 10*3/uL Neutrophils # (1.3-7.7) k/uL Monocytes # (0-1.0) k/uL Eosinophils # (0.04-0.35) X 10*3/uL NRBC/100 WBC Diff (0.0-0.0) /100 WBCS Macrocytosis Potassium 5.5 H (3.5-5.1) mmol/L Chloride 111 H (96-109) mmol/L Carbon Dioxide 14 L (20.0-27.5) mmol/L BUN 42 H (9.0-27.0) mg/dL Est GFR (CKD-EPI)AfAm (60.0-200.0) Est GFR (CKD-EPI)NonAf (60.0-200.0) BUN/Creatinine Ratio (12.00-20.00) Ratio Glucose 165 H (70-110) mg/dL POC Glucose (mg/dL) (70-110) mg/dL Calcium (8.7-10.3) mg/dL Magnesium (1.5-2.4) mg/dL Total Bilirubin 4.6 H (0.30-1.20) mg/dL AST 146 H (13-35) U/L ALT 109 H (8-44) U/L Alkaline Phosphatase 220 H (41-126) U/L Troponin I 0.059 H* 0.062 H* (0.000-0.034) ng/mL Total Protein (6.2-8.2) g/dL Albumin 3.2 L (3.8-4.9) g/dL Albumin/Globulin Ratio (1.60-3.17) g/dL 05/19/22 05/19/22 05/19/22 Range/Units 03:59 03:59 03:59 WBC 11.28 H (3.8-10.6) k/uL RBC 3.62 L (4.10-5.20) X 10*6/uL Hgb 11.5 L (12.0-15.0) g/dL Hct 36.8 L (37.2-46.3) % MCV 101.7 H (80.0-100.0) fL MCHC 31.3 L (31.0-37.0) g/dL RDW 22.5 H (11.5-15.5) % MPV 13.0 H (9.5-12.2) fL Absolute Nucleated RBC 0.32 H (0.00-0.00) X 10*3/uL Immature Gran # 0.13 H (0.00-0.04) X 10*3/uL Neutrophils # 8.38 H (1.3-7.7) k/uL Monocytes # 1.44 H (0-1.0) k/uL Eosinophils # 0.01 L (0.04-0.35) X 10*3/uL NRBC/100 WBC Diff 2.8 H (0.0-0.0) /100 WBCS Macrocytosis Potassium (3.5-5.1) mmol/L Chloride (96-109) mmol/L Carbon Dioxide 18.3 L (20.0-27.5) mmol/L BUN 43.1 H (9.0-27.0) mg/dL Est GFR (CKD-EPI)AfAm 46.2 L (60.0-200.0) Est GFR (CKD-EPI)NonAf 39.9 L (60.0-200.0) BUN/Creatinine Ratio 30.79 H (12.00-20.00) Ratio Glucose 143 H (70-110) mg/dL POC Glucose (mg/dL) (70-110) mg/dL Calcium (8.7-10.3) mg/dL Magnesium 2.7 H (1.5-2.4) mg/dL Total Bilirubin 4.00 H (0.30-1.20) mg/dL AST 169 H (13-35) U/L ALT 134 H (8-44) U/L Alkaline Phosphatase 185 H (41-126) U/L Troponin I 0.072 H* (0.000-0.034) ng/mL Total Protein (6.2-8.2) g/dL Albumin 3.2 L (3.8-4.9) g/dL Albumin/Globulin Ratio 1.03 L (1.60-3.17) g/dL Assessment and Plan (1) Cholecystitis Narrative/Plan: 61-year-old female with a diagnostic studies suggesting cholecystitis. His would not explain the patient's liver enzymes however. Recommend GI evaluation. Will follow. Current Visit: Yes Status: Acute Code(s): K81.9 - CHOLECYSTITIS, UNSPECIFIED SNOMED Code(s): 89324042
[2022-05-19] MEDS: SODIUM CHLORIDE 0.9% 1,000 ML IV SCH (14:13)
[2022-05-19 14:46] LABS: Anisocytosis Moderate; HCT 41.4 % (34.0-46.0); HGB 11.9 gm/dL (11.4-16.0); Hypochromasia Marked; MCH 31.2 pg (25.0-35.0); MCHC 28.9 g/dL (31.0-37.0); MCV 108.1 fL (80.0-100.0); Macrocytosis Marked; Mean Platelet Volume 11.6; Platelet Count 140 k/uL (150-450); Poikilocytosis Slight; RBC 3.83 m/uL (3.80-5.40); RDW 20.1 % (11.5-15.5)
--- NOTE | 2022-05-19 14:58 | P.PN ---
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 She follows in the office with Dr. Armstrong. We have been asked to see in consultation for cardiac risk assessment. Patient initially presented to the hospital on 05/11 with complaints of right leg swelling, nonhealing wound on right lower leg. Patient was diagnosed with cellulitis infectious disease evaluate the patient and was started on IV antibiotics. Liver enzymes were elevated and a liver ultrasound was obtained which revealed small gallstones, possible cholecystitis. General surgery was consulted and evaluated the patient and plan for laparoscopic cholecystectomy on 05/21/[address] meyer. Patient denies any chest pain, shortness of breath, lightheadedness, dizziness, palpitations, nausea, vomiting, syncope or near-syncope. She denies any symptoms of orthopnea or PND. DIAGNOSTICS * Lexiscan stress test in the office 06/2020 normal perfusion study with a fixed defect of small size involving the apex which could be secondary to physiological thinning and could be related to pacemaker rhythm. * 09/2021 Echocardiogram revealed an EF of 5055%, severe tricuspid regurgitation, severe pulmonary hypertension with RVSP of 56 mmHg * Repeat echocardiogram showed ejection fraction of 40-45% with moderate pulmonary hypertension, trace to mild MR and trace to mild AI with severe tricuspid regurgitation. 05/19/2022 Patient was seen and examined lying in bed. There was an 18 called on the patient last night for respiratory distress chest x-ray showed pulmonary edema and she was initiated on IV Lasix. She is overall feeling a bit better today continues to be quite wheezy and is coughing but denies any difficulty breathing at this time. She was seen by Dr. chirinos this morning who recommended GI evaluation due to elevated liver enzymes. Liver enzymes morning showed AST 169, ALT 134, alkaline phosphatase 185, total bilirubin 4. Creatinine is up to 1.4 today. She continues on high flow oxygen. Objective - Vital Signs Vital signs: Vital Signs Temp 97.9 F 05/19/22 08:50 Pulse 80 05/19/22 13:34 Resp 22 05/19/22 14:31 BP 120/57 05/19/22 11:05 Pulse Ox 93 L 05/19/22 14:31 FiO2 Intake & Output 05/18/22 05/19/22 05/19/22 18:59 06:59 18:59 Weight 34.927 kg Other: Voiding Method Bedside Commode Bedside Commode Bedside Commode Bedpan # Voids 1 - Exam HEENT: Head is normocephalic. Pupils are equal, round. Sclerae anicteric. Mucous membranes of the mouth are moist. JVD noted. CHEST EXAMINATION: Lungs revealed wheezing throughout. No chest wall tenderness is noted on palpation or with deep breathing. HEART EXAMINATION: Regular rate and rhythm. S1, S2 heard. Systolic and diastolic murmur at right sternal border and apex noted. No gallops or rub. ABDOMEN: Soft, nontender. Positive bowel sounds. EXTREMITIES: 2+ peripheral pulses, lower extremity edema L >R and no calf tenderness. NEUROLOGIC EXAMINATION: Patient is awake, alert and oriented x3. - Labs CBC & Chem 7: 05/19/22 14:36 05/19/22 03:59 Labs: Abnormal Lab Results - Last 24 Hours (Table) 05/18/22 05/18/22 05/18/22 Range/Units 21:09 21:33 21:33 WBC 12.5 H (3.8-10.6) k/uL RBC (4.10-5.20) X 10*6/uL Hgb (12.0-15.0) g/dL Hct (37.2-46.3) % MCV 110.9 H D (80.0-100.0) fL MCHC 29.2 L (31.0-37.0) g/dL RDW 19.7 H (11.5-15.5) % Plt Count (150-450) k/uL MPV (9.5-12.2) fL Absolute Nucleated RBC (0.00-0.00) X 10*3/uL Immature Gran # (0.00-0.04) X 10*3/uL Neutrophils # 9.0 H (1.3-7.7) k/uL Monocytes # 1.1 H (0-1.0) k/uL Eosinophils # (0.04-0.35) X 10*3/uL NRBC/100 WBC Diff (0.0-0.0) /100 WBCS Macrocytosis Marked A Potassium 5.5 H (3.5-5.1) mmol/L Chloride 111 H (98-107) mmol/L Carbon Dioxide 14 L (22-30) mmol/L BUN 42 H (7-17) mg/dL Est GFR (CKD-EPI)AfAm (60.0-200.0) Est GFR (CKD-EPI)NonAf (60.0-200.0) BUN/Creatinine Ratio (12.00-20.00) Ratio Glucose 165 H (74-99) mg/dL POC Glucose (mg/dL) 160 H (70-110) mg/dL Magnesium (1.5-2.4) mg/dL Total Bilirubin 4.6 H (0.2-1.3) mg/dL AST 146 H (14-36) U/L ALT 109 H (4-34) U/L Alkaline Phosphatase 220 H (38-126) U/L Troponin I (0.000-0.034) ng/mL Albumin 3.2 L (3.5-5.0) g/dL Albumin/Globulin Ratio (1.60-3.17) g/dL 05/18/22 05/19/22 05/19/22 Range/Units 21:33 00:34 03:59 WBC (3.8-10.6) k/uL RBC (4.10-5.20) X 10*6/uL Hgb (12.0-15.0) g/dL Hct (37.2-46.3) % MCV (80.0-100.0) fL MCHC (31.0-37.0) g/dL RDW (11.5-15.5) % Plt Count (150-450) k/uL MPV (9.5-12.2) fL Absolute Nucleated RBC (0.00-0.00) X 10*3/uL Immature Gran # (0.00-0.04) X 10*3/uL Neutrophils # (1.3-7.7) k/uL Monocytes # (0-1.0) k/uL Eosinophils # (0.04-0.35) X 10*3/uL NRBC/100 WBC Diff (0.0-0.0) /100 WBCS Macrocytosis Potassium (3.5-5.1) mmol/L Chloride (98-107) mmol/L Carbon Dioxide 18.3 L (22-30) mmol/L BUN 43.1 H (7-17) mg/dL Est GFR (CKD-EPI)AfAm 46.2 L (60.0-200.0) Est GFR (CKD-EPI)NonAf 39.9 L (60.0-200.0) BUN/Creatinine Ratio 30.79 H (12.00-20.00) Ratio Glucose 143 H (74-99) mg/dL POC Glucose (mg/dL) (70-110) mg/dL Magnesium 2.7 H (1.5-2.4) mg/dL Total Bilirubin 4.00 H (0.2-1.3) mg/dL AST 169 H (14-36) U/L ALT 134 H (4-34) U/L Alkaline Phosphatase 185 H (38-126) U/L Troponin I 0.059 H* 0.062 H* (0.000-0.034) ng/mL Albumin 3.2 L (3.5-5.0) g/dL Albumin/Globulin Ratio 1.03 L (1.60-3.17) g/dL 05/19/22 05/19/22 05/19/22 Range/Units 03:59 03:59 08:26 WBC 11.28 H (3.8-10.6) k/uL RBC 3.62 L (4.10-5.20) X 10*6/uL Hgb 11.5 L (12.0-15.0) g/dL Hct 36.8 L (37.2-46.3) % MCV 101.7 H (80.0-100.0) fL MCHC 31.3 L (31.0-37.0) g/dL RDW 22.5 H (11.5-15.5) % Plt Count (150-450) k/uL MPV 13.0 H (9.5-12.2) fL Absolute Nucleated RBC 0.32 H (0.00-0.00) X 10*3/uL Immature Gran # 0.13 H (0.00-0.04) X 10*3/uL Neutrophils # 8.38 H (1.3-7.7) k/uL Monocytes # 1.44 H (0-1.0) k/uL Eosinophils # 0.01 L (0.04-0.35) X 10*3/uL NRBC/100 WBC Diff 2.8 H (0.0-0.0) /100 WBCS Macrocytosis Potassium (3.5-5.1) mmol/L Chloride (98-107) mmol/L Carbon Dioxide (22-30) mmol/L BUN (7-17) mg/dL Est GFR (CKD-EPI)AfAm (60.0-200.0) Est GFR (CKD-EPI)NonAf (60.0-200.0) BUN/Creatinine Ratio (12.00-20.00) Ratio Glucose (74-99) mg/dL POC Glucose (mg/dL) (70-110) mg/dL Magnesium (1.5-2.4) mg/dL Total Bilirubin (0.2-1.3) mg/dL AST (14-36) U/L ALT (4-34) U/L Alkaline Phosphatase (38-126) U/L Troponin I 0.072 H* 0.072 H* (0.000-0.034) ng/mL Albumin (3.5-5.0) g/dL Albumin/Globulin Ratio (1.60-3.17) g/dL 05/19/22 Range/Units 14:36 WBC 11.0 H (3.8-10.6) k/uL RBC (4.10-5.20) X 10*6/uL Hgb (12.0-15.0) g/dL Hct (37.2-46.3) % MCV 108.1 H (80.0-100.0) fL MCHC 28.9 L (31.0-37.0) g/dL RDW 20.1 H (11.5-15.5) % Plt Count 140 L (150-450) k/uL MPV (9.5-12.2) fL Absolute Nucleated RBC (0.00-0.00) X 10*3/uL Immature Gran # (0.00-0.04) X 10*3/uL Neutrophils # (1.3-7.7) k/uL Monocytes # (0-1.0) k/uL Eosinophils # (0.04-0.35) X 10*3/uL NRBC/100 WBC Diff (0.0-0.0) /100 WBCS Macrocytosis Marked A Potassium (3.5-5.1) mmol/L Chloride (98-107) mmol/L Carbon Dioxide (22-30) mmol/L BUN (7-17) mg/dL Est GFR (CKD-EPI)AfAm (60.0-200.0) Est GFR (CKD-EPI)NonAf (60.0-200.0) BUN/Creatinine Ratio (12.00-20.00) Ratio Glucose (74-99) mg/dL POC Glucose (mg/dL) (70-110) mg/dL Magnesium (1.5-2.4) mg/dL Total Bilirubin (0.2-1.3) mg/dL AST (14-36) U/L ALT (4-34) U/L Alkaline Phosphatase (38-126) U/L Troponin I (0.000-0.034) ng/mL Albumin (3.5-5.0) g/dL Albumin/Globulin Ratio (1.60-3.17) g/dL Assessment and Plan Assessment: Right leg cellulitis Cholecystitis Elevated Liver enzymes Elevated total bilirubin Acute on chronic kidney disease Hypotension History of Ventricular tachycardia status post shock from ICD Tetralogy of [place] status post repair Valvular heart disease Pulmonary hypertension History of hypertension History of type 2 diabetes History of hyperlipidemia Paroxysmal atrial fibrillation on Xarelto outpatient History of Nonischemic cardiomyopathy with recovered EF Plan: From cardiology's perspective patient is high risk for surgery and we would suggest holding on any surgical intervention at this time due to patient's decline in clinical status. We will continue to follow the patient and provide further recommendations accordingly. 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 Patient was seen and examined.
[2022-05-19 15:00] LABS: INR 3.5 (<1.2); Partial Thromboplastin Time 49.3 sec (22.0-30.0); Prothrombin Time 34.8 sec (9.0-12.0)
[2022-05-19 19:10] LABS: INR 3.6 (<1.2); Prothrombin Time 35.4 sec (9.0-12.0)
[2022-05-19] MEDS: IPRATROPIUM-ALBUTEROL 3 ML NEB INHALATION PRN (19:43)
[2022-05-19] MEDS ORDERED: RIVAROXABAN 10 MG TAB PO SCH (21:00)
[2022-05-20 01:50] LABS: Amorphous Sediment,Urine Occasional /hpf; Appearance,Urine Cloudy (Clear); Bacteria,Urine Occasional /hpf; Bilirubin,Urine Negative (Negative); Blood,Urine Small (Negative); Color,Urine Yellow; Glucose,Urine (UA) Negative (Negative); Hyaline Casts,Urine 1 /lpf (0-2); Ketones,Urine Negative (Negative); Leukocyte Esterase,Urine Negative (Negative); Nitrite,Urine Negative (Negative); Protein,Urine 1+ (Negative); RBC,Urine <1 /hpf (0-5); Specific Gravity,Urine 1.012 (1.001-1.035); Squamous Epithelial Cell,Urine <1 /hpf (0-4); Urobilinogen,Urine <2.0 mg/dL (<2.0); WBC,Urine 3 /hpf (0-5)
[2022-05-20] MEDS: AMIODARONE 200 MG TAB PO SCH (06:15)
[2022-05-20] MEDS: ATORVASTATIN 20 MG TAB PO SCH (06:15)
[2022-05-20] MEDS: LEVOTHYROXINE 75 MCG TAB PO SCH (06:15)
[2022-05-20] MEDS: ASPIRIN 81 MG PO SCH (06:15)
[2022-05-20] MEDS ORDERED: guaiFENesin-DM 100-10MG/5ML 10 ML CUP PO PRN (07:19)
[2022-05-20 07:26] LABS: Anisocytosis Moderate; Basophils % (A) 0 %; Eosinophils % (A) 0 %; HCT 38.1 % (34.0-46.0); Hypochromasia Marked; Lymphocytes # (A) 0.9 k/uL (1.0-4.8); Lymphocytes % (A) 9 %; MCH 30.9 pg (25.0-35.0); MCHC 28.9 g/dL (31.0-37.0); Macrocytosis Marked; Mean Platelet Volume 9.8; Monocytes # (A) 0.7 k/uL (0-1.0); Monocytes % (A) 7 %; Neutrophils # (A) 8.3 k/uL (1.3-7.7); Neutrophils % (A) 80 %; Platelet Count 139 k/uL (150-450); Poikilocytosis Slight; RBC 3.57 m/uL (3.80-5.40); RDW 20.3 % (11.5-15.5); WBC 10.3 k/uL (3.8-10.6)
[2022-05-20] MEDS: CEFEPIME 1 GM in SODIUM CHLORIDE 0.9% 50 ML IVPB SCH ×2 (07:33→20:00)
[2022-05-20] MEDS: ALPRAZolam 0.25 MG TAB PO PRN ×2 (07:33→23:50)
[2022-05-20] MEDS: METOPROLOL SUCCINATE (ER) 25 MG TAB.ER.24H PO SCH ×2 (07:33→20:01)
[2022-05-20] MEDS: FLUTICASONE 50MCG/SPRAY NASAL 16GM EA NOSTRIL SCH (07:34)
--- NOTE | 2022-05-20 07:45 | XR ---
EXAMINATION TYPE: XR chest 1V DATE OF EXAM: 05/20/2022 HISTORY: Shortness of breath. COMPARISON: 05/18/2022 TECHNIQUE: Single view of the chest is submitted. FINDINGS: Demonstrated are scattered senescent parenchymal change. Persistent cardiomegaly with pulmonary arterial hypertension. Small effusions versus pleural thickeni ng. Nonspecific basilar interstitial prominence. Hilar and mediastinal structures are within normal limits. Degenerative changes are seen of the dorsal spine. IMPRESSION: 1. Persistent cardiomegaly with pulmonary arterial hypertension. Small effusions versus pleural thic kening. Nonspecific basilar interstitial prominence.
[2022-05-20 08:06] LABS: Albumin 2.9 g/dL (3.5-5.0); Bilirubin, Conjugated 2.8 mg/dL (0.0-0.3); Bilirubin, Delta 1.4 mg/dL (0.0-0.2); Bilirubin,Unconjugated 1.4 mg/dL (0.0-1.1); Calcium 8.8 mg/dL (8.4-10.2); Magnesium 2.3 mg/dL (1.6-2.3); Potassium 4.1 mmol/L (3.5-5.1); Total Bilirubin 5.6 mg/dL (0.2-1.3); Total Protein 5.9 g/dL (6.3-8.2)
[2022-05-20] MEDS: FUROSEMIDE 10 MG/ML 2 ML VIAL IV SCH (11:08)
[2022-05-20] MEDS: SODIUM CHLORIDE 0.9% 1,000 ML IV SCH (11:09)
[2022-05-20] MEDS: IPRATROPIUM-ALBUTEROL 3 ML NEB INHALATION PRN (11:20)
--- NOTE | 2022-05-20 11:34 | P.PN ---
Subjective Progress Note Date: 05/20/22 Principal diagnosis: Cholecystitis Patient is lethargic today. She has some hypotension at this time. Labs show an increased bilirubin and transaminases. Yesterday the patient was having no pain but we she is not answering questions at this time. Objective - Vital Signs Vital signs: Vital Signs Temp 97.5 F L 05/20/22 07:43 Pulse 61 05/20/22 11:20 Resp 20 05/20/22 07:43 BP 86/58 05/20/22 07:43 Pulse Ox 90 L 05/20/22 07:43 FiO2 Intake & Output 05/19/22 05/20/22 05/20/22 18:59 06:59 18:59 Output Total 400 500 Balance -400 -500 Output: Urine 400 500 Other: Voiding Method External Catheter External Catheter External Catheter # Voids 1 - Exam Abdomen: Soft, nondistended, nontender - Labs CBC & Chem 7: 05/20/22 06:45 05/20/22 06:45 Labs: Abnormal Lab Results - Last 24 Hours (Table) 05/19/22 05/19/22 05/19/22 Range/Units 08:26 14:36 14:36 WBC 11.0 H (3.8-10.6) k/uL RBC (3.80-5.40) m/uL Hgb (11.4-16.0) gm/dL MCV 108.1 H (80.0-100.0) fL MCHC 28.9 L (31.0-37.0) g/dL RDW 20.1 H (11.5-15.5) % Plt Count 140 L (150-450) k/uL Neutrophils # (1.3-7.7) k/uL Lymphocytes # (1.0-4.8) k/uL Macrocytosis Marked A PT 34.8 H (9.0-12.0) sec INR 3.5 H (<1.2) APTT 49.3 H (22.0-30.0) sec Chloride (98-107) mmol/L Carbon Dioxide (22-30) mmol/L BUN (7-17) mg/dL Creatinine (0.52-1.04) mg/dL Glucose (74-99) mg/dL Total Bilirubin (0.2-1.3) mg/dL Conjugated Bilirubin (0.0-0.3) mg/dL Unconjugated Bilirubin (0.0-1.1) mg/dL Delta Bilirubin (0.0-0.2) mg/dL AST (14-36) U/L ALT (4-34) U/L Alkaline Phosphatase (38-126) U/L Troponin I 0.072 H* (0.000-0.034) ng/mL Total Protein (6.3-8.2) g/dL Albumin (3.5-5.0) g/dL Urine Appearance (Clear) Urine Protein (Negative) Urine Blood (Negative) Amorphous Sediment (None) /hpf Urine Bacteria (None) /hpf 05/19/22 05/20/22 05/20/22 Range/Units 18:46 01:19 06:45 WBC (3.8-10.6) k/uL RBC (3.80-5.40) m/uL Hgb (11.4-16.0) gm/dL MCV (80.0-100.0) fL MCHC (31.0-37.0) g/dL RDW (11.5-15.5) % Plt Count (150-450) k/uL Neutrophils # (1.3-7.7) k/uL Lymphocytes # (1.0-4.8) k/uL Macrocytosis PT 35.4 H (9.0-12.0) sec INR 3.6 H (<1.2) APTT (22.0-30.0) sec Chloride 111 H (98-107) mmol/L Carbon Dioxide 19 L (22-30) mmol/L BUN 53 H (7-17) mg/dL Creatinine 1.38 H (0.52-1.04) mg/dL Glucose 68 L (74-99) mg/dL Total Bilirubin 5.6 H (0.2-1.3) mg/dL Conjugated Bilirubin 2.8 H (0.0-0.3) mg/dL Unconjugated Bilirubin 1.4 H (0.0-1.1) mg/dL Delta Bilirubin 1.4 H (0.0-0.2) mg/dL AST 207 H (14-36) U/L ALT 142 H (4-34) U/L Alkaline Phosphatase 173 H (38-126) U/L Troponin I (0.000-0.034) ng/mL Total Protein 5.9 L (6.3-8.2) g/dL Albumin 2.9 L (3.5-5.0) g/dL Urine Appearance Cloudy H (Clear) Urine Protein 1+ H (Negative) Urine Blood Small H (Negative) Amorphous Sediment Occasional H (None) /hpf Urine Bacteria Occasional H (None) /hpf 05/20/22 Range/Units 06:45 WBC (3.8-10.6) k/uL RBC 3.57 L (3.80-5.40) m/uL Hgb 11.0 L (11.4-16.0) gm/dL MCV 107.0 H (80.0-100.0) fL MCHC 28.9 L (31.0-37.0) g/dL RDW 20.3 H (11.5-15.5) % Plt Count 139 L (150-450) k/uL Neutrophils # 8.3 H (1.3-7.7) k/uL Lymphocytes # 0.9 L (1.0-4.8) k/uL Macrocytosis Marked A PT (9.0-12.0) sec INR (<1.2) APTT (22.0-30.0) sec Chloride (98-107) mmol/L Carbon Dioxide (22-30) mmol/L BUN (7-17) mg/dL Creatinine (0.52-1.04) mg/dL Glucose (74-99) mg/dL Total Bilirubin (0.2-1.3) mg/dL Conjugated Bilirubin (0.0-0.3) mg/dL Unconjugated Bilirubin (0.0-1.1) mg/dL Delta Bilirubin (0.0-0.2) mg/dL AST (14-36) U/L ALT (4-34) U/L Alkaline Phosphatase (38-126) U/L Troponin I (0.000-0.034) ng/mL Total Protein (6.3-8.2) g/dL Albumin (3.5-5.0) g/dL Urine Appearance (Clear) Urine Protein (Negative) Urine Blood (Negative) Amorphous Sediment (None) /hpf Urine Bacteria (None) /hpf Assessment and Plan (1) Cholecystitis Narrative/Plan: Patient has clinically declined. Apparently an order was obtained for no code at this time. She demonstrates mottling of the extremities. She has no tenderness on exam. Continue supportive care and workup per primary service. Current Visit: Yes Status: Acute Code(s): K81.9 - CHOLECYSTITIS, UNSPECIFIED SNOMED Code(s): 63928648
--- NOTE | 2022-05-20 12:19 | P.CNPUL ---
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 The patient is extremely debilitated and she has been having progressive decline in her overall performance and functional status. I was asked to evaluate this patient because of hypoxemic respiratory failure and shortness of breath. At the time of my evaluation, the patient was quite lethargic. Very weak. S omewhat obtunded. She was on 10 L of oxygen by nasal cannula. She was originally hospitalized because of pain and swelling and redness of the right lower extremity and admission was a nice [id number]. The patient Was found to have progressing cellulitis of the right lower oximetry and she was started on IV antibiotics initially on a combination of IV cefepime and vancomycin. The patient also had an acute kidney injury in the creatinine was up to 1.5. She had elevation of the LFTs and multiple consultants were involved in her care including general surgery and infectious disease and cardiology. During this current hospitalization, the patient became progressively more hypoxic and currently she is on 10 L. No reported aspiration. The patient's white cell count is at 10.3 today with a hemoglobin of 11 and a platelet count of 139. She is on Xarelto and her INR came back at 3.6 with a PTT of 35.4. The BUN was at 53 with a creatinine of 1.38 and the sodium level is 143. The wound culture came back positive for enterococcus, pseudomonas and Acinetobacter. The chest x-ray from today is showing persistent cardiomegaly and pulmonary arterial hypertension. Small effusions/pleural thickening and there is some nonspecific bibasilar interstitial prominence. She is bending gently diurese with Lasix 20 mg IV every 12 hours. Review of Systems Constitutional: Reports daytime sleepiness, Reports fatigue, Reports lethargy, Reports poor appetite, Reports weakness Eyes: denies as per HPI, denies blurred vision, denies bulging eye, denies decreased vision, denies diplopia, denies discharge, denies dry eye, denies irritation, denies itching, denies pain, denies photophobia, denies loss of peripheral vision, denies loss of vision, denies tunnel vision/blind spots Ears: deny: decreased hearing, ear discharge, earache, tinnitus Ears, nose, mouth and throat: Reports as per HPI Breasts: absent: as per HPI, change in shape, gynecomastia, masses, nipple discharge, pain, skin changes, swelling Cardiovascular: Reports decreased exercise tolerance, Reports dyspnea on exertion, Reports edema Respiratory: Reports cough, Reports dyspnea Gastrointestinal: Reports as per HPI Genitourinary: Reports as per HPI Menstruation: Reports as per HPI Musculoskeletal: Reports as per HPI Musculoskeletal: bilateral: ankle swelling, absent: ankle pain, ankle stiffness Integumentary: Reports wounds Neurological: Reports as per HPI Psychiatric: Reports as per HPI Endocrine: Reports as per HPI Hematologic/Lymphatic: Reports as per HPI Allergic/Immunologic: Reports as per HPI Past Medical History Past Medical History: Diabetes Mellitus, Eye Disorder, Hypertension, Liver Disease Additional Past Medical History / Comment(s): This is a 60-year-old female with a past medical history of 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 d&C Past Anesthesia/Blood Transfusion Reactions: No Reported Reaction Type of Cardiac Device: AICD Device Placement Date:: 1998 Past Psychological History: No Psychological Hx Reported Smoking Status: Never smoker Past Alcohol Use History: None Reported Past Drug Use History: None Reported - Past Family History Mother Family Medical History: No Reported History Additional Family Medical History / Comment(s): emphysema Medications and Allergies Home Medications Medication Instructions Recorded Confirmed Type Aspirin [Adult Low Dose Aspirin EC] 162 mg PO W/BRKFST 03/10/19 05/11/22 History Latanoprost [Xalatan 0.005%] 1 drop BOTH EYES HS 03/10/19 05/11/22 History Rosuvastatin [Crestor] 10 mg PO W/BRKFST 10/01/21 05/11/22 History Amiodarone [Cordarone] 200 mg PO W/BRKFST 02/01/22 05/11/22 History Ascorbic Acid [Vitamin C] 1,000 mg PO W/BRKFST 02/01/22 05/11/22 History Flaxseed Oil 2400 Mg 2,400 mg PO W/BRKFST 02/01/22 05/11/22 History Fluticasone Nasal [place] [Flonase 1 spray EA NOSTRIL BID PRN 02/01/22 05/11/22 History Nasal [place]] Ubidecarenone [Co Q-10] 100 mg PO W/BRKFST 02/01/22 05/11/22 History Zinc 50 mg PO W/BRKFST 02/01/22 05/11/22 History Levothyroxine Sodium [Synthroid] 75 mcg PO DAILY@0630 #30 tab 02/03/22 05/11/22 Rx Metoprolol Succinate (ER) [Toprol 50 mg PO BID 04/03/22 05/11/22 History XL] Spironolactone [Aldactone] 25 mg PO HS 04/03/22 05/11/22 History Furosemide [Lasix] 20 mg PO AC-SUPPER 05/11/22 05/11/22 History Furosemide [Lasix] 40 mg PO QAM 05/11/22 05/11/22 History Rivaroxaban [Xarelto] 15 mg PO HS 05/11/22 05/11/22 History Cefepime [Maxipime] 2 gm IVPB Q12H #20 each 05/16/22 Rx Vancomycin HCl in 5 % Dextrose 0.75 gm IV Q48H #7 each 05/16/22 Rx [Vancomycin 1 Gram/250 ml-D5w] Allergies Allergy/AdvReac Type Severity Reaction Status Date / Time codeine Allergy Rash/Hives Verified 05/11/22 17:25 Penicillins Allergy Rash/Hives Verified 05/11/22 17:25 Sulfa (Sulfonamide Allergy Rash/Hives Verified 05/11/22 17:25 Antibiotics) levofloxacin [From Levaquin] AdvReac Racing Verified 05/11/22 17:25 heart Physical Exam Vitals: Vital Signs Temp Pulse Pulse Resp BP Pulse Ox 05/20/22 11:39 60 05/20/22 11:20 61 05/20/22 11:00 62 18 102/63 90 L 05/20/22 07:43 97.5 F L 79 20 86/58 90 L 05/20/22 07:31 79 05/20/22 07:25 91 L 05/20/22 04:00 97.7 F 88 24 91/56 94 L 05/19/22 23:00 98.1 F 79 24 110/50 92 L 05/19/22 19:59 82 05/19/22 19:43 84 05/19/22 19:35 97.5 F L 83 18 96/55 90 L 05/19/22 15:33 97.6 F 68 22 86/63 90 L 05/19/22 15:24 88 L 05/19/22 14:31 22 93 L 05/19/22 14:24 90 L 05/19/22 14:10 91 L 05/19/22 13:34 80 Intake and Output 05/19/22 05/20/22 05/20/22 22:59 06:59 14:59 Output Total 500 Balance -500 Output: Urine 500 Other: Voiding Method External Catheter External Catheter External Catheter # Voids 1 GENERAL: The patient is alert and oriented x3, not in any acute distress. The patient is currently ventilated about 2 by nasal cannula. She has a body mass index of 17.3. Looks emaciated and cachectic and weak. Head exam was generally normal. There was no scleral icterus or corneal arcus. Mucous membranes were moist. HEENT: Pupils are round and equally reacting to light. EOMI. No scleral icterus. No conjunctival pallor. Normocephalic, atraumatic. No pharyngeal erythema. No thyromegaly. CARDIOVASCULAR: S1 and S2 present. No murmurs, rubs, or gallops. PULMONARY: Chest is clear to auscultation, no wheezing or crackles. Rest alth ough diminished bilaterally and the patient has limited air entry bilaterally. ABDOMEN: Soft, nontender, nondistended, normoactive bowel sounds. No palpable organomegaly. MUSCULOSKELETAL: No joint swelling or deformity. -EXTREMITIES: No cyanosis, clubbing, or pedal edema. Right leg cellulitis NEUROLOGICAL: Gross neurological examination did not reveal any focal deficits. There is generalized motor weakness in all 4 extremities SKIN: No rashes. no petechiae. Results - Laboratory Findings CBC and BMP: 05/20/22 06:45 05/20/22 06:45 PT/INR, D-dimer PT 35.4 sec (9.0-12.0) H 05/19/22 18:46 INR 3.6 (<1.2) H 05/19/22 18:46 Abnormal lab findings: Abnormal Labs 05/11/22 05/11/22 05/12/22 15:39 15:39 04:55 WBC RBC Hgb Hct MCV 103.9 H MCHC RDW 18.5 H Plt Count 135 L MPV Absolute Nucleated RBC Immature Gran # Neutrophils # Lymphocytes # Monocytes # Eosinophils # Nucleated RBCs 2 H NRBC/100 WBC Diff Macrocytosis Marked A PT INR APTT Sodium 135 L 136 L Potassium Chloride Carbon Dioxide 20 L BUN 39 H 39 H Creatinine 1.56 H 1.49 H Est GFR (CKD-EPI)AfAm Est GFR (CKD-EPI)NonAf BUN/Creatinine Ratio Glucose 112 H POC Glucose (mg/dL) Calcium Magnesium Total Bilirubin 2.7 H 2.6 H Conjugated Bilirubin 0.4 H Unconjugated Bilirubin Delta Bilirubin AST 117 H 89 H ALT 89 H 77 H Alkaline Phosphatase 186 H 175 H Troponin I C-Reactive Protein 5.5 H Total Protein 5.9 L Albumin 2.9 L Albumin/Globulin Ratio Procalcitonin Urine Appearance Urine Protein Urine Blood Amorphous Sediment Urine Bacteria 05/12/22 05/12/22 05/13/22 04:55 04:55 05:53 WBC RBC Hgb Hct MCV 105.4 H MCHC 29.4 L RDW 18.2 H Plt Count 116 L MPV Absolute Nucleated RBC Immature Gran # Neutrophils # Lymphocytes # Monocytes # Eosinophils # Nucleated RBCs NRBC/100 WBC Diff Macrocytosis Marked A PT INR APTT Sodium Potassium Chloride Carbon Dioxide BUN 44 H Creatinine 1.67 H Est GFR (CKD-EPI)AfAm Est GFR (CKD-EPI)NonAf BUN/Creatinine Ratio Glucose 109 H POC Glucose (mg/dL) Calcium 8.3 L Magnesium Total Bilirubin Conjugated Bilirubin Unconjugated Bilirubin Delta Bilirubin AST ALT Alkaline Phosphatase Troponin I C-Reactive Protein 7.1 H Total Protein Albumin Albumin/Globulin Ratio Procalcitonin 0.21 H Urine Appearance Urine Protein Urine Blood Amorphous Sediment Urine Bacteria 05/13/22 05/14/22 05/14/22 05:53 05:54 05:54 WBC RBC 3.97 L Hgb Hct MCV 99.8 H 100.5 H MCHC 31.8 L 30.6 L RDW 21.0 H 21.2 H Plt Count MPV 13.4 H 12.7 H Absolute Nucleated RBC 0.09 H 0.14 H Immature Gran # 0.05 H Neutrophils # Lymphocytes # Monocytes # Eosinophils # Nucleated RBCs NRBC/100 WBC Diff 1.3 H 2.2 H Macrocytosis PT INR APTT Sodium Potassium Chloride Carbon Dioxide BUN 39.1 H Creatinine 1.6 H Est GFR (CKD-EPI)AfAm 39.3 L Est GFR (CKD-EPI)NonAf 33.9 L BUN/Creatinine Ratio 24.44 H Glucose 111 H POC Glucose (mg/dL) Calcium 8.5 L Magnesium Total Bilirubin Conjugated Bilirubin Unconjugated Bilirubin Delta Bilirubin AST ALT Alkaline Phosphatase Troponin I C-Reactive Protein Total Protein Albumin Albumin/Globulin Ratio Procalcitonin Urine Appearance Urine Protein Urine Blood Amorphous Sediment Urine Bacteria 05/15/22 05/15/22 05/16/22 06:00 06:00 05:43 WBC RBC 4.02 L Hgb Hct MCV 101.0 H MCHC 30.8 L RDW 21.9 H Plt Count MPV 12.5 H Absolute Nucleated RBC 0.20 H Immature Gran # 0.05 H Neutrophils # Lymphocytes # Monocytes # Eosinophils # Nucleated RBCs NRBC/100 WBC Diff 2.9 H Macrocytosis PT INR APTT Sodium Potassium Chloride 111 H Carbon Dioxide 20 L 18 L BUN 43 H 38 H Creatinine 1.19 H Est GFR (CKD-EPI)AfAm Est GFR (CKD-EPI)NonAf BUN/Creatinine Ratio Glucose 120 H 130 H POC Glucose (mg/dL) Calcium 8.1 L Magnesium 2.4 H Total Bilirubin 2.4 H Conjugated Bilirubin Unconjugated Bilirubin Delta Bilirubin AST 105 H ALT 101 H Alkaline Phosphatase 220 H Troponin I C-Reactive Protein Total Protein 6.2 L Albumin 3.1 L Albumin/Globulin Ratio Procalcitonin Urine Appearance Urine Protein Urine Blood Amorphous Sediment Urine Bacteria 05/16/22 05/17/22 05/18/22 05:43 06:19 07:27 WBC RBC 3.99 L Hgb Hct MCV 103.0 H MCHC 30.7 L RDW 21.7 H Plt Count MPV 12.6 H Absolute Nucleated RBC 0.22 H Immature Gran # 0.05 H Neutrophils # Lymphocytes # Monocytes # 1.33 H Eosinophils # Nucleated RBCs NRBC/100 WBC Diff 2.7 H Macrocytosis PT INR APTT Sodium Potassium Chloride 109 H 111 H Carbon Dioxide 19 L 17.7 L BUN 36 H 36.0 H Creatinine 1.06 H Est GFR (CKD-EPI)AfAm Est GFR (CKD-EPI)NonAf 53.4 L BUN/Creatinine Ratio 32.73 H Glucose 192 H 127 H POC Glucose (mg/dL) Calcium 8.2 L 8.5 L Magnesium 2.5 H Total Bilirubin 2.5 H 2.90 H Conjugated Bilirubin 0.4 H Unconjugated Bilirubin Delta Bilirubin AST 111 H 114 H ALT 101 H 109 H Alkaline Phosphatase 206 H 190 H Troponin I C-Reactive Protein Total Protein 5.6 L Albumin 3.3 L 2.9 L Albumin/Globulin Ratio 1.07 L Procalcitonin Urine Appearance Urine Protein Urine Blood Amorphous Sediment Urine Bacteria 05/18/22 05/18/22 05/18/22 21:09 21:33 21:33 WBC 12.5 H RBC Hgb Hct MCV 110.9 H D MCHC 29.2 L RDW 19.7 H Plt Count MPV Absolute Nucleated RBC Immature Gran # Neutrophils # 9.0 H Lymphocytes # Monocytes # 1.1 H Eosinophils # Nucleated RBCs NRBC/100 WBC Diff Macrocytosis Marked A PT INR APTT Sodium Potassium 5.5 H Chloride 111 H Carbon Dioxide 14 L BUN 42 H Creatinine Est GFR (CKD-EPI)AfAm Est GFR (CKD-EPI)NonAf BUN/Creatinine Ratio Glucose 165 H POC Glucose (mg/dL) 160 H Calcium Magnesium Total Bilirubin 4.6 H Conjugated Bilirubin Unconjugated Bilirubin Delta Bilirubin AST 146 H ALT 109 H Alkaline Phosphatase 220 H Troponin I C-Reactive Protein Total Protein Albumin 3.2 L Albumin/Globulin Ratio Procalcitonin Urine Appearance Urine Protein Urine Blood Amorphous Sediment Urine Bacteria 05/18/22 05/19/22 05/19/22 21:33 00:34 03:59 WBC RBC Hgb Hct MCV MCHC RDW Plt Count MPV Absolute Nucleated RBC Immature Gran # Neutrophils # Lymphocytes # Monocytes # Eosinophils # Nucleated RBCs NRBC/100 WBC Diff Macrocytosis PT INR APTT Sodium Potassium Chloride Carbon Dioxide 18.3 L BUN 43.1 H Creatinine Est GFR (CKD-EPI)AfAm 46.2 L Est GFR (CKD-EPI)NonAf 39.9 L BUN/Creatinine Ratio 30.79 H Glucose 143 H POC Glucose (mg/dL) Calcium Magnesium 2.7 H Total Bilirubin 4.00 H Conjugated Bilirubin Unconjugated Bilirubin Delta Bilirubin AST 169 H ALT 134 H Alkaline Phosphatase 185 H Troponin I 0.059 H* 0.062 H* C-Reactive Protein Total Protein Albumin 3.2 L Albumin/Globulin Ratio 1.03 L Procalcitonin Urine Appearance Urine Protein Urine Blood Amorphous Sediment Urine Bacteria 05/19/22 05/19/22 05/19/22 03:59 03:59 08:26 WBC 11.28 H RBC 3.62 L Hgb 11.5 L Hct 36.8 L MCV 101.7 H MCHC 31.3 L RDW 22.5 H Plt Count MPV 13.0 H Absolute Nucleated RBC 0.32 H Immature Gran # 0.13 H Neutrophils # 8.38 H Lymphocytes # Monocytes # 1.44 H Eosinophils # 0.01 L Nucleated RBCs NRBC/100 WBC Diff 2.8 H Macrocytosis PT INR APTT Sodium Potassium Chloride Carbon Dioxide BUN Creatinine Est GFR (CKD-EPI)AfAm Est GFR (CKD-EPI)NonAf BUN/Creatinine Ratio Glucose POC Glucose (mg/dL) Calcium Magnesium Total Bilirubin Conjugated Bilirubin Unconjugated Bilirubin Delta Bilirubin AST ALT Alkaline Phosphatase Troponin I 0.072 H* 0.072 H* C-Reactive Protein Total Protein Albumin Albumin/Globulin Ratio Procalcitonin Urine Appearance Urine Protein Urine Blood Amorphous Sediment Urine Bacteria 05/19/22 05/19/22 05/19/22 14:36 14:36 18:46 WBC 11.0 H RBC Hgb Hct MCV 108.1 H MCHC 28.9 L RDW 20.1 H Plt Count 140 L MPV Absolute Nucleated RBC Immature Gran # Neutrophils # Lymphocytes # Monocytes # Eosinophils # Nucleated RBCs NRBC/100 WBC Diff Macrocytosis Marked A PT 34.8 H 35.4 H INR 3.5 H 3.6 H APTT 49.3 H Sodium Potassium Chloride Carbon Dioxide BUN Creatinine Est GFR (CKD-EPI)AfAm Est GFR (CKD-EPI)NonAf BUN/Creatinine Ratio Glucose POC Glucose (mg/dL) Calcium Magnesium Total Bilirubin Conjugated Bilirubin Unconjugated Bilirubin Delta Bilirubin AST ALT Alkaline Phosphatase Troponin I C-Reactive Protein Total Protein Albumin Albumin/Globulin Ratio Procalcitonin Urine Appearance Urine Protein Urine Blood Amorphous Sediment Urine Bacteria 05/20/22 05/20/22 05/20/22 01:19 06:45 06:45 WBC RBC 3.57 L Hgb 11.0 L Hct MCV 107.0 H MCHC 28.9 L RDW 20.3 H Plt Count 139 L MPV Absolute Nucleated RBC Immature Gran # Neutrophils # 8.3 H Lymphocytes # 0.9 L Monocytes # Eosinophils # Nucleated RBCs NRBC/100 WBC Diff Macrocytosis Marked A PT INR APTT Sodium Potassium Chloride 111 H Carbon Dioxide 19 L BUN 53 H Creatinine 1.38 H Est GFR (CKD-EPI)AfAm Est GFR (CKD-EPI)NonAf BUN/Creatinine Ratio Glucose 68 L POC Glucose (mg/dL) Calcium Magnesium Total Bilirubin 5.6 H Conjugated Bilirubin 2.8 H Unconjugated Bilirubin 1.4 H Delta Bilirubin 1.4 H AST 207 H ALT 142 H Alkaline Phosphatase 173 H Troponin I C-Reactive Protein Total Protein 5.9 L Albumin 2.9 L Albumin/Globulin Ratio Procalcitonin Urine Appearance Cloudy H Urine Protein 1+ H Urine Blood Small H Amorphous Sediment Occasional H Urine Bacteria Occasional H - Diagnostic Findings Chest x-ray: image reviewed Assessment and Plan Plan: Acute hypoxic respiratory failure mildly due to her underlying congenital heart disease, currently on 10 L of oxygen by nasal cannula. No evidence of any pneumonia. Physiology of follow underwent repair during childhood History of valvular heart disease with mitral regurgitation Nonischemic cardiomyopathy History of a degree of tachycardia with previous AICD placement Paroxysmal atrial fibrillation Hepatic dysfunction with elevated LFTs, no clear indication for an acute cholecystitis, rule out congestive hepatopathy related to liver failure. The patient is also on amiodarone. Cellulitis of the right lower extremity Previous history of CVA Diabetes mellitus Hypertension Hyperlipidemia Acute on chronic anemia disease Extreme debility and deconditioning and a body mass index of 17.3 Plan Continue gentle diuresis Monitor renal function Wean down the FiO2 as tolerated to maintain saturation above 90% Keep same antibiotic coverage for now We'll continue following up this patient with aggressive the consultants. Had a lengthy discussion with her sister, Louisa and I switched her CODE STATUS to DNR/DNI which is very reasonable based on extensive comorbidities.
--- NOTE | 2022-05-20 12:37 | P.PN ---
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 She follows in the office with Dr. Armstrong. We have been asked to see in consultation for cardiac risk assessment. Patient initially presented to the hospital on 05/11 with complaints of right leg swelling, nonhealing wound on right lower leg. Patient was diagnosed with cellulitis infectious disease evaluate the patient and was started on IV antibiotics. Liver enzymes were elevated and a liver ultrasound was obtained which revealed small gallstones, possible cholecystitis. General surgery was consulted and evaluated the patient and plan for laparoscopic cholecystectomy on 05/21/[address] meyer. Patient denies any chest pain, shortness of breath, lightheadedness, dizziness, palpitations, nausea, vomiting, syncope or near-syncope. She denies any symptoms of orthopnea or PND. DIAGNOSTICS * Lexiscan stress test in the office 06/2020 normal perfusion study with a fixed defect of small size involving the apex which could be secondary to physiological thinning and could be related to pacemaker rhythm. * 09/2021 Echocardiogram revealed an EF of 5055%, severe tricuspid regurgitation, severe pulmonary hypertension with RVSP of 56 mmHg * Repeat echocardiogram showed ejection fraction of 40-45% with moderate pulmonary hypertension, trace to mild MR and trace to mild AI with severe tricuspid regurgitation. 05/19/2022 Patient was seen and examined lying in bed. There was an 18 called on the patient last night for respiratory distress chest x-ray showed pulmonary edema and she was initiated on IV Lasix. She is overall feeling a bit better today continues to be quite wheezy and is coughing but denies any difficulty breathing at this time. She was seen by Dr. chirinos this morning who recommended GI evaluation due to elevated liver enzymes. Liver enzymes morning showed AST 169, ALT 134, alkaline phosphatase 185, total bilirubin 4. Creatinine is up to 1.4 today. She continues on high flow oxygen. 05/20/2022 The patient was seen and examined resting in bed. She continues on high flow oxygen. She feels her breathing is better compared to yesterday but remains poor. Dr. Hernández discussed prognosis with family this morning. She is now DNR. Objective - Vital Signs Vital signs: Vital Signs Temp 97.5 F L 05/20/22 07:43 Pulse 60 05/20/22 11:39 Resp 18 05/20/22 11:00 BP 102/63 05/20/22 11:00 Pulse Ox 90 L 05/20/22 11:00 FiO2 Intake & Output 05/19/22 05/20/22 05/20/22 18:59 06:59 18:59 Output Total 400 500 Balance -400 -500 Output: Urine 400 500 Other: Voiding Method External Catheter External Catheter External Catheter # Voids 1 - Exam HEENT: Head is normocephalic. Pupils are equal, round. Sclerae anicteric. Mucous membranes of the mouth are moist. JVD noted. CHEST EXAMINATION: Lungs revealed scattered rhonchi throughout, slightly improved air movement compared to yesterday. No chest wall tenderness is noted on palpation or with deep breathing. ecchymosis noted to anterior chest. HEART EXAMINATION: Regular rate and rhythm. S1, S2 heard. Systolic and diastolic murmur at right sternal border and apex noted. No gallops or rub. ABDOMEN: Soft, nontender. Positive bowel sounds. EXTREMITIES: 2+ peripheral pulses, lower extremity edema L >R and no calf tenderness. NEUROLOGIC EXAMINATION: Patient is awake, alert and oriented x3. - Labs CBC & Chem 7: 05/20/22 06:45 05/20/22 06:45 Labs: Abnormal Lab Results - Last 24 Hours (Table) 05/19/22 05/19/22 05/19/22 Range/Units 14:36 14:36 18:46 WBC 11.0 H (3.8-10.6) k/uL RBC (3.80-5.40) m/uL Hgb (11.4-16.0) gm/dL MCV 108.1 H (80.0-100.0) fL MCHC 28.9 L (31.0-37.0) g/dL RDW 20.1 H (11.5-15.5) % Plt Count 140 L (150-450) k/uL Neutrophils # (1.3-7.7) k/uL Lymphocytes # (1.0-4.8) k/uL Macrocytosis Marked A PT 34.8 H 35.4 H (9.0-12.0) sec INR 3.5 H 3.6 H (<1.2) APTT 49.3 H (22.0-30.0) sec Chloride (98-107) mmol/L Carbon Dioxide (22-30) mmol/L BUN (7-17) mg/dL Creatinine (0.52-1.04) mg/dL Glucose (74-99) mg/dL Total Bilirubin (0.2-1.3) mg/dL Conjugated Bilirubin (0.0-0.3) mg/dL Unconjugated Bilirubin (0.0-1.1) mg/dL Delta Bilirubin (0.0-0.2) mg/dL AST (14-36) U/L ALT (4-34) U/L Alkaline Phosphatase (38-126) U/L Total Protein (6.3-8.2) g/dL Albumin (3.5-5.0) g/dL Urine Appearance (Clear) Urine Protein (Negative) Urine Blood (Negative) Amorphous Sediment (None) /hpf Urine Bacteria (None) /hpf 05/20/22 05/20/22 05/20/22 Range/Units 01:19 06:45 06:45 WBC (3.8-10.6) k/uL RBC 3.57 L (3.80-5.40) m/uL Hgb 11.0 L (11.4-16.0) gm/dL MCV 107.0 H (80.0-100.0) fL MCHC 28.9 L (31.0-37.0) g/dL RDW 20.3 H (11.5-15.5) % Plt Count 139 L (150-450) k/uL Neutrophils # 8.3 H (1.3-7.7) k/uL Lymphocytes # 0.9 L (1.0-4.8) k/uL Macrocytosis Marked A PT (9.0-12.0) sec INR (<1.2) APTT (22.0-30.0) sec Chloride 111 H (98-107) mmol/L Carbon Dioxide 19 L (22-30) mmol/L BUN 53 H (7-17) mg/dL Creatinine 1.38 H (0.52-1.04) mg/dL Glucose 68 L (74-99) mg/dL Total Bilirubin 5.6 H (0.2-1.3) mg/dL Conjugated Bilirubin 2.8 H (0.0-0.3) mg/dL Unconjugated Bilirubin 1.4 H (0.0-1.1) mg/dL Delta Bilirubin 1.4 H (0.0-0.2) mg/dL AST 207 H (14-36) U/L ALT 142 H (4-34) U/L Alkaline Phosphatase 173 H (38-126) U/L Total Protein 5.9 L (6.3-8.2) g/dL Albumin 2.9 L (3.5-5.0) g/dL Urine Appearance Cloudy H (Clear) Urine Protein 1+ H (Negative) Urine Blood Small H (Negative) Amorphous Sediment Occasional H (None) /hpf Urine Bacteria Occasional H (None) /hpf Assessment and Plan Assessment: Right leg cellulitis Cholecystitis Elevated Liver enzymes Elevated total bilirubin Acute on chronic kidney disease Hypotension History of Ventricular tachycardia status post shock from ICD Tetralogy of [place] status post repair Valvular heart disease Pulmonary hypertension History of hypertension History of type 2 diabetes History of hyperlipidemia Paroxysmal atrial fibrillation on Xarelto outpatient History of Nonischemic cardiomyopathy with recovered EF Plan: From cardiology's perspective we will discontinue the amiodarone and Xarelto due to elevated LFTs and elevated INR. Patient has ecchymosis noted to anterior chest wall. We will continue to follow the patient, recheck renal function, electrolytes, LFTs, and INR in the morning. Further recommendations to follow. INVESTIGATOR VICE note has been reviewed, I agree with a documented findings and plan of care. Patient was seen and examined.
[2022-05-20 13:03] LABS: Hepatitis A Antibody IgM Nonreactive (Nonreactive); Hepatitis B Core IgM Nonreactive (Nonreactive); Hepatitis B Surface Antigen Nonreactive (Nonreactive); Hepatitis C IgG Antibody Reactive (Nonreactive)
--- NOTE | 2022-05-20 16:28 | P.PN ---
Subjective Pain and swelling and redness of right leg the patient denies having any fever or any chills, the patient still has significant swelling and redness right lower extremity mention no improvement in the symptoms, patient denies having any chest pain shortness of breath or cough no abdominal pain or diarrhea; states that over the last 24 hours she had acute onset redness pain and swelling to the right lower extremity. There is concern that this is rapidly progressing. Right lower extremity was significantly erythematous with heat. Erythema here to be circumferential around the right lower extremity. It's very tender to palpation. No crepitus felt. X-rays reviewed shows no signs of gas formation in the soft tissues of the leg. Given patient's age and comorbidities there is concern for serious soft tissue infection. Patient started on broad-spectrum antibiotics. Cultures pending. Patient be admitted for IV antibiotics. Infectious disease will be consulted. Lab review shows a WBC of 7.0, hemoglobin 15.4, platelet count of 135, sodium 135, potassium 4.7, BUN/creatinine elevated at 39/1.56, lactic acid level of 1.3, total bilirubin elevated at 2.7; proBNP elevated at 12,200; we will plan to obtain a chest x-ray if patient is symptomatic 05/13/2022 the patient is seen and evaluated in room at bedside; complaints of extreme anxiety; denies having any fever or ages, has been complaining of feeling anxious denies any chest pain or shortness of breath or cough no abdominal pain no diarrhea right lower extremity pain and swelling has slightly decreased -Patient with acute right lower extremity cellulitis in this patient did have diffuse swelling redness likely secondary to gram-positive skin ed underlying chronic infection less likely but not entirely excluded Patient to continue with light Ye wrap from just above the toe to below the knee -patient with multiple antibiotic allergies that would limit the number of antibiotics safe to use Local cultures are currently growing group D enterococcus and gram-negative patient to continue vancomycin and cefepime while waiting for the culture finalized patient will be placed on Xanax at home dose 05/14/2022 Patient is with a right leg cellulitis, on exam she looks with mild improvement Cultures grown sensitive enterococci and pseudomonas Patient currently on IV vancomycin and cefepime with ID team on the case Also patient continued on home dose of Xarelto for her history of paroxysmal A. fib. Follow-up final results of the wound culture 05/15/2022 Patient still with significant right leg cellulitis, she still needs IV antibiotic with vancomycin and cefepime, discussed with ID team. No abdominal pain or vomiting. Monitor liver enzymes tomorrow. Patient has chronic borderline low blood pressure, systolic 90s to 100 intents, at times down to 80s. Asymptomatic. 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 We will keep metoprolol 25 mg twice a day for now. Also she skipped on her dose of Xarelto 05/16/2022 Patient is a sleepy every day, while sitting in chair. Once once she wake up she is appropriate and awake and follow commands and oriented to time place and person. She denies any specific complaints. No headache or weakness, no chest pain or dyspnea. No abdominal pain or nausea vomiting or diarrhea. No right upper quadrant pain or tenderness. Right leg cellulitis is improving, patient can be discharged on IV antibiotics as per ID team However her liver enzymes are trending up today, we will order a liver ultrasound which is still pending 05/17/2022 Patient today is very sleepy and lethargic, she is arousable easily and follow commands and answer questions but go back to sleep right away. She denies abdominal pain and no significant tenderness however patient has with persistent elevated liver enzymes and ultrasound show evidence of cholecystitis and choledocholithiasis also suspected surgery team are consulted with plan for cholecystectomy on Monday 05/21, 05/18/2022 Patient does not have abdominal pain or nausea vomiting and she tolerates diet also she has no problem with her bowel movement. She has however elevated liver enzymes which were trending up and today are still elevated. And on ultrasound she has evidence of cholecystitis, surgery team are planning for cholecystectomy however patient was found higher risk and surgery procedure was aborted as patient is asymptomatic, currently kept on low-fat diet. Her echocardiogram is 40-45% showing cardiomyopathy with LV dysfunction and dilated right ventricle with moderate pulmonary hypertension. Patient remains on IV vancomycin and cefepime. She is also on Xarelto as there is no surgical intervention for now. 05/19/2012 Patient developed respiratory distress and hypoxia last night and she was to be placed on 15 L of oxygen via nontender breather, this morning she needed less oxygen about 5-6 L with oxygen saturation about 92%. Her chest x-ray showing some evidence of pulmonary congestion and she has some leg edema and patient was started on IV Lasix 20 mg twice daily, no documentation of urine output. Patient also receiving broad-spectrum antibiotics of IV vancomycin and cefepime and also she received her Xarelto last night. Creatinine went up a little bit at 1.4 which is still within the expected baseline range She is also tachypneic but with no chest pain. No abdominal pain or right upper quadrant abdominal pain or vomiting. She is also receiving aspirin, 05/20/2012 Patient is awake and alert but lethargic, she looks tired, tachypneic on 10 L oxygen via nasal cannula, chest x-ray showed a fluid overload and she is currently on IV Lasix 20 mg twice daily, creatinine 1.3. Which is at baseline. No more hemoptysis and less bleeding from the, after good lower the dose of Xarelto, however her INR 3.5 and Xarelto was placed on hold. Check INR tomorrow. However patient has worsening liver function and bilirubin is 5.6. Patient denies any abdominal pain, no right upper quadrant tenderness. No nausea vomiting. No signs or symptoms. Lipitor was put on hold Amiodarone also was stopped by network analyst. Patient remains on IV vancomycin and cefepime. Patient remains on aspirin daily. Her legs are still wrapped in Ye and and her cellulitis is improving. Today we had discussion with the patient's sister discussing her plan of treatment and management Prognosis remains very guarded Objective - Vital Signs Vital signs: Vital Signs Temp 97.5 F L 05/20/22 07:43 Pulse 79 05/20/22 07:43 Resp 20 05/20/22 07:43 BP 86/58 05/20/22 07:43 Pulse Ox 90 L 05/20/22 07:43 FiO2 Intake & Output 05/19/22 05/20/22 05/20/22 18:59 06:59 18:59 Output Total 400 500 Balance -400 -500 Output: Urine 400 500 Other: Voiding Method External Catheter External Catheter External Catheter # Voids 1 - Exam GENERAL: The patient is alert and oriented x3, not in any acute distress. Well developed, well nourished. HEENT: Pupils are round and equally reacting to light. EOMI. No scleral icterus. No conjunctival pallor. Normocephalic, atraumatic. No pharyngeal erythema. No thyromegaly. CARDIOVASCULAR: S1 and S2 present. No murmurs, rubs, or gallops. -PULMONARY: Chest is clear to auscultation, no wheezing or crackles. Basal crepitation ABDOMEN: Soft, nontender, nondistended, normoactive bowel sounds. No palpable organomegaly. MUSCULOSKELETAL: No joint swelling or deformity. --EXTREMITIES: No cyanosis, clubbing, a. Right leg cellulitis. Bilateral leg e jean pierre, mild, Secured could be closed by her cellulitis NEUROLOGICAL: Gross neurological examination did not reveal any focal deficits. SKIN: No rashes. no petechiae. - Labs CBC & Chem 7: 05/20/22 06:45 05/20/22 06:45 Labs: Abnormal Lab Results - Last 24 Hours (Table) 05/19/22 05/19/22 05/19/22 Range/Units 03:59 08:26 14:36 WBC 11.28 H 11.0 H (4.50-10.00) X 10*3/uL RBC 3.62 L (4.10-5.20) X 10*6/uL Hgb 11.5 L (12.0-15.0) g/dL Hct 36.8 L (37.2-46.3) % MCV 101.7 H 108.1 H (80.0-97.0) fL MCHC 31.3 L 28.9 L (32.0-37.0) g/dL RDW 22.5 H 20.1 H (11.5-14.5) % Plt Count 140 L (150-450) k/uL MPV 13.0 H (9.5-12.2) fL Absolute Nucleated RBC 0.32 H (0.00-0.00) X 10*3/uL Immature Gran # 0.13 H (0.00-0.04) X 10*3/uL Neutrophils # 8.38 H (1.80-7.70) X 10*3/uL Lymphocytes # (1.0-4.8) k/uL Monocytes # 1.44 H (0.20-1.00) X 10*3/uL Eosinophils # 0.01 L (0.04-0.35) X 10*3/uL NRBC/100 WBC Diff 2.8 H (0.0-0.0) /100 WBCS Macrocytosis Marked A PT (9.0-12.0) sec INR (<1.2) APTT (22.0-30.0) sec Chloride (98-107) mmol/L Carbon Dioxide (22-30) mmol/L BUN (7-17) mg/dL Creatinine (0.52-1.04) mg/dL Glucose (74-99) mg/dL Total Bilirubin (0.2-1.3) mg/dL Conjugated Bilirubin (0.0-0.3) mg/dL Unconjugated Bilirubin (0.0-1.1) mg/dL Delta Bilirubin (0.0-0.2) mg/dL AST (14-36) U/L ALT (4-34) U/L Alkaline Phosphatase (38-126) U/L Troponin I 0.072 H* (0.000-0.034) ng/mL Total Protein (6.3-8.2) g/dL Albumin (3.5-5.0) g/dL Urine Appearance (Clear) Urine Protein (Negative) Urine Blood (Negative) Amorphous Sediment (None) /hpf Urine Bacteria (None) /hpf 05/19/22 05/19/22 05/20/22 Range/Units 14:36 18:46 01:19 WBC (4.50-10.00) X 10*3/uL RBC (4.10-5.20) X 10*6/uL Hgb (12.0-15.0) g/dL Hct (37.2-46.3) % MCV (80.0-97.0) fL MCHC (32.0-37.0) g/dL RDW (11.5-14.5) % Plt Count (150-450) k/uL MPV (9.5-12.2) fL Absolute Nucleated RBC (0.00-0.00) X 10*3/uL Immature Gran # (0.00-0.04) X 10*3/uL Neutrophils # (1.80-7.70) X 10*3/uL Lymphocytes # (1.0-4.8) k/uL Monocytes # (0.20-1.00) X 10*3/uL Eosinophils # (0.04-0.35) X 10*3/uL NRBC/100 WBC Diff (0.0-0.0) /100 WBCS Macrocytosis PT 34.8 H 35.4 H (9.0-12.0) sec INR 3.5 H 3.6 H (<1.2) APTT 49.3 H (22.0-30.0) sec Chloride (98-107) mmol/L Carbon Dioxide (22-30) mmol/L BUN (7-17) mg/dL Creatinine (0.52-1.04) mg/dL Glucose (74-99) mg/dL Total Bilirubin (0.2-1.3) mg/dL Conjugated Bilirubin (0.0-0.3) mg/dL Unconjugated Bilirubin (0.0-1.1) mg/dL Delta Bilirubin (0.0-0.2) mg/dL AST (14-36) U/L ALT (4-34) U/L Alkaline Phosphatase (38-126) U/L Troponin I (0.000-0.034) ng/mL Total Protein (6.3-8.2) g/dL Albumin (3.5-5.0) g/dL Urine Appearance Cloudy H (Clear) Urine Protein 1+ H (Negative) Urine Blood Small H (Negative) Amorphous Sediment Occasional H (None) /hpf Urine Bacteria Occasional H (None) /hpf 05/20/22 05/20/22 Range/Units 06:45 06:45 WBC (4.50-10.00) X 10*3/uL RBC 3.57 L (4.10-5.20) X 10*6/uL Hgb 11.0 L (12.0-15.0) g/dL Hct (37.2-46.3) % MCV 107.0 H (80.0-97.0) fL MCHC 28.9 L (32.0-37.0) g/dL RDW 20.3 H (11.5-14.5) % Plt Count 139 L (150-450) k/uL MPV (9.5-12.2) fL Absolute Nucleated RBC (0.00-0.00) X 10*3/uL Immature Gran # (0.00-0.04) X 10*3/uL Neutrophils # 8.3 H (1.80-7.70) X 10*3/uL Lymphocytes # 0.9 L (1.0-4.8) k/uL Monocytes # (0.20-1.00) X 10*3/uL Eosinophils # (0.04-0.35) X 10*3/uL NRBC/100 WBC Diff (0.0-0.0) /100 WBCS Macrocytosis Marked A PT (9.0-12.0) sec INR (<1.2) APTT (22.0-30.0) sec Chloride 111 H (98-107) mmol/L Carbon Dioxide 19 L (22-30) mmol/L BUN 53 H (7-17) mg/dL Creatinine 1.38 H (0.52-1.04) mg/dL Glucose 68 L (74-99) mg/dL Total Bilirubin 5.6 H (0.2-1.3) mg/dL Conjugated Bilirubin 2.8 H (0.0-0.3) mg/dL Unconjugated Bilirubin 1.4 H (0.0-1.1) mg/dL Delta Bilirubin 1.4 H (0.0-0.2) mg/dL AST 207 H (14-36) U/L ALT 142 H (4-34) U/L Alkaline Phosphatase 173 H (38-126) U/L Troponin I (0.000-0.034) ng/mL Total Protein 5.9 L (6.3-8.2) g/dL Albumin 2.9 L (3.5-5.0) g/dL Urine Appearance (Clear) Urine Protein (Negative) Urine Blood (Negative) Amorphous Sediment (None) /hpf Urine Bacteria (None) /hpf Assessment and Plan Assessment: 1. Acute cellulitis right lower extremity - Patient has been placed on IV vancomycin with pharmacy dosing service and cefepime 2 g IV every 8 hours - ID team on the case 2. Acute congestive heart failure, systolic with ejection fraction 40-45% - Started with IV Lasix - Manager Student Services already on the case 3. Chronic kidney disease, stage III. Baseline creatinine 1.2-1.6 4. Acute cholecystitis with transaminitis - Asymptomatic, no need for surgical intervention - High risk for surgery by cardiology team 5. Hypothyroidism; Synthroid 75 MCG daily 6. Hyperlipidemia; Lipitor 20 mg daily 7. Paroxysmal atrial fibrillation; patient is rate controlled on metoprolol and amiodarone 200 mg daily; anticoagulated with Xarelto 15 mg by mouth daily at bedtime 8. Hypertension; metoprolol 50 mg by mouth twice a day DVT prophylaxis; SCDs/Xarelto CODE STATUS; full code
--- NOTE | 2022-05-20 17:36 | P.PN ---
Subjective Progress Note Date: 05/18/22 Principal diagnosis: Right lower extremity cellulitis Patient is a 61 year old female presented to hospital with increasing swelling redness of right lower extremity has been diagnosed with acute right lower extremity cellulitis. Patient did have abnormal liver ultrasound Suspicious for Cholecystitis General Surgery Has Been Consulted, patient has been transferred to the cardiac unit because of A. fib on today's evaluation that is 05/18/2022,The patient remains to be afebrile the patient is breathing comfortably on 3 L nasal cannula, the patient denies having any chest pain shortness of the cough no abdominal pain, the patient pain to the right leg has decreased in intensity and denies diarrhea Objective - Vital Signs Vital signs: Vital Signs Temp 98.2 F 05/18/22 08:00 Pulse 52 L 05/18/22 08:00 Resp 22 05/18/22 08:00 BP 92/41 05/18/22 08:00 Pulse Ox 93 L 05/18/22 08:00 FiO2 Intake & Output 05/17/22 05/18/22 05/18/22 18:59 06:59 18:59 Other: Voiding Method Bedside Commode # Voids 0 # Bowel Movements 0 - Exam GENERAL DESCRIPTION: Middle-age female up in the chair in no distress RESPIRATORY SYSTEM: Unlabored breathing , decreased breath sounds at bases HEART: S1 S2 regular rate and rhythm , ABDOMEN: Soft , no tenderness EXTREMITIES: Right leg swelling or redness is slightly decreased - Labs CBC & Chem 7: 05/20/22 06:45 05/20/22 06:45 Labs: Abnormal Lab Results - Last 24 Hours (Table) 05/18/22 Range/Units 07:27 Chloride 111 H (96-109) mmol/L Carbon Dioxide 17.7 L (20.0-27.5) mmol/L BUN 36.0 H (9.0-27.0) mg/dL Est GFR (CKD-EPI)NonAf 53.4 L (60.0-200.0) BUN/Creatinine Ratio 32.73 H (12.00-20.00) Ratio Glucose 127 H (70-110) mg/dL Calcium 8.5 L (8.7-10.3) mg/dL Total Bilirubin 2.90 H (0.30-1.20) mg/dL AST 114 H (13-35) U/L ALT 109 H (8-44) U/L Alkaline Phosphatase 190 H (41-126) U/L Total Protein 5.6 L (6.2-8.2) g/dL Albumin 2.9 L (3.8-4.9) g/dL Albumin/Globulin Ratio 1.07 L (1.60-3.17) g/dL Microbiology - Last 24 Hours (Table) 05/11/22 17:35 Blood Culture - Final Blood No Growth after 144 hours 05/11/22 17:20 Blood Culture - Final Blood No Growth after 144 hours Assessment and Plan (1) Cellulitis Current Visit: Yes Status: Acute Code(s): L03.90 - CELLULITIS, UNSPECIFIED SNOMED Code(s): 184958714 Plan: 1-Patient with acute right lower extremity cellulitis in this patient did have diffuse swelling redness likely secondary to gram-positive skin ed underlying chronic infection less likely but not entirely excluded 2-Patient to continue with light Ye wrap from just above the toe to below the knee 3-patient with multiple antibiotic allergies that would limit the number of antibiotics safe to use 4 Patient seem to have shown clinical improvement as far as right lower extremity cellulitis is concerned patient local cultures grew Enterococcus which is penicillin sensitive however the patient is allergic to penicillin patient also grew Pseudomonas and Acinetobacter which is sensitive to Cipro however the patient is on amiodarone, patient will continue with vancomycin and cefepime and local wound care as ordered Time with Patient: Less than 30
--- NOTE | 2022-05-20 17:37 | P.PN ---
Subjective Progress Note Date: 05/19/22 Principal diagnosis: Right lower extremity cellulitis Patient is a 61 year old female presented to hospital with increasing swelling redness of right lower extremity has been diagnosed with acute right lower extremity cellulitis. Patient did have abnormal liver ultrasound Suspicious for Cholecystitis General Surgery Has Been Consulted, patient has been transferred to the cardiac unit because of A. fib on today's evaluation that is 05/19/2022,The patient continues to be afebrile the patient is breathing comfortably however is requiring 6l nasal cannula, the patient denies having any chest pain shortness of the cough no cough or sputum production no abdominal pain no diarrhea Objective - Vital Signs Vital signs: Vital Signs Temp 97.9 F 05/19/22 08:50 Pulse 80 05/19/22 11:05 Resp 20 05/19/22 11:05 BP 120/57 05/19/22 11:05 Pulse Ox 94 L 05/19/22 11:19 FiO2 Intake & Output 05/18/22 05/19/22 05/19/22 18:59 06:59 18:59 Weight 34.927 kg Other: Voiding Method Bedside Commode Bedside Commode Bedside Commode Bedpan # Voids 1 - Exam GENERAL DESCRIPTION: Middle-age female up in the chair in no distress RESPIRATORY SYSTEM: Unlabored breathing , decreased breath sounds at bases HEART: S1 S2 regular rate and rhythm , ABDOMEN: Soft , no tenderness EXTREMITIES: Right leg swelling or redness is slightly decreased - Labs CBC & Chem 7: 05/20/22 06:45 05/20/22 06:45 Labs: Abnormal Lab Results - Last 24 Hours (Table) 05/18/22 05/18/22 05/18/22 Range/Units 21:09 21:33 21:33 WBC 12.5 H (3.8-10.6) k/uL RBC (4.10-5.20) X 10*6/uL Hgb (12.0-15.0) g/dL Hct (37.2-46.3) % MCV 110.9 H D (80.0-100.0) fL MCHC 29.2 L (31.0-37.0) g/dL RDW 19.7 H (11.5-15.5) % MPV (9.5-12.2) fL Absolute Nucleated RBC (0.00-0.00) X 10*3/uL Immature Gran # (0.00-0.04) X 10*3/uL Neutrophils # 9.0 H (1.3-7.7) k/uL Monocytes # 1.1 H (0-1.0) k/uL Eosinophils # (0.04-0.35) X 10*3/uL NRBC/100 WBC Diff (0.0-0.0) /100 WBCS Macrocytosis Marked A Potassium 5.5 H (3.5-5.1) mmol/L Chloride 111 H (98-107) mmol/L Carbon Dioxide 14 L (22-30) mmol/L BUN 42 H (7-17) mg/dL Est GFR (CKD-EPI)AfAm (60.0-200.0) Est GFR (CKD-EPI)NonAf (60.0-200.0) BUN/Creatinine Ratio (12.00-20.00) Ratio Glucose 165 H (74-99) mg/dL POC Glucose (mg/dL) 160 H (70-110) mg/dL Magnesium (1.5-2.4) mg/dL Total Bilirubin 4.6 H (0.2-1.3) mg/dL AST 146 H (14-36) U/L ALT 109 H (4-34) U/L Alkaline Phosphatase 220 H (38-126) U/L Troponin I (0.000-0.034) ng/mL Albumin 3.2 L (3.5-5.0) g/dL Albumin/Globulin Ratio (1.60-3.17) g/dL 05/18/22 05/19/22 05/19/22 Range/Units 21:33 00:34 03:59 WBC (3.8-10.6) k/uL RBC (4.10-5.20) X 10*6/uL Hgb (12.0-15.0) g/dL Hct (37.2-46.3) % MCV (80.0-100.0) fL MCHC (31.0-37.0) g/dL RDW (11.5-15.5) % MPV (9.5-12.2) fL Absolute Nucleated RBC (0.00-0.00) X 10*3/uL Immature Gran # (0.00-0.04) X 10*3/uL Neutrophils # (1.3-7.7) k/uL Monocytes # (0-1.0) k/uL Eosinophils # (0.04-0.35) X 10*3/uL NRBC/100 WBC Diff (0.0-0.0) /100 WBCS Macrocytosis Potassium (3.5-5.1) mmol/L Chloride (98-107) mmol/L Carbon Dioxide 18.3 L (22-30) mmol/L BUN 43.1 H (7-17) mg/dL Est GFR (CKD-EPI)AfAm 46.2 L (60.0-200.0) Est GFR (CKD-EPI)NonAf 39.9 L (60.0-200.0) BUN/Creatinine Ratio 30.79 H (12.00-20.00) Ratio Glucose 143 H (74-99) mg/dL POC Glucose (mg/dL) (70-110) mg/dL Magnesium 2.7 H (1.5-2.4) mg/dL Total Bilirubin 4.00 H (0.2-1.3) mg/dL AST 169 H (14-36) U/L ALT 134 H (4-34) U/L Alkaline Phosphatase 185 H (38-126) U/L Troponin I 0.059 H* 0.062 H* (0.000-0.034) ng/mL Albumin 3.2 L (3.5-5.0) g/dL Albumin/Globulin Ratio 1.03 L (1.60-3.17) g/dL 05/19/22 05/19/22 05/19/22 Range/Units 03:59 03:59 08:26 WBC 11.28 H (3.8-10.6) k/uL RBC 3.62 L (4.10-5.20) X 10*6/uL Hgb 11.5 L (12.0-15.0) g/dL Hct 36.8 L (37.2-46.3) % MCV 101.7 H (80.0-100.0) fL MCHC 31.3 L (31.0-37.0) g/dL RDW 22.5 H (11.5-15.5) % MPV 13.0 H (9.5-12.2) fL Absolute Nucleated RBC 0.32 H (0.00-0.00) X 10*3/uL Immature Gran # 0.13 H (0.00-0.04) X 10*3/uL Neutrophils # 8.38 H (1.3-7.7) k/uL Monocytes # 1.44 H (0-1.0) k/uL Eosinophils # 0.01 L (0.04-0.35) X 10*3/uL NRBC/100 WBC Diff 2.8 H (0.0-0.0) /100 WBCS Macrocytosis Potassium (3.5-5.1) mmol/L Chloride (98-107) mmol/L Carbon Dioxide (22-30) mmol/L BUN (7-17) mg/dL Est GFR (CKD-EPI)AfAm (60.0-200.0) Est GFR (CKD-EPI)NonAf (60.0-200.0) BUN/Creatinine Ratio (12.00-20.00) Ratio Glucose (74-99) mg/dL POC Glucose (mg/dL) (70-110) mg/dL Magnesium (1.5-2.4) mg/dL Total Bilirubin (0.2-1.3) mg/dL AST (14-36) U/L ALT (4-34) U/L Alkaline Phosphatase (38-126) U/L Troponin I 0.072 H* 0.072 H* (0.000-0.034) ng/mL Albumin (3.5-5.0) g/dL Albumin/Globulin Ratio (1.60-3.17) g/dL Assessment and Plan (1) Cellulitis Current Visit: Yes Status: Acute Code(s): L03.90 - CELLULITIS, UNSPECIFIED SNOMED Code(s): 347090069 Plan: 1-Patient with acute right lower extremity cellulitis in this patient did have diffuse swelling redness likely secondary to gram-positive skin ed underlying chronic infection less likely but not entirely excluded 2-Patient to continue with light Ye wrap from just above the toe to below the knee 3-patient with multiple antibiotic allergies that would limit the number of antibiotics safe to use 4 Patient local cultures grew Enterococcus which is penicillin sensitive however the patient is allergic to penicillin patient also grew Pseudomonas and Acinetobacter which is sensitive to Cipro however the patient is on amiodarone 5- patient will continue with vancomycin and cefepime and local wound care as ordered Time with Patient: Less than 30
--- NOTE | 2022-05-20 17:39 | P.PN ---
Subjective Progress Note Date: 05/20/22 Principal diagnosis: Right lower extremity cellulitis Patient is a 61 year old female presented to hospital with increasing swelling redness of right lower extremity has been diagnosed with acute right lower extremity cellulitis. Patient did have abnormal liver ultrasound Suspicious for Cholecystitis General Surgery Has Been Consulted, patient has been transferred to the cardiac unit because of A. fib on today's evaluation that is 05/20/2022,The patient remains to be afebrile the patient did have worsening of respiratory status and is currently requiring a 10 L high flow nasal cannula oxygen, patient is slightly sleepy lethargic and did not provide any history no vomiting or diarrhea was reported by the nursing staff Objective - Vital Signs Vital signs: Vital Signs Temp 97.4 F L 05/20/22 15:08 Pulse 92 05/20/22 15:08 Resp 20 05/20/22 15:08 BP 97/54 05/20/22 15:08 Pulse Ox 92 L 05/20/22 15:08 FiO2 Intake & Output 05/19/22 05/20/22 05/20/22 18:59 06:59 18:59 Output Total 400 500 425 Balance -400 -500 -425 Output: Urine 400 500 425 Other: Voiding Method External Catheter External Catheter External Catheter # Voids 1 - Exam GENERAL DESCRIPTION: Middle-age female up in the chair in no distress RESPIRATORY SYSTEM: Unlabored breathing , decreased breath sounds at bases HEART: S1 S2 regular rate and rhythm , ABDOMEN: Soft , no tenderness EXTREMITIES: Right leg swelling or redness is slightly decreased - Labs CBC & Chem 7: 05/20/22 06:45 05/20/22 06:45 Labs: Abnormal Lab Results - Last 24 Hours (Table) 05/19/22 05/20/22 05/20/22 Range/Units 18:46 01:19 06:45 RBC (3.80-5.40) m/uL Hgb (11.4-16.0) gm/dL MCV (80.0-100.0) fL MCHC (31.0-37.0) g/dL RDW (11.5-15.5) % Plt Count (150-450) k/uL Neutrophils # (1.3-7.7) k/uL Lymphocytes # (1.0-4.8) k/uL Macrocytosis PT 35.4 H (9.0-12.0) sec INR 3.6 H (<1.2) Chloride (98-107) mmol/L Carbon Dioxide (22-30) mmol/L BUN (7-17) mg/dL Creatinine (0.52-1.04) mg/dL Glucose (74-99) mg/dL Total Bilirubin (0.2-1.3) mg/dL Conjugated Bilirubin (0.0-0.3) mg/dL Unconjugated Bilirubin (0.0-1.1) mg/dL Delta Bilirubin (0.0-0.2) mg/dL AST (14-36) U/L ALT (4-34) U/L Alkaline Phosphatase (38-126) U/L Total Protein (6.3-8.2) g/dL Albumin (3.5-5.0) g/dL Urine Appearance Cloudy H (Clear) Urine Protein 1+ H (Negative) Urine Blood Small H (Negative) Amorphous Sediment Occasional H (None) /hpf Urine Bacteria Occasional H (None) /hpf Hep C IgG Ab Reactive A (Nonreactive) 05/20/22 05/20/22 Range/Units 06:45 06:45 RBC 3.57 L (3.80-5.40) m/uL Hgb 11.0 L (11.4-16.0) gm/dL MCV 107.0 H (80.0-100.0) fL MCHC 28.9 L (31.0-37.0) g/dL RDW 20.3 H (11.5-15.5) % Plt Count 139 L (150-450) k/uL Neutrophils # 8.3 H (1.3-7.7) k/uL Lymphocytes # 0.9 L (1.0-4.8) k/uL Macrocytosis Marked A PT (9.0-12.0) sec INR (<1.2) Chloride 111 H (98-107) mmol/L Carbon Dioxide 19 L (22-30) mmol/L BUN 53 H (7-17) mg/dL Creatinine 1.38 H (0.52-1.04) mg/dL Glucose 68 L (74-99) mg/dL Total Bilirubin 5.6 H (0.2-1.3) mg/dL Conjugated Bilirubin 2.8 H (0.0-0.3) mg/dL Unconjugated Bilirubin 1.4 H (0.0-1.1) mg/dL Delta Bilirubin 1.4 H (0.0-0.2) mg/dL AST 207 H (14-36) U/L ALT 142 H (4-34) U/L Alkaline Phosphatase 173 H (38-126) U/L Total Protein 5.9 L (6.3-8.2) g/dL Albumin 2.9 L (3.5-5.0) g/dL Urine Appearance (Clear) Urine Protein (Negative) Urine Blood (Negative) Amorphous Sediment (None) /hpf Urine Bacteria (None) /hpf Hep C IgG Ab (Nonreactive) Assessment and Plan (1) Cellulitis Current Visit: Yes Status: Acute Code(s): L03.90 - CELLULITIS, UNSPECIFIED SNOMED Code(s): 270081993 Plan: 1-Patient with acute right lower extremity cellulitis in this patient did have diffuse swelling redness likely secondary to gram-positive skin ed underlying chronic infection less likely but not entirely excluded 2-Patient to continue with light Ye wrap from just above the toe to below the knee 3-patient with multiple antibiotic allergies that would limit the number of antibiotics safe to use 4 Patient local cultures grew Enterococcus which is penicillin sensitive however the patient is allergic to penicillin patient also grew Pseudomonas and Acinetobacter which is sensitive to Cipro however the patient is on amiodarone 5- patient did have worsening of respiratory status possibly related to CHF and is being monitored by cardiology and pulmonary team, patient to continue with vancomycin and cefepime and local wound care as ordered Time with Patient: Less than 30
[2022-05-20 17:48] LABS: Glucose,Whole Blood 126 mg/dL (70-110)
[2022-05-21 00:16] VITALS: TEMP 97.4
[2022-05-21 00:17] VITALS: BP 92/50
[2022-05-21] MEDS: FUROSEMIDE 10 MG/ML 2 ML VIAL IV SCH (00:20)
[2022-05-21] MEDS ORDERED: ARTIFICIAL TEARS-HYPROMELLOSE DROPS 15 ML BTL BOTH EYES PRN (00:39)
[2022-05-21] MEDS ORDERED: HYDROCORTISONE 1% CREAM 30 GM TUBE TOPICAL PRN (00:39)
[2022-05-21] MEDS ORDERED: MORPHINE SULFATE 4 MG/ML SYRINGE IV PRN (00:39)
[2022-05-21] MEDS ORDERED: ATROPINE OPHTH SOLN 1% 5ML BTL SUBLINGUAL PRN (00:39)
[2022-05-21] MEDS ORDERED: DRY MOUTH SPRAY 44.3 SPRAY/44.3 ML SPRAY MUCOUS MEM PRN (00:39)
[2022-05-21] MEDS ORDERED: SCOPOLAMINE 1 MG/72 HR PATCH TRANSDERM SCH (00:45)
[2022-05-21] MEDS ORDERED: diphenhydrAMINE 50 MG/ML 1 ML VIAL IVP PRN (01:06)
[2022-05-21] MEDS: MORPHINE SULFATE 2 MG/ML SYRINGE IV PRN ×2 (01:11→09:20)
[2022-05-21] MEDS ORDERED: VANCOMYCIN TROUGH DUE 1 EACH MISC MISCELLANE ONE (09:00)
[2022-05-21] MEDS: LEVOTHYROXINE 75 MCG TAB PO SCH (10:10)
[2022-05-21] MEDS: CEFEPIME 1 GM in SODIUM CHLORIDE 0.9% 50 ML IVPB SCH (10:11)
[2022-05-21] MEDS: ASPIRIN 81 MG PO SCH (10:11)
[2022-05-21] MEDS: METOPROLOL SUCCINATE (ER) 25 MG TAB.ER.24H PO SCH (10:11)
[2022-05-21] MEDS: FLUTICASONE 50MCG/SPRAY NASAL 16GM EA NOSTRIL SCH (10:11)
[2022-05-21] MEDS: VANCOMYCIN 750 MG in SODIUM CHLORIDE 0.9% 250 ML IVPB SCH (10:12)
--- NOTE | 2022-05-21 10:55 | P.PN ---
Subjective Progress Note Date: 05/21/22 CHIEF COMPLAINT: Right leg cellulitis HISTORY OF PRESENT ILLNESS: Surgical service is following in regards to patient's cholecystitis and choledocholithiasis. Patient is sitting up in bed. She does have a cough. Patient has no abdominal pain. She denies any nausea or vomiting. Patient is followed by pulmonary service due to her respiratory failure which they feel is due to her underlying congenital heart disease. The patient is currently requiring 15 L high flow oxygen and is hypotensive. CODE STATUS is a DO NOT RESUSCITATE. GI service has been consulted regarding hepatitis. Patient is hep C positive. Medicine service has consulted hospice. Patient seen and examined with Dr. meyer PHYSICAL EXAM: VITAL SIGNS: Reviewed. ABDOMEN: Soft. Nondistended. Nontender. ASSESSMENT: 1. Possible Choledocholithiasis with elevated liver enzymes and total bilirubin 2. Cholelithiasis 3. Chronic cholecystitis 4. Hep C positive 5. Active infection with a right leg cellulitis 6. Significant cardiac history with tetralogy fallot repaired at age 10 7. Paroxysmal atrial fibrillation on Xarelto outpatient 8. History of nonischemic cardiomyopathy with AICD 9. Diabetes mellitus PLAN: -Agree with hospice consult -Continue supportive care -No surgical intervention planned. Patient is a high-risk surgical candidate Physician [employer] note has been reviewed by physician. Signing provider agrees with the documented findings, assessment, and plan of care. Objective - Vital Signs Vital signs: Vital Signs Temp 97.4 F L 05/20/22 23:35 Pulse 80 05/20/22 23:35 Resp 17 05/21/22 03:43 BP 92/50 05/20/22 23:50 Pulse Ox 89 L 05/21/22 03:43 FiO2 Intake & Output 05/20/22 05/21/22 05/21/22 18:59 06:59 18:59 Output Total 425 Balance -425 Output: Urine 425 Other: Voiding Method External Catheter External Catheter - Labs CBC & Chem 7: 05/20/22 06:45 05/20/22 06:45 Labs: Abnormal Lab Results - Last 24 Hours (Table) 05/20/22 05/20/22 Range/Units 06:45 17:45 POC Glucose (mg/dL) 126 H (70-110) mg/dL Hep C IgG Ab Reactive A (Nonreactive)
[2022-05-21 11:34] VITALS: PULSE 59; RESP 22
--- NOTE | 2022-05-21 11:40 | P.PN ---
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 She follows in the office with Dr. Armstrong. We have been asked to see in consultation for cardiac risk assessment. Patient initially presented to the hospital on 05/11 with complaints of right leg swelling, nonhealing wound on right lower leg. Patient was diagnosed with cellulitis infectious disease evaluate the patient and was started on IV antibiotics. Liver enzymes were elevated and a liver ultrasound was obtained which revealed small gallstones, possible cholecystitis. General surgery was consulted and evaluated the patient and plan for laparoscopic cholecystectomy on 05/21/[address] meyer. However, patient with declining status, and procedure was not rec ommended. DIAGNOSTICS * Lexiscan stress test in the office 06/2020 normal perfusion study with a fixed defect of small size involving the apex which could be secondary to physiological thinning and could be related to pacemaker rhythm. * 09/2021 Echocardiogram revealed an EF of 5055%, severe tricuspid regurgitation, severe pulmonary hypertension with RVSP of 56 mmHg * Repeat echocardiogram showed ejection fraction of 40-45% with moderate pulmonary hypertension, trace to mild MR and trace to mild AI with severe tricuspid regurgitation. 05/21 Patient seen and examined at bedside, she is lethargic. Continues to require 15L high flow nasal cannula at 89%. Her prognosis is poor and Hospice has been consulted. PHYSICAL EXAMINATION Vitals reviewed CONSTITUTIONAL: No apparent distress. HEENT: Head is normocephalic.no JVD CHEST EXAMINATION: Lungs clear to auscultation. No chest wall tenderness is noted on palpation or with deep breathing. ecchymosis on chest noted HEART EXAMINATION: Regular rate and rhythm. S1, S2 heard. Systolic and diastolic murmur at right sternal border and apex noted. No gallops or rub. ABDOMEN: Soft, nontender. Positive bowel sounds. EXTREMITIES: 2+ peripheral pulses, no lower extremity edema L >R and no calf tenderness. NEUROLOGIC EXAMINATION: Patient is lethargic ASSESSMENT Right leg cellulitis Cholecystitis Elevated Liver enzymes Elevated total bilirubin Acute on chronic kidney disease Hypotension History of Ventricular tachycardia status post shock from ICD Tetralogy of [place] status post repair Valvular heart disease Pulmonary hypertension History of hypertension History of type 2 diabetes History of hyperlipidemia Paroxysmal atrial fibrillation on Xarelto outpatient History of Nonischemic cardiomyopathy with recovered EF PLAN No further changes from a cardiology perspective. Patient made a DNR Hospice is on consult Continue to hold amiodarone and Xarelto due to elevated LFTs and elevated INR. Rest of management per primary Further recommendations based on evaluation by Dr. Cotton. Nurse practitioner note has been reviewed by physician. Signing provider agrees with the documented findings, assessment, and plan of care. Objective - Vital Signs Vital signs: Vital Signs Temp 97.4 F L 05/20/22 23:35 Pulse 80 05/20/22 23:35 Resp 17 05/21/22 03:43 BP 92/50 05/20/22 23:50 Pulse Ox 89 L 05/21/22 03:43 FiO2 Intake & Output 05/20/22 05/21/22 05/21/22 18:59 06:59 18:59 Output Total 425 Balance -425 Output: Urine 425 Other: Voiding Method External Catheter External Catheter - Labs CBC & Chem 7: 05/20/22 06:45 05/20/22 06:45 Labs: Abnormal Lab Results - Last 24 Hours (Table) 05/20/22 05/20/22 Range/Units 06:45 17:45 POC Glucose (mg/dL) 126 H (70-110) mg/dL Hep C IgG Ab Reactive A (Nonreactive)
--- NOTE | 2022-05-22 09:59 | P.PN ---
Subjective Progress Note Date: 05/21/22 Pain and swelling and redness of right leg the patient denies having any fever or any chills, the patient still has significant swelling and redness right lower extremity mention no improvement in the symptoms, patient denies having any chest pain shortness of breath or cough no abdominal pain or diarrhea; states that over the last 24 hours she had acute onset redness pain and swelling to the right lower extremity. There is concern that this is rapidly progressing. Right lower extremity was significantly erythematous with heat. Erythema here to be circumferential around the right lower extremity. It's very tender to palpation. No crepitus felt. X-rays reviewed shows no signs of gas formation in the soft tissues of the leg. Given patient's age and comorbidities there is concern for serious soft tissue infection. Patient started on broad-spectrum antibiotics. Cultures pending. Patient be admitted for IV antibiotics. Infectious disease will be consulted. Lab review shows a WBC of 7.0, hemoglobin 15.4, platelet count of 135, sodium 135, potassium 4.7, BUN/creatinine elevated at 39/1.56, lactic acid level of 1.3, total bilirubin elevated at 2.7; proBNP elevated at 12,200; we will plan to obtain a chest x-ray if patient is symptomatic 05/13/2022 the patient is seen and evaluated in room at bedside; complaints of extreme anxiety; denies having any fever or ages, has been complaining of feeling anxious denies any chest pain or shortness of breath or cough no abdominal pain no diarrhea right lower extremity pain and swelling has slightly decreased -Patient with acute right lower extremity cellulitis in this patient did have diffuse swelling redness likely secondary to gram-positive skin ed underlying chronic infection less likely but not entirely excluded Patient to continue with light Ye wrap from just above the toe to below the knee -patient with multiple antibiotic allergies that would limit the number of antibiotics safe to use Local cultures are currently growing group D enterococcus and gram-negative patient to continue vancomycin and cefepime while waiting for the culture finalized patient will be placed on Xanax at home dose 05/14/2022 Patient is with a right leg cellulitis, on exam she looks with mild improvement Cultures grown sensitive enterococci and pseudomonas Patient currently on IV vancomycin and cefepime with ID team on the case Also patient continued on home dose of Xarelto for her history of paroxysmal A. fib. Follow-up final results of the wound culture 05/15/2022 Patient still with significant right leg cellulitis, she still needs IV antibiotic with vancomycin and cefepime, discussed with ID team. No abdominal pain or vomiting. Monitor liver enzymes tomorrow. Patient has chronic borderline low blood pressure, systolic 90s to 100 intents, at times down to 80s. Asymptomatic. 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 We will keep metoprolol 25 mg twice a day for now. Also she skipped on her dose of Xarelto 05/16/2022 Patient is a sleepy every day, while sitting in chair. Once once she wake up she is appropriate and awake and follow commands and oriented to time place and person. She denies any specific complaints. No headache or weakness, no chest pain or dyspnea. No abdominal pain or nausea vomiting or diarrhea. No right upper quadrant pain or tenderness. Right leg cellulitis is improving, patient can be discharged on IV antibiotics as per ID team However her liver enzymes are trending up today, we will order a liver ultrasound which is still pending 05/17/2022 Patient today is very sleepy and lethargic, she is arousable easily and follow commands and answer questions but go back to sleep right away. She denies abdominal pain and no significant tenderness however patient has with persistent elevated liver enzymes and ultrasound show evidence of cholecystitis and choledocholithiasis also suspected surgery team are consulted with plan for cholecystectomy on Monday 05/21, 05/18/2022 Patient does not have abdominal pain or nausea vomiting and she tolerates diet also she has no problem with her bowel movement. She has however elevated liver enzymes which were trending up and today are still elevated. And on ultrasound she has evidence of cholecystitis, surgery team are planning for cholecystectomy however patient was found higher risk and surgery procedure was aborted as patient is asymptomatic, currently kept on low-fat diet. Her echocardiogram is 40-45% showing cardiomyopathy with LV dysfunction and dilated right ventricle with moderate pulmonary hypertension. Patient remains on IV vancomycin and cefepime. She is also on Xarelto as there is no surgical intervention for now. 05/19/2012 Patient developed respiratory distress and hypoxia last night and she was to be placed on 15 L of oxygen via nontender breather, this morning she needed less oxygen about 5-6 L with oxygen saturation about 92%. Her chest x-ray showing some evidence of pulmonary congestion and she has some leg edema and patient was started on IV Lasix 20 mg twice daily, no documentation of urine output. Patient also receiving broad-spectrum antibiotics of IV vancomycin and cefepime and also she received her Xarelto last night. Creatinine went up a little bit at 1.4 which is still within the expected baseline range She is also tachypneic but with no chest pain. No abdominal pain or right upper quadrant abdominal pain or vomiting. She is also receiving aspirin, 05/20/2012 Patient is awake and alert but lethargic, she looks tired, tachypneic on 10 L oxygen via nasal cannula, chest x-ray showed a fluid overload and she is currently on IV Lasix 20 mg twice daily, creatinine 1.3. Which is at baseline. No more hemoptysis and less bleeding from the, after good lower the dose of Xarelto, however her INR 3.5 and Xarelto was placed on hold. Check INR tomorrow. However patient has worsening liver function and bilirubin is 5.6. Patient denies any abdominal pain, no right upper quadrant tenderness. No nausea vomiting. No signs or symptoms. Lipitor was put on hold Amiodarone also was stopped by salt operator. Patient remains on IV vancomycin and cefepime. Patient remains on aspirin daily. Her legs are still wrapped in Ye and and her cellulitis is improving. Today we had discussion with the patient's sister discussing her plan of treatment and management Prognosis remains very guarded 05/21/2022 Patient is currently lying in bed. Patient is obtunded and does not respond to verbal stimuli. Overnight patient's breathing status is much worse and and currently on high flow oxygen at 15 L via nasal cannula and saturating at 89%. Due to worsening respiratory status family decided to go with comfort care at this time. Hospice was consulted. Current medications reviewed. Objective - Vital Signs Vital signs: Vital Signs Temp 97.4 F L 05/20/22 23:35 Pulse 80 05/20/22 23:35 Resp 17 05/21/22 03:43 BP 92/50 05/20/22 23:50 Pulse Ox 89 L 05/21/22 03:43 FiO2 Intake & Output 05/20/22 05/21/22 05/21/22 18:59 06:59 18:59 Output Total 425 Balance -425 Output: Urine 425 Other: Voiding Method External Catheter External Catheter - Exam - Exam GENERAL: Patient is lethargic and obtunded and does not respond to verbal stimuli. HEENT: Pupils are round and equally reacting to light. EOMI. No scleral icterus. No conjunctival pallor. Normocephalic, atraumatic. No pharyngeal erythema. No thyromegaly. CARDIOVASCULAR: S1 and S2 present. No murmurs, rubs, or gallops. -PULMONARY: Chest is clear to auscultation, no wheezing or crackles. Basal crepitation ABDOMEN: Soft, nontender, nondistended, normoactive bowel sounds. No palpable organomegaly. MUSCULOSKELETAL: No joint swelling or deformity. --EXTREMITIES: No cyanosis, clubbing, a. Right leg cellulitis. Bilateral leg edema, mild, Secured could be closed by her cellulitis NEUROLOGICAL: Patient does not respond to verbal stimuli.. SKIN: No rashes. no petechiae. - Labs CBC & Chem 7: 05/20/22 06:45 05/20/22 06:45 Labs: Abnormal Lab Results - Last 24 Hours (Table) 05/20/22 05/20/22 Range/Units 06:45 17:45 POC Glucose (mg/dL) 126 H (70-110) mg/dL Hep C IgG Ab Reactive A (Nonreactive) Assessment and Plan Assessment: 1. Acute hypoxic respiratory failure requiring high flow oxygen due to CHF Altered mental status is due to metabolic encephalopathy Acute congestive heart failure, systolic with ejection fraction 40-45% - Started with IV Lasix - Hourly Shift already on the case 2. Acute cellulitis right lower extremity - Patient has been placed on IV vancomycin with pharmacy dosing service and cefepime 2 g IV every 8 hours - ID team on the case 3. Chronic kidney disease, stage III. Baseline creatinine 1.2-1.6 4. Acute cholecystitis with transaminitis - Asymptomatic, no need for surgical intervention - High risk for surgery by cardiology team 5. Hypothyroidism; Synthroid 75 MCG daily 6. Hyperlipidemia; Lipitor 20 mg daily 7. Paroxysmal atrial fibrillation; patient is rate controlled on metoprolol and amiodarone 200 mg daily; anticoagulated with Xarelto 15 mg by mouth daily at bedtime Continue to hold amiodarone and Xarelto due to elevated LFTs and INR. 8. Hypertension; metoprolol 50 mg by mouth twice a day DVT prophylaxis; SCDs/Xarelto CODE STATUS; DO NOT RESUSCITATE/DO NOT INTUBATE and comfort care. Time with Patient: Greater than 30
--- NOTE | 2022-05-22 11:59 | CDI ---
Documentation Clarification Form Date: 05/22/2022 11:50:00 AM From: Delia Wise Admit Date: 05/11/2022 05:05:00 PM Patient Name: Chelita Crespo Visit Number: [id number] Discharge Date: 05/21/2022 11:56:00 AM ATTENTION: The Clinical Documentation Specialists (CDI) and [facility] Coding Staff appreciate your assistance in clarifying documentation. Please respond to the clarification below the line at the bottom and electronically sign. The CDI & [facility] Coding staff will review the response and follow-up if needed. Please note: Queries are made part of the Legal Health Record. If you have any questions, please contact the author of this message via ITS. Dr. Alexander Rosario Right lower leg cellulitis is documented throughout the chart and patient is noted to have diabetes. Please clarify if there is a relationship between the cellulitis and the diabetes. History/Risk Factors: Rapidly progressive cellulitis right lower extremity. Diabetes. Debility Treatment: IV Vancomycin Please clarify the relationship, if any, which is clinically appropriate for this patient: [ ] Cellulitis due to diabetes [ ] Cellulitis not due to diabetes [ ] Other explanation of clinical findings (please specify) [ ] Unable to determine (no explanation for clinical findings) Cellulitis not due to diabetes MTDD
== END 2022-05-21 11:56 | disposition hospice, inpatient (51) | DRG 602 ==
LOC: EC 13:51 → 5NMEDONC 17:05 → 6NMEDSUR 19:17 → 3SCARD 05-18 22:12
PROVIDERS: ADMIT Hospitalist; ATTEND Hospitalist
PROC: 02HV33Z Insertion of Infusion Device into Superior Vena Cava, Percutaneous Approach (ICD-10-PCS; principal; 2022-05-16 14:20)
DX: L03.115 Cellulitis of right lower limb (principal); G93.41 Metabolic encephalopathy; I50.21 Acute systolic (congestive) heart failure; J96.01 Acute respiratory failure with hypoxia; Q21.3 Tetralogy of Fallot; I13.0 Hypertensive heart and chronic kidney disease with heart failure and stage 1 through stage 4 chronic kidney disease, or unspecified chronic kidney disease; I42.0 Dilated cardiomyopathy; K80.66 Calculus of gallbladder and bile duct with acute and chronic cholecystitis without obstruction; I50.32 Chronic diastolic (congestive) heart failure; N17.9 Acute kidney failure, unspecified; R64 Cachexia; Z68.1 Body mass index [BMI] 19.9 or less, adult; I47.1 Supraventricular tachycardia; Z16.11 Resistance to penicillins; B95.2 Enterococcus as the cause of diseases classified elsewhere; B96.5 Pseudomonas (aeruginosa) (mallei) (pseudomallei) as the cause of diseases classified elsewhere; B96.89 Other specified bacterial agents as the cause of diseases classified elsewhere; I95.9 Hypotension, unspecified; I27.20 Pulmonary hypertension, unspecified; B19.20 Unspecified viral hepatitis C without hepatic coma; Z66 Do not resuscitate; Z51.5 Encounter for palliative care; E03.9 Hypothyroidism, unspecified; I27.21 Secondary pulmonary arterial hypertension; E11.22 Type 2 diabetes mellitus with diabetic chronic kidney disease; E78.5 Hyperlipidemia, unspecified; F41.9 Anxiety disorder, unspecified; I08.1 Rheumatic disorders of both mitral and tricuspid valves; I48.0 Paroxysmal atrial fibrillation; N18.30 Chronic kidney disease, stage 3 unspecified; Z53.9 Procedure and treatment not carried out, unspecified reason; Z71.3 Dietary counseling and surveillance; H40.9 Unspecified glaucoma; R53.81 Other malaise; Z79.82 Long term (current) use of aspirin; Z79.01 Long term (current) use of anticoagulants; Z79.890 Hormone replacement therapy; Z79.899 Other long term (current) drug therapy; Z86.79 Personal history of other diseases of the circulatory system; Z86.73 Personal history of transient ischemic attack (TIA), and cerebral infarction without residual deficits; Z88.1 Allergy status to other antibiotic agents; Z88.0 Allergy status to penicillin; Z88.2 Allergy status to sulfonamides
CPT/HCPCS: 36415; 36573; 36600; 71045; 76705; 80048; 80053; 80074; 80076; 80202; 81001; 82248; 83605; 83690; 83735; 83880; 84145; 84484; 85025; 85027; 85610; 85730; 86140; 87040; 87070; 87075; 87077; 87186; 87205; 93306; 94640; 94760; 96365; 96366; 96367; 99284

== ENCOUNTER 2022-05-21 11:23 | Inpatient (IN) | payer MEDICAID ==
[2022-05-21] MEDS ORDERED: ATROPINE OPHTH SOLN 1% 5ML BTL SUBLINGUAL PRN (11:35)
[2022-05-21] MEDS ORDERED: GLYCOPYRROLATE 0.2 MG/ML 2 ML VIAL IVP PRN (11:35)
[2022-05-21] MEDS ORDERED: LORazepam 1 MG/0.5 ML VIAL IV PRN (11:35)
[2022-05-21] MEDS ORDERED: ONDANSETRON 4 MG/2 ML VIAL IVP PRN (11:35)
[2022-05-21] MEDS ORDERED: MORPHINE SULFATE 2 MG/ML SYRINGE IV PRN (11:35)
[2022-05-21] MEDS ORDERED: ACETAMINOPHEN SUPPOSITORY 650 MG SUPP RECTAL PRN (11:35)
[2022-05-21] MEDS: MORPHINE SULFATE (100 MG/2 ML) 100 MG in SODIUM CHLORIDE 0.9% 100 ML IV SCH (14:06)
[2022-05-22 10:34] VITALS: RESP 0
[2022-05-22] MEDS: MORPHINE SULFATE (100 MG/2 ML) 100 MG in SODIUM CHLORIDE 0.9% 100 ML IV SCH (14:22)
[2022-05-23] MEDS ORDERED: SCOPOLAMINE 1 MG/72 HR PATCH TRANSDERM SCH (21:00)
== END 2022-05-22 14:58 | disposition expired | DRG 951 ==
LOC: 3SCARD 14:00
PROVIDERS: ADMIT Hospitalist; ATTEND Hospitalist
DX: Z51.5 Encounter for palliative care (principal); L03.115 Cellulitis of right lower limb; N17.9 Acute kidney failure, unspecified; I10 Essential (primary) hypertension; E78.5 Hyperlipidemia, unspecified; I48.0 Paroxysmal atrial fibrillation; E03.9 Hypothyroidism, unspecified; Z79.890 Hormone replacement therapy; D64.9 Anemia, unspecified; H40.9 Unspecified glaucoma; K75.9 Inflammatory liver disease, unspecified; Z79.01 Long term (current) use of anticoagulants; Z95.810 Presence of automatic (implantable) cardiac defibrillator; Z98.42 Cataract extraction status, left eye; Z98.41 Cataract extraction status, right eye; Z88.2 Allergy status to sulfonamides; Z88.5 Allergy status to narcotic agent